=== PATIENT | male | born 1965 | race African-American/Black ===

== ENCOUNTER 2016-07-28 20:10 | Emergency (ER) | payer MEDICAID ==
[~2016-07-28] VITALS: Ht 175.3 cm; Wt 96.2 kg
[~2016-07-28 20:10] MED LIST: ALBUTEROL SULF8.5 GM INH; ASPIR 8181 MG ORAL; BENADRYL25 MG ORAL; CARISOPRODOL250 MG ORAL; DICLOFENAC SODI50 MG ORAL; GABAPENTIN300 MG ORAL; GLIPIZIDE5 MG ORAL; LISINOPRIL20 MG ORAL; METFORMIN HCL1000 M1 ORAL; METFORMIN HCL500 M1 ORAL; METOPROLOL TART25 MG ORAL; NORCO 10/3251 EA ORAL; NORCO 5-325 TA1 EACH ORAL; OXYCODONE HCL15 M1 ORAL; RANITIDINE HCL150 MG ORAL; SERTRALINE HCL25 MG ORAL; SIMVASTATIN40 MG ORAL
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
[2016-07-28] MEDS ORDERED: ROBAXIN-750750 MG PO (20:43)
[2016-07-28] MEDS ORDERED: Methocarbamol 750mg tab ORAL ONE (20:45)
[2016-07-28 21:18] VITALS: BP 125/60
[2016-07-28 21:53] VITALS: BP 125/60
--- NOTE | 2016-07-29 11:32 | Diagnostic Imaging Report ---
Indication: Back pain Comparison: None Findings: 3 views of the lumbar spine were obtained. Multilevel narrowing of intervertebral disks and associated endplate and Facet osteophytes are present. No malalignment identified. No acute fracture definitely seen. Aorta is mildly calcified. Impression: Mild spondylosis. No acute injury appreciated.
--- NOTE | 2016-07-29 11:49 | Diagnostic Imaging Report ---
Indication: Neck Pain Findings: 3 views of the cervical spine were obtained. Study is nondiagnostic due to overexposure. There is no obvious fracture but study is inadequate. There is a slight kyphosis at C2-3. Endplate spurs and narrowing of some of the intervertebral discs are noted. The open-mouth view is grossly negative but the dens is not visualized well. Impression: There is limited study. No obvious acute injury. Consider CT for further evaluation repeating the study.
== END 2016-07-28 21:54 | disposition home or self-care (01) ==
LOC: EMR 20:37
DX: S33.5XXA Sprain of ligaments of lumbar spine, initial encounter (principal); I10 Essential (primary) hypertension; E11.9 Type 2 diabetes mellitus without complications; Z88.6 Allergy status to analgesic agent; V43.52XA Car driver injured in collision with other type car in traffic accident, initial encounter; Y92.410 Unspecified street and highway as the place of occurrence of the external cause; Y99.8 Other external cause status
CPT/HCPCS: 72020; 72040; 99284

== ENCOUNTER 2018-02-01 06:48 | Emergency (ER) | payer MEDICAID ==
[~2018-02-01] VITALS: Ht 175.3 cm; Wt 104.3 kg
[~2018-02-01 06:48] MED LIST changes: +ROBAXIN-750750 MG PO
[2018-02-01] MEDS ORDERED: Lidocaine 2% Visc 15ml soln ORAL ONE (07:15)
[2018-02-01] MEDS ORDERED: Mylanta II UD 30ml ORAL ONE (07:15)
[2018-02-01] MEDS ORDERED: Aspirin Baby 81mg ORAL ONE (07:15)
--- NOTE | 2018-02-01 07:46 | Emergency Room Report ---
History of Present Illness General Chief Complaint: Chest Pain Source: Patient Present Illness HPI This patient states that he has had chest pain and epigastric pain for the past 2 days. The patient states he does have a history of pancreatitis. He does drink alcohol occasionally but does not drink alcohol daily. He does have a history of gastritis and GERD also. He denies recent illness. He denies fever or chills. He denies nausea or vomiting. He denies dysuria or hematuria. He has no other complaints. Allergies: Coded Allergies: HYDROMORPHONE (Verified Allergy, Mild, ITCHING, 07/21/11) CODEINE (Verified Allergy, Unknown, 03/27/11) METOCLOPRAMIDE (Verified Allergy, Unknown, 02/01/18) MORPHINE (Verified Allergy, Unknown, ITCH, 03/27/11) Patient History Past Medical History: see triage record, DM, HTN, GERD Social History: Reports: alcohol use - occ ETOH; Denies: smoking, drug use Reviewed Nursing Documentation: PMH: Agreed; PSxH: Agreed Nursing Documentation-PMH Hx Hypertension: Yes Hx Diabetes: Yes Review of Systems All Other Systems: negative except mentioned in HPI Physical Exam Vital Signs Date Time Temp Pulse Resp B/P (MAP) Pulse Ox O2 Delivery O2 Flow Rate FiO2 02/01/18 06:51 98.0 93 18 162/91 98 Room Air 98.1 Sp02 EP Interpretation: reviewed, normal General Appearance: no apparent distress, alert, GCS 15, non-toxic Head: normocephalic, atraumatic Eyes: bilateral eye normal inspection, bilateral eye PERRL ENT: hearing grossly normal, normal pharynx, no angioedema, normal voice Neck: full range of motion, supple/symm/no masses Respiratory: chest non-tender, lungs clear, normal breath sounds, no respiratory distress, no retraction, no accessory muscle use, speaking full sentences Cardiovascular #1: regular rate, rhythm, no edema Gastrointestinal: normal bowel sounds, soft, non-distended, no guarding, no rebound, tenderness - TTP in the epigastrium Rectal: deferred Musculoskeletal: back normal, gait/station normal, normal range of motion, non- tender Neurologic: alert, oriented x3, responsive, motor strength/tone normal, sensory intact, speech normal Psychiatric: judgement/insight normal, memory normal, mood/affect normal, no suicidal/homicidal ideation Skin: normal color, no rash, warm/dry, well hydrated Medical Decision Making Diagnostic Impression: Primary Impression: Chest pain Additional Impression: Gastritis ER Course This patient has nonspecific chest pain. Given the length of symptoms, this workup is very reassuring with negative cardiac enzymes, normal EKG, and normal chest x-ray. The patient is low risk and his symptoms are atypical for acute coronary syndrome. I have very low suspicion for PE, aortic dissection or pneumothorax based on history/physical, laboratory and radiologic workup. I suspect gastritis. The location of the pain and history and physical examination is consistent with this. I considered other concerning differentials, to include appendicitis, cholelithiasis, cholecystitis, pancreatitis, perforated viscus, aortic aneurysm, and pyelonephritis to name a few. However, laboratory workup in combination with medical and surgical history and physical exam makes these unlikely at this time. Right upper quadrant ultrasound showed no evidence of cholelithiasis or cholecystitis. I did educate the patient on close return precautions and followup instructions.The patient was given close return precautions and followup instructions. Laboratory Tests Test 02/01/18 07:36 02/01/18 07:51 Sodium Level 138 MMOL/L (136-145) Potassium Level 4.2 MMOL/L (3.5-5.1) Chloride Level 101 MMOL/L (98-107) Carbon Dioxide Level 29 MMOL/L (21-32) Anion Gap 8 mmol/L (5-15) Blood Urea Nitrogen 13 mg/dL (7-18) Creatinine 1.3 MG/DL (0.55-1.30) Estimate Glomerular Filtration Rate > 60 mL/min (>60) Glucose Level 241 MG/DL (74-106) H Calcium Level 9.4 MG/DL (8.5-10.1) Total Bilirubin 0.2 MG/DL (0.2-1.0) Aspartate Amino Transferase (AST) 16 U/L (15-37) Alanine Aminotransferase (ALT) 23 U/L (12-78) Alkaline Phosphatase 95 U/L (46-116) Total Creatine Kinase 230 U/L (26-308) Creatine Kinase MB 2.3 NG/ML (0.0-3.6) Creatine Kinase MB Relative Index 1.0 Troponin I 0.000 ng/mL (0.000-0.056) Total Protein 7.8 G/DL (6.4-8.2) Albumin 3.6 G/DL (3.4-5.0) Globulin 4.2 g/dL Albumin/Globulin Ratio 0.9 (1.0-2.7) L Lipase 85 U/L (73-393) White Blood Count 6.0 K/UL (4.8-10.8) Red Blood Count 5.37 M/UL (4.70-6.10) Hemoglobin 13.3 G/DL (14.2-18.0) L Hematocrit 41.3 % (42.0-52.0) L Mean Corpuscular Volume 77 FL (80-99) L Mean Corpuscular Hemoglobin 24.7 PG (27.0-31.0) L Mean Corpuscular Hemoglobin Concent 32.1 G/DL (32.0-36.0) Red Cell Distribution Width 12.7 % (11.6-14.8) Platelet Count 195 K/UL (150-450) Mean Platelet Volume 8.7 FL (6.5-10.1) Neutrophils (%) (Auto) 54.9 % (45.0-75.0) Lymphocytes (%) (Auto) 27.3 % (20.0-45.0) Monocytes (%) (Auto) 8.1 % (1.0-10.0) Eosinophils (%) (Auto) 7.7 % (0.0-3.0) H Basophils (%) (Auto) 2.0 % (0.0-2.0) EKG Diagnostic Results Rate: normal Rhythm: NSR ST Segments: no acute changes Rhythm Strip Diag. Results EP Interpretation: yes Rate: 80's Rhythm: NSR, no PVC's, no ectopy Chest X-Ray Diagnostic Results Chest X-Ray Diagnostic Results : Chest X-Ray Ordered: Yes # of Views/Limited/Complete: 1 View Indication: Chest Pain EP Interpretation: Yes Interpretation: no consolidation, no effusion, no pneumothorax, no acute cardiopulmonary disease Impression: No acute disease Electronically Signed by: [place] CT/MRI/US Diagnostic Results CT/MRI/US Diagnostic Results : Imaging Test Ordered: RUQ US Impression Minimal amount of GB sludge. See official report. Last Vital Signs Date Time Temp Pulse Resp B/P (MAP) Pulse Ox O2 Delivery O2 Flow Rate FiO2 02/01/18 06:51 98.0 93 18 162/91 98 Room Air 98.1 Disposition: HOME, SELF-CARE Condition: Improved Referrals: NON PHYSICIAN (PCP) Patient Instructions: Heartburn Lisa Lewis DO Feb 01, 2018 07:46
[2018-02-01 07:57] LABS: EOSINOPHILS % (AUTO) 7.7 % (0.0-3.0); HEMATOCRIT 41.3 % (42.0-52.0); HEMOGLOBIN 13.3 G/DL (14.2-18.0); LYMPHOCYTES % (AUTO) 27.3 % (20.0-45.0); MEAN CORPUSCULAR VOLUME 77 FL (80-99); MONOCYTES % (AUTO) 8.1 % (1.0-10.0); NEUTROPHILS % (AUTO) 54.9 % (45.0-75.0); PLATELET COUNT 195 K/UL (150-450); RED BLOOD COUNT 5.37 M/UL (4.70-6.10); RED CELL DISTRIBUTION WIDTH 12.7 % (11.6-14.8)
[2018-02-01 08:03] LABS: ANION GAP 8 mmol/L (5-15); BLOOD UREA NITROGEN 13 mg/dL (7-18); CALCIUM 9.4 MG/DL (8.5-10.1); CARBON DIOXIDE 29 MMOL/L (21-32); CHLORIDE 101 MMOL/L (98-107); CREATININE 1.3 MG/DL (0.55-1.30); POTASSIUM 4.2 MMOL/L (3.5-5.1); SODIUM 138 MMOL/L (136-145)
[2018-02-01 08:08] VITALS: BP 183/90
[2018-02-01 08:16] LABS: ALANINE AMINOTRANSFERASE 23 U/L (12-78); ALBUMIN 3.6 G/DL (3.4-5.0); ALBUMIN/GLOBULIN RATIO 0.9 (1.0-2.7); ALKALINE PHOSPHATASE 95 U/L (46-116); ASPARTATE AMINO TRANSFERASE 16 U/L (15-37); BILIRUBIN,TOTAL 0.2 MG/DL (0.2-1.0); CKMB 2.3 NG/ML (0.0-3.6); CREATINE KINASE 230 U/L (26-308)
[2018-02-01] MEDS ORDERED: Metoprolol Succinate XL 25mg tab ORAL ONE (08:30)
[2018-02-01] MEDS ORDERED: Ketorolac 30mg Inj IV ONE (08:45)
[2018-02-01 09:11] VITALS: BP 177/91
[2018-02-01 09:16] LABS: BILIRUBIN, URINE NEGATIVE (NEGATIVE); COLOR,URINE PALE YELLOW; GLUCOSE, URINE (UA) 3+ (NEGATIVE); KETONES,URINE NEGATIVE (NEGATIVE); LEUKOCYTE ESTERASE ,URINE NEGATIVE (NEGATIVE); NITRITE,URINE NEGATIVE (NEGATIVE); PH,URINE 6 (4.5-8.0); PROTEIN,URINE 3+ (NEGATIVE); UROBILINOGEN,URINE NORMAL MG/DL (0.0-1.0)
[2018-02-01 09:19] LABS: APPEARANCE,URINE SLIGHTLY CLOUDY
[2018-02-01 09:41] VITALS: BP 152/86
[2018-02-01] MEDS ORDERED: PEPCID AC20 M2 PO (10:18)
[2018-02-01 10:32] VITALS: BP 152/86
--- NOTE | 2018-02-01 10:34 | Diagnostic Imaging Report ---
Indication: Epigastric pain, nausea x2 days, history of pancreatitis Technique: Laboy-scale and duplex images of the upper abdomen were obtained Comparison: Reference made to abdomen pelvis CT dated 10/22/2014 Findings: Gallbladder demonstrates a small amount of sludge. No gallstones. No wall thickening nor pericholecystic fluid Sonographic Manriquez's sign is negative. Common bile duct measures 6 mm in diameter. No intrahepatic biliary ductal dilatation. Liver demonstrates diffusely increased echogenicity, consistent with diffuse hepatocellular disease, most likely fatty change. It is somewhat enlarged. Portal vein and hepatic veins are patent.. No focal hepatic abnormality Pancreas is unremarkable. Spleen is unremarkable. Left kidney measures 12.1 cm in length. Right kidney measures 11.8 cm length. Both kidneys demonstrate normal echogenicity. There is no hydronephrosis. There is a 10 mm cyst in the the upper pole of the left kidney . Abdominal aorta is partially obscured by bowel gas, visualized portions are non-aneurysmal . Impression: , Or sludge. Negative for stones or dilated ducts Liver demonstrates slight enlargement and diffusely increased echogenicity, consistent with diffuse hepatocellular disease, most likely fatty change. Incidental finding small left renal cyst Note inability to visualize portions of the abdominal aorta
--- NOTE | 2018-02-01 12:16 | Diagnostic Imaging Report ---
Indication: Chest pain Technique: One view of the chest Comparison: 01/09/2015 Findings: The heart is borderline enlarged. Lungs and pleural spaces are clear. The thoracic spine demonstrate degenerative spondylosis changes. Impression: Borderline cardiomegaly No acute process
--- NOTE | 2018-02-03 14:25 | Cardiology Report ---
APPROVED REPORT EKG Measurement Heart [id number] Normal sinus rhythm Normal ECG
== END 2018-02-01 10:37 | disposition home or self-care (01) ==
LOC: EMR 07:27
DX: R07.9 Chest pain, unspecified (principal); K29.70 Gastritis, unspecified, without bleeding; E11.9 Type 2 diabetes mellitus without complications; I10 Essential (primary) hypertension
CPT/HCPCS: 36415; 71045; 76700; 80053; 80307; 81003; 82550; 82553; 83690; 84484; 85025; 93005; 96361; 96374; 96375; 99284; J1885; S0028

== ENCOUNTER 2019-01-08 04:55 | Inpatient (IN) | payer MEDICAID ==
[2019-01-08] VITALS (8 sets, daily range): BP systolic 104–215; BP diastolic 70–115
[~2019-01-08] VITALS: Ht 175.3 cm; Wt 101.2 kg
[~2019-01-08 04:55] MED LIST changes: +PEPCID AC20 M2 PO
[2019-01-08] MEDS ORDERED: HYDROmorphone 1 MG, DiphenhydrAMINE 25 MG in NS 55 ML IV ONE (05:15)
--- NOTE | 2019-01-08 05:25 | Emergency Room Report ---
History of Present Illness General Chief Complaint: Abdominal Pain Source: Patient Present Illness HPI Patient 53-year-old male who presented after increased abdominal pain. Reports of increased left-sided upper abdominal pain which did not radiate. He reports having similar symptoms in the past. He reports episodes of nausea without vomiting. He had prior history of diabetes as well as chronic pancreatitis. Prior history of scrotal abscess. He denies any exertional change in pain. He reports having prior history of hypertension as well as type 2 diabetes and reports he has had [id number] blood sugars. He denies any fever. He reports having onset of pain approximately 3 days ago. He denies any recent alcohol intake. He states last alcohol intake was on Father's Day. He denies any prior gallbladder surgery. Allergies: Coded Allergies: HYDROMORPHONE (Verified Allergy, Mild, ITCHING, 07/21/11) CODEINE (Verified Allergy, Unknown, 03/27/11) METOCLOPRAMIDE (Verified Allergy, Unknown, 02/01/18) MORPHINE (Verified Allergy, Unknown, ITCH, 03/27/11) Patient History Past Medical History: see triage record Reviewed Nursing Documentation: PMH: Agreed; PSxH: Agreed Nursing Documentation-PMH Hx Hypertension: Yes Hx Diabetes: Yes Hx Gastrointestinal Problems: Yes - Pancreatitis Review of Systems All Other Systems: negative except mentioned in HPI Physical Exam Vital Signs Date Time Temp Pulse Resp B/P (MAP) Pulse Ox O2 Delivery O2 Flow Rate FiO2 01/08/19 05:05 98.4 96 18 193/100 (131) 96 Room Air Sp02 EP Interpretation: reviewed, normal General Appearance: normal inspection, alert, GCS 15, Chronically Ill Head: atraumatic ENT: normal ENT inspection, hearing grossly normal, normal voice Neck: normal inspection, full range of motion, supple, no bony tend Respiratory: normal inspection, lungs clear, normal breath sounds, no respiratory distress, no retraction, no wheezing Cardiovascular #1: regular rate, rhythm, no edema Gastrointestinal: normal inspection, normal bowel sounds, non tender, soft, no guarding, no hernia Genitourinary: no CVA tenderness Musculoskeletal: normal inspection, back normal, normal range of motion Neurologic: normal inspection, alert, oriented x3, responsive, workforce development program director III-XII nml as tested, speech normal Psychiatric: normal inspection, judgement/insight normal, mood/affect normal Medical Decision Making Diagnostic Impression: Primary Impression: Pancreatitis Additional Impression: Chest pain with high risk of acute coronary syndrome ER Course Patient presented for abdominal pain. Differential diagnoses included ischemic bowel, appendicitis, perforated viscus, abdominal aortic aneurysm, inferior myocardial infarction, viral gastroenteritis among others. Because of complexity of patient's case laboratory testing and imaging studies were ordered. Patient noted to have prior history of chronic abdominal pain. CT imaging of the abdomen pelvis was ordered due to patient's significant symptoms. Patient noted to have markedly elevated blood pressure. He was given IV pain medications. He started on IV fluids.Patient will be hospitalized due to uncontrolled blood sugar as well as pancreatitis. Patient was given IV pain medications as well as acid blockers. Labs Test 01/08/19 05:40 White Blood Count 6.0 K/UL (4.8-10.8) Red Blood Count 5.25 M/UL (4.70-6.10) Hemoglobin 13.5 G/DL (14.2-18.0) Hematocrit 41.7 % (42.0-52.0) Mean Corpuscular Volume 79 FL (80-99) Mean Corpuscular Hemoglobin 25.7 PG (27.0-31.0) Mean Corpuscular Hemoglobin Concent 32.3 G/DL (32.0-36.0) Red Cell Distribution Width 13.2 % (11.6-14.8) Platelet Count 210 K/UL (150-450) Mean Platelet Volume 8.4 FL (6.5-10.1) Neutrophils (%) (Auto) 54.2 % (45.0-75.0) Lymphocytes (%) (Auto) 32.5 % (20.0-45.0) Monocytes (%) (Auto) 8.3 % (1.0-10.0) Eosinophils (%) (Auto) 3.5 % (0.0-3.0) Basophils (%) (Auto) 1.5 % (0.0-2.0) Urine Color Pale yellow Urine Appearance Clear Urine pH 6.5 (4.5-8.0) Urine Specific [place] 1.010 (1.005-1.035) Urine Protein 3+ (NEGATIVE) Urine Glucose (UA) 4+ (NEGATIVE) Urine Ketones Negative (NEGATIVE) Urine Blood 3+ (NEGATIVE) Urine Nitrite Negative (NEGATIVE) Urine Bilirubin Negative (NEGATIVE) Urine Urobilinogen Normal MG/DL (0.0-1.0) Urine Leukocyte Esterase Negative (NEGATIVE) Urine RBC 2-4 /HPF (0 - 0) Urine WBC 0 /HPF (0 - 0) Urine Squamous Epithelial Cells None /LPF (NONE/OCC) Urine Bacteria None /HPF (NONE) Sodium Level 137 MMOL/L (136-145) Potassium Level 4.7 MMOL/L (3.5-5.1) Chloride Level 102 MMOL/L (98-107) Carbon Dioxide Level 30 MMOL/L (21-32) Anion Gap 6 mmol/L (5-15) Blood Urea Nitrogen 20 mg/dL (7-18) Creatinine 1.5 MG/DL (0.55-1.30) Estimat Glomerular Filtration Rate 59.8 mL/min (>60) Glucose Level 396 MG/DL (74-106) Calcium Level 8.9 MG/DL (8.5-10.1) Total Bilirubin 0.2 MG/DL (0.2-1.0) Aspartate Amino Transf (AST/SGOT) 15 U/L (15-37) Alanine Aminotransferase (ALT/SGPT) 16 U/L (12-78) Alkaline Phosphatase 97 U/L (46-116) Troponin I 0.011 ng/mL (0.000-0.056) Pro-B-Type Natriuretic Peptide 71 pg/mL (0-125) Total Protein 7.1 G/DL (6.4-8.2) Albumin 3.5 G/DL (3.4-5.0) Globulin 3.6 g/dL Albumin/Globulin Ratio 1.0 (1.0-2.7) Lipase 469 U/L (73-393) Serum Alcohol < 3 mg/dL Last Vital Signs Date Time Temp Pulse Resp B/P (MAP) Pulse Ox O2 Delivery O2 Flow Rate FiO2 01/08/19 05:05 98.4 96 18 193/100 (131) 96 Room Air Status: improved Disposition: ADMITTED INPATIENT Condition: Stable Referrals: [facility] (PCP) Jesse Will MD Jan 08, 2019 05:25
[2019-01-08] MEDS ORDERED: BUMEX1 MG ORAL (05:34)
[2019-01-08] MEDS ORDERED: PRAVACHOL40 MG ORAL (05:34)
[2019-01-08] MEDS ORDERED: OMEPRAZOLE20 M3 ORAL (05:34)
[2019-01-08] MEDS ORDERED: DICYCLOMINE HCL10 MG ORAL (05:34)
[2019-01-08] MEDS ORDERED: ACTOS45 MG ORAL (05:34)
[2019-01-08] MEDS ORDERED: AMLODIPINE BESY10 MG ORAL (05:34)
[2019-01-08] MEDS ORDERED: LANTUS SOL100 UNIT/1 SUBQ (05:34)
[2019-01-08] MEDS ORDERED: BASAGLAR (05:34)
[2019-01-08] MEDS ORDERED: URSODIOL500 MG PO (05:34)
[2019-01-08] MEDS ORDERED: METOPROLOL TART25 MG ORAL (05:34)
[2019-01-08] MEDS ORDERED: APIDRA SOL100 UNIT/1 SQ (05:34)
[2019-01-08 05:49] LABS: APPEARANCE,URINE CLEAR; BASOPHILS % (AUTO) 1.5 % (0.0-2.0); BILIRUBIN, URINE NEGATIVE (NEGATIVE); COLOR,URINE PALE YELLOW; EOSINOPHILS % (AUTO) 3.5 % (0.0-3.0); GLUCOSE, URINE (UA) 4+ (NEGATIVE); HEMATOCRIT 41.7 % (42.0-52.0); HEMOGLOBIN 13.5 G/DL (14.2-18.0); KETONES,URINE NEGATIVE (NEGATIVE); LEUKOCYTE ESTERASE ,URINE NEGATIVE (NEGATIVE); LYMPHOCYTES % (AUTO) 32.5 % (20.0-45.0); MEAN CORPUSCULAR VOLUME 79 FL (80-99); MONOCYTES % (AUTO) 8.3 % (1.0-10.0); NEUTROPHILS % (AUTO) 54.2 % (45.0-75.0); NITRITE,URINE NEGATIVE (NEGATIVE); PH,URINE 6.5 (4.5-8.0); PLATELET COUNT 210 K/UL (150-450); PROTEIN,URINE 3+ (NEGATIVE); RED BLOOD COUNT 5.25 M/UL (4.70-6.10); RED CELL DISTRIBUTION WIDTH 13.2 % (11.6-14.8); UROBILINOGEN,URINE NORMAL MG/DL (0.0-1.0)
[2019-01-08 06:04] LABS: ANION GAP 6 mmol/L (5-15); BLOOD UREA NITROGEN 20 mg/dL (7-18); CALCIUM 8.9 MG/DL (8.5-10.1); CARBON DIOXIDE 30 MMOL/L (21-32); CHLORIDE 102 MMOL/L (98-107); CREATININE 1.5 MG/DL (0.55-1.30); POTASSIUM 4.7 MMOL/L (3.5-5.1); SODIUM 137 MMOL/L (136-145)
[2019-01-08 06:14] LABS: ALANINE AMINOTRANSFERASE 16 U/L (12-78); ALBUMIN 3.5 G/DL (3.4-5.0); ALKALINE PHOSPHATASE 97 U/L (46-116); ASPARTATE AMINO TRANSFERASE 15 U/L (15-37); BILIRUBIN,TOTAL 0.2 MG/DL (0.2-1.0)
[2019-01-08] MEDS ORDERED: Isovue-300 100ml vial INJ PRN (06:15)
--- NOTE | 2019-01-08 06:45 | NUR ---
ED Nurse Note: Patient walked in to ER c/o severe left upper abdominal pain 10/10. AAO x4, BP uppon arrival 197/100, other VSS at this time, skin is dry warm to touch. ER MD at bed side.
--- NOTE | 2019-01-08 07:41 | NUR ---
HAND-OFF: Report given to DONELL Garrett.
--- NOTE | 2019-01-08 07:41 | NUR ---
ED Nurse Note: Pt received from DONELL Donahue. Pt is in bed resting comfortably, lung sounds clear, respiration non-labored. Pain 3/10 zachary. No sign of acute distress. BP 149/81 zachary. Will cont to monitor.
--- NOTE | 2019-01-08 09:18 | NUR ---
ED Nurse Note: Report given to DONELL Tillman at ext [phone]. Pt to be transfered to room 212-2 on [facility] per protocol.
--- NOTE | 2019-01-08 09:20 | NUR ---
NURSE NOTES: Layne received report from DONELL Garrett@ ER. Received report from DONELL Tillman. The patient's next of kin, Evelina, is also at the beside supporting the patient. . The patient received pain medication @ ER but still has 10/10 pain on abdomen. Notified to Dr. Loomis, who is admitting doctor. The patient's belongings checked with the patient at the bedside and confirmed by the patient. Medical, surgical, allergy, and social history taken by the nurse. Admitting EKG strip obtained. Medication reconciliation completed. The patient has right AC 20G SL IV, which is intact and patent. Per patient, he does not have POLST or Advance directive. The patient's vital signs were 163/94 BP, 81 pulse, SpO2 96% in room air, and temperature of 97.7F. Received order from Dr. Loomis and will carry out the order. Addendum: 01/08/19 at 1535 by Chapo Nuñez RN Skin assessment completed and intact.
[2019-01-08 09:40] LABS: CHOLESTEROL 240 MG/DL (< 200); HDL CHOLESTEROL 36 MG/DL (40-60); TRIGLYCERIDES 222 MG/DL (30-150)
--- NOTE | 2019-01-08 09:44 | Diagnostic Imaging Report ---
Clinical Indication: Abdominal pain, increasing left-sided upper abdominal pain which does not radiate. Prior history of pancreatitis Technique: No oral contrast utilized, per emergency room physician request IV administration nonionic contrast. Venous phase spiral acquisition obtained through the abdomen and pelvis. Multiplanar reconstructions were generated. Total dose length product 998.01 mGycm. CTDIvol(s) 17.93 mGy. Dose reduction achieved using automated exposure control Comparison: 10/22/2014 Findings: There is very slight infiltration of the peripancreatic fat surrounding the head and the uncinate process. This is similar to the previous exam although less extensive. The pancreas is not swollen or enlarged. The pancreatic body and tail appear unremarkable. No unusual masses or cyst demonstrated. The pancreas enhances normally. The gallbladder is distended. No definite gallstones demonstrated. No biliary ductal dilatation. No focal liver abnormality. The spleen is unremarkable. There are multiple accessory splenules. The adrenals and kidneys are unremarkable. Left renal cyst described on 02/01/2018 abdominal sonogram is not evident on CT. No retroperitoneal or mesenteric mass or adenopathy. No pelvic mass or adenopathy. The bladder is distended The appendix is normal. Liquid contents are seen in the proximal colon. No evidence of diverticulosis or diverticulitis. No small bowel distention. No free or loculated intraperitoneal gas or fluid is evident. The distal esophagus, stomach, duodenum are unremarkable. Small fat-containing umbilical hernia again demonstrated. The bones demonstrate degenerative spondylosis changes. Mild degenerative proliferative changes of the hips are again noted. The included lung bases are clear Impression: Very slight stranding of the peripancreatic fat adjacent to the inferior pancreatic head and uncinate consistent with focal uncomplicated acute pancreatitis. Correlate with clinical and laboratory findings Negative for gallstones or dilated bile ducts Distended bladder Evidence of liquid colonic stool, may indicate diarrheal illness Incidental findings as noted, including degenerative spondylosis, mild right lateral hip degenerative changes, small fat-containing umbilical hernia, accessory splenules This essentially agrees with the preliminary interpretation provided overnight by [facility] teleradiology service. The CT scanner at [facility] is accredited by the [employer] and the scans are performed using protocols designed to limit radiation exposure to as low as reasonably achievable to attain images of sufficient resolution adequate for diagnostic evaluation.
--- NOTE | 2019-01-08 10:08 | History and Physical ---
History of Present Illness General Date patient seen: Jan 08, 2019 Reason for Hospitalization: Abdominal Pain Present Illness HPI 53 year old male with PMH of diet controlled DM, presented with complaints of abdominal pain. States pain started 2 days ago and worsened today therefore came in for evaluation. States pain is 8/10 in intensity, radiates to back, worse with food, + nausea, -vomiting. States he has had pancreatitis prior and this feels like previous episodes. Denies ETOH consumption. Pt denies substance abuse, vomiting, chest pain, headaches, blurry vision, urinary complaints, fevers, chills, or SOB Allergies: Coded Allergies: CODEINE (Verified Allergy, Unknown, 03/27/11) METOCLOPRAMIDE (Verified Allergy, Unknown, 02/01/18) MORPHINE (Verified Allergy, Unknown, ITCH, 03/27/11) Medication History Scheduled Albuterol Sulfate* (Albuterol Sulfate Mdi*), 2 PUFF INH Q4H Amlodipine Besylate* (Amlodipine Besylate*), 10 MG ORAL BID, (Reported) Aspirin* (Aspir 81*), 81 MG ORAL DAILY, (Reported) Bumetanide (Bumetanide), 1 MG ORAL DAILY, (Reported) Carisoprodol (Carisoprodol), 350 MG ORAL BID, (Reported) Diclofenac Sod* (Voltaren*), 50 MG ORAL BID, (Reported) Dicyclomine Hcl* (Dicyclomine Hcl*), 10 MG ORAL DAILY, (Reported) Famotidine (Pepcid Ac), 20 MG PO BID Gabapentin* (Gabapentin*), 300 MG ORAL BEDTIME, (Reported) Glipizide* (Glipizide*), 10 MG ORAL BIDAC, (Reported) Insulin Glargine (Lantus), 60 SUBQ BEDTIME, (Reported) Lisinopril (Lisinopril*), 20 MG ORAL DAILY, (Reported) Metformin Hcl* (Metformin Hcl*), 500 MG ORAL DAILY, (Reported) Metformin Hcl* (Metformin Hcl*), 1,000 MG ORAL BID, (Reported) Methocarbamol* (Robaxin-750*), 750 MG PO TID Metoprolol Tartrate* (Metoprolol Tartrate*), 25 MG ORAL BID, (Reported) Metoprolol Tartrate* (Metoprolol Tartrate*), 25 MG ORAL EVERY 12 HOURS, ( Reported) Omeprazole (Omeprazole), 20 MG ORAL DAILY, (Reported) Pioglitazone Hcl* (Actos*), 45 MG ORAL DAILY, (Reported) Pravastatin Sodium (Pravachol), 80 MG ORAL BEDTIME, (Reported) Ranitidine Hcl* (Zantac*), 150 MG ORAL TWICE A DAY Sertraline Hcl* (Sertraline Hcl*), 25 MG ORAL DAILY, (Reported) Simvastatin (Zocor), 40 MG ORAL DAILY, (Reported) Ursodiol (Ursodiol), 500 MG PO DAILY, (Reported) Scheduled PRN Diphenhydramine Hcl* (Benadryl*), 25 MG ORAL Q6H PRN for Itching Hydrocodone Bit/Acetaminophen 5-325* ([place] 5-325*), 1 TAB ORAL Q6H PRN for For Pain Hydrocodone Bit/Acetaminophen 5-325* ([place] 5-325*), 1 TAB ORAL Q6H PRN for For Pain Hydrocodone/Acetaminophen (Hydrocodon-Acetaminophn 10-325), 1 TAB ORAL Q6H PRN for For Pain Oxycodone Hcl* (Oxycodone Hcl*), 30 MG ORAL Q6H PRN for For Pain, (Reported) Miscellaneous Medications Insulin Glulisine (Apidra Solostar), 100 UNIT SQ, (Reported) Patient History Healthcare decision maker Resuscitation status Advanced Directive on File Review of Systems ROS Narrative General ROS:~no weight loss or fever Psychological ROS:~no depression or mood changes, no memory loss Ophthalmic ROS:~no visual changes or eye irritation ENT ROS:~no nasal congestion, hearing loss, dizziness Allergy and Immunology ROS:~no allergic symptoms or urticaria Hematological and Lymphatic ROS:~no swollen glands, unusual bleeding or bruising Endocrine ROS:~no polyuria, polydipsia, weight changes, temperature intolerance Respiratory ROS:~no cough, shortness of breath, or wheezing Cardiovascular ROS:~no chest pain or dyspnea on exertion Gastrointestinal ROS:~c/o abdominal pain, denies change in bowel habits, or black or bloody stools~c/o constipation~ Musculoskeletal ROS:~no myalgias or arthralgias Neurological ROS:~no TIA or stroke symptoms Dermatological ROS:~no new or changing skin lesions, rashes or pruritis Physical Exam Extremities: no calf tenderness Last 24 Hour Vital Signs Date Time Temp Pulse Resp B/P (MAP) Pulse Ox O2 Delivery O2 Flow Rate FiO2 01/08/19 09:18 98.5 79 17 150/86 99 Room Air 01/08/19 09:02 98.5 79 17 150/86 99 Room Air 01/08/19 07:44 98.5 97 20 149/81 99 Room Air 01/08/19 07:27 98.5 18 215/115 96 Room Air 01/08/19 07:27 98 18 Room Air 01/08/19 06:25 98 215/115 01/08/19 06:20 98.5 01/08/19 06:02 197/100 01/08/19 05:05 98.4 96 18 193/100 (131) 96 Room Air Laboratory Tests Test 01/08/19 05:40 White Blood Count 6.0 K/UL (4.8-10.8) Red Blood Count 5.25 M/UL (4.70-6.10) Hemoglobin 13.5 G/DL (14.2-18.0) L Hematocrit 41.7 % (42.0-52.0) L Mean Corpuscular Volume 79 FL (80-99) L Mean Corpuscular Hemoglobin 25.7 PG (27.0-31.0) L Mean Corpuscular Hemoglobin Concent 32.3 G/DL (32.0-36.0) Red Cell Distribution Width 13.2 % (11.6-14.8) Platelet Count 210 K/UL (150-450) Mean Platelet Volume 8.4 FL (6.5-10.1) Neutrophils (%) (Auto) 54.2 % (45.0-75.0) Lymphocytes (%) (Auto) 32.5 % (20.0-45.0) Monocytes (%) (Auto) 8.3 % (1.0-10.0) Eosinophils (%) (Auto) 3.5 % (0.0-3.0) H Basophils (%) (Auto) 1.5 % (0.0-2.0) Urine Color Pale yellow Urine Appearance Clear Urine pH 6.5 (4.5-8.0) Urine Specific [place] 1.010 (1.005-1.035) Urine Protein 3+ (NEGATIVE) H Urine Glucose (UA) 4+ (NEGATIVE) H Urine Ketones Negative (NEGATIVE) Urine Blood 3+ (NEGATIVE) H Urine Nitrite Negative (NEGATIVE) Urine Bilirubin Negative (NEGATIVE) Urine Urobilinogen Normal MG/DL (0.0-1.0) Urine Leukocyte Esterase Negative (NEGATIVE) Urine RBC 2-4 /HPF (0 - 0) H Urine WBC 0 /HPF (0 - 0) Urine Squamous Epithelial Cells None /LPF (NONE/OCC) Urine Bacteria None /HPF (NONE) Sodium Level 137 MMOL/L (136-145) Potassium Level 4.7 MMOL/L (3.5-5.1) Chloride Level 102 MMOL/L (98-107) Carbon Dioxide Level 30 MMOL/L (21-32) Anion Gap 6 mmol/L (5-15) Blood Urea Nitrogen 20 mg/dL (7-18) H Creatinine 1.5 MG/DL (0.55-1.30) H Estimat Glomerular Filtration Rate 59.8 mL/min (>60) Glucose Level 396 MG/DL (74-106) H Calcium Level 8.9 MG/DL (8.5-10.1) Total Bilirubin 0.2 MG/DL (0.2-1.0) Aspartate Amino Transf (AST/SGOT) 15 U/L (15-37) Alanine Aminotransferase (ALT/SGPT) 16 U/L (12-78) Alkaline Phosphatase 97 U/L (46-116) Troponin I 0.011 ng/mL (0.000-0.056) Pro-B-Type Natriuretic Peptide 71 pg/mL (0-125) Total Protein 7.1 G/DL (6.4-8.2) Albumin 3.5 G/DL (3.4-5.0) Globulin 3.6 g/dL Albumin/Globulin Ratio 1.0 (1.0-2.7) Triglycerides Level 222 MG/DL (30-150) H Cholesterol Level 240 MG/DL (< 200) H LDL Cholesterol 152 mg/dL (<100) H HDL Cholesterol 36 MG/DL (40-60) L Cholesterol/HDL Ratio 6.7 (3.3-4.4) H Lipase 469 U/L (73-393) H Serum Alcohol < 3 mg/dL Height (Feet): 5 Height (Inches): 9.00 Weight (Pounds): 220 Medications Current Medications Medications (Trade) Dose Ordered Sig/Naye Route PRN Reason Start Time Stop Time Status Last Admin Dose Admin Iopamidol (Isovue-300 100ml) 100 ml NOW PRN INJ Radiology Procedure 01/08/19 06:15 Objective Narrative General appearance:~~alert, cooperative, no distress, appears stated age Head:~~Normocephalic, without obvious abnormality, atraumatic Eyes:~~conjunctivae/corneas clear. PERRL, EOM's intact. Fundi benign Throat:~~Lips, mucosa, and tongue normal. Teeth and gums normal Neck:~~supple, symmetrical, trachea midline, no adenopathy, thyroid: not enlarged, symmetric, no tenderness/mass/nodules, no carotid bruit and no JVD Lungs:~~clear to auscultation bilaterally Heart:~~regular rate and rhythm, S1, S2 normal, no murmur, click, rub or gallop Abdomen:diffuse tenderness Extremities:~~extremities normal, atraumatic, no cyanosis or edema Pulses:~~2+ and symmetric Skin:~~Skin color, texture, turgor normal. No rashes or lesions Neurologic:~~Grossly normal Assessment/Plan Assessment/Plan: 53 year old male with PMH of diet controlled DM, presented with complaints of abdominal pain admitted for acute pancreatitis. #Acute Pancreatitis -GI consulted -Surgery consult in am -Trend lipase -Pain control -Clear liq - adv as tolerated -avoid fatty foods #DM --diet controlled -cont carb controlled diet once advanced Code: Manager Education of note may not reflect time of encounter Sera Loomis MD Jan 08, 2019 10:08
[2019-01-08] MEDS ORDERED: HYDROmorphone 1mg/ml Carpuject IVP PRN (10:15)
[2019-01-08] MEDS ORDERED: LORazepam Inj 2mg/ml 1ml IV PRN (10:15)
[2019-01-08] MEDS ORDERED: Milk of Magnesia 30ml Ud ORAL PRN (10:15)
--- NOTE | 2019-01-08 10:40 | GI Initial Consult Note ---
History of Present Illness General Date patient seen: Jan 08, 2019 Time patient seen: 10:33 Reason for Hospitalization: Abdominal Pain Referring physician: JOHN Reason for Consultation: PANCREATITIS Present Illness HPI Patient 53-year-old male who presented after increased abdominal pain. Reports of increased left-sided upper abdominal pain which did not radiate. He reports having similar symptoms in the past. He reports episodes of nausea without vomiting. He had prior history of diabetes as well as chronic pancreatitis. Prior history of scrotal abscess. He denies any exertional change in pain. He reports having prior history of hypertension as well as type 2 diabetes and reports he has had [id number] blood sugars. He denies any fever. He reports having onset of pain approximately 3 days ago. He denies any recent alcohol intake. He states last alcohol intake was on Father's Day. He denies any prior gallbladder surgery. GI consulted for pancreatitis. Patient seen, awake alert and oriented x4 has complaint of epigastric and left upper quadrant abdominal pain x3 days. The patient reports nausea without vomiting. Denies any use of alcohol, drug use. The patient is a tobacco user. Patient states he has a history of chronic pancreatitis and has been hospitalized multiple times for similar conditions. Abdominal pelvic CT was performed, findings consistent for focal uncomplicated acute pancreatitis. Patient presents today with a lipase level of 419, triglyceride level 222. Last endoscopy and colonoscopy was approximately 3 years ago which the patient reported colonic polyps. Home Meds Active Scripts Famotidine (PEPCID AC) 20 Mg Tablet, 20 MG PO BID, #60 TAB Prov:Lisa LewisJudith DO 02/01/18 Methocarbamol* (ROBAXIN-750*) 750 Mg Tablet, 750 MG PO TID, #21 TAB 0 Refills Prov:Ilya Bacon DO 07/28/16 Albuterol Sulfate* (ALBUTEROL SULFATE MDI*) 8.5 Gm Hfa.aer.ad, 2 PUFF INH Q4H, # 1 INH 0 Refills Prov:AustenartemioLisa BuckleyJudith DO 01/09/15 Hydrocodone Bit/Acetaminophen 5-325* (NORCO 5-325*) 1 Each Tablet, 1 TAB ORAL Q6H PRN for For Pain, #10 TAB 0 Refills Prov:DemetriobooLisaJudith DO 01/09/15 Hydrocodone/Acetaminophen (Hydrocodon-Acetaminophn 10-325) 1 Ea Tab, 1 TAB ORAL Q6H PRN for For Pain, #30 TAB Prov:PREET SOTO M.D. 03/29/14 Diphenhydramine Hcl* (BENADRYL*) 25 Mg Capsule, 25 MG ORAL Q6H PRN for Itching, #30 CAP 0 Refills Prov:Lavinia Gomez 02/17/14 Ranitidine Hcl* (ZANTAC*) 150 Mg Tablet, 150 MG ORAL TWICE A DAY, #30 TAB 0 Refills Prov:Lavinia Gomez 02/17/14 Hydrocodone Bit/Acetaminophen 5-325* (NORCO 5-325*) 1 Each Tablet, 1 TAB ORAL Q6H PRN for For Pain, #10 TAB 0 Refills Prov:Lavinia Gomez 02/17/14 Reported Medications Insulin Glulisine (APIDRA SOLOSTAR) 100 Unit/1 Ml Insuln.pen, 100 UNIT SQ, EA 01/08/19 Bumetanide (Bumetanide) 1 Mg Tablet, 1 MG ORAL DAILY, TAB 01/08/19 Insulin Glargine (LANTUS) 100 Unit/1 Ml Insuln.pen, 60 SUBQ BEDTIME, #1 EA 0 Refills 01/08/19 Ursodiol (URSODIOL) 500 Mg Tablet, 500 MG PO DAILY, TAB 01/08/19 Pravastatin Sodium (PRAVACHOL) 40 Mg Tablet, 80 MG ORAL BEDTIME, TAB 01/08/19 Metoprolol Tartrate* (METOPROLOL TARTRATE*) 25 Mg Tablet, 25 MG ORAL EVERY 12 HOURS, TAB 01/08/19 Pioglitazone Hcl* (ACTOS*) 45 Mg Tablet, 45 MG ORAL DAILY, TAB 01/08/19 Dicyclomine Hcl* (DICYCLOMINE HCL*) 10 Mg Capsule, 10 MG ORAL DAILY, #10 CAP 01/08/19 Amlodipine Besylate* (AMLODIPINE BESYLATE*) 10 Mg Tablet, 10 MG ORAL BID, TAB 01/08/19 Omeprazole (OMEPRAZOLE) 20 Mg Tablet.dr, 20 MG ORAL DAILY, TAB 01/08/19 Carisoprodol (CARISOPRODOL) 250 Mg Tablet, 350 MG ORAL BID, TAB 09/13/13 Sertraline Hcl* (SERTRALINE HCL*) 25 Mg Tablet, 25 MG ORAL DAILY, TAB 09/13/13 Gabapentin* (GABAPENTIN*) 300 Mg Capsule, 300 MG ORAL BEDTIME, CAP 09/13/13 Metoprolol Tartrate* (METOPROLOL TARTRATE*) 25 Mg Tablet, 25 MG ORAL BID, TAB 09/13/13 Metformin Hcl* (METFORMIN HCL*) 1,000 Mg Tablet, 1000 MG ORAL BID, TAB 09/13/13 Simvastatin (ZOCOR) 40 Mg Tablet, 40 MG ORAL DAILY, TAB 09/13/13 Lisinopril (LISINOPRIL*) 20 Mg Tablet, 20 MG ORAL DAILY, TAB 09/13/13 Diclofenac Sod* (VOLTAREN*) 50 Mg Tablet.dr, 50 MG ORAL BID, TAB 09/13/13 Glipizide* (GLIPIZIDE*) 5 Mg Tablet, 10 MG ORAL BIDAC, TAB 09/13/13 Metformin Hcl* (METFORMIN HCL*) 500 Mg Tablet, 500 MG ORAL DAILY, TAB 09/13/13 Oxycodone Hcl* (OXYCODONE HCL*) 15 Mg Tablet, 30 MG ORAL Q6H PRN for For Pain, TAB 09/13/13 Aspirin* (ASPIR 81*) 81 Mg Tablet.dr, 81 MG ORAL DAILY, TAB 09/13/13 Med list reviewed/reconciled: Yes Allergies: Coded Allergies: HYDROMORPHONE (Verified Allergy, Mild, ITCHING, 07/21/11) CODEINE (Verified Allergy, Unknown, 03/27/11) METOCLOPRAMIDE (Verified Allergy, Unknown, 02/01/18) MORPHINE (Verified Allergy, Unknown, ITCH, 03/27/11) Patient History History Provided By: Patient, Medical Record PMH Narrative Past Medical History: see triage record Reviewed Nursing Documentation: PMH: Agreed; PSxH: Agreed Nursing Documentation-PMH Hx Hypertension: Yes Hx Diabetes: Yes Hx Gastrointestinal Problems: Yes - Pancreatitis Social History: Reports: smoking Review of Systems All Other Systems: negative except mentioned in HPI Physical Exam Vital Signs Date Time Temp Pulse Resp B/P (MAP) Pulse Ox O2 Delivery O2 Flow Rate FiO2 01/08/19 05:05 98.4 96 18 193/100 (131) 96 Room Air Sp02 EP Interpretation: reviewed, normal Labs Laboratory Tests Test 01/08/19 05:40 White Blood Count 6.0 K/UL (4.8-10.8) Red Blood Count 5.25 M/UL (4.70-6.10) Hemoglobin 13.5 G/DL (14.2-18.0) L Hematocrit 41.7 % (42.0-52.0) L Mean Corpuscular Volume 79 FL (80-99) L Mean Corpuscular Hemoglobin 25.7 PG (27.0-31.0) L Mean Corpuscular Hemoglobin Concent 32.3 G/DL (32.0-36.0) Red Cell Distribution Width 13.2 % (11.6-14.8) Platelet Count 210 K/UL (150-450) Mean Platelet Volume 8.4 FL (6.5-10.1) Neutrophils (%) (Auto) 54.2 % (45.0-75.0) Lymphocytes (%) (Auto) 32.5 % (20.0-45.0) Monocytes (%) (Auto) 8.3 % (1.0-10.0) Eosinophils (%) (Auto) 3.5 % (0.0-3.0) H Basophils (%) (Auto) 1.5 % (0.0-2.0) Urine Color Pale yellow Urine Appearance Clear Urine pH 6.5 (4.5-8.0) Urine Specific [place] 1.010 (1.005-1.035) Urine Protein 3+ (NEGATIVE) H Urine Glucose (UA) 4+ (NEGATIVE) H Urine Ketones Negative (NEGATIVE) Urine Blood 3+ (NEGATIVE) H Urine Nitrite Negative (NEGATIVE) Urine Bilirubin Negative (NEGATIVE) Urine Urobilinogen Normal MG/DL (0.0-1.0) Urine Leukocyte Esterase Negative (NEGATIVE) Urine RBC 2-4 /HPF (0 - 0) H Urine WBC 0 /HPF (0 - 0) Urine Squamous Epithelial Cells None /LPF (NONE/OCC) Urine Bacteria None /HPF (NONE) Sodium Level 137 MMOL/L (136-145) Potassium Level 4.7 MMOL/L (3.5-5.1) Chloride Level 102 MMOL/L (98-107) Carbon Dioxide Level 30 MMOL/L (21-32) Anion Gap 6 mmol/L (5-15) Blood Urea Nitrogen 20 mg/dL (7-18) H Creatinine 1.5 MG/DL (0.55-1.30) H Estimat Glomerular Filtration Rate 59.8 mL/min (>60) Glucose Level 396 MG/DL (74-106) H Calcium Level 8.9 MG/DL (8.5-10.1) Total Bilirubin 0.2 MG/DL (0.2-1.0) Aspartate Amino Transf (AST/SGOT) 15 U/L (15-37) Alanine Aminotransferase (ALT/SGPT) 16 U/L (12-78) Alkaline Phosphatase 97 U/L (46-116) Troponin I 0.011 ng/mL (0.000-0.056) Pro-B-Type Natriuretic Peptide 71 pg/mL (0-125) Total Protein 7.1 G/DL (6.4-8.2) Albumin 3.5 G/DL (3.4-5.0) Globulin 3.6 g/dL Albumin/Globulin Ratio 1.0 (1.0-2.7) Triglycerides Level 222 MG/DL (30-150) H Cholesterol Level 240 MG/DL (< 200) H LDL Cholesterol 152 mg/dL (<100) H HDL Cholesterol 36 MG/DL (40-60) L Cholesterol/HDL Ratio 6.7 (3.3-4.4) H Lipase 469 U/L (73-393) H Serum Alcohol < 3 mg/dL General Appearance: well appearing, no apparent distress, alert Head: normocephalic EENT: PERRL/EOMI, normal ENT inspection Neck: supple Respiratory: normal breath sounds, no respiratory distress Cardiovascular: normal rate Gastrointestinal: normal inspection, non tender, soft, normal bowel sounds, non -distended Rectal: deferred Genitourinary: deferred Musculoskeletal: normal inspection, back normal Neurologic: normal inspection, alert, oriented x3, responsive Psychiatric: normal inspection, judgement/insight normal, memory normal Skin: normal inspection, normal color, no rash, warm/dry, palpation normal, well hydrated Lymphatic: normal inspection, no adenopathy Current Medications Current Medications Medications (Trade) Dose Ordered Sig/Naye Route PRN Reason Start Time Stop Time Status Last Admin Dose Admin Acetaminophen (Tylenol) 650 mg Q4H PRN ORAL Mild Pain (Pain Scale 1-3) 01/08/19 10:15 02/07/19 10:14 Bisacodyl (Dulcolax) 10 mg HSPRN PRN RECTAL Constipation 01/08/19 10:15 02/07/19 10:14 Dextrose (Dextrose 50%) 25 ml Q30M PRN IV Hypoglycemia 01/08/19 10:15 02/07/19 10:14 Dextrose (Dextrose 50%) 50 ml Q30M PRN IV Hypoglycemia 01/08/19 10:15 02/07/19 10:14 Diphenhydramine HCl (Benadryl) 25 mg Q6H PRN ORAL Itching/Pruritis 01/08/19 10:15 02/07/19 10:14 Docusate Sodium (Colace) 100 mg EVERY 12 HOURS ORAL 01/08/19 21:00 02/07/19 20:59 Hydromorphone HCl (Dilaudid) 1 mg Q4H PRN IVP Moderate Pain (Pain Scale 4-6) 01/08/19 10:15 01/15/19 10:14 Hydromorphone HCl (Dilaudid) 2 mg Q6H PRN IVP Severe Pain (Pain Scale 7-10) 01/08/19 10:15 01/15/19 10:14 Iopamidol (Isovue-300 100ml) 100 ml NOW PRN INJ Radiology Procedure 01/08/19 06:15 Lorazepam (Ativan 2mg/ml 1ml) 0.5 mg Q4H PRN IV For Anxiety 01/08/19 10:15 01/15/19 10:14 Magnesium Hydroxide (Mom) 30 ml HSPRN PRN ORAL Constipation 01/08/19 10:15 02/07/19 10:14 GI: Plan Problems: (1) Abdominal pain (2) Diarrhea (3) Pancreatitis (4) Hypertriglyceridemia Plan Pancreatitis secondary to hypertriglyceridemia Abdominal pelvis CT reviewed, findings consistent with acute focal pancreatitis Medical management for pancreatitis Clear liquid diet, advance as tolerated Pain management IV and p.o. hydration Avoid fatty foods PPI Outpatient GI procedures Discussed with Dr. Calloway. Thank you for this patient referral, we will follow. The patient was seen and examined at bedside and all new and available data was reviewed in the patients chart. I agree with the above findings, impression and plan. (Patient seen earlier today. Signature stamp does not reflect patient encounter time.). - MD Taylor CastellanosHonor[facility] [employer] Jan 08, 2019 10:40
[2019-01-08] MEDS ORDERED: HydrALAZINE 25mg tab ORAL PRN (10:45)
--- NOTE | 2019-01-08 11:00 | NUR ---
NURSE NOTES: Notified Dr. Loomis regarding history of left femoral blood clot s/p surgery for removal. Per Dr. Loomis, Heparin 5000unit SC for DVT prophylaxis. Carried out the order. Will continue to monitor the patient.
--- NOTE | 2019-01-08 11:00 | NUR ---
NURSE NOTES: Based on history of diabetes, Dr. Loomis order average scale protocol for insulin. Carried out the order.
[2019-01-08] MEDS ORDERED: oxyCODONE 5mg IR tab ORAL PRN ×4 (11:15→11:30)
--- NOTE | 2019-01-08 11:28 | NUR ---
NURSE NOTES: Received report that he is allergic to Hydromorphone. Asked the patient and verbalized that he is not allergic to hydromorphone as long as the patient takes with benadryl. He would like to get dilaudid for pain control since it has been effective.
[2019-01-08] MEDS: NovoLOG Insulin Flexpen SUBQ SCH ×3 (12:40→20:46)
--- NOTE | 2019-01-08 14:00 | NUR ---
NURSE NOTES: urine collection for drug screen completed. took the sample down to the lab. will continue to monitor the patient.
--- NOTE | 2019-01-08 14:00 | NUR ---
NURSE NOTES: Андрей, the pharmacist, said that it is unable to provide Ursodiol since the availability is 300 and 600mg in capsule. The patient has been on Ursodiol 500mg 1tab PO QD. The patient family member will bring the medication so that we can provide the medication during hospitalization.
[2019-01-08] MEDS: HYDROmorphone 1mg/ml Carpuject IVP PRN (18:55)
--- NOTE | 2019-01-08 19:15 | NUR ---
NURSE NOTES: Received report from Kristi MARLEY, pt. in bed awake, A/O x's4- able to make needs known, shelter monitor on, no signs or symptoms of acute cardiac or respiratory distress noted, bed in lowest position and call light within easy reach, bed alarm on, side rails up x's 3 and safety brakes engaged, pt. appears to be sating well on room air at 99%- no distress noted, pt. appears to be clean and dry, comfort measures provided, RT. AC 20G IV intact and patent- running NS at 100cc/hr, safety measures continued, will continue with plan of care.
--- NOTE | 2019-01-08 19:30 | NUR ---
HAND-OFF: Report given to DONELL Encarnacion. The patient is resting on the bed without acute distress or shortness of breath. The patient's bed in the lowest position, call light in reach, and fall and aspiration precaution reinforced. Endorsed plan of care.
--- NOTE | 2019-01-08 19:30 | NUR ---
NURSE NOTES: Reported to DONELL Encarnacion that the patient family member will bring Ursodiol from home since it is not available at the pharmacy will same dosage.
[2019-01-08] MEDS: Docusate 100mg cap ORAL SCH (20:41)
[2019-01-08] MEDS: Heparin 5000 units/ml inj SUBQ SCH (20:46)
[2019-01-08] MEDS: Metoprolol 25mg tab ORAL SCH (20:50)
--- NOTE | 2019-01-08 21:16 | NUR ---
NURSE NOTES: notified admission office to change primary to Anastasiya per DR. Roberts.
--- NOTE | 2019-01-08 22:28 | Neurology Progress Note ---
Interim History Interim History Interim History 53-year-old male who presented after increased abdominal pain. He reports episodes of nausea without vomiting. He had prior history of diabetes as well as chronic pancreatitis. Reports ongoing GARCIA and dizziness reported as lighheadedness qwhen ambulating Objective Physical Exam Last Vital Signs Date Time Temp Pulse Resp B/P (MAP) Pulse Ox O2 Delivery O2 Flow Rate FiO2 01/08/19 21:00 Room Air 01/08/19 20:50 80 115/71 01/08/19 20:00 97.7 18 97 Laboratory Tests Test 01/08/19 05:40 01/08/19 14:00 White Blood Count 6.0 K/UL (4.8-10.8) Red Blood Count 5.25 M/UL (4.70-6.10) Hemoglobin 13.5 G/DL (14.2-18.0) L Hematocrit 41.7 % (42.0-52.0) L Mean Corpuscular Volume 79 FL (80-99) L Mean Corpuscular Hemoglobin 25.7 PG (27.0-31.0) L Mean Corpuscular Hemoglobin Concent 32.3 G/DL (32.0-36.0) Red Cell Distribution Width 13.2 % (11.6-14.8) Platelet Count 210 K/UL (150-450) Mean Platelet Volume 8.4 FL (6.5-10.1) Neutrophils (%) (Auto) 54.2 % (45.0-75.0) Lymphocytes (%) (Auto) 32.5 % (20.0-45.0) Monocytes (%) (Auto) 8.3 % (1.0-10.0) Eosinophils (%) (Auto) 3.5 % (0.0-3.0) H Basophils (%) (Auto) 1.5 % (0.0-2.0) Urine Color Pale yellow Urine Appearance Clear Urine pH 6.5 (4.5-8.0) Urine Specific [place] 1.010 (1.005-1.035) Urine Protein 3+ (NEGATIVE) H Urine Glucose (UA) 4+ (NEGATIVE) H Urine Ketones Negative (NEGATIVE) Urine Blood 3+ (NEGATIVE) H Urine Nitrite Negative (NEGATIVE) Urine Bilirubin Negative (NEGATIVE) Urine Urobilinogen Normal MG/DL (0.0-1.0) Urine Leukocyte Esterase Negative (NEGATIVE) Urine RBC 2-4 /HPF (0 - 0) H Urine WBC 0 /HPF (0 - 0) Urine Squamous Epithelial Cells None /LPF (NONE/OCC) Urine Bacteria None /HPF (NONE) Sodium Level 137 MMOL/L (136-145) Potassium Level 4.7 MMOL/L (3.5-5.1) Chloride Level 102 MMOL/L (98-107) Carbon Dioxide Level 30 MMOL/L (21-32) Anion Gap 6 mmol/L (5-15) Blood Urea Nitrogen 20 mg/dL (7-18) H Creatinine 1.5 MG/DL (0.55-1.30) H Estimat Glomerular Filtration Rate 59.8 mL/min (>60) Glucose Level 396 MG/DL (74-106) H Hemoglobin A1c 12.9 % (4.3-6.0) H Calcium Level 8.9 MG/DL (8.5-10.1) Total Bilirubin 0.2 MG/DL (0.2-1.0) Aspartate Amino Transf (AST/SGOT) 15 U/L (15-37) Alanine Aminotransferase (ALT/SGPT) 16 U/L (12-78) Alkaline Phosphatase 97 U/L (46-116) Troponin I 0.011 ng/mL (0.000-0.056) Pro-B-Type Natriuretic Peptide 71 pg/mL (0-125) Total Protein 7.1 G/DL (6.4-8.2) Albumin 3.5 G/DL (3.4-5.0) Globulin 3.6 g/dL Albumin/Globulin Ratio 1.0 (1.0-2.7) Triglycerides Level 222 MG/DL (30-150) H Cholesterol Level 240 MG/DL (< 200) H LDL Cholesterol 152 mg/dL (<100) H HDL Cholesterol 36 MG/DL (40-60) L Cholesterol/HDL Ratio 6.7 (3.3-4.4) H Lipase 469 U/L (73-393) H Serum Alcohol < 3 mg/dL Urine Opiates Screen Negative (NEGATIVE) Urine Barbiturates Screen Negative (NEGATIVE) Phencyclidine (PCP) Screen Negative (NEGATIVE) Urine Amphetamines Screen Negative (NEGATIVE) Urine Benzodiazepines Screen Negative (NEGATIVE) Urine Cocaine Screen Negative (NEGATIVE) Urine Marijuana (THC) Screen Negative (NEGATIVE) General: well developed Head: normocophalic Neck: no rigidity EENT: benign Neurologic Exam Mental Status: awake, alert, oriented x4, normal cognition, good mathematical skills, normal recent memory, normal remote memory, preserved visuospatial function Speech: normal speech, no dysarthia Language: normal language Cranial Nerve II: fundus normal, visual loja, no papilledema Cranial Nerves III, IV, : PERRLA, EOMI, pupils Cranial Nerve V: normal facial sensations, temporales function normal, masseters function normal, pterygoids function normal Motor System: normal muscle tone, strength 5/5, no involuntary movement, no muscle wasting Sensory: normal pinprick, normal light touch, normal position sense, normal graphesthesia Coordination: normal finger to nose bilaterally, normal heel to zeng bilaterally, negative Romberg test Impression/Recommendations Problems: (1) Myalgia (2) Uncontrolled type II diabetes mellitus (3) Head injury, acute (4) Head injury, acute (5) ACS (acute coronary syndrome) (6) Reactive cervical lymphadenopathy (7) Pharyngitis (8) Viral syndrome (9) Bronchitis (10) Fall (11) Toe contusion (12) Abrasion of leg (13) Trochanteric avulsion fracture of femur (14) Avulsion injury (15) Back sprain (16) Chest pain with high risk of acute coronary syndrome (17) Uncontrolled hypertension (18) Diarrhea (19) Pancreatitis (20) Abdominal pain (21) Hypertriglyceridemia Status: doing well Diagnostic Impression GI consult IVFs measure orthostatics Wyatt Jessica MD Jan 08, 2019 22:27
[2019-01-09 01:45] VITALS: BP 126/96
--- NOTE | 2019-01-09 03:08 | NUR ---
NURSE NOTES: left message exchange for DR. Langford- regarding pt. having nausea - awaiting for call back from doctor. Pt. remains stable and no distress noted.
--- NOTE | 2019-01-09 03:13 | NUR ---
NURSE NOTES: DR. Celina Strange called back - per doctor to order Zofran 4mg Q6hrs prn nausea and vomiting- orders carried out.
[2019-01-09 04:00] VITALS: BP 121/78
[2019-01-09] MEDS: NovoLOG Insulin Flexpen SUBQ SCH ×4 (06:02→21:24)
[2019-01-09 06:52] LABS: BASOPHILS % (AUTO) 1.7 % (0.0-2.0); EOSINOPHILS % (AUTO) 1.7 % (0.0-3.0); HEMATOCRIT 41.9 % (42.0-52.0); HEMOGLOBIN 13.6 G/DL (14.2-18.0); LYMPHOCYTES % (AUTO) 18.7 % (20.0-45.0); MEAN CORPUSCULAR VOLUME 80 FL (80-99); MONOCYTES % (AUTO) 6.3 % (1.0-10.0); NEUTROPHILS % (AUTO) 71.8 % (45.0-75.0); PLATELET COUNT 214 K/UL (150-450); RED BLOOD COUNT 5.24 M/UL (4.70-6.10); RED CELL DISTRIBUTION WIDTH 13.6 % (11.6-14.8); WHITE BLOOD COUNT 7.2 K/UL (4.8-10.8)
--- NOTE | 2019-01-09 07:02 | NUR ---
HAND-OFF: Report given to Kristi MARLEY, pt. remains stable and no signs of distress noted.
--- NOTE | 2019-01-09 07:03 | NUR ---
NURSE NOTES: Received report from DONELL Stafford. The patient is resting on the bed without acute distress or shortness of breath. The patient's bed in the lowest position, call light in reach, and fall precaution reinforced. Will continue plan of care.
[2019-01-09 07:40] LABS: ALANINE AMINOTRANSFERASE 19 U/L (12-78); ALBUMIN 3.7 G/DL (3.4-5.0); ALKALINE PHOSPHATASE 95 U/L (46-116); ANION GAP 9 mmol/L (5-15); ASPARTATE AMINO TRANSFERASE 14 U/L (15-37); BILIRUBIN,DIRECT < 0.1 MG/DL (0.0-0.3); BILIRUBIN,TOTAL 0.3 MG/DL (0.2-1.0); BLOOD UREA NITROGEN 14 mg/dL (7-18); CALCIUM 8.7 MG/DL (8.5-10.1); CARBON DIOXIDE 25 MMOL/L (21-32); CHLORIDE 102 MMOL/L (98-107); CREATININE 1.2 MG/DL (0.55-1.30); PHOSPHORUS 3.8 MG/DL (2.5-4.9); POTASSIUM 4.6 MMOL/L (3.5-5.1); SODIUM 136 MMOL/L (136-145)
[2019-01-09 08:00] VITALS: BP 161/93
[2019-01-09] MEDS: Aspirin EC 81mg tab ORAL SCH (08:40)
[2019-01-09] MEDS: Bumetanide 1mg tab ORAL SCH (08:40)
[2019-01-09] MEDS: Docusate 100mg cap ORAL SCH ×2 (08:40→21:21)
[2019-01-09] MEDS: Dicyclomine HCl 10mg/5ml oral soln ORAL SCH (08:40)
[2019-01-09] MEDS: Metoprolol 25mg tab ORAL SCH ×2 (08:41→21:00)
[2019-01-09] MEDS: Heparin 5000 units/ml inj SUBQ SCH ×2 (08:42→21:23)
[2019-01-09] MEDS ORDERED: Ursodiol 300mg cap ORAL SCH (09:00)
[2019-01-09] MEDS: HYDROmorphone 1mg/ml Carpuject IVP PRN ×3 (09:47→20:34)
--- NOTE | 2019-01-09 10:00 | NUR ---
NURSE NOTES: Informed the patient that the family member needs to bring Ursodiol so that the medication can be provided during hospitalization. The patient verbalized understanding. Will continue to monitor the patient.
--- NOTE | 2019-01-09 10:19 | NUR ---
NURSE NOTES: Notified the result of Abd/pelvis CT and down trending of lipase from 469 to 163 in a day. Will carry out the order as soon as receives it and will continue plan of care.
--- NOTE | 2019-01-09 10:29 | GI Progress Note ---
Assessment/Plan Problems: (1) Diarrhea ICD Codes: R19.7 - Diarrhea, unspecified SNOMED: 86023969 (2) Pancreatitis ICD Codes: K85.9 - Acute pancreatitis, unspecified SNOMED: 64891774 (3) Abdominal pain ICD Codes: R10.9 - Unspecified abdominal pain SNOMED: 98240458 (4) Hypertriglyceridemia ICD Codes: E78.1 - Pure hyperglyceridemia SNOMED: 594069562 Status: stable Status Narrative Discussed with Dr. Calloway. Assessment/Plan Pancreatitis secondary to hypertriglyceridemia Abdominal pelvis CT reviewed, findings consistent with acute focal pancreatitis Medical management for pancreatitis FLD Pain management IV and p.o. hydration Avoid fatty foods PPI Outpatient GI procedures The patient was seen and examined at bedside and all new and available data was reviewed in the patients chart. I agree with the above findings, impression and plan. (Patient seen earlier today. Signature stamp does not reflect patient encounter time.). - Manish Calloway MD Subjective Subjective abdominal pain still present, but has improved Objective Last 24 Hour Vital Signs Date Time Temp Pulse Resp B/P (MAP) Pulse Ox O2 Delivery O2 Flow Rate FiO2 01/09/19 09:00 Room Air 01/09/19 08:41 84 161/93 01/09/19 08:41 84 161/93 01/09/19 08:00 97.4 84 18 161/93 (115) 97 01/09/19 04:00 97.2 73 18 121/78 (92) 96 01/09/19 03:51 71 01/09/19 02:22 98.1 01/09/19 01:45 73 18 126/96 (106) 97 01/09/19 00:00 69 01/08/19 23:55 98.1 74 18 104/70 (81) 96 01/08/19 21:00 Room Air 01/08/19 20:50 80 115/71 01/08/19 20:00 97.7 80 18 115/71 (86) 97 01/08/19 20:00 77 01/08/19 19:25 97.5 01/08/19 16:00 76 01/08/19 16:00 97.5 82 18 118/75 (89) 97 01/08/19 12:00 78 01/08/19 12:00 98.0 81 18 155/80 (105) 98 01/08/19 11:10 Room Air Intake and Output 01/08/19 01/09/19 19:00 07:00 Intake Total 600 ml 1029 ml Balance 600 ml 1029 ml Intake Oral 500 ml IV Total 100 ml 1029 ml # Voids 6 # Bowel Movements 1 1 Laboratory Tests Test 01/08/19 14:00 01/09/19 06:15 Urine Opiates Screen Negative (NEGATIVE) Urine Barbiturates Screen Negative (NEGATIVE) Phencyclidine (PCP) Screen Negative (NEGATIVE) Urine Amphetamines Screen Negative (NEGATIVE) Urine Benzodiazepines Screen Negative (NEGATIVE) Urine Cocaine Screen Negative (NEGATIVE) Urine Marijuana (THC) Screen Negative (NEGATIVE) White Blood Count 7.2 K/UL (4.8-10.8) Red Blood Count 5.24 M/UL (4.70-6.10) Hemoglobin 13.6 G/DL (14.2-18.0) L Hematocrit 41.9 % (42.0-52.0) L Mean Corpuscular Volume 80 FL (80-99) Mean Corpuscular Hemoglobin 26.0 PG (27.0-31.0) L Mean Corpuscular Hemoglobin Concent 32.6 G/DL (32.0-36.0) Red Cell Distribution Width 13.6 % (11.6-14.8) Platelet Count 214 K/UL (150-450) Mean Platelet Volume 8.7 FL (6.5-10.1) Neutrophils (%) (Auto) 71.8 % (45.0-75.0) Lymphocytes (%) (Auto) 18.7 % (20.0-45.0) L Monocytes (%) (Auto) 6.3 % (1.0-10.0) Eosinophils (%) (Auto) 1.7 % (0.0-3.0) Basophils (%) (Auto) 1.7 % (0.0-2.0) Sodium Level 136 MMOL/L (136-145) Potassium Level 4.6 MMOL/L (3.5-5.1) Chloride Level 102 MMOL/L (98-107) Carbon Dioxide Level 25 MMOL/L (21-32) Anion Gap 9 mmol/L (5-15) Blood Urea Nitrogen 14 mg/dL (7-18) Creatinine 1.2 MG/DL (0.55-1.30) Estimat Glomerular Filtration Rate > 60 mL/min (>60) Glucose Level 193 MG/DL (74-106) #H Calcium Level 8.7 MG/DL (8.5-10.1) Phosphorus Level 3.8 MG/DL (2.5-4.9) Magnesium Level 2.5 MG/DL (1.8-2.4) H Total Bilirubin 0.3 MG/DL (0.2-1.0) Direct Bilirubin < 0.1 MG/DL (0.0-0.3) Aspartate Amino Transf (AST/SGOT) 14 U/L (15-37) L Alanine Aminotransferase (ALT/SGPT) 19 U/L (12-78) Alkaline Phosphatase 95 U/L (46-116) Total Protein 7.4 G/DL (6.4-8.2) Albumin 3.7 G/DL (3.4-5.0) Globulin 3.7 g/dL Albumin/Globulin Ratio 1.0 (1.0-2.7) Lipase 163 U/L (73-393) Height (Feet): 5 Height (Inches): 9.00 Weight (Pounds): 223 General Appearance: WD/WN, no apparent distress, alert Cardiovascular: normal rate Respiratory/Chest: normal breath sounds, no respiratory distress Abdominal Exam: normal bowel sounds, non tender, soft Extremities: normal range of motion, non-tender Gurjit Vazquez NP Jan 09, 2019 10:29
[2019-01-09 12:00] VITALS: BP 128/83
--- NOTE | 2019-01-09 12:00 | NUR ---
NURSE NOTES: Per Dr. Loomis, tomorrow lab for lipid, CBC, and CMP. Carried out the order.
--- NOTE | 2019-01-09 12:00 | NUR ---
NURSE NOTES: Per Dr. Loomis, no need to do bladder scan as the patient is voiding without difficulty. Will continue plan of care.
--- NOTE | 2019-01-09 12:54 | NUR ---
*-* INSURANCE *-* ALL CLINICALS HAVE VENA[employer] FAXED TO: [employer] P: [phone]
--- NOTE | 2019-01-09 12:55 | NUR ---
CASE MANAGEMENT: INITIAL REVIEW 53 YO M PRESENTED TO OUR ED FROM HOME CC: LEFT UPPER ABD PAIN FOR TWO DAYS PMHx: HTN. DM. PANCREATITIS. SI:PANCREATITIS. UNCONTROLLED HTN. T 98.4 HR 96 RR 18 B/P 193/100 SATS 96% ON RA BUN 20 CR 1.5 GLU 396 LIPASE 469 IS: PEPCID IV X1 DILAUDID IV X1 NS BOLUS X1 CLONIDINE PO X1 NORVASC PO X2 PATIENT ADMITTED TO TELE 01/08/2019 @ 0718 DCP: PATIENT TO BE DISCHARGED TO HOME ONCE MEDICALLY CLEARED. PLAN OF CARE: GI CONSULT TREND LIPASE CLD 01/09/2019 SI:PANCREATITIS. UNCONTROLLED HTN. T 97.4 HR 84 RR 18 B/P 161/93 SATS 97% ON RA GLU 193 MG 2.5 AST 14 LIPASE 163 IS: IVF @ 100 mL/HR PRAVACHOL PO QHS NORVASC PO QD ASA PO QD BENTYL PO QD URSODIOL PO QD BUMEX PO QD INSULIN ASPART SUBQ AC/HS LOPRESSOR PO Q12H TELE STATUS DCP: PATIENT TO BE DISCHARGED TO HOME ONCE MEDICALLY CLEARED. PLAN OF CARE: IVF PAIN MANAGEMENT TREND LIPASE CLD Addendum: 01/10/19 at 0820 by Brandie Tabares CM [employer]
--- NOTE | 2019-01-09 13:21 | Consultation ---
History of Present Illness General Date patient seen: Jan 09, 2019 Reason for Hospitalization: Abdominal Pain Present Illness HPI This is a 53-year-old male who presented to [facility] complaining of worsening abdominal pain. States pain mainly on the left side of the abdomen but some epigastric pain as well. Pain associated with nausea but no emesis. States he has had similar types of episodes in the past. Has history of diabetes and chronic pancreatitis as per patient. States since admission pain has improved. And emerged from identified to have an elevated lipase and acute pancreatitis. CT ordered. Surgery called to evaluate for abdominal pain and pancreatitis. Patient seen, patient evaluated, chart reviewed. Allergies: Coded Allergies: CODEINE (Verified Allergy, Unknown, 03/27/11) METOCLOPRAMIDE (Verified Allergy, Unknown, 02/01/18) MORPHINE (Verified Allergy, Unknown, ITCH, 03/27/11) Medication History Scheduled Albuterol Sulfate* (Albuterol Sulfate Mdi*), 2 PUFF INH Q4H Amlodipine Besylate* (Amlodipine Besylate*), 10 MG ORAL BID, (Reported) Aspirin* (Aspir 81*), 81 MG ORAL DAILY, (Reported) Bumetanide (Bumetanide), 1 MG ORAL DAILY, (Reported) Carisoprodol (Carisoprodol), 350 MG ORAL BID, (Reported) Diclofenac Sod* (Voltaren*), 50 MG ORAL BID, (Reported) Dicyclomine Hcl* (Dicyclomine Hcl*), 10 MG ORAL DAILY, (Reported) Famotidine (Pepcid Ac), 20 MG PO BID Gabapentin* (Gabapentin*), 300 MG ORAL BEDTIME, (Reported) Glipizide* (Glipizide*), 10 MG ORAL BIDAC, (Reported) Insulin Glargine (Lantus), 60 SUBQ BEDTIME, (Reported) Lisinopril (Lisinopril*), 20 MG ORAL DAILY, (Reported) Metformin Hcl* (Metformin Hcl*), 500 MG ORAL DAILY, (Reported) Metformin Hcl* (Metformin Hcl*), 1,000 MG ORAL BID, (Reported) Methocarbamol* (Robaxin-750*), 750 MG PO TID Metoprolol Tartrate* (Metoprolol Tartrate*), 25 MG ORAL BID, (Reported) Metoprolol Tartrate* (Metoprolol Tartrate*), 25 MG ORAL EVERY 12 HOURS, ( Reported) Omeprazole (Omeprazole), 20 MG ORAL DAILY, (Reported) Pioglitazone Hcl* (Actos*), 45 MG ORAL DAILY, (Reported) Pravastatin Sodium (Pravachol), 80 MG ORAL BEDTIME, (Reported) Ranitidine Hcl* (Zantac*), 150 MG ORAL TWICE A DAY Sertraline Hcl* (Sertraline Hcl*), 25 MG ORAL DAILY, (Reported) Simvastatin (Zocor), 40 MG ORAL DAILY, (Reported) Ursodiol (Ursodiol), 500 MG PO DAILY, (Reported) Scheduled PRN Diphenhydramine Hcl* (Benadryl*), 25 MG ORAL Q6H PRN for Itching Hydrocodone Bit/Acetaminophen 5-325* (Enigma 5-325*), 1 TAB ORAL Q6H PRN for For Pain Hydrocodone Bit/Acetaminophen 5-325* (Enigma 5-325*), 1 TAB ORAL Q6H PRN for For Pain Hydrocodone/Acetaminophen (Hydrocodon-Acetaminophn 10-325), 1 TAB ORAL Q6H PRN for For Pain Oxycodone Hcl* (Oxycodone Hcl*), 30 MG ORAL Q6H PRN for For Pain, (Reported) Miscellaneous Medications Insulin Glulisine (Apidra Solostar), 100 UNIT SQ, (Reported) Patient History History Provided By: Patient, Medical Record, PMD Healthcare decision maker Resuscitation status Advanced Directive on File Past Medical/Surgical History Past Medical/Surgical History: (1) Chest pain with high risk of acute coronary syndrome (2) Diarrhea (3) Pancreatitis (4) Abdominal pain (5) Hypertriglyceridemia (6) Myalgia (7) Viral syndrome (8) Bronchitis (9) Pharyngitis (10) Fall (11) ACS (acute coronary syndrome) (12) Back sprain (13) Uncontrolled type II diabetes mellitus (14) Avulsion injury (15) Toe contusion (16) Abrasion of leg (17) Reactive cervical lymphadenopathy (18) Uncontrolled hypertension (19) Head injury, acute (20) Head injury, acute (21) Trochanteric avulsion fracture of femur Review of Systems Review of Symptoms General ROS: no weight loss or fever Psychological ROS: no depression or mood changes, no memory loss Ophthalmic ROS: no visual changes or eye irritation ENT ROS: no nasal congestion, hearing loss, dizziness Allergy and Immunology ROS: no allergic symptoms or urticaria Hematological and Lymphatic ROS: no swollen glands, unusual bleeding or bruising Endocrine ROS: no polyuria, polydipsia, weight changes, temperature intolerance Respiratory ROS: no cough, shortness of breath, or wheezing Cardiovascular ROS: no chest pain or dyspnea on exertion Gastrointestinal ROS: abdominal pain, no bright red blood in stool. Musculoskeletal ROS: no myalgias or arthralgias Neurological ROS: no TIA or stroke symptoms Dermatological ROS: no new or changing skin lesions, rashes or pruritis Physical Exam Physical Exam General appearance: alert, cooperative, no distress, appears stated age Head: Normocephalic, without obvious abnormality, atraumatic Eyes: conjunctivae/corneas clear. PERRL, EOM's intact. Fundi benign Throat: Lips, mucosa, and tongue normal. Teeth and gums normal Neck: supple, symmetrical, trachea midline, no adenopathy, thyroid: not enlarged, symmetric, no tenderness/mass/nodules, no carotid bruit and no JVD Lungs: clear to auscultation bilaterally Heart: regular rate and rhythm, S1, S2 normal, no murmur, click, rub or gallop Abdomen: soft, non-tender. Bowel sounds normal. No masses, no organomegaly Extremities: extremities normal, atraumatic, no cyanosis or edema Pulses: 2+ and symmetric Skin: Skin color, texture, turgor normal. No rashes or lesions Neurologic: Grossly normal Last 24 Hour Vital Signs Date Time Temp Pulse Resp B/P (MAP) Pulse Ox O2 Delivery O2 Flow Rate FiO2 01/09/19 12:00 98.6 73 18 128/83 (98) 98 01/09/19 09:00 Room Air 01/09/19 08:41 84 161/93 01/09/19 08:41 84 161/93 01/09/19 08:00 97.4 84 18 161/93 (115) 97 01/09/19 08:00 80 01/09/19 04:00 97.2 73 18 121/78 (92) 96 01/09/19 03:51 71 01/09/19 02:22 98.1 01/09/19 01:45 73 18 126/96 (106) 97 01/09/19 00:00 69 01/08/19 23:55 98.1 74 18 104/70 (81) 96 01/08/19 21:00 Room Air 01/08/19 20:50 80 115/71 01/08/19 20:00 97.7 80 18 115/71 (86) 97 01/08/19 20:00 77 01/08/19 19:25 97.5 01/08/19 16:00 76 01/08/19 16:00 97.5 82 18 118/75 (89) 97 Intake and Output 01/08/19 01/09/19 19:00 07:00 Intake Total 600 ml 1029 ml Balance 600 ml 1029 ml Intake Oral 500 ml IV Total 100 ml 1029 ml # Voids 6 # Bowel Movements 1 1 Laboratory Tests Test 01/08/19 14:00 01/09/19 06:15 Urine Opiates Screen Negative (NEGATIVE) Urine Barbiturates Screen Negative (NEGATIVE) Phencyclidine (PCP) Screen Negative (NEGATIVE) Urine Amphetamines Screen Negative (NEGATIVE) Urine Benzodiazepines Screen Negative (NEGATIVE) Urine Cocaine Screen Negative (NEGATIVE) Urine Marijuana (THC) Screen Negative (NEGATIVE) White Blood Count 7.2 K/UL (4.8-10.8) Red Blood Count 5.24 M/UL (4.70-6.10) Hemoglobin 13.6 G/DL (14.2-18.0) L Hematocrit 41.9 % (42.0-52.0) L Mean Corpuscular Volume 80 FL (80-99) Mean Corpuscular Hemoglobin 26.0 PG (27.0-31.0) L Mean Corpuscular Hemoglobin Concent 32.6 G/DL (32.0-36.0) Red Cell Distribution Width 13.6 % (11.6-14.8) Platelet Count 214 K/UL (150-450) Mean Platelet Volume 8.7 FL (6.5-10.1) Neutrophils (%) (Auto) 71.8 % (45.0-75.0) Lymphocytes (%) (Auto) 18.7 % (20.0-45.0) L Monocytes (%) (Auto) 6.3 % (1.0-10.0) Eosinophils (%) (Auto) 1.7 % (0.0-3.0) Basophils (%) (Auto) 1.7 % (0.0-2.0) Sodium Level 136 MMOL/L (136-145) Potassium Level 4.6 MMOL/L (3.5-5.1) Chloride Level 102 MMOL/L (98-107) Carbon Dioxide Level 25 MMOL/L (21-32) Anion Gap 9 mmol/L (5-15) Blood Urea Nitrogen 14 mg/dL (7-18) Creatinine 1.2 MG/DL (0.55-1.30) Estimat Glomerular Filtration Rate > 60 mL/min (>60) Glucose Level 193 MG/DL (74-106) #H Calcium Level 8.7 MG/DL (8.5-10.1) Phosphorus Level 3.8 MG/DL (2.5-4.9) Magnesium Level 2.5 MG/DL (1.8-2.4) H Total Bilirubin 0.3 MG/DL (0.2-1.0) Direct Bilirubin < 0.1 MG/DL (0.0-0.3) Aspartate Amino Transf (AST/SGOT) 14 U/L (15-37) L Alanine Aminotransferase (ALT/SGPT) 19 U/L (12-78) Alkaline Phosphatase 95 U/L (46-116) Total Protein 7.4 G/DL (6.4-8.2) Albumin 3.7 G/DL (3.4-5.0) Globulin 3.7 g/dL Albumin/Globulin Ratio 1.0 (1.0-2.7) Lipase 163 U/L (73-393) Height (Feet): 5 Height (Inches): 9.00 Weight (Pounds): 223 Medications Current Medications Medications (Trade) Dose Ordered Sig/Naye Route PRN Reason Start Time Stop Time Status Last Admin Dose Admin Acetaminophen (Tylenol) 650 mg Q4H PRN ORAL Mild Pain (Pain Scale 1-3) 01/08/19 10:15 02/07/19 10:14 Amlodipine Besylate (Norvasc) 10 mg DAILY ORAL 01/09/19 09:00 02/08/19 08:59 01/09/19 08:41 Aspirin (Ecotrin) 81 mg DAILY ORAL 01/09/19 09:00 02/08/19 08:59 01/09/19 08:40 Bisacodyl (Dulcolax) 10 mg HSPRN PRN RECTAL Constipation 01/08/19 10:15 02/07/19 10:14 Bumetanide (Bumex) 1 mg DAILY ORAL 01/09/19 09:00 02/08/19 08:59 01/09/19 08:40 Dextrose (Dextrose 50%) 25 ml Q30M PRN IV Hypoglycemia 01/08/19 10:15 02/07/19 10:14 Dextrose (Dextrose 50%) 50 ml Q30M PRN IV Hypoglycemia 01/08/19 10:15 02/07/19 10:14 Dicyclomine HCl (Bentyl) 10 mg DAILY ORAL 01/09/19 09:00 02/08/19 08:59 01/09/19 08:40 Diphenhydramine HCl (Benadryl) 25 mg Q4H PRN ORAL Itching 01/08/19 11:30 02/07/19 11:29 01/09/19 09:48 Diphenhydramine HCl (Benadryl) 25 mg Q6H PRN ORAL Itching/Pruritis 01/08/19 10:15 02/07/19 10:14 Docusate Sodium (Colace) 100 mg EVERY 12 HOURS ORAL 01/08/19 21:00 02/07/19 20:59 01/09/19 08:40 Heparin Sodium (Porcine) (Heparin 5000 units/ml) 5,000 units EVERY 12 HOURS SUBQ 01/08/19 21:00 02/07/19 20:59 01/09/19 08:42 Hydralazine HCl (Apresoline) 25 mg Q6H PRN ORAL For High Blood Pressure 01/08/19 10:45 02/07/19 10:44 Hydromorphone HCl (Dilaudid) 1 mg Q4H PRN IVP Moderate Pain (Pain Scale 4-6) 01/08/19 11:30 01/15/19 11:29 01/09/19 09:47 Hydromorphone HCl (Dilaudid) 2 mg Q6H PRN IVP Severe Pain (Pain Scale 7-10) 01/08/19 11:30 01/15/19 11:29 01/09/19 01:52 Insulin Aspart (NovoLOG) BEFORE MEALS AND HS SUBQ 01/08/19 12:30 02/07/19 12:29 01/09/19 12:24 Iopamidol (Isovue-300 100ml) 100 ml NOW PRN INJ Radiology Procedure 01/08/19 06:15 Lorazepam (Ativan 2mg/ml 1ml) 0.5 mg Q4H PRN IV For Anxiety 01/08/19 10:15 01/15/19 10:14 Magnesium Hydroxide (Mom) 30 ml HSPRN PRN ORAL Constipation 01/08/19 10:15 02/07/19 10:14 Metoprolol Tartrate (Lopressor) 25 mg Q12HR ORAL 01/08/19 21:00 02/07/19 20:59 01/09/19 08:41 Ondansetron HCl (Zofran) 4 mg Q6H PRN IVP Nausea & Vomiting 01/09/19 03:15 02/08/19 03:14 01/09/19 03:17 Pravastatin Sodium (Pravachol) 80 mg BEDTIME ORAL 01/08/19 21:00 02/07/19 20:59 01/08/19 20:41 Sodium Chloride 1,000 ml @ 100 mls/hr Q10H IV 01/08/19 10:45 02/07/19 10:44 01/09/19 05:04 Ursodiol (Actigall) 500 mg DAILY ORAL 01/09/19 09:00 02/08/19 08:59 UNV Assessment/Plan Problem List: (1) Chest pain with high risk of acute coronary syndrome (2) Diarrhea ICD Codes: R19.7 - Diarrhea, unspecified SNOMED: 33471547 (3) Pancreatitis ICD Codes: K85.9 - Acute pancreatitis, unspecified SNOMED: 30050833 (4) Abdominal pain Assessment & Plan: This is a 53-year-old male who presented with abdominal pain and nausea. On evaluation patient identified to have pancreatitis with elevated lipase. CT scan noted Findings: There is very slight infiltration of the peripancreatic fat surrounding the head and the uncinate process. This is similar to the previous exam although less extensive. The pancreas is not swollen or enlarged. The pancreatic body and tail appear unremarkable. No unusual masses or cyst demonstrated. The pancreas enhances normally. The gallbladder is distended. No definite gallstones demonstrated. No biliary ductal dilatation. No focal liver abnormality. The spleen is unremarkable. There are multiple accessory splenules. The adrenals and kidneys are unremarkable. Left renal cyst described on 02/01/2018 abdominal sonogram is not evident on CT. No retroperitoneal or mesenteric mass or adenopathy. No pelvic mass or adenopathy. The bladder is distended The appendix is normal. Liquid contents are seen in the proximal colon. No evidence of diverticulosis or diverticulitis. No small bowel distention. No free or loculated intraperitoneal gas or fluid is evident. The distal esophagus, stomach, duodenum are unremarkable. Small fat-containing umbilical hernia again demonstrated. The bones demonstrate degenerative spondylosis changes. Mild degenerative proliferative changes of the hips are again noted. The included lung bases are clear Patient admitted for medical care and management since abdominal pain has improved. Lipase has normalized. Exam stable. Laboratory data identify dyslipidemia. Likely etiology of pancreatitis. Patient does not have significant EtOH history. No gallstones. No acute surgical intervention necessary at this time. Can evaluate as outpatient for small fat-containing umbilical hernia Diet as tolerated Thank you will follow with recommendations ICD Codes: R10.9 - Unspecified abdominal pain SNOMED: 20260880 (5) Hypertriglyceridemia ICD Codes: E78.1 - Pure hyperglyceridemia SNOMED: 651020772 (6) Myalgia (7) Viral syndrome ICD Codes: B34.9 - Viral infection, unspecified SNOMED: 21575664 (8) Bronchitis ICD Codes: J40 - Bronchitis, not specified as acute or chronic SNOMED: 44688323 (9) Pharyngitis ICD Codes: J02.9 - Acute pharyngitis, unspecified SNOMED: 553682127 (10) Fall ICD Codes: W19.XXXA - Unspecified fall, initial encounter SNOMED: 1092541 (11) ACS (acute coronary syndrome) ICD Codes: I20.0 - Unstable angina SNOMED: 895081262 (12) Back sprain ICD Codes: S23.9XXA - Sprain of unspecified parts of thorax, initial encounter SNOMED: 657771310 (13) Uncontrolled type II diabetes mellitus (14) Avulsion injury ICD Codes: T14.8 - Other injury of unspecified body region SNOMED: 367777452 (15) Toe contusion ICD Codes: S90.129A - Contusion of unspecified lesser toe(s) without damage to nail, initial encounter SNOMED: 75027029 (16) Abrasion of leg ICD Codes: S80.819A - Abrasion, unspecified lower leg, initial encounter SNOMED: 760437766 (17) Reactive cervical lymphadenopathy ICD Codes: R59.9 - Enlarged lymph nodes, unspecified SNOMED: 935837972 (18) Uncontrolled hypertension ICD Codes: I10 - Essential (primary) hypertension SNOMED: 94574370, 83844356 (19) Head injury, acute ICD Codes: S09.90XA - Unspecified injury of head, initial encounter SNOMED: 19604396 (20) Head injury, acute ICD Codes: S09.90XA - Unspecified injury of head, initial encounter SNOMED: 89704996 (21) Trochanteric avulsion fracture of femur ICD Codes: S72.109A - Unspecified trochanteric fracture of unspecified femur, initial encounter for closed fracture SNOMED: 745116343 Julien Macias Jan 09, 2019 13:21
[2019-01-09 16:00] VITALS: BP 145/85
--- NOTE | 2019-01-09 19:56 | NUR ---
HAND-OFF: Report given to DONELL Don. The patient is resting on the chair without acute distress or shortness of breath. The patient's bed in the lowest position, call light in reach, and fall and aspiration precaution reinforced. Endorsed plan of care.
[2019-01-09 20:00] VITALS: BP 128/77
--- NOTE | 2019-01-09 20:10 | General Progress Note ---
Assessment/Plan Status: stable Assessment/Plan: 53 year old male with PMH of diet controlled DM, presented with complaints of abdominal pain admitted for acute pancreatitis. 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 encounter Subjective Date patient seen: Jan 09, 2019 Allergies: Coded Allergies: CODEINE (Verified Allergy, Unknown, 03/27/11) METOCLOPRAMIDE (Verified Allergy, Unknown, 02/01/18) MORPHINE (Verified Allergy, Unknown, ITCH, 03/27/11) Subjective No acute overnight events, still complaint of abdominal pain improved with pain meds, Tolerating clear liquid diet, has no other complaints Objective Last 24 Hour Vital Signs Date Time Temp Pulse Resp B/P (MAP) Pulse Ox O2 Delivery O2 Flow Rate FiO2 01/09/19 16:00 85 01/09/19 16:00 98.5 87 18 145/85 (105) 97 01/09/19 12:00 98.6 73 18 128/83 (98) 98 01/09/19 12:00 75 01/09/19 09:00 Room Air 01/09/19 08:41 84 161/93 01/09/19 08:41 84 161/93 01/09/19 08:00 97.4 84 18 161/93 (115) 97 01/09/19 08:00 80 01/09/19 04:00 97.2 73 18 121/78 (92) 96 01/09/19 03:51 71 01/09/19 02:22 98.1 01/09/19 01:45 73 18 126/96 (106) 97 01/09/19 00:00 69 01/08/19 23:55 98.1 74 18 104/70 (81) 96 01/08/19 21:00 Room Air 01/08/19 20:50 80 115/71 Intake and Output 01/08/19 01/09/19 19:00 07:00 Intake Total 600 ml 1029 ml Balance 600 ml 1029 ml Intake Oral 500 ml IV Total 100 ml 1029 ml # Voids 6 # Bowel Movements 1 1 Laboratory Tests 01/09/19 06:15: White Blood Count 7.2, Red Blood Count 5.24, Hemoglobin 13.6L, Hematocrit 41.9L , Mean Corpuscular Volume 80, Mean Corpuscular Hemoglobin 26.0L, Mean Corpuscular Hemoglobin Concent 32.6, Red Cell Distribution Width 13.6, Platelet Count 214, Mean Platelet Volume 8.7, Neutrophils (%) (Auto) 71.8, Lymphocytes (% ) (Auto) 18.7L, Monocytes (%) (Auto) 6.3, Eosinophils (%) (Auto) 1.7, Basophils (%) (Auto) 1.7, Sodium Level 136, Potassium Level 4.6, Chloride Level 102, Carbon Dioxide Level 25, Anion Gap 9, Blood Urea Nitrogen 14, Creatinine 1.2, Estimat Glomerular Filtration Rate > 60, Glucose Level 193#H, Calcium Level 8.7 , Phosphorus Level 3.8, Magnesium Level 2.5H, Total Bilirubin 0.3, Direct Bilirubin < 0.1, Aspartate Amino Transf (AST/SGOT) 14L, Alanine Aminotransferase (ALT/SGPT) 19, Alkaline Phosphatase 95, Total Protein 7.4, Albumin 3.7, Globulin 3.7, Albumin/Globulin Ratio 1.0, Lipase 163 Height (Feet): 5 Height (Inches): 9.00 Weight (Pounds): 223 Objective General appearance: alert, cooperative, no distress, appears stated age Head: Normocephalic, without obvious abnormality, atraumatic Eyes: conjunctivae/corneas clear. PERRL, EOM's intact. Fundi benign Throat: Lips, mucosa, and tongue normal. Teeth and gums normal Neck: supple, symmetrical, trachea midline, no adenopathy, thyroid: not enlarged, symmetric, no tenderness/mass/nodules, no carotid bruit and no JVD Lungs: clear to auscultation bilaterally Heart: regular rate and rhythm, S1, S2 normal, no murmur, click, rub or gallop Abdomen: soft, TTP Bowel sounds normal. No masses, no organomegaly Extremities: extremities normal, atraumatic, no cyanosis or edema Pulses: 2+ and symmetric Skin: Skin color, texture, turgor normal. No rashes or lesions Neurologic: Grossly normal Sera Loomis MD Jan 09, 2019 20:10
--- NOTE | 2019-01-09 20:10 | NUR ---
NURSE NOTES: Received pt and report from DONELL Berry. Observed pt resting in bed with both eyes open and watching television. surveillance system monitor is in placed. IV site intact, asymptomatic, and patent; currently running NS @ 100cc/hr. Bed is in the lowest position and locked, call light within reach. No signs and symptoms of acute distress noted at this time. Will continue plan of care.
--- NOTE | 2019-01-09 20:16 | Neurology Progress Note ---
Interim History Interim History ROS Limited/Unobtainable: No Interim History still in pain Objective Physical Exam Last Vital Signs Date Time Temp Pulse Resp B/P (MAP) Pulse Ox O2 Delivery O2 Flow Rate FiO2 01/09/19 16:00 85 01/09/19 16:00 98.5 18 145/85 (105) 97 01/09/19 09:00 Room Air Laboratory Tests Test 01/09/19 06:15 White Blood Count 7.2 K/UL (4.8-10.8) Red Blood Count 5.24 M/UL (4.70-6.10) Hemoglobin 13.6 G/DL (14.2-18.0) L Hematocrit 41.9 % (42.0-52.0) L Mean Corpuscular Volume 80 FL (80-99) Mean Corpuscular Hemoglobin 26.0 PG (27.0-31.0) L Mean Corpuscular Hemoglobin Concent 32.6 G/DL (32.0-36.0) Red Cell Distribution Width 13.6 % (11.6-14.8) Platelet Count 214 K/UL (150-450) Mean Platelet Volume 8.7 FL (6.5-10.1) Neutrophils (%) (Auto) 71.8 % (45.0-75.0) Lymphocytes (%) (Auto) 18.7 % (20.0-45.0) L Monocytes (%) (Auto) 6.3 % (1.0-10.0) Eosinophils (%) (Auto) 1.7 % (0.0-3.0) Basophils (%) (Auto) 1.7 % (0.0-2.0) Sodium Level 136 MMOL/L (136-145) Potassium Level 4.6 MMOL/L (3.5-5.1) Chloride Level 102 MMOL/L (98-107) Carbon Dioxide Level 25 MMOL/L (21-32) Anion Gap 9 mmol/L (5-15) Blood Urea Nitrogen 14 mg/dL (7-18) Creatinine 1.2 MG/DL (0.55-1.30) Estimat Glomerular Filtration Rate > 60 mL/min (>60) Glucose Level 193 MG/DL (74-106) #H Calcium Level 8.7 MG/DL (8.5-10.1) Phosphorus Level 3.8 MG/DL (2.5-4.9) Magnesium Level 2.5 MG/DL (1.8-2.4) H Total Bilirubin 0.3 MG/DL (0.2-1.0) Direct Bilirubin < 0.1 MG/DL (0.0-0.3) Aspartate Amino Transf (AST/SGOT) 14 U/L (15-37) L Alanine Aminotransferase (ALT/SGPT) 19 U/L (12-78) Alkaline Phosphatase 95 U/L (46-116) Total Protein 7.4 G/DL (6.4-8.2) Albumin 3.7 G/DL (3.4-5.0) Globulin 3.7 g/dL Albumin/Globulin Ratio 1.0 (1.0-2.7) Lipase 163 U/L (73-393) General: well developed Head: normocophalic Neck: no rigidity EENT: benign Neurologic Exam Mental Status: awake, alert, oriented x4, normal cognition, good mathematical skills, normal recent memory, normal remote memory, preserved visuospatial function Speech: normal speech, no dysarthia Language: normal language Cranial Nerve II: fundus normal, visual loja, no papilledema Cranial Nerves III, IV, : PERRLA, EOMI, pupils Cranial Nerve V: normal facial sensations, temporales function normal, masseters function normal, pterygoids function normal Motor System: normal muscle tone, strength 5/5, no involuntary movement, no muscle wasting Sensory: normal pinprick, normal light touch, normal position sense, normal graphesthesia Coordination: normal finger to nose bilaterally, normal heel to zeng bilaterally, negative Romberg test Impression/Recommendations Problems: (1) Myalgia (2) Uncontrolled type II diabetes mellitus (3) Head injury, acute (4) Head injury, acute (5) ACS (acute coronary syndrome) (6) Reactive cervical lymphadenopathy (7) Pharyngitis (8) Viral syndrome (9) Bronchitis (10) Fall (11) Toe contusion (12) Abrasion of leg (13) Trochanteric avulsion fracture of femur (14) Avulsion injury (15) Back sprain (16) Chest pain with high risk of acute coronary syndrome (17) Uncontrolled hypertension (18) Diarrhea (19) Pancreatitis (20) Abdominal pain (21) Hypertriglyceridemia Status: stable Diagnostic Impression GI consult IVFs measure orthostatics Neuro to sign off Wyatt Jessica MD Jan 09, 2019 20:16
[2019-01-10] VITALS: BP 116/81
[2019-01-10] MEDS: HYDROmorphone 1mg/ml Carpuject IVP PRN ×6 (00:34→21:39)
[2019-01-10 04:00] VITALS: BP 122/70
[2019-01-10] MEDS: NovoLOG Insulin Flexpen SUBQ SCH ×4 (06:34→21:00)
[2019-01-10 06:46] LABS: BASOPHILS % (AUTO) 1.3 % (0.0-2.0); EOSINOPHILS % (AUTO) 3.8 % (0.0-3.0); HEMATOCRIT 35.9 % (42.0-52.0); HEMOGLOBIN 11.7 G/DL (14.2-18.0); LYMPHOCYTES % (AUTO) 40.8 % (20.0-45.0); MEAN CORPUSCULAR VOLUME 80 FL (80-99); MONOCYTES % (AUTO) 7.3 % (1.0-10.0); NEUTROPHILS % (AUTO) 46.8 % (45.0-75.0); PLATELET COUNT 190 K/UL (150-450); RED CELL DISTRIBUTION WIDTH 13.4 % (11.6-14.8); WHITE BLOOD COUNT 5.1 K/UL (4.8-10.8)
[2019-01-10 07:11] LABS: ALANINE AMINOTRANSFERASE 15 U/L (12-78); ALBUMIN/GLOBULIN RATIO 0.8 (1.0-2.7); ALKALINE PHOSPHATASE 83 U/L (46-116); ANION GAP 6 mmol/L (5-15); ASPARTATE AMINO TRANSFERASE 13 U/L (15-37); BILIRUBIN,TOTAL 0.2 MG/DL (0.2-1.0); BLOOD UREA NITROGEN 13 mg/dL (7-18); CALCIUM 8.4 MG/DL (8.5-10.1); CARBON DIOXIDE 28 MMOL/L (21-32); CHLORIDE 106 MMOL/L (98-107); CHOLESTEROL 193 MG/DL (< 200); CREATININE 1.5 MG/DL (0.55-1.30); HDL CHOLESTEROL 34 MG/DL (40-60); POTASSIUM 4.5 MMOL/L (3.5-5.1); SODIUM 140 MMOL/L (136-145); TRIGLYCERIDES 212 MG/DL (30-150)
--- NOTE | 2019-01-10 07:42 | NUR ---
NURSE NOTES: Received report from DONELL Don. Patient is resting in bed, in stable condition. No román and symptoms of acute distress at this time. Breathing is unlabored in room air. IV is intact and running at RX dose. Bed is in lowest position with two side rails up, brakes engaged . Call light and bed side table are within reach. Will continue to follow plan of care.
[2019-01-10 08:00] VITALS: BP 138/79
--- NOTE | 2019-01-10 08:02 | NUR ---
HAND-OFF: Report given to DONELL Minor.
[2019-01-10] MEDS: Metoprolol 25mg tab ORAL SCH ×2 (08:49→20:56)
[2019-01-10] MEDS: Dicyclomine HCl 10mg/5ml oral soln ORAL SCH (08:49)
[2019-01-10] MEDS: Aspirin EC 81mg tab ORAL SCH (08:49)
[2019-01-10] MEDS: Bumetanide 1mg tab ORAL SCH (08:49)
[2019-01-10] MEDS: Docusate 100mg cap ORAL SCH ×2 (08:49→20:55)
[2019-01-10] MEDS: Heparin 5000 units/ml inj SUBQ SCH ×2 (08:56→21:01)
--- NOTE | 2019-01-10 09:22 | NUR ---
CASE MANAGEMENT: REVIEW 01/10/2019 SI:PANCREATITIS. UNCONTROLLED HTN. T 97.2 HR 80 RR 19 B/P 122/70 SATS 94% ON RA CR 1.5 GLU 157 CA 8.4 AST 13 ALBUMIN 3 LIPASE 194 IS: IVF @ 100 mL/HR PRAVACHOL PO QHS NORVASC PO QD ASA PO QD BENTYL PO QD URSODIOL PO QD BUMEX PO QD INSULIN ASPART SUBQ AC/HS LOPRESSOR PO Q12H TELE STATUS DCP: PATIENT TO BE DISCHARGED TO HOME ONCE MEDICALLY CLEARED. PLAN OF CARE: IVF PAIN MANAGEMENT OUTPT GI PROCEDURES
--- NOTE | 2019-01-10 09:38 | NUR ---
INSURANCE REVIEWS FAXED TO [facility] P: [phone]
--- NOTE | 2019-01-10 10:46 | GI Progress Note ---
Assessment/Plan Problems: (1) Diarrhea ICD Codes: R19.7 - Diarrhea, unspecified SNOMED: 03390469 (2) Pancreatitis ICD Codes: K85.9 - Acute pancreatitis, unspecified SNOMED: 73703412 (3) Abdominal pain ICD Codes: R10.9 - Unspecified abdominal pain SNOMED: 35823146 (4) Hypertriglyceridemia ICD Codes: E78.1 - Pure hyperglyceridemia SNOMED: 188416984 Status: stable Status Narrative Discussed with Dr. Calloway Assessment/Plan Abdominal pelvis CT reviewed, findings consistent with acute focal pancreatitis Medical management for pancreatitis Advance to low-fat diet Pain management IV and p.o. hydration Avoid fatty foods PPI Outpatient GI procedures The patient was seen and examined at bedside and all new and available data was reviewed in the patients chart. I agree with the above findings, impression and plan. (Patient seen earlier today. Signature stamp does not reflect patient encounter time.). - Manish Calloway MD Subjective Subjective abdominal pain still present, but has improved Objective Last 24 Hour Vital Signs Date Time Temp Pulse Resp B/P (MAP) Pulse Ox O2 Delivery O2 Flow Rate FiO2 01/10/19 09:00 Room Air 01/10/19 08:49 80 138/79 01/10/19 08:49 80 138/79 01/10/19 08:00 98.2 80 20 138/79 (98) 97 01/10/19 08:00 83 01/10/19 04:00 97.2 80 19 122/70 (87) 94 01/10/19 04:00 75 01/10/19 00:00 77 01/10/19 00:00 97.9 79 20 116/81 (93) 97 01/09/19 21:00 Room Air 01/09/19 21:00 84 128/77 01/09/19 20:00 81 01/09/19 20:00 98.2 84 19 128/77 (94) 94 01/09/19 16:00 85 01/09/19 16:00 98.5 87 18 145/85 (105) 97 01/09/19 12:00 98.6 73 18 128/83 (98) 98 01/09/19 12:00 75 Intake and Output 01/09/19 01/10/19 19:00 07:00 Intake Total 1200 ml Balance 1200 ml IV Total 1200 ml # Voids 5 Laboratory Tests Test 01/10/19 05:37 White Blood Count 5.1 K/UL (4.8-10.8) Red Blood Count 4.50 M/UL (4.70-6.10) L Hemoglobin 11.7 G/DL (14.2-18.0) L Hematocrit 35.9 % (42.0-52.0) L Mean Corpuscular Volume 80 FL (80-99) Mean Corpuscular Hemoglobin 26.1 PG (27.0-31.0) L Mean Corpuscular Hemoglobin Concent 32.7 G/DL (32.0-36.0) Red Cell Distribution Width 13.4 % (11.6-14.8) Platelet Count 190 K/UL (150-450) Mean Platelet Volume 9.0 FL (6.5-10.1) Neutrophils (%) (Auto) 46.8 % (45.0-75.0) Lymphocytes (%) (Auto) 40.8 % (20.0-45.0) Monocytes (%) (Auto) 7.3 % (1.0-10.0) Eosinophils (%) (Auto) 3.8 % (0.0-3.0) H Basophils (%) (Auto) 1.3 % (0.0-2.0) Sodium Level 140 MMOL/L (136-145) Potassium Level 4.5 MMOL/L (3.5-5.1) Chloride Level 106 MMOL/L (98-107) Carbon Dioxide Level 28 MMOL/L (21-32) Anion Gap 6 mmol/L (5-15) Blood Urea Nitrogen 13 mg/dL (7-18) Creatinine 1.5 MG/DL (0.55-1.30) H Estimat Glomerular Filtration Rate 59.8 mL/min (>60) Glucose Level 157 MG/DL (74-106) H Calcium Level 8.4 MG/DL (8.5-10.1) L Total Bilirubin 0.2 MG/DL (0.2-1.0) Aspartate Amino Transf (AST/SGOT) 13 U/L (15-37) L Alanine Aminotransferase (ALT/SGPT) 15 U/L (12-78) Alkaline Phosphatase 83 U/L (46-116) Total Protein 6.7 G/DL (6.4-8.2) Albumin 3.0 G/DL (3.4-5.0) L Globulin 3.7 g/dL Albumin/Globulin Ratio 0.8 (1.0-2.7) L Triglycerides Level 212 MG/DL (30-150) H Cholesterol Level 193 MG/DL (< 200) LDL Cholesterol 118 mg/dL (<100) H HDL Cholesterol 34 MG/DL (40-60) L Cholesterol/HDL Ratio 5.7 (3.3-4.4) H Lipase 194 U/L (73-393) Height (Feet): 5 Height (Inches): 9.00 Weight (Pounds): 223 General Appearance: WD/WN, no apparent distress, alert Cardiovascular: normal rate Respiratory/Chest: normal breath sounds, no respiratory distress Abdominal Exam: normal bowel sounds, non tender, soft Extremities: normal range of motion, non-tender Gurjit Vazquez NP Jan 10, 2019 10:46
--- NOTE | 2019-01-10 11:48 | NUR ---
RD ASSESSMENT & RECOMMENDATIONS SEE CARE ACTIVITY FOR COMPLETE ASSESSMENT DAILY ESTIMATED NEEDS: Needs based on DM, Obesity, Cardiac, Pancreatits/ 80kg abw 20-25 kcals/kg 8393-2728 total kcals 1-1.5 g protein/kg 80-104 g total protein 20-25 mL/kg 3893-7172 total fluid mLs NUTRITION DIAGNOSIS: Altered nutrition related lab values R/T diabetes, pancreatitis, altered lipid metabolism, HTN as evidenced by A1C of 12.9, elev POC glu (157-325), elev lipase of 469 upon adm -> now wnl, elev triglyceride (212), elev LDL (118), elev BPs upon adm (193/100, 215/115 -> now improved). CURRENT DIET:FULL LIQUID -> CARDIAC PO DIET RECOMMENDATIONS: CARDIAC + CCHO LOW ADDITIONAL RECOMMENDATIONS: * Consider adding long acting insulin -for improved BG control, pt on Lantus SYRUPER * Diet ed on carb control, cardiac (low fat/chol + low Na) diet provided * Monitor PO tolerance * Monitor lytes closely on Bumex, replete as needed * Standing wt for accurate CBW
[2019-01-10 12:00] VITALS: BP 130/72
--- NOTE | 2019-01-10 13:41 | Surgery Progress Note ---
Surgery Progress Note Subjective Symptoms: improved, passing flatus Additional Comments continues to have pain exam benign states not hungry no n/v/f/c. labs noted and improved Objective Last 24 Hour Vital Signs Date Time Temp Pulse Resp B/P (MAP) Pulse Ox O2 Delivery O2 Flow Rate FiO2 01/10/19 09:00 Room Air 01/10/19 08:49 80 138/79 01/10/19 08:49 80 138/79 01/10/19 08:00 98.2 80 20 138/79 (98) 97 01/10/19 08:00 83 01/10/19 04:00 97.2 80 19 122/70 (87) 94 01/10/19 04:00 75 01/10/19 00:00 77 01/10/19 00:00 97.9 79 20 116/81 (93) 97 01/09/19 21:00 Room Air 01/09/19 21:00 84 128/77 01/09/19 20:00 81 01/09/19 20:00 98.2 84 19 128/77 (94) 94 01/09/19 16:00 85 01/09/19 16:00 98.5 87 18 145/85 (105) 97 I&O Intake and Output 01/09/19 01/10/19 19:00 07:00 Intake Total 1200 ml Balance 1200 ml IV Total 1200 ml # Voids 5 Cardiovascular: RSR Respiratory: clear Abdomen: soft, flat, non-tender, present bowel sounds, non-distended Extremities: no edema, no tenderness, no cyanosis Laboratory Tests Test 01/10/19 05:37 White Blood Count 5.1 K/UL (4.8-10.8) Red Blood Count 4.50 M/UL (4.70-6.10) L Hemoglobin 11.7 G/DL (14.2-18.0) L Hematocrit 35.9 % (42.0-52.0) L Mean Corpuscular Volume 80 FL (80-99) Mean Corpuscular Hemoglobin 26.1 PG (27.0-31.0) L Mean Corpuscular Hemoglobin Concent 32.7 G/DL (32.0-36.0) Red Cell Distribution Width 13.4 % (11.6-14.8) Platelet Count 190 K/UL (150-450) Mean Platelet Volume 9.0 FL (6.5-10.1) Neutrophils (%) (Auto) 46.8 % (45.0-75.0) Lymphocytes (%) (Auto) 40.8 % (20.0-45.0) Monocytes (%) (Auto) 7.3 % (1.0-10.0) Eosinophils (%) (Auto) 3.8 % (0.0-3.0) H Basophils (%) (Auto) 1.3 % (0.0-2.0) Sodium Level 140 MMOL/L (136-145) Potassium Level 4.5 MMOL/L (3.5-5.1) Chloride Level 106 MMOL/L (98-107) Carbon Dioxide Level 28 MMOL/L (21-32) Anion Gap 6 mmol/L (5-15) Blood Urea Nitrogen 13 mg/dL (7-18) Creatinine 1.5 MG/DL (0.55-1.30) H Estimat Glomerular Filtration Rate 59.8 mL/min (>60) Glucose Level 157 MG/DL (74-106) H Calcium Level 8.4 MG/DL (8.5-10.1) L Total Bilirubin 0.2 MG/DL (0.2-1.0) Aspartate Amino Transf (AST/SGOT) 13 U/L (15-37) L Alanine Aminotransferase (ALT/SGPT) 15 U/L (12-78) Alkaline Phosphatase 83 U/L (46-116) Total Protein 6.7 G/DL (6.4-8.2) Albumin 3.0 G/DL (3.4-5.0) L Globulin 3.7 g/dL Albumin/Globulin Ratio 0.8 (1.0-2.7) L Triglycerides Level 212 MG/DL (30-150) H Cholesterol Level 193 MG/DL (< 200) LDL Cholesterol 118 mg/dL (<100) H HDL Cholesterol 34 MG/DL (40-60) L Cholesterol/HDL Ratio 5.7 (3.3-4.4) H Lipase 194 U/L (73-393) Plan Problems: (1) Chest pain with high risk of acute coronary syndrome (2) Diarrhea (3) Pancreatitis (4) Abdominal pain Assessment & Plan: This is a 53-year-old male who presented with abdominal pain and nausea. On evaluation patient identified to have pancreatitis with elevated lipase. CT scan noted Findings: There is very slight infiltration of the peripancreatic fat surrounding the head and the uncinate process. This is similar to the previous exam although less extensive. The pancreas is not swollen or enlarged. The pancreatic body and tail appear unremarkable. No unusual masses or cyst demonstrated. The pancreas enhances normally. The gallbladder is distended. No definite gallstones demonstrated. No biliary ductal dilatation. No focal liver abnormality. The spleen is unremarkable. There are multiple accessory splenules. The adrenals and kidneys are unremarkable. Left renal cyst described on 02/01/2018 abdominal sonogram is not evident on CT. No retroperitoneal or mesenteric mass or adenopathy. No pelvic mass or adenopathy. The bladder is distended The appendix is normal. Liquid contents are seen in the proximal colon. No evidence of diverticulosis or diverticulitis. No small bowel distention. No free or loculated intraperitoneal gas or fluid is evident. The distal esophagus, stomach, duodenum are unremarkable. Small fat-containing umbilical hernia again demonstrated. The bones demonstrate degenerative spondylosis changes. Mild degenerative proliferative changes of the hips are again noted. The included lung bases are clear Patient admitted for medical care and management since abdominal pain has improved. Lipase has normalized. Exam stable. Laboratory data identify dyslipidemia. Likely etiology of pancreatitis. Patient does not have significant EtOH history. No gallstones. No acute surgical intervention necessary at this time. Can evaluate as outpatient for small fat-containing umbilical hernia Diet as tolerated Thank you will follow with recommendations (5) Hypertriglyceridemia (6) Myalgia (7) Viral syndrome (8) Bronchitis (9) Pharyngitis (10) Fall (11) ACS (acute coronary syndrome) (12) Back sprain (13) Uncontrolled type II diabetes mellitus (14) Avulsion injury (15) Toe contusion (16) Abrasion of leg (17) Reactive cervical lymphadenopathy (18) Uncontrolled hypertension (19) Head injury, acute (20) Head injury, acute (21) Trochanteric avulsion fracture of femur Julien Macias Jan 10, 2019 13:40
--- NOTE | 2019-01-10 15:59 | Neurology Progress Note ---
Interim History Interim History ROS Limited/Unobtainable: No Interim History improved overall, lipase normalized less nausea no GARCIA Objective Physical Exam Last Vital Signs Date Time Temp Pulse Resp B/P (MAP) Pulse Ox O2 Delivery O2 Flow Rate FiO2 01/10/19 09:00 Room Air 01/10/19 08:49 80 138/79 01/10/19 08:00 98.2 20 97 Laboratory Tests Test 01/10/19 05:37 White Blood Count 5.1 K/UL (4.8-10.8) Red Blood Count 4.50 M/UL (4.70-6.10) L Hemoglobin 11.7 G/DL (14.2-18.0) L Hematocrit 35.9 % (42.0-52.0) L Mean Corpuscular Volume 80 FL (80-99) Mean Corpuscular Hemoglobin 26.1 PG (27.0-31.0) L Mean Corpuscular Hemoglobin Concent 32.7 G/DL (32.0-36.0) Red Cell Distribution Width 13.4 % (11.6-14.8) Platelet Count 190 K/UL (150-450) Mean Platelet Volume 9.0 FL (6.5-10.1) Neutrophils (%) (Auto) 46.8 % (45.0-75.0) Lymphocytes (%) (Auto) 40.8 % (20.0-45.0) Monocytes (%) (Auto) 7.3 % (1.0-10.0) Eosinophils (%) (Auto) 3.8 % (0.0-3.0) H Basophils (%) (Auto) 1.3 % (0.0-2.0) Sodium Level 140 MMOL/L (136-145) Potassium Level 4.5 MMOL/L (3.5-5.1) Chloride Level 106 MMOL/L (98-107) Carbon Dioxide Level 28 MMOL/L (21-32) Anion Gap 6 mmol/L (5-15) Blood Urea Nitrogen 13 mg/dL (7-18) Creatinine 1.5 MG/DL (0.55-1.30) H Estimat Glomerular Filtration Rate 59.8 mL/min (>60) Glucose Level 157 MG/DL (74-106) H Calcium Level 8.4 MG/DL (8.5-10.1) L Total Bilirubin 0.2 MG/DL (0.2-1.0) Aspartate Amino Transf (AST/SGOT) 13 U/L (15-37) L Alanine Aminotransferase (ALT/SGPT) 15 U/L (12-78) Alkaline Phosphatase 83 U/L (46-116) Total Protein 6.7 G/DL (6.4-8.2) Albumin 3.0 G/DL (3.4-5.0) L Globulin 3.7 g/dL Albumin/Globulin Ratio 0.8 (1.0-2.7) L Triglycerides Level 212 MG/DL (30-150) H Cholesterol Level 193 MG/DL (< 200) LDL Cholesterol 118 mg/dL (<100) H HDL Cholesterol 34 MG/DL (40-60) L Cholesterol/HDL Ratio 5.7 (3.3-4.4) H Lipase 194 U/L (73-393) General: well developed Head: normocophalic Neck: no rigidity EENT: benign Neurologic Exam Mental Status: awake, alert, oriented x4, normal cognition, good mathematical skills, normal recent memory, normal remote memory, preserved visuospatial function Speech: normal speech, no dysarthia Language: normal language Cranial Nerve II: fundus normal, visual loja, no papilledema Cranial Nerves III, IV, : PERRLA, EOMI, pupils Cranial Nerve V: normal facial sensations, temporales function normal, masseters function normal, pterygoids function normal Motor System: normal muscle tone, strength 5/5, no involuntary movement, no muscle wasting Sensory: normal pinprick, normal light touch, normal position sense, normal graphesthesia Coordination: normal finger to nose bilaterally, normal heel to zeng bilaterally, negative Romberg test Impression/Recommendations Problems: (1) Myalgia (2) Uncontrolled type II diabetes mellitus (3) Head injury, acute (4) Head injury, acute (5) ACS (acute coronary syndrome) (6) Reactive cervical lymphadenopathy (7) Pharyngitis (8) Viral syndrome (9) Bronchitis (10) Fall (11) Toe contusion (12) Abrasion of leg (13) Trochanteric avulsion fracture of femur (14) Avulsion injury (15) Back sprain (16) Chest pain with high risk of acute coronary syndrome (17) Uncontrolled hypertension (18) Diarrhea (19) Pancreatitis (20) Abdominal pain (21) Hypertriglyceridemia Status: stable Diagnostic Impression GI consult IVFs measure orthostatics Neuro to sign off Wyatt Jessica MD Jan 10, 2019 15:59
[2019-01-10 16:00] VITALS: BP 130/64
--- NOTE | 2019-01-10 18:17 | General Progress Note ---
Assessment/Plan Status: stable Assessment/Plan: 53 year old male with PMH of diet controlled DM, presented with complaints of abdominal pain admitted for acute pancreatitis. #Acute Pancreatitis -GI consulted -Surgery consult in am -Trend lipase -Pain control -Clear liq - adv as tolerated -avoid fatty foods #HERNESTO -likely prerenal -CTM -fluids increased #DM --diet controlled -cont carb controlled diet once advanced Code: Software Architect of note may not reflect time of encounter Subjective Date patient seen: Jan 10, 2019 Neurologic/Psychiatric: Reports: anxiety Allergies: Coded Allergies: CODEINE (Verified Allergy, Unknown, 03/27/11) METOCLOPRAMIDE (Verified Allergy, Unknown, 02/01/18) MORPHINE (Verified Allergy, Unknown, ITCH, 03/27/11) Subjective No acute overnight events, still complaint of abdominal pain improved with pain meds, diet advanced, has no other complaints, worsening creatinine function, fluids increased Objective Last 24 Hour Vital Signs Date Time Temp Pulse Resp B/P (MAP) Pulse Ox O2 Delivery O2 Flow Rate FiO2 01/10/19 16:00 84 01/10/19 16:00 97.6 77 20 130/64 (86) 95 01/10/19 12:00 98.2 76 20 130/72 (91) 94 01/10/19 12:00 74 01/10/19 09:00 Room Air 01/10/19 08:49 80 138/79 01/10/19 08:49 80 138/79 01/10/19 08:00 98.2 80 20 138/79 (98) 97 01/10/19 08:00 83 01/10/19 04:00 97.2 80 19 122/70 (87) 94 01/10/19 04:00 75 01/10/19 00:00 77 01/10/19 00:00 97.9 79 20 116/81 (93) 97 01/09/19 21:00 Room Air 01/09/19 21:00 84 128/77 01/09/19 20:00 81 01/09/19 20:00 98.2 84 19 128/77 (94) 94 Intake and Output 01/09/19 01/10/19 19:00 07:00 Intake Total 1200 ml Balance 1200 ml IV Total 1200 ml # Voids 5 Laboratory Tests 01/10/19 05:37: White Blood Count 5.1, Red Blood Count 4.50L, Hemoglobin 11.7L, Hematocrit 35.9L , Mean Corpuscular Volume 80, Mean Corpuscular Hemoglobin 26.1L, Mean Corpuscular Hemoglobin Concent 32.7, Red Cell Distribution Width 13.4, Platelet Count 190, Mean Platelet Volume 9.0, Neutrophils (%) (Auto) 46.8, Lymphocytes (% ) (Auto) 40.8, Monocytes (%) (Auto) 7.3, Eosinophils (%) (Auto) 3.8H, Basophils (%) (Auto) 1.3, Sodium Level 140, Potassium Level 4.5, Chloride Level 106, Carbon Dioxide Level 28, Anion Gap 6, Blood Urea Nitrogen 13, Creatinine 1.5H, Estimat Glomerular Filtration Rate 59.8, Glucose Level 157H, Calcium Level 8.4L , Total Bilirubin 0.2, Aspartate Amino Transf (AST/SGOT) 13L, Alanine Aminotransferase (ALT/SGPT) 15, Alkaline Phosphatase 83, Total Protein 6.7, Albumin 3.0L, Globulin 3.7, Albumin/Globulin Ratio 0.8L, Triglycerides Level 212H, Cholesterol Level 193, LDL Cholesterol 118H, HDL Cholesterol 34L, Cholesterol/HDL Ratio 5.7H, Lipase 194 Height (Feet): 5 Height (Inches): 9.00 Weight (Pounds): 223 Objective General appearance: alert, cooperative, no distress, appears stated age Head: Normocephalic, without obvious abnormality, atraumatic Eyes: conjunctivae/corneas clear. PERRL, EOM's intact. Fundi benign Throat: Lips, mucosa, and tongue normal. Teeth and gums normal Neck: supple, symmetrical, trachea midline, no adenopathy, thyroid: not enlarged, symmetric, no tenderness/mass/nodules, no carotid bruit and no JVD Lungs: clear to auscultation bilaterally Heart: regular rate and rhythm, S1, S2 normal, no murmur, click, rub or gallop Abdomen: soft, TTP Bowel sounds normal. No masses, no organomegaly Extremities: extremities normal, atraumatic, no cyanosis or edema Pulses: 2+ and symmetric Skin: Skin color, texture, turgor normal. No rashes or lesions Neurologic: Grossly normal Sera Loomis MD Jan 10, 2019 18:17
--- NOTE | 2019-01-10 19:25 | NUR ---
NURSE NOTES: Received pt and report from DONELL Minor. Observed pt resting in bed with both eyes open and watching television. library monitor is in placed. IV site intact, asymptomatic, and patent; currently running NS @ 125cc/hr. Bed is in the lowest position and locked, call light within reach. No signs and symptoms of acute distress noted at this time. Will continue plan of care.
--- NOTE | 2019-01-10 19:32 | NUR ---
HAND-OFF: Report given to DONELL oDn.
[2019-01-10 20:00] VITALS: BP 142/72
[2019-01-10] MEDS ORDERED: Levemir Flexpen SUBQ SCH (21:00)
[2019-01-11] VITALS: BP 145/77
[2019-01-11] MEDS: HYDROmorphone 1mg/ml Carpuject IVP PRN ×2 (02:25→06:40)
[2019-01-11 04:00] VITALS: BP 149/86
[2019-01-11] MEDS: NovoLOG Insulin Flexpen SUBQ SCH (06:35)
[2019-01-11 07:16] LABS: BASOPHILS % (AUTO) 1.4 % (0.0-2.0); EOSINOPHILS % (AUTO) 4.6 % (0.0-3.0); HEMATOCRIT 37.3 % (42.0-52.0); HEMOGLOBIN 12.2 G/DL (14.2-18.0); LYMPHOCYTES % (AUTO) 38.8 % (20.0-45.0); MEAN CORPUSCULAR VOLUME 80 FL (80-99); MONOCYTES % (AUTO) 8.2 % (1.0-10.0); NEUTROPHILS % (AUTO) 47.1 % (45.0-75.0); PLATELET COUNT 184 K/UL (150-450); RED BLOOD COUNT 4.66 M/UL (4.70-6.10); WHITE BLOOD COUNT 4.6 K/UL (4.8-10.8)
--- NOTE | 2019-01-11 07:30 | NUR ---
NURSE NOTES: Received pt and report from Florencia RN. Alert and oriented. Bed in it's lowest position and locked. No c/o pain. No acute distress noted. IV in RAC 20G running with NS 125cc/hr intact and asymptomatic, and patent. Call light within reach. No signs and symptoms of acute distress noted at this time. Will continue plan of care
[2019-01-11 07:55] LABS: ANION GAP 6 mmol/L (5-15); BLOOD UREA NITROGEN 14 mg/dL (7-18); CALCIUM 8.8 MG/DL (8.5-10.1); CARBON DIOXIDE 28 MMOL/L (21-32); CHLORIDE 105 MMOL/L (98-107); CREATININE 1.3 MG/DL (0.55-1.30); POTASSIUM 4.6 MMOL/L (3.5-5.1); SODIUM 139 MMOL/L (136-145)
--- NOTE | 2019-01-11 07:57 | NUR ---
HAND-OFF: Report given to DONELL Strickland.
[2019-01-11 08:00] VITALS: BP 154/84
--- NOTE | 2019-01-11 08:05 | General Progress Note ---
Assessment/Plan Status: stable Assessment/Plan: (1) Diarrhea ICD Codes: R19.7 - Diarrhea, unspecified SNOMED: 98078200 (2) Pancreatitis ICD Codes: K85.9 - Acute pancreatitis, unspecified SNOMED: 38708512 (3) Abdominal pain ICD Codes: R10.9 - Unspecified abdominal pain SNOMED: 94803612 (4) Hypertriglyceridemia ICD Codes: E78.1 - Pure hyperglyceridemia SNOMED: 490969014 Status: stable Status Narrative Discussed with Dr. Calloway Assessment/Plan Abdominal pelvis CT reviewed, findings consistent with acute focal pancreatitis Medical management for pancreatitis on diet Pain management IV and p.o. hydration Avoid fatty foods PPI Outpatient GI procedures Subjective ROS Limited/Unobtainable: Yes Allergies: Coded Allergies: CODEINE (Verified Allergy, Unknown, 03/27/11) METOCLOPRAMIDE (Verified Allergy, Unknown, 02/01/18) MORPHINE (Verified Allergy, Unknown, ITCH, 03/27/11) Objective Last 24 Hour Vital Signs Date Time Temp Pulse Resp B/P (MAP) Pulse Ox O2 Delivery O2 Flow Rate FiO2 01/11/19 04:00 98.8 84 18 149/86 (107) 97 01/11/19 04:00 78 01/11/19 00:00 97.7 76 19 145/77 (99) 96 01/11/19 00:00 77 01/10/19 21:00 Room Air 01/10/19 20:56 86 142/72 01/10/19 20:00 98.1 86 19 142/72 (95) 94 01/10/19 20:00 85 01/10/19 16:00 84 01/10/19 16:00 97.6 77 20 130/64 (86) 95 01/10/19 12:00 98.2 76 20 130/72 (91) 94 01/10/19 12:00 74 01/10/19 09:00 Room Air 01/10/19 08:49 80 138/79 01/10/19 08:49 80 138/79 Intake and Output 01/10/19 01/11/19 18:59 06:59 Intake Total 380 ml 1250 ml Balance 380 ml 1250 ml Intake Oral 380 ml IV Total 1250 ml # Voids 3 2 # Bowel Movements 1 Laboratory Tests 01/11/19 05:36: White Blood Count 4.6L, Red Blood Count 4.66L, Hemoglobin 12.2L, Hematocrit 37.3L, Mean Corpuscular Volume 80, Mean Corpuscular Hemoglobin 26.2L, Mean Corpuscular Hemoglobin Concent 32.7, Red Cell Distribution Width 13.0, Platelet Count 184, Mean Platelet Volume 8.8, Neutrophils (%) (Auto) 47.1, Lymphocytes (% ) (Auto) 38.8, Monocytes (%) (Auto) 8.2, Eosinophils (%) (Auto) 4.6H, Basophils (%) (Auto) 1.4, Sodium Level 139, Potassium Level 4.6, Chloride Level 105, Carbon Dioxide Level 28, Anion Gap 6, Blood Urea Nitrogen 14, Creatinine 1.3, Estimat Glomerular Filtration Rate > 60, Glucose Level 299#H, Calcium Level 8.8 Height (Feet): 5 Height (Inches): 9.00 Weight (Pounds): 223 General Appearance: alert EENT: normal ENT inspection Neck: supple Cardiovascular: normal peripheral pulses Respiratory/Chest: lungs clear, rhonchi - right Abdomen: soft, tender Extremities: non-tender Manish Calloway MD Jan 11, 2019 08:05
[2019-01-11] MEDS: Heparin 5000 units/ml inj SUBQ SCH (09:00)
[2019-01-11 09:04] VITALS: BP 154/84
[2019-01-11] MEDS: Bumetanide 1mg tab ORAL SCH (09:04)
[2019-01-11] MEDS: Aspirin EC 81mg tab ORAL SCH (09:04)
[2019-01-11] MEDS: Docusate 100mg cap ORAL SCH (09:04)
[2019-01-11] MEDS: Metoprolol 25mg tab ORAL SCH (09:04)
[2019-01-11] MEDS: Dicyclomine HCl 10mg/5ml oral soln ORAL SCH (09:05)
--- NOTE | 2019-01-11 09:42 | Discharge Instructions ---
Discharge Instructions Discharge Instructions Follow up with: pcp Call MD/Return to Hospital if: intractable vomiting and pain, fevers Diet: cardiac 2 GM Na, low fat Resume Normal Activity?: Yes Activity: resume normal activities For Congestive Heart Failure Reminder Report to your physician any weight gain of 5 pounds or more in one week. Sera Loomis MD Jan 11, 2019 09:42
--- NOTE | 2019-01-11 09:43 | Discharge Summary ---
Discharge Summary Hospital Course Date of Admission Jan 08, 2019 at 07:18 Date of Discharge Admitting Diagnosis pancreatitis, uncontrolled hypertension HPI Michael Mixon is a 53 year old male who was admitted on Jan 08, 2019 at 07 :18 for Pancreatitis, Uncontrolled Hypertension Hospital Course 53 year old male with PMH of diet controlled DM, presented with complaints of abdominal pain admitted for acute pancreatitis. #Acute Pancreatitis -GI consulted -Surgery consult in am -Trend lipase -Pain control -Clear liq - adv as tolerated -avoid fatty foods #HERNESTO -likely prerenal -CTM -fluids increased #DM --diet controlled -cont carb controlled diet once advanced Code: Transportation Dispatch Manager of note may not reflect time of encounter Discharge Discharge Disposition Patient was discharged to Discharge Instructions Discharge Instructions Follow up with: pcp Call MD/Return to Hospital if: intractable vomiting and pain, fevers Activity: resume normal activities Sera Loomis MD Jan 11, 2019 09:43
[2019-01-11] MEDS ORDERED: Levemir Flexpen SUBQ SCH ×2 (10:00)
--- NOTE | 2019-01-11 11:27 | Surgery Progress Note ---
Surgery Progress Note Subjective Symptoms: improved, pain absent, tolerating diet, voiding well, passing flatus Objective Last 24 Hour Vital Signs Date Time Temp Pulse Resp B/P (MAP) Pulse Ox O2 Delivery O2 Flow Rate FiO2 01/11/19 09:04 80 154/84 01/11/19 09:04 80 154/84 01/11/19 08:49 Room Air 01/11/19 08:00 97.7 80 20 154/84 (107) 94 01/11/19 08:00 81 01/11/19 04:00 98.8 84 18 149/86 (107) 97 01/11/19 04:00 78 01/11/19 00:00 97.7 76 19 145/77 (99) 96 01/11/19 00:00 77 01/10/19 21:00 Room Air 01/10/19 20:56 86 142/72 01/10/19 20:00 98.1 86 19 142/72 (95) 94 01/10/19 20:00 85 01/10/19 16:00 84 01/10/19 16:00 97.6 77 20 130/64 (86) 95 01/10/19 12:00 98.2 76 20 130/72 (91) 94 01/10/19 12:00 74 I&O Intake and Output 01/10/19 01/11/19 18:59 06:59 Intake Total 380 ml 1250 ml Balance 380 ml 1250 ml Intake Oral 380 ml IV Total 1250 ml # Voids 3 2 # Bowel Movements 1 Cardiovascular: RSR Respiratory: clear Abdomen: soft, flat, non-tender, present bowel sounds, non-distended Extremities: no edema, no tenderness, no cyanosis Laboratory Tests Test 01/11/19 05:36 White Blood Count 4.6 K/UL (4.8-10.8) L Red Blood Count 4.66 M/UL (4.70-6.10) L Hemoglobin 12.2 G/DL (14.2-18.0) L Hematocrit 37.3 % (42.0-52.0) L Mean Corpuscular Volume 80 FL (80-99) Mean Corpuscular Hemoglobin 26.2 PG (27.0-31.0) L Mean Corpuscular Hemoglobin Concent 32.7 G/DL (32.0-36.0) Red Cell Distribution Width 13.0 % (11.6-14.8) Platelet Count 184 K/UL (150-450) Mean Platelet Volume 8.8 FL (6.5-10.1) Neutrophils (%) (Auto) 47.1 % (45.0-75.0) Lymphocytes (%) (Auto) 38.8 % (20.0-45.0) Monocytes (%) (Auto) 8.2 % (1.0-10.0) Eosinophils (%) (Auto) 4.6 % (0.0-3.0) H Basophils (%) (Auto) 1.4 % (0.0-2.0) Sodium Level 139 MMOL/L (136-145) Potassium Level 4.6 MMOL/L (3.5-5.1) Chloride Level 105 MMOL/L (98-107) Carbon Dioxide Level 28 MMOL/L (21-32) Anion Gap 6 mmol/L (5-15) Blood Urea Nitrogen 14 mg/dL (7-18) Creatinine 1.3 MG/DL (0.55-1.30) Estimat Glomerular Filtration Rate > 60 mL/min (>60) Glucose Level 299 MG/DL (74-106) #H Calcium Level 8.8 MG/DL (8.5-10.1) Plan Problems: (1) Chest pain with high risk of acute coronary syndrome (2) Diarrhea (3) Pancreatitis (4) Abdominal pain Assessment & Plan: This is a 53-year-old male who presented with abdominal pain and nausea. On evaluation patient identified to have pancreatitis with elevated lipase. CT scan noted Findings: There is very slight infiltration of the peripancreatic fat surrounding the head and the uncinate process. This is similar to the previous exam although less extensive. The pancreas is not swollen or enlarged. The pancreatic body and tail appear unremarkable. No unusual masses or cyst demonstrated. The pancreas enhances normally. The gallbladder is distended. No definite gallstones demonstrated. No biliary ductal dilatation. No focal liver abnormality. The spleen is unremarkable. There are multiple accessory splenules. The adrenals and kidneys are unremarkable. Left renal cyst described on 02/01/2018 abdominal sonogram is not evident on CT. No retroperitoneal or mesenteric mass or adenopathy. No pelvic mass or adenopathy. The bladder is distended The appendix is normal. Liquid contents are seen in the proximal colon. No evidence of diverticulosis or diverticulitis. No small bowel distention. No free or loculated intraperitoneal gas or fluid is evident. The distal esophagus, stomach, duodenum are unremarkable. Small fat-containing umbilical hernia again demonstrated. The bones demonstrate degenerative spondylosis changes. Mild degenerative proliferative changes of the hips are again noted. The included lung bases are clear Patient admitted for medical care and management since abdominal pain has improved. Lipase has normalized. Exam stable. Laboratory data identify dyslipidemia. Likely etiology of pancreatitis. Patient does not have significant EtOH history. No gallstones. No acute surgical intervention necessary at this time. Can evaluate as outpatient for small fat-containing umbilical hernia Diet as tolerated d/c home follow up with PCP Thank you will follow with recommendations (5) Hypertriglyceridemia (6) Myalgia (7) Viral syndrome (8) Bronchitis (9) Pharyngitis (10) Fall (11) ACS (acute coronary syndrome) (12) Back sprain (13) Uncontrolled type II diabetes mellitus (14) Avulsion injury (15) Toe contusion (16) Abrasion of leg (17) Reactive cervical lymphadenopathy (18) Uncontrolled hypertension (19) Head injury, acute (20) Head injury, acute (21) Trochanteric avulsion fracture of femur Julien Macias Jan 11, 2019 11:27
[2019-01-11] MEDS ORDERED: Tubing IV Secondary IV ONE (11:29)
--- NOTE | 2019-01-11 11:31 | NUR ---
Discharge: Patient is being discharged from medical care. Awake, alert and oriented x4. After care instructions, including meds reconciliation and dischare instructions were given. Patient verbalized understanding of After care instructions; at this time patient does not request medications, equipment or placement. Patient signed patient consent in the medical record for patient destination upon discharge. All medical devices such as monitoring coordinator, IV and ID band were removed. Pt's came and picked up the patient by private car. Patient ambulated out with nurse's assist with all personal belongings with steady gait.
--- NOTE | 2019-01-11 20:16 | Neurology Progress Note ---
Interim History Interim History ROS Limited/Unobtainable: Yes Interim History at baseline Objective Physical Exam Last Vital Signs Date Time Temp Pulse Resp B/P (MAP) Pulse Ox O2 Delivery O2 Flow Rate FiO2 01/11/19 09:04 80 154/84 01/11/19 08:49 Room Air 01/11/19 08:00 97.7 20 94 Laboratory Tests Test 01/11/19 05:36 White Blood Count 4.6 K/UL (4.8-10.8) L Red Blood Count 4.66 M/UL (4.70-6.10) L Hemoglobin 12.2 G/DL (14.2-18.0) L Hematocrit 37.3 % (42.0-52.0) L Mean Corpuscular Volume 80 FL (80-99) Mean Corpuscular Hemoglobin 26.2 PG (27.0-31.0) L Mean Corpuscular Hemoglobin Concent 32.7 G/DL (32.0-36.0) Red Cell Distribution Width 13.0 % (11.6-14.8) Platelet Count 184 K/UL (150-450) Mean Platelet Volume 8.8 FL (6.5-10.1) Neutrophils (%) (Auto) 47.1 % (45.0-75.0) Lymphocytes (%) (Auto) 38.8 % (20.0-45.0) Monocytes (%) (Auto) 8.2 % (1.0-10.0) Eosinophils (%) (Auto) 4.6 % (0.0-3.0) H Basophils (%) (Auto) 1.4 % (0.0-2.0) Sodium Level 139 MMOL/L (136-145) Potassium Level 4.6 MMOL/L (3.5-5.1) Chloride Level 105 MMOL/L (98-107) Carbon Dioxide Level 28 MMOL/L (21-32) Anion Gap 6 mmol/L (5-15) Blood Urea Nitrogen 14 mg/dL (7-18) Creatinine 1.3 MG/DL (0.55-1.30) Estimat Glomerular Filtration Rate > 60 mL/min (>60) Glucose Level 299 MG/DL (74-106) #H Calcium Level 8.8 MG/DL (8.5-10.1) General: well developed Head: normocophalic Neck: no rigidity EENT: benign Neurologic Exam Mental Status: awake, alert, oriented x4, normal cognition, good mathematical skills, normal recent memory, normal remote memory, preserved visuospatial function Speech: normal speech, no dysarthia Language: normal language Cranial Nerve II: fundus normal, visual loja, no papilledema Cranial Nerves III, IV, : PERRLA, EOMI, pupils Cranial Nerve V: normal facial sensations, temporales function normal, masseters function normal, pterygoids function normal Motor System: normal muscle tone, strength 5/5, no involuntary movement, no muscle wasting Sensory: normal pinprick, normal light touch, normal position sense, normal graphesthesia Coordination: normal finger to nose bilaterally, normal heel to zeng bilaterally, negative Romberg test Impression/Recommendations Problems: (1) Myalgia (2) Uncontrolled type II diabetes mellitus (3) Head injury, acute (4) Head injury, acute (5) ACS (acute coronary syndrome) (6) Reactive cervical lymphadenopathy (7) Pharyngitis (8) Viral syndrome (9) Bronchitis (10) Fall (11) Toe contusion (12) Abrasion of leg (13) Trochanteric avulsion fracture of femur (14) Avulsion injury (15) Back sprain (16) Chest pain with high risk of acute coronary syndrome (17) Uncontrolled hypertension (18) Diarrhea (19) Pancreatitis (20) Abdominal pain (21) Hypertriglyceridemia Status: stable Diagnostic Impression GI consult IVFs measure orthostatics Neuro to sign off Wyatt Jessica MD Jan 11, 2019 20:16
--- NOTE | 2019-01-13 10:44 | NUR ---
INSURANCE discharge summary has been faxed to: [facility] P: [phone]
== END 2019-01-11 11:30 | disposition home or self-care (01) | DRG 282 ==
LOC: EMR 05:19 → 2E 07:18 → EDBEDREQ 08:35 → 2W 01-09 12:26 → 2E 01-09 12:40
DX: K85.90 Acute pancreatitis without necrosis or infection, unspecified (principal); N17.9 Acute kidney failure, unspecified; R07.9 Chest pain, unspecified; E78.1 Pure hyperglyceridemia; R19.7 Diarrhea, unspecified; Z88.6 Allergy status to analgesic agent; Z88.8 Allergy status to other drugs, medicaments and biological substances; Z79.82 Long term (current) use of aspirin; Z79.4 Long term (current) use of insulin; E11.65 Type 2 diabetes mellitus with hyperglycemia
CPT/HCPCS: 36415; 74177; 80048; 80053; 80061; 80307; 80329; 81003; 82248; 82962; 83036; 83690; 83735; 83880; 84100; 84484; 85025; 93005; 96374; 96375; 99285; J1815; J2405; S5561

== ENCOUNTER 2019-02-06 01:11 | Inpatient (IN) | payer MEDICAID ==
[~2019-02-06] VITALS: Ht 172.7 cm; Wt 99.8 kg
[2019-02-06] VITALS (7 sets, daily range): BP systolic 115–140; BP diastolic 63–100
[~2019-02-06 01:11] MED LIST changes: +ACTOS45 MG ORAL; +AMLODIPINE BESY10 MG ORAL; +APIDRA SOL100 UNIT/1 SQ; +BASAGLAR; +BUMEX1 MG ORAL; +DICYCLOMINE HCL10 MG ORAL; +LANTUS SOL100 UNIT/1 SUBQ; +OMEPRAZOLE20 M3 ORAL; +PRAVACHOL40 MG ORAL; +URSODIOL500 MG PO
--- NOTE | 2019-02-06 01:22 | NUR ---
ED Nurse Note: PT WALKED IN C/O EPIGASTRIC ABD PAIN X 3 DAYS, REPORTS NAUSEA DENIES VOMITING.
--- NOTE | 2019-02-06 01:30 | NUR ---
ED Nurse Note: iv access established. blood and urine collected; sent down to lab.
--- NOTE | 2019-02-06 01:35 | NUR ---
ED Nurse Note: mrsa swab collected; patient refused vre cre swab.
--- NOTE | 2019-02-06 01:50 | Emergency Room Report ---
History of Present Illness General Chief Complaint: Abdominal Pain Source: Medical Record Present Illness HPI Patient is a 53-year-old male presents after increased epigastric pain. Patient reports having patient reports having prior history of pancreatitis as well as biliary sludge. He is type II diabetic. Patient states that he has been increased pain for 1 day. Pain is constant in nature. Middle of his chest. He denies any fever. Reports having prior history of peripheral neuropathy. Reports having a recent HIDA scan which showed biliary sludge. He reports having one alcoholic drink yesterday. Allergies: Coded Allergies: CODEINE (Verified Allergy, Unknown, 03/27/11) METOCLOPRAMIDE (Verified Allergy, Unknown, 02/01/18) MORPHINE (Verified Allergy, Unknown, ITCH, 03/27/11) Patient History Past Medical History: see triage record Reviewed Nursing Documentation: PMH: Agreed; PSxH: Agreed Nursing Documentation-PMH Hx Cardiac Problems: Yes Hx Hypertension: Yes Hx Diabetes: Yes Hx Gastrointestinal Problems: Yes Hx Neurological Problems: No Review of Systems All Other Systems: negative except mentioned in HPI Physical Exam Vital Signs Date Time Temp Pulse Resp B/P (MAP) Pulse Ox O2 Delivery O2 Flow Rate FiO2 02/06/19 01:14 98.2 94 18 115/82 (93) 96 Room Air Sp02 EP Interpretation: reviewed, normal General Appearance: normal inspection, well appearing, no apparent distress, alert, GCS 15, obese, Chronically Ill Head: atraumatic ENT: normal ENT inspection, hearing grossly normal, normal voice Neck: normal inspection, full range of motion, supple, no bony tend Respiratory: normal inspection, lungs clear, normal breath sounds, no respiratory distress, no retraction, no wheezing Cardiovascular #1: regular rate, rhythm, no edema Gastrointestinal: normal inspection, normal bowel sounds, non tender, soft, no guarding, no hernia Genitourinary: no CVA tenderness Musculoskeletal: normal inspection, back normal, normal range of motion Neurologic: normal inspection, alert, oriented x3, responsive, grinder watch parts III-XII nml as tested, speech normal Psychiatric: normal inspection, judgement/insight normal, mood/affect normal Medical Decision Making Diagnostic Impression: Primary Impression: Chest pain with high risk of acute coronary syndrome Additional Impression: Uncontrolled type II diabetes mellitus ER Course Presented for chest pain. Differential diagnosis include is not limited to pancreatitis, acute coronary syndrome, hypertensive crisis, uncontrolled diabetes dehydration among others. Laboratory testing was ordered due to patient's prior medical history and elevated blood sugar. He was given IV fluids. Patient also given IV pain medications. Patient has unclear source of discomfort. Location is concerning for possible ACS given the patient's prior history of diabetes and hypertension. EKG interpreted by me showed normal sinus rhythm without acute ST or T wave changes. Patient's initial laboratory testing showed normal lipase as well as elevated blood sugar. Dr. Ashby was contacted for inpatient management prior admission by [facility]. Labs Test 02/06/19 01:30 02/06/19 02:00 Urine Color Pale yellow Urine Appearance Clear Urine pH 5 (4.5-8.0) Urine Specific [place] 1.015 (1.005-1.035) Urine Protein 2+ (NEGATIVE) Urine Glucose (UA) 4+ (NEGATIVE) Urine Ketones Negative (NEGATIVE) Urine Blood 2+ (NEGATIVE) Urine Nitrite Negative (NEGATIVE) Urine Bilirubin Negative (NEGATIVE) Urine Urobilinogen Normal MG/DL (0.0-1.0) Urine Leukocyte Esterase Negative (NEGATIVE) Urine RBC 2-4 /HPF (0 - 0) Urine WBC 0 /HPF (0 - 0) Urine Squamous Epithelial Cells None /LPF (NONE/OCC) Urine Bacteria Few /HPF (NONE) Sodium Level 137 MMOL/L (136-145) Potassium Level 4.2 MMOL/L (3.5-5.1) Chloride Level 101 MMOL/L (98-107) Carbon Dioxide Level 29 MMOL/L (21-32) Anion Gap 7 mmol/L (5-15) Blood Urea Nitrogen 22 mg/dL (7-18) Creatinine 1.7 MG/DL (0.55-1.30) Estimat Glomerular Filtration Rate 51.8 mL/min (>60) Glucose Level 276 MG/DL (74-106) Calcium Level 9.3 MG/DL (8.5-10.1) Total Bilirubin 0.3 MG/DL (0.2-1.0) Aspartate Amino Transf (AST/SGOT) 11 U/L (15-37) Alanine Aminotransferase (ALT/SGPT) 21 U/L (12-78) Alkaline Phosphatase 90 U/L (46-116) Troponin I 0.000 ng/mL (0.000-0.056) Total Protein 7.9 G/DL (6.4-8.2) Albumin 3.7 G/DL (3.4-5.0) Globulin 4.2 g/dL Albumin/Globulin Ratio 0.9 (1.0-2.7) Lipase 98 U/L (73-393) White Blood Count 5.9 K/UL (4.8-10.8) Red Blood Count 4.88 M/UL (4.70-6.10) Hemoglobin 12.6 G/DL (14.2-18.0) Hematocrit 38.6 % (42.0-52.0) Mean Corpuscular Volume 79 FL (80-99) Mean Corpuscular Hemoglobin 25.9 PG (27.0-31.0) Mean Corpuscular Hemoglobin Concent 32.7 G/DL (32.0-36.0) Red Cell Distribution Width 13.9 % (11.6-14.8) Platelet Count 144 K/UL (150-450) Mean Platelet Volume 8.1 FL (6.5-10.1) Neutrophils (%) (Auto) 54.0 % (45.0-75.0) Lymphocytes (%) (Auto) 33.4 % (20.0-45.0) Monocytes (%) (Auto) 6.9 % (1.0-10.0) Eosinophils (%) (Auto) 3.0 % (0.0-3.0) Basophils (%) (Auto) 2.7 % (0.0-2.0) EKG Diagnostic Results Rate: normal Rhythm: NSR ST Segments: no acute changes Last Vital Signs Date Time Temp Pulse Resp B/P (MAP) Pulse Ox O2 Delivery O2 Flow Rate FiO2 02/06/19 01:14 98.2 94 18 115/82 (93) 96 Room Air Status: unchanged Disposition: ADMITTED INPATIENT Condition: Stable Referrals: [facility],REFERRING (PCP) Jesse Will MD Feb 06, 2019 01:50
[2019-02-06 01:55] LABS: APPEARANCE,URINE CLEAR; BILIRUBIN, URINE NEGATIVE (NEGATIVE); COLOR,URINE PALE YELLOW; GLUCOSE, URINE (UA) 4+ (NEGATIVE); KETONES,URINE NEGATIVE (NEGATIVE); LEUKOCYTE ESTERASE ,URINE NEGATIVE (NEGATIVE); NITRITE,URINE NEGATIVE (NEGATIVE); PH,URINE 5 (4.5-8.0); PROTEIN,URINE 2+ (NEGATIVE); UROBILINOGEN,URINE NORMAL MG/DL (0.0-1.0)
[2019-02-06] MEDS ORDERED: HYDROmorphone 1mg/ml Carpuject IVP ONE (02:00)
[2019-02-06] MEDS ORDERED: DiphenhydrAMINE 50mg/ml Inj IVP ONE (02:00)
[2019-02-06 02:17] LABS: SODIUM 137 MMOL/L (136-145)
[2019-02-06 02:18] LABS: ANION GAP 7 mmol/L (5-15); BLOOD UREA NITROGEN 22 mg/dL (7-18); CALCIUM 9.3 MG/DL (8.5-10.1); CARBON DIOXIDE 29 MMOL/L (21-32); CHLORIDE 101 MMOL/L (98-107); CREATININE 1.7 MG/DL (0.55-1.30); POTASSIUM 4.2 MMOL/L (3.5-5.1)
[2019-02-06 02:20] LABS: ALANINE AMINOTRANSFERASE 21 U/L (12-78); ALBUMIN 3.7 G/DL (3.4-5.0); ALBUMIN/GLOBULIN RATIO 0.9 (1.0-2.7); ALKALINE PHOSPHATASE 90 U/L (46-116); ASPARTATE AMINO TRANSFERASE 11 U/L (15-37); BILIRUBIN,TOTAL 0.3 MG/DL (0.2-1.0)
--- NOTE | 2019-02-06 03:53 | NUR ---
TRANSFER TO FLOOR: Patient transferred to [facility] 201-2 as ordered, per MD SEDA. Report given to DONELL HUGGINS. PATIENT IN STABLE CONDITION. FAMILY MEMBER AT BEDSIDE. BELONGINGS LIST COMPLETED WITH RECEIVING RN.
[2019-02-06 03:58] LABS: BASOPHILS % (AUTO) 2.7 % (0.0-2.0); HEMATOCRIT 38.6 % (42.0-52.0); HEMOGLOBIN 12.6 G/DL (14.2-18.0); LYMPHOCYTES % (AUTO) 33.4 % (20.0-45.0); MEAN CORPUSCULAR VOLUME 79 FL (80-99); MONOCYTES % (AUTO) 6.9 % (1.0-10.0); PLATELET COUNT 144 K/UL (150-450); RED BLOOD COUNT 4.88 M/UL (4.70-6.10); RED CELL DISTRIBUTION WIDTH 13.9 % (11.6-14.8); WHITE BLOOD COUNT 5.9 K/UL (4.8-10.8)
--- NOTE | 2019-02-06 04:30 | NUR ---
NURSE NOTES: Received pt. and report from Lebron Galvin RN from ED via [facility] [employer]. Pt awake showing no signs of acute distress. Respiration even and non labored on room air. AOx4. No sob noted. VS: 97.3F, BP 122/75, HR 86, 98% SaO2 ra. Pt c/o of abdominal pain. Oriented to room and unit. engine monitor on showing SR. Bed in lowest position, wheels locked, and side rails up x2. Call light within reach. Called Dr. Langford office for admission order. Awaiting call back.
[2019-02-06] MEDS ORDERED: Acetaminophen 650 MG SUPP RECTAL PRN (06:30)
[2019-02-06] MEDS ORDERED: Hydromorphone 0.5mg/0.5ml inj IVP PRN (06:30)
[2019-02-06] MEDS ORDERED: Nitroglycerin Subl 0.4mg tab SL PRN (06:30)
[2019-02-06] MEDS ORDERED: Miralax 17gm pkt ORAL PRN (06:30)
[2019-02-06] MEDS ORDERED: LORazepam 1mg tab ORAL PRN (06:30)
[2019-02-06] MEDS ORDERED: Zolpidem 5mg tab ORAL PRN (06:30)
[2019-02-06] MEDS ORDERED: Milk of Magnesia 30ml Ud ORAL PRN (06:30)
[2019-02-06] MEDS ORDERED: Mylanta II UD 30ml ORAL PRN (06:30)
[2019-02-06] MEDS ORDERED: Morphine Sulfate 4mg/ml Inj (IV USE ONLY) IVP PRN (06:30)
[2019-02-06] MEDS ORDERED: Metoclopramide 10mg/2ml Inj IVP PRN (06:30)
[2019-02-06] MEDS ORDERED: Albuterol 90mcg Inhaler 8gm INH SCH (06:45)
[2019-02-06] MEDS ORDERED: Methocarbamol 750mg tab ORAL PRN (06:45)
--- NOTE | 2019-02-06 06:49 | History and Physical ---
History of Present Illness General Date patient seen: Feb 06, 2019 Time patient seen: 12:00 Reason for Hospitalization: Abdominal Pain Present Illness HPI "Patient is a 53-year-old male presents after increased epigastric pain. Patient reports having patient reports having prior history of pancreatitis as well as biliary sludge. He is type II diabetic. Patient states that he has been increased pain for 1 day. Pain is constant in nature. Middle of his chest. He denies any fever. Reports having prior history of peripheral neuropathy. Reports having a recent HIDA scan which showed biliary sludge. He reports having one alcoholic drink yesterday. GI consulted for reported abdominal pain. Patient seen, awake alert and oriented x4 no apparent distress has complaint of severe epigastric pain for the past 2 to 3 days. Patient reported nausea without vomiting. Patient had prior admission here at [facility] approximately 1 month ago in which she had a mild case of pancreatitis. Patient denies any use of alcohol or drug use. Patient states he has a history of chronic pancreatitis and has been hospitalized multiple times for similar conditions. Pertinent labs; hemoglobin of 12.4, glucose 216, TSH of 4.4. Patient reports history of endoscopy and colonoscopy approximately 1 to 2 years ago which she reported colonic polyps." Patient states he has had epigastric pain radiating to his back from three days ago. He describes it as a "squeezing pain" that comes and goes. Denies diarrhea, admits to nausea with no vomiting, admits to constipation. Allergies: Coded Allergies: CODEINE (Verified Allergy, Unknown, 03/27/11) METOCLOPRAMIDE (Verified Allergy, Unknown, 02/01/18) MORPHINE (Verified Allergy, Unknown, ITCH, 03/27/11) Medication History Scheduled Albuterol Sulfate* (Albuterol Sulfate Mdi*), 2 PUFF INH Q4H Amlodipine Besylate* (Amlodipine Besylate*), 10 MG ORAL BID, (Reported) Aspirin* (Aspir 81*), 81 MG ORAL DAILY, (Reported) Bumetanide (Bumetanide), 1 MG ORAL DAILY, (Reported) Carisoprodol (Carisoprodol), 350 MG ORAL BID, (Reported) Diclofenac Sod* (Voltaren*), 50 MG ORAL BID, (Reported) Dicyclomine Hcl* (Dicyclomine Hcl*), 10 MG ORAL DAILY, (Reported) Famotidine (Pepcid Ac), 20 MG PO BID Gabapentin* (Gabapentin*), 300 MG ORAL BEDTIME, (Reported) Glipizide* (Glipizide*), 10 MG ORAL BIDAC, (Reported) Insulin Glargine (Lantus), 60 SUBQ BEDTIME, (Reported) Lisinopril (Lisinopril*), 20 MG ORAL DAILY, (Reported) Metformin Hcl* (Metformin Hcl*), 500 MG ORAL DAILY, (Reported) Metformin Hcl* (Metformin Hcl*), 1,000 MG ORAL BID, (Reported) Methocarbamol* (Robaxin-750*), 750 MG PO TID Metoprolol Tartrate* (Metoprolol Tartrate*), 25 MG ORAL EVERY 12 HOURS, ( Reported) Omeprazole (Omeprazole), 20 MG ORAL DAILY, (Reported) Pioglitazone Hcl* (Actos*), 45 MG ORAL DAILY, (Reported) Pravastatin Sodium (Pravachol), 80 MG ORAL BEDTIME, (Reported) Ranitidine Hcl* (Zantac*), 150 MG ORAL TWICE A DAY Sertraline Hcl* (Sertraline Hcl*), 25 MG ORAL DAILY, (Reported) Simvastatin (Zocor), 40 MG ORAL DAILY, (Reported) Scheduled PRN Diphenhydramine Hcl* (Benadryl*), 25 MG ORAL Q6H PRN for Itching Miscellaneous Medications Insulin Glulisine (Apidra Solostar), 100 UNIT SQ, (Reported) Patient History Healthcare decision maker Resuscitation status Full Code Advanced Directive on File Review of Systems All Other Systems: negative except mentioned in HPI Physical Exam Last 24 Hour Vital Signs Date Time Temp Pulse Resp B/P (MAP) Pulse Ox O2 Delivery O2 Flow Rate FiO2 02/06/19 04:40 Room Air 02/06/19 04:39 86 02/06/19 04:38 97.5 86 18 122/75 (91) 98 02/06/19 03:53 98.2 82 18 127/100 96 Room Air 02/06/19 03:30 98.2 82 18 127/100 96 Room Air 02/06/19 02:22 98.2 02/06/19 01:57 98.2 91 18 115/82 96 Room Air 02/06/19 01:57 94 18 Room Air 02/06/19 01:14 98.2 94 18 115/82 (93) 96 Room Air Laboratory Tests Test 02/06/19 01:30 02/06/19 02:00 Urine Color Pale yellow Urine Appearance Clear Urine pH 5 (4.5-8.0) Urine Specific [place] 1.015 (1.005-1.035) Urine Protein 2+ (NEGATIVE) H Urine Glucose (UA) 4+ (NEGATIVE) H Urine Ketones Negative (NEGATIVE) Urine Blood 2+ (NEGATIVE) H Urine Nitrite Negative (NEGATIVE) Urine Bilirubin Negative (NEGATIVE) Urine Urobilinogen Normal MG/DL (0.0-1.0) Urine Leukocyte Esterase Negative (NEGATIVE) Urine RBC 2-4 /HPF (0 - 0) H Urine WBC 0 /HPF (0 - 0) Urine Squamous Epithelial Cells None /LPF (NONE/OCC) Urine Bacteria Few /HPF (NONE) Sodium Level 137 MMOL/L (136-145) Potassium Level 4.2 MMOL/L (3.5-5.1) Chloride Level 101 MMOL/L (98-107) Carbon Dioxide Level 29 MMOL/L (21-32) Anion Gap 7 mmol/L (5-15) Blood Urea Nitrogen 22 mg/dL (7-18) H Creatinine 1.7 MG/DL (0.55-1.30) H Estimat Glomerular Filtration Rate 51.8 mL/min (>60) Glucose Level 276 MG/DL (74-106) H Calcium Level 9.3 MG/DL (8.5-10.1) Total Bilirubin 0.3 MG/DL (0.2-1.0) Aspartate Amino Transf (AST/SGOT) 11 U/L (15-37) L Alanine Aminotransferase (ALT/SGPT) 21 U/L (12-78) Alkaline Phosphatase 90 U/L (46-116) Troponin I 0.000 ng/mL (0.000-0.056) Total Protein 7.9 G/DL (6.4-8.2) Albumin 3.7 G/DL (3.4-5.0) Globulin 4.2 g/dL Albumin/Globulin Ratio 0.9 (1.0-2.7) L Lipase 98 U/L (73-393) White Blood Count 5.9 K/UL (4.8-10.8) Red Blood Count 4.88 M/UL (4.70-6.10) Hemoglobin 12.6 G/DL (14.2-18.0) L Hematocrit 38.6 % (42.0-52.0) L Mean Corpuscular Volume 79 FL (80-99) L Mean Corpuscular Hemoglobin 25.9 PG (27.0-31.0) L Mean Corpuscular Hemoglobin Concent 32.7 G/DL (32.0-36.0) Red Cell Distribution Width 13.9 % (11.6-14.8) Platelet Count 144 K/UL (150-450) L Mean Platelet Volume 8.1 FL (6.5-10.1) Neutrophils (%) (Auto) 54.0 % (45.0-75.0) Lymphocytes (%) (Auto) 33.4 % (20.0-45.0) Monocytes (%) (Auto) 6.9 % (1.0-10.0) Eosinophils (%) (Auto) 3.0 % (0.0-3.0) Basophils (%) (Auto) 2.7 % (0.0-2.0) H Height (Feet): 5 Height (Inches): 9.00 Weight (Pounds): 219 Medications Current Medications Medications (Trade) Dose Ordered Sig/Naye Route PRN Reason Start Time Stop Time Status Last Admin Dose Admin Acetaminophen (Tylenol) 650 mg Q4H PRN ORAL Mild Pain (Pain Scale 1-3) 02/06/19 06:30 03/08/19 06:29 UNV Acetaminophen (Tylenol) 650 mg Q4H PRN ORAL fever 02/06/19 06:30 03/08/19 06:29 UNV Acetaminophen (Tylenol) 650 mg Q4H PRN RECTAL Mild Pain (Pain Scale 1-3) 02/06/19 06:30 03/08/19 06:29 UNV Al Hydroxide/Mg Hydroxide (Mylanta II) 30 ml Q6H PRN ORAL dyspepsia 02/06/19 06:30 03/08/19 06:29 UNV Albuterol Sulfate (Proventil MDI) 2 puff Q4H INH 02/06/19 06:45 03/08/19 06:44 UNV Amlodipine Besylate (Norvasc) 10 mg BID ORAL 02/06/19 09:00 03/08/19 08:59 UNV Aspirin (Ecotrin) 81 mg DAILY ORAL 02/06/19 09:00 03/08/19 08:59 UNV Bisacodyl (Dulcolax) 10 mg HSPRN PRN RECTAL Constipation 02/06/19 06:30 03/08/19 06:29 UNV Dextrose (Dextrose 50%) 25 ml Q30M PRN IV Hypoglycemia 02/06/19 06:30 03/08/19 06:29 UNV Dextrose (Dextrose 50%) 50 ml Q30M PRN IV Hypoglycemia 02/06/19 06:30 03/08/19 06:29 UNV Diclofenac Sodium (Voltaren) 50 mg BID ORAL 02/06/19 09:00 03/08/19 08:59 UNV Dicyclomine HCl (Bentyl) 10 mg DAILY ORAL 02/06/19 09:00 03/08/19 08:59 UNV Diphenhydramine HCl (Benadryl) 25 mg Q6H PRN ORAL Itching/Pruritis 02/06/19 06:30 03/08/19 06:29 UNV Docusate Sodium (Colace) 100 mg EVERY 12 HOURS ORAL 02/06/19 09:00 03/08/19 08:59 UNV Gabapentin (Neurontin) 300 mg BEDTIME ORAL 02/06/19 21:00 03/08/19 20:59 UNV Heparin Sodium (Porcine) (Heparin 5000 units/ml) 5,000 units EVERY 12 HOURS SUBQ 02/06/19 09:00 03/08/19 08:59 UNV Hydromorphone HCl (Dilaudid) 0.5 mg Q6H PRN IVP For Pain 02/06/19 06:30 02/13/19 06:29 UNV Lorazepam (Ativan) 1 mg Q4H PRN ORAL For Anxiety 02/06/19 06:30 02/13/19 06:29 UNV Magnesium Hydroxide (Mom) 30 ml HSPRN PRN ORAL Constipation 02/06/19 06:30 03/08/19 06:29 UNV Methocarbamol (Robaxin) 750 mg TID PRN ORAL muscle spasms 02/06/19 06:45 03/08/19 06:44 UNV Metoclopramide HCl (Reglan) 10 mg Q6H PRN IVP Nausea & Vomiting 02/06/19 06:30 03/08/19 06:29 UNV Metoprolol Tartrate (Lopressor) 25 mg EVERY 12 HOURS ORAL 02/06/19 09:00 03/08/19 08:59 UNV Morphine Sulfate (Morphine Sulfate) 4 mg Q6H PRN IVP Severe Pain (Pain Scale 7-10) 02/06/19 06:30 02/13/19 06:29 UNV Nitroglycerin (Ntg) 0.4 mg Q5M X 3 DOSES PRN SL Prn Chest Pain 02/06/19 06:30 03/08/19 06:29 UNV Ondansetron HCl (Zofran) 4 mg Q6H PRN IVP Nausea & Vomiting 02/06/19 06:30 03/08/19 06:29 UNV Pantoprazole (Protonix) 40 mg DAILY ORAL 02/06/19 09:00 03/08/19 08:59 UNV Polyethylene Glycol (Miralax) 17 gm HSPRN PRN ORAL Constipation 02/06/19 06:30 03/08/19 06:29 UNV Pravastatin Sodium (Pravachol) 80 mg BEDTIME ORAL 02/06/19 21:00 03/08/19 20:59 UNV Prochlorperazine (Compazine) 10 mg Q6H PRN IVP Nausea & Vomiting 02/06/19 06:30 03/08/19 06:29 UNV Sertraline HCl (Zoloft) 25 mg DAILY ORAL 02/06/19 09:00 03/08/19 08:59 UNV Sodium Chloride 1,000 ml @ 100 mls/hr Q10H IVLG 02/06/19 07:30 03/08/19 07:29 UNV Temazepam (Restoril) 15 mg HSPRN PRN ORAL Insomnia 02/06/19 06:30 02/13/19 06:29 UNV Zolpidem Tartrate (Ambien) 5 mg HSPRN PRN ORAL Insomnia 02/06/19 06:30 02/13/19 06:29 UNV Objective Narrative GEN: WDWN, NAD, Alert ad Oriented HEENT: PERRLA, EOMI, no icterus NECK: soft non tender CV: RRR, no m/r/g, no jvd RESP: No w/r/c, CTAB ABD: soft, bowel sounds present, non tender to palpation EXT: non tender, normal muscle bulk NEURO: grosslty normal, no tremors Assessment/Plan Diagnosis Edgard I: # Epigastric pain ddx: IBD-C vs Gastritis vs Ulcer - CT from last admission reviewed - lipase normal - GI consult - Gsx consult - GI cocktail - pain control - supportive care # HERNESTO - IVF - CTM BMP - avoid nephrotoxic medication # Anemia - iron panel - CTM CBC # H/O pancreatitis - as above # Full code - >17 discussing code status # Dispo H w HH Yvette Hung DO Feb 06, 2019 06:49
--- NOTE | 2019-02-06 07:05 | NUR ---
NURSE NOTES: Received pt. and report from DONELL Villeda. Pt is AAO x 4. Patient states 8/10 left upper chest pain. Patient's respirations are even and non labored on room air. Oriented to room and unit. court monitor on showing SR. Bed in lowest position, wheels locked, and side rails up x2. Call light within reach.
--- NOTE | 2019-02-06 07:28 | NUR ---
HAND-OFF: Report given to DONELL Davis.
--- NOTE | 2019-02-06 08:00 | NUR ---
NURSE NOTES: EKG done. Explained of need of UA sample to patient and enforced of intake and output.
[2019-02-06 08:23] LABS: BASOPHILS % (AUTO) 0.7 % (0.0-2.0); EOSINOPHILS % (AUTO) 3.6 % (0.0-3.0); HEMATOCRIT 35.9 % (42.0-52.0); HEMOGLOBIN 12.4 G/DL (14.2-18.0); LYMPHOCYTES % (AUTO) 37.7 % (20.0-45.0); MEAN CORPUSCULAR VOLUME 77 FL (80-99); MONOCYTES % (AUTO) 7.3 % (1.0-10.0); NEUTROPHILS % (AUTO) 50.7 % (45.0-75.0); PLATELET COUNT 175 K/UL (150-450); RED CELL DISTRIBUTION WIDTH 12.6 % (11.6-14.8); WHITE BLOOD COUNT 5.6 K/UL (4.8-10.8)
[2019-02-06 08:48] LABS: ALANINE AMINOTRANSFERASE 20 U/L (12-78); ALBUMIN 3.3 G/DL (3.4-5.0); ALKALINE PHOSPHATASE 78 U/L (46-116); ANION GAP 5 mmol/L (5-15); ASPARTATE AMINO TRANSFERASE 10 U/L (15-37); BILIRUBIN,DIRECT < 0.1 MG/DL (0.0-0.3); BILIRUBIN,TOTAL 0.3 MG/DL (0.2-1.0); BLOOD UREA NITROGEN 20 mg/dL (7-18); CALCIUM 8.5 MG/DL (8.5-10.1); CARBON DIOXIDE 29 MMOL/L (21-32); CHLORIDE 105 MMOL/L (98-107); CREATININE 1.2 MG/DL (0.55-1.30); POTASSIUM 4.4 MMOL/L (3.5-5.1); SODIUM 139 MMOL/L (136-145)
[2019-02-06 08:49] LABS: CHOLESTEROL 173 MG/DL (< 200); CREATINE KINASE 197 U/L (26-308); HDL CHOLESTEROL 40 MG/DL (40-60); TRIGLYCERIDES 106 MG/DL (30-150)
--- NOTE | 2019-02-06 09:00 | NUR ---
RADIOLOGY DEPT., CHEST X-RAY DONE.-P.DYE
[2019-02-06] MEDS: Sertraline 50mg tab ORAL SCH (09:18)
[2019-02-06] MEDS: Metoprolol 25mg tab ORAL SCH ×2 (09:18→21:39)
[2019-02-06] MEDS: Aspirin EC 81mg tab ORAL SCH (09:19)
[2019-02-06] MEDS: Dicyclomine 10mg Cap ORAL SCH (09:19)
[2019-02-06] MEDS: Docusate 100mg cap ORAL SCH ×2 (09:19→21:37)
[2019-02-06] MEDS: Heparin 5000 units/ml inj SUBQ SCH ×2 (09:21→21:00)
--- NOTE | 2019-02-06 09:55 | GI Initial Consult Note ---
History of Present Illness General Date patient seen: Feb 06, 2019 Time patient seen: 09:55 Reason for Hospitalization: Abdominal Pain Referring physician: SHELBY Reason for Consultation: ABDOMINAL PAIN Present Illness HPI Patient is a 53-year-old male presents after increased epigastric pain. Patient reports having patient reports having prior history of pancreatitis as well as biliary sludge. He is type II diabetic. Patient states that he has been increased pain for 1 day. Pain is constant in nature. Middle of his chest. He denies any fever. Reports having prior history of peripheral neuropathy. Reports having a recent HIDA scan which showed biliary sludge. He reports having one alcoholic drink yesterday. GI consulted for reported abdominal pain. Patient seen, awake alert and oriented x4 no apparent distress has complaint of severe epigastric pain for the past 2 to 3 days. Patient reported nausea without vomiting. Patient had prior admission here at [facility] approximately 1 month ago in which she had a mild case of pancreatitis. Patient denies any use of alcohol or drug use. Patient states he has a history of chronic pancreatitis and has been hospitalized multiple times for similar conditions. Pertinent labs; hemoglobin of 12.4, glucose 216, TSH of 4.4. Patient reports history of endoscopy and colonoscopy approximately 1 to 2 years ago which she reported colonic polyps. Home Meds Active Scripts Famotidine (PEPCID AC) 20 Mg Tablet, 20 MG PO BID, #60 TAB Prov:Lisa Lewis DO 02/01/18 Methocarbamol* (ROBAXIN-750*) 750 Mg Tablet, 750 MG PO TID, #21 TAB 0 Refills Prov:Iyla Bacon DO 07/28/16 Albuterol Sulfate* (ALBUTEROL SULFATE MDI*) 8.5 Gm Hfa.aer.ad, 2 PUFF INH Q4H, # 1 INH 0 Refills Prov:Lisa Lewis DO 01/09/15 Diphenhydramine Hcl* (BENADRYL*) 25 Mg Capsule, 25 MG ORAL Q6H PRN for Itching, #30 CAP 0 Refills Prov:Lavinia Gomez 02/17/14 Ranitidine Hcl* (ZANTAC*) 150 Mg Tablet, 150 MG ORAL TWICE A DAY, #30 TAB 0 Refills Prov:Lavinia Gomez 02/17/14 Reported Medications Insulin Glulisine (APIDRA SOLOSTAR) 100 Unit/1 Ml Insuln.pen, 100 UNIT SQ, EA 01/08/19 Bumetanide (Bumetanide) 1 Mg Tablet, 1 MG ORAL DAILY, TAB 01/08/19 Insulin Glargine (LANTUS) 100 Unit/1 Ml Insuln.pen, 60 SUBQ BEDTIME, #1 EA 0 Refills 01/08/19 Pravastatin Sodium (PRAVACHOL) 40 Mg Tablet, 80 MG ORAL BEDTIME, TAB 01/08/19 Metoprolol Tartrate* (METOPROLOL TARTRATE*) 25 Mg Tablet, 25 MG ORAL EVERY 12 HOURS, TAB 01/08/19 Pioglitazone Hcl* (ACTOS*) 45 Mg Tablet, 45 MG ORAL DAILY, TAB 01/08/19 Dicyclomine Hcl* (DICYCLOMINE HCL*) 10 Mg Capsule, 10 MG ORAL DAILY, #10 CAP 01/08/19 Amlodipine Besylate* (AMLODIPINE BESYLATE*) 10 Mg Tablet, 10 MG ORAL BID, TAB 01/08/19 Omeprazole (OMEPRAZOLE) 20 Mg Tablet.dr, 20 MG ORAL DAILY, TAB 01/08/19 Carisoprodol (CARISOPRODOL) 250 Mg Tablet, 350 MG ORAL BID, TAB 09/13/13 Sertraline Hcl* (SERTRALINE HCL*) 25 Mg Tablet, 25 MG ORAL DAILY, TAB 09/13/13 Gabapentin* (GABAPENTIN*) 300 Mg Capsule, 300 MG ORAL BEDTIME, CAP 09/13/13 Metformin Hcl* (METFORMIN HCL*) 1,000 Mg Tablet, 1000 MG ORAL BID, TAB 09/13/13 Simvastatin (ZOCOR) 40 Mg Tablet, 40 MG ORAL DAILY, TAB 09/13/13 Lisinopril (LISINOPRIL*) 20 Mg Tablet, 20 MG ORAL DAILY, TAB 09/13/13 Diclofenac Sod* (VOLTAREN*) 50 Mg Tablet.dr, 50 MG ORAL BID, TAB 09/13/13 Glipizide* (GLIPIZIDE*) 5 Mg Tablet, 10 MG ORAL BIDAC, TAB 09/13/13 Metformin Hcl* (METFORMIN HCL*) 500 Mg Tablet, 500 MG ORAL DAILY, TAB 09/13/13 Aspirin* (ASPIR 81*) 81 Mg Tablet.dr, 81 MG ORAL DAILY, TAB 09/13/13 Med list reviewed/reconciled: Yes Allergies: Coded Allergies: CODEINE (Verified Allergy, Unknown, 03/27/11) METOCLOPRAMIDE (Verified Allergy, Unknown, 02/01/18) MORPHINE (Verified Allergy, Unknown, ITCH, 03/27/11) Patient History History Provided By: Patient PMH Narrative Past Medical History: see triage record Reviewed Nursing Documentation: PMH: Agreed; PSxH: Agreed Nursing Documentation-PMH Hx Cardiac Problems: Yes Hx Hypertension: Yes Hx Diabetes: Yes Hx Gastrointestinal Problems: Yes Hx Neurological Problems: No Social History: Reports: smoking; Denies: alcohol use, drug use, other Review of Systems All Other Systems: negative except mentioned in HPI Physical Exam Vital Signs Date Time Temp Pulse Resp B/P (MAP) Pulse Ox O2 Delivery O2 Flow Rate FiO2 02/06/19 01:14 98.2 94 18 115/82 (93) 96 Room Air Sp02 EP Interpretation: reviewed, normal Labs Laboratory Tests Test 02/06/19 01:30 02/06/19 02:00 02/06/19 07:40 Urine Color Pale yellow Urine Appearance Clear Urine pH 5 (4.5-8.0) Urine Specific [place] 1.015 (1.005-1.035) Urine Protein 2+ (NEGATIVE) H Urine Glucose (UA) 4+ (NEGATIVE) H Urine Ketones Negative (NEGATIVE) Urine Blood 2+ (NEGATIVE) H Urine Nitrite Negative (NEGATIVE) Urine Bilirubin Negative (NEGATIVE) Urine Urobilinogen Normal MG/DL (0.0-1.0) Urine Leukocyte Esterase Negative (NEGATIVE) Urine RBC 2-4 /HPF (0 - 0) H Urine WBC 0 /HPF (0 - 0) Urine Squamous Epithelial Cells None /LPF (NONE/OCC) Urine Bacteria Few /HPF (NONE) Sodium Level 137 MMOL/L (136-145) 139 MMOL/L (136-145) Potassium Level 4.2 MMOL/L (3.5-5.1) 4.4 MMOL/L (3.5-5.1) Chloride Level 101 MMOL/L (98-107) 105 MMOL/L (98-107) Carbon Dioxide Level 29 MMOL/L (21-32) 29 MMOL/L (21-32) Anion Gap 7 mmol/L (5-15) 5 mmol/L (5-15) Blood Urea Nitrogen 22 mg/dL (7-18) H 20 mg/dL (7-18) H Creatinine 1.7 MG/DL (0.55-1.30) H 1.2 MG/DL (0.55-1.30) Estimat Glomerular Filtration Rate 51.8 mL/min (>60) > 60 mL/min (>60) Glucose Level 276 MG/DL (74-106) H 216 MG/DL (74-106) H Calcium Level 9.3 MG/DL (8.5-10.1) 8.5 MG/DL (8.5-10.1) Total Bilirubin 0.3 MG/DL (0.2-1.0) 0.3 MG/DL (0.2-1.0) Aspartate Amino Transf (AST/SGOT) 11 U/L (15-37) L 10 U/L (15-37) L Alanine Aminotransferase (ALT/SGPT) 21 U/L (12-78) 20 U/L (12-78) Alkaline Phosphatase 90 U/L (46-116) 78 U/L (46-116) Troponin I 0.000 ng/mL (0.000-0.056) 0.007 ng/mL (0.000-0.056) Total Protein 7.9 G/DL (6.4-8.2) 6.5 G/DL (6.4-8.2) Albumin 3.7 G/DL (3.4-5.0) 3.3 G/DL (3.4-5.0) L Globulin 4.2 g/dL Albumin/Globulin Ratio 0.9 (1.0-2.7) L Lipase 98 U/L (73-393) White Blood Count 5.9 K/UL (4.8-10.8) 5.6 K/UL (4.8-10.8) Red Blood Count 4.88 M/UL (4.70-6.10) 4.70 M/UL (4.70-6.10) Hemoglobin 12.6 G/DL (14.2-18.0) L 12.4 G/DL (14.2-18.0) L Hematocrit 38.6 % (42.0-52.0) L 35.9 % (42.0-52.0) L Mean Corpuscular Volume 79 FL (80-99) L 77 FL (80-99) L Mean Corpuscular Hemoglobin 25.9 PG (27.0-31.0) L 26.4 PG (27.0-31.0) L Mean Corpuscular Hemoglobin Concent 32.7 G/DL (32.0-36.0) 34.5 G/DL (32.0-36.0) Red Cell Distribution Width 13.9 % (11.6-14.8) 12.6 % (11.6-14.8) Platelet Count 144 K/UL (150-450) L 175 K/UL (150-450) Mean Platelet Volume 8.1 FL (6.5-10.1) 8.1 FL (6.5-10.1) Neutrophils (%) (Auto) 54.0 % (45.0-75.0) 50.7 % (45.0-75.0) Lymphocytes (%) (Auto) 33.4 % (20.0-45.0) 37.7 % (20.0-45.0) Monocytes (%) (Auto) 6.9 % (1.0-10.0) 7.3 % (1.0-10.0) Eosinophils (%) (Auto) 3.0 % (0.0-3.0) 3.6 % (0.0-3.0) H Basophils (%) (Auto) 2.7 % (0.0-2.0) H 0.7 % (0.0-2.0) Hemoglobin A1c 13.2 % (4.3-6.0) H Magnesium Level 2.2 MG/DL (1.8-2.4) Direct Bilirubin < 0.1 MG/DL (0.0-0.3) Total Creatine Kinase 197 U/L (26-308) Triglycerides Level 106 MG/DL (30-150) Cholesterol Level 173 MG/DL (< 200) LDL Cholesterol 104 mg/dL (<100) H HDL Cholesterol 40 MG/DL (40-60) Cholesterol/HDL Ratio 4.3 (3.3-4.4) Thyroid Stimulating Hormone (TSH) 4.412 uiU/mL (0.358-3.740) General Appearance: well appearing, no apparent distress, alert Head: normocephalic EENT: PERRL/EOMI, normal ENT inspection Neck: supple Respiratory: normal breath sounds, no respiratory distress Cardiovascular: normal rate Gastrointestinal: normal inspection, non tender, soft, normal bowel sounds, non -distended Rectal: deferred Genitourinary: deferred Musculoskeletal: normal inspection, back normal Neurologic: normal inspection, alert, oriented x3, responsive Psychiatric: normal inspection, judgement/insight normal, memory normal Skin: normal inspection, normal color, no rash, warm/dry, palpation normal, well hydrated Lymphatic: normal inspection, no adenopathy Current Medications Current Medications Medications (Trade) Dose Ordered Sig/Naye Route PRN Reason Start Time Stop Time Status Last Admin Dose Admin Acetaminophen (Tylenol) 650 mg Q4H PRN ORAL Mild Pain (Pain Scale 1-3) 02/06/19 06:30 03/08/19 06:29 Acetaminophen (Tylenol) 650 mg Q4H PRN ORAL fever 02/06/19 06:30 03/08/19 06:29 Acetaminophen (Tylenol) 650 mg Q4H PRN RECTAL Mild Pain (Pain Scale 1-3) 02/06/19 06:30 03/08/19 06:29 Al Hydroxide/Mg Hydroxide (Mylanta II) 30 ml Q6H PRN ORAL dyspepsia 02/06/19 06:30 03/08/19 06:29 Albuterol Sulfate (Proventil MDI) 2 puff Q4H INH 02/06/19 06:45 03/08/19 06:44 UNV Amlodipine Besylate (Norvasc) 10 mg BID ORAL 02/06/19 09:00 03/08/19 08:59 02/06/19 09:19 Aspirin (Ecotrin) 81 mg DAILY ORAL 02/06/19 09:00 03/08/19 08:59 02/06/19 09:19 Bisacodyl (Dulcolax) 10 mg HSPRN PRN RECTAL Constipation 02/06/19 06:30 03/08/19 06:29 Dextrose (Dextrose 50%) 25 ml Q30M PRN IV Hypoglycemia 02/06/19 06:30 03/08/19 06:29 Dextrose (Dextrose 50%) 50 ml Q30M PRN IV Hypoglycemia 02/06/19 06:30 03/08/19 06:29 Diclofenac Sodium (Voltaren) 50 mg BID ORAL 02/06/19 09:00 03/08/19 08:59 02/06/19 09:20 Dicyclomine HCl (Bentyl) 10 mg DAILY ORAL 02/06/19 09:00 03/08/19 08:59 02/06/19 09:19 Diphenhydramine HCl (Benadryl) 25 mg Q6H PRN ORAL Itching/Pruritis 02/06/19 06:30 03/08/19 06:29 02/06/19 07:58 Docusate Sodium (Colace) 100 mg EVERY 12 HOURS ORAL 02/06/19 09:00 03/08/19 08:59 02/06/19 09:19 Gabapentin (Neurontin) 300 mg BEDTIME ORAL 02/06/19 21:00 03/08/19 20:59 Heparin Sodium (Porcine) (Heparin 5000 units/ml) 5,000 units EVERY 12 HOURS SUBQ 02/06/19 09:00 03/08/19 08:59 02/06/19 09:21 Hydromorphone HCl (Dilaudid) 0.5 mg Q6H PRN IVP For Pain 02/06/19 06:30 02/13/19 06:29 02/06/19 07:45 Lorazepam (Ativan) 1 mg Q4H PRN ORAL For Anxiety 02/06/19 06:30 02/13/19 06:29 Magnesium Hydroxide (Mom) 30 ml HSPRN PRN ORAL Constipation 02/06/19 06:30 03/08/19 06:29 Methocarbamol (Robaxin) 750 mg TIDPRN PRN ORAL muscle spasms 02/06/19 06:45 03/08/19 06:44 Metoclopramide HCl (Reglan) 10 mg Q6H PRN IVP Nausea & Vomiting 02/06/19 06:30 03/08/19 06:29 Metoprolol Tartrate (Lopressor) 25 mg EVERY 12 HOURS ORAL 02/06/19 09:00 03/08/19 08:59 02/06/19 09:18 Morphine Sulfate (Morphine Sulfate) 4 mg Q6H PRN IVP Severe Pain (Pain Scale 7-10) 02/06/19 06:30 02/13/19 06:29 Nitroglycerin (Ntg) 0.4 mg Q5M X 3 DOSES PRN SL Prn Chest Pain 02/06/19 06:30 03/08/19 06:29 Ondansetron HCl (Zofran) 4 mg Q6H PRN IVP Nausea & Vomiting 02/06/19 06:30 03/08/19 06:29 Pantoprazole (Protonix) 40 mg DAILY ORAL 02/06/19 09:00 03/08/19 08:59 02/06/19 09:19 Polyethylene Glycol (Miralax) 17 gm HSPRN PRN ORAL Constipation 02/06/19 06:30 03/08/19 06:29 Pravastatin Sodium (Pravachol) 80 mg BEDTIME ORAL 02/06/19 21:00 03/08/19 20:59 Prochlorperazine (Compazine) 10 mg Q6H PRN IVP Nausea & Vomiting 02/06/19 06:30 03/08/19 06:29 Sertraline HCl (Zoloft) 25 mg DAILY ORAL 02/06/19 09:00 03/08/19 08:59 02/06/19 09:18 Sodium Chloride 1,000 ml @ 100 mls/hr Q10H IVLG 02/06/19 07:30 03/08/19 07:29 02/06/19 08:07 Temazepam (Restoril) 15 mg HSPRN PRN ORAL Insomnia 02/06/19 06:30 02/13/19 06:29 Zolpidem Tartrate (Ambien) 5 mg HSPRN PRN ORAL Insomnia 02/06/19 06:30 02/13/19 06:29 GI: Plan Problems: (1) GERD (gastroesophageal reflux disease) (2) Gastric ulcer (3) Diarrhea (4) Abdominal pain (5) Uncontrolled type II diabetes mellitus Plan Given recurrent epigastric pain, plan for EGD tomorrow. Okay to advance diet, n.p.o. at midnight Monitor H&H, PRN transfusions PPI bowel regimen Zofran as needed Follow-up cardiac recommendations Follow labs, free T4 We will follow-up with additional recommendations postprocedure. Discussed with Dr. Calloway. Thank you for this patient referral, we will follow. The patient was seen and examined at bedside and all new and available data was reviewed in the patients chart. I agree with the above findings, impression and plan. (Patient seen earlier today. Signature stamp does not reflect patient encounter time.). - [facility] Feb 06, 2019 09:55
[2019-02-06] MEDS ORDERED: Albuterol 90mcg Inhaler 8gm INH PRN (10:00)
--- NOTE | 2019-02-06 10:22 | NUR ---
Social Work This SW received a consult to assist with a home safety evaluation. This Sw met with patient who remains alert/oriented x4, lives with spouse, who works during the day. Patient has applied for SSI, pending at this time. Patient explains he has one step to his home and remains independent with ADLs, ambulation (with walker). No other needs or concerns; patient denied any substance abuse or mental health concerns (denied any depression, anxiety, SI/HI). Spouse provides transportation for patient (patient does not drive) when ready for discharge.
[2019-02-06] MEDS ORDERED: Hydromorphone 0.5mg/0.5ml inj IVP SCH (12:39)
--- NOTE | 2019-02-06 12:48 | Diagnostic Imaging Report ---
Indication: Dyspnea Comparison: 02/01/2018 A single view chest radiograph was obtained. Findings: Cardiomediastinal appearance is within normal limits for age. The lungs are clear. Pulmonary vascularity is appropriate. The diaphragmatic contour is smooth and costophrenic angles are sharp. No pleural effusions are identified. The bones are unremarkable. Impression: No acute findings
--- NOTE | 2019-02-06 13:55 | NUR ---
PT NOTE Received MD order for PT evaluation, medical record reviewed. Attempted to see patient however patient declining to participate with PT at this time due to c/o pain. Ryan MARLEY notified, will follow up tomorrow.
--- NOTE | 2019-02-06 14:28 | NUR ---
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
--- NOTE | 2019-02-06 14:53 | NUR ---
*-* INSURANCE *-* ALL CLINICALS AND REVIEW HAVE BEEN FAXED TO: [employer] APPRENTICE: PATSY PH#[phone] FAX#[phone]
[2019-02-06] MEDS ORDERED: HYDROmorphone 1mg/ml Carpuject IVP PRN ×2 (16:35→18:30)
[2019-02-06] MEDS: HYDROmorphone 1mg/ml Carpuject IVP PRN ×2 (16:44→22:48)
--- NOTE | 2019-02-06 17:02 | Consultation ---
History of Present Illness General Date patient seen: Feb 06, 2019 Reason for Hospitalization: Abdominal Pain Present Illness HPI This is a very pleasant 53-year-old male who is known to me from prior admission that presents after increased epigastric pain. Patient reports having patient reports having prior history of pancreatitis as well as biliary sludge. He is type II diabetic. Patient states that he has been increased pain for 1 day. Pain is constant in nature. Middle of his chest. He denies any fever. Reports having prior history of peripheral neuropathy. Reports having a recent HIDA scan which showed biliary sludge in the past. Surgery consulted for reported abdominal pain. Patient seen, awake alert and oriented x4 no apparent distress has complaint of severe epigastric pain for the past 2 to 3 days. Patient reported nausea without vomiting. Patient had prior admission here at [facility] approximately 1 month ago in which she had a mild case of pancreatitis. Patient denies any use of alcohol or drug use. Patient states he has a history of chronic pancreatitis and has been hospitalized multiple times for similar conditions. Allergies: Coded Allergies: CODEINE (Verified Allergy, Unknown, 03/27/11) METOCLOPRAMIDE (Verified Allergy, Unknown, 02/01/18) MORPHINE (Verified Allergy, Unknown, ITCH, 03/27/11) Medication History Scheduled Albuterol Sulfate* (Albuterol Sulfate Mdi*), 2 PUFF INH Q4H Amlodipine Besylate* (Amlodipine Besylate*), 10 MG ORAL BID, (Reported) Aspirin* (Aspir 81*), 81 MG ORAL DAILY, (Reported) Bumetanide (Bumetanide), 1 MG ORAL DAILY, (Reported) Carisoprodol (Carisoprodol), 350 MG ORAL BID, (Reported) Diclofenac Sod* (Voltaren*), 50 MG ORAL BID, (Reported) Dicyclomine Hcl* (Dicyclomine Hcl*), 10 MG ORAL DAILY, (Reported) Famotidine (Pepcid Ac), 20 MG PO BID Gabapentin* (Gabapentin*), 300 MG ORAL BEDTIME, (Reported) Glipizide* (Glipizide*), 10 MG ORAL BIDAC, (Reported) Insulin Glargine (Lantus), 60 SUBQ BEDTIME, (Reported) Lisinopril (Lisinopril*), 20 MG ORAL DAILY, (Reported) Metformin Hcl* (Metformin Hcl*), 500 MG ORAL DAILY, (Reported) Metformin Hcl* (Metformin Hcl*), 1,000 MG ORAL BID, (Reported) Methocarbamol* (Robaxin-750*), 750 MG PO TID Metoprolol Tartrate* (Metoprolol Tartrate*), 25 MG ORAL EVERY 12 HOURS, ( Reported) Omeprazole (Omeprazole), 20 MG ORAL DAILY, (Reported) Pioglitazone Hcl* (Actos*), 45 MG ORAL DAILY, (Reported) Pravastatin Sodium (Pravachol), 80 MG ORAL BEDTIME, (Reported) Ranitidine Hcl* (Zantac*), 150 MG ORAL TWICE A DAY Sertraline Hcl* (Sertraline Hcl*), 25 MG ORAL DAILY, (Reported) Simvastatin (Zocor), 40 MG ORAL DAILY, (Reported) Scheduled PRN Diphenhydramine Hcl* (Benadryl*), 25 MG ORAL Q6H PRN for Itching Miscellaneous Medications Insulin Glulisine (Apidra Solostar), 100 UNIT SQ, (Reported) Patient History History Provided By: Patient, Family Member, Medical Record, PMD Healthcare decision maker SELF Resuscitation status Full Code Advanced Directive on File Past Medical/Surgical History Past Medical/Surgical History: (1) Hypertriglyceridemia (2) Myalgia (3) Viral syndrome (4) Bronchitis (5) Pharyngitis (6) Fall (7) ACS (acute coronary syndrome) (8) Back sprain (9) Avulsion injury (10) Toe contusion (11) Abrasion of leg (12) Reactive cervical lymphadenopathy (13) Uncontrolled hypertension (14) Head injury, acute (15) Head injury, acute (16) Trochanteric avulsion fracture of femur (17) Pancreatitis (18) Chest pain with high risk of acute coronary syndrome (19) Uncontrolled type II diabetes mellitus (20) Vomiting (21) Gastric ulcer (22) Diarrhea (23) GERD (gastroesophageal reflux disease) (24) Abdominal pain Review of Systems Review of Symptoms General ROS: no weight loss or fever Psychological ROS: no depression or mood changes, no memory loss Ophthalmic ROS: no visual changes or eye irritation ENT ROS: no nasal congestion, hearing loss, dizziness Allergy and Immunology ROS: no allergic symptoms or urticaria Hematological and Lymphatic ROS: no swollen glands, unusual bleeding or bruising Endocrine ROS: no polyuria, polydipsia, weight changes, temperature intolerance Respiratory ROS: no cough, shortness of breath, or wheezing Cardiovascular ROS: no chest pain or dyspnea on exertion Gastrointestinal ROS: eipgastric abdominal pain, no bright red blood in stool. Musculoskeletal ROS: no myalgias or arthralgias Neurological ROS: no TIA or stroke symptoms Dermatological ROS: no new or changing skin lesions, rashes or pruritis Physical Exam Physical Exam General appearance: alert, cooperative, no distress, appears stated age Head: Normocephalic, without obvious abnormality, atraumatic Eyes: conjunctivae/corneas clear. PERRL, EOM's intact. Fundi benign Throat: Lips, mucosa, and tongue normal. Teeth and gums normal Neck: supple, symmetrical, trachea midline, no adenopathy, thyroid: not enlarged, symmetric, no tenderness/mass/nodules, no carotid bruit and no JVD Lungs: clear to auscultation bilaterally Heart: regular rate and rhythm, S1, S2 normal, no murmur, click, rub or gallop Abdomen: soft, non-tender. Bowel sounds normal. No masses, no organomegaly Extremities: extremities normal, atraumatic, no cyanosis or edema Pulses: 2+ and symmetric Skin: Skin color, texture, turgor normal. No rashes or lesions Neurologic: Grossly normal Last 24 Hour Vital Signs Date Time Temp Pulse Resp B/P (MAP) Pulse Ox O2 Delivery O2 Flow Rate FiO2 02/06/19 16:39 75 116/74 02/06/19 16:00 98.8 75 21 116/74 (88) 96 02/06/19 13:20 97.0 02/06/19 12:00 97.7 74 20 122/76 (91) 97 02/06/19 11:48 70 02/06/19 11:07 Room Air 02/06/19 09:19 83 151/85 02/06/19 09:18 83 151/85 02/06/19 08:15 97.0 02/06/19 08:15 97.0 02/06/19 07:43 97.0 83 18 122/63 (82) 95 02/06/19 07:37 82 02/06/19 04:40 Room Air 02/06/19 04:39 86 02/06/19 04:38 97.5 86 18 122/75 (91) 98 02/06/19 03:53 98.2 82 18 127/100 96 Room Air 02/06/19 03:30 98.2 82 18 127/100 96 Room Air 02/06/19 02:22 98.2 02/06/19 01:57 98.2 91 18 115/82 96 Room Air 02/06/19 01:57 94 18 Room Air 02/06/19 01:14 98.2 94 18 115/82 (93) 96 Room Air Intake and Output 02/05/19 02/06/19 19:00 07:00 # Voids 1 Laboratory Tests Test 02/06/19 01:30 02/06/19 02:00 02/06/19 07:40 02/06/19 09:30 Urine Color Pale yellow Urine Appearance Clear Urine pH 5 (4.5-8.0) Urine Specific [place] 1.015 (1.005-1.035) Urine Protein 2+ (NEGATIVE) H Urine Glucose (UA) 4+ (NEGATIVE) H Urine Ketones Negative (NEGATIVE) Urine Blood 2+ (NEGATIVE) H Urine Nitrite Negative (NEGATIVE) Urine Bilirubin Negative (NEGATIVE) Urine Urobilinogen Normal MG/DL (0.0-1.0) Urine Leukocyte Esterase Negative (NEGATIVE) Urine RBC 2-4 /HPF (0 - 0) H Urine WBC 0 /HPF (0 - 0) Urine Squamous Epithelial Cells None /LPF (NONE/OCC) Urine Bacteria Few /HPF (NONE) Sodium Level 137 MMOL/L (136-145) 139 MMOL/L (136-145) Potassium Level 4.2 MMOL/L (3.5-5.1) 4.4 MMOL/L (3.5-5.1) Chloride Level 101 MMOL/L (98-107) 105 MMOL/L (98-107) Carbon Dioxide Level 29 MMOL/L (21-32) 29 MMOL/L (21-32) Anion Gap 7 mmol/L (5-15) 5 mmol/L (5-15) Blood Urea Nitrogen 22 mg/dL (7-18) H 20 mg/dL (7-18) H Creatinine 1.7 MG/DL (0.55-1.30) H 1.2 MG/DL (0.55-1.30) Estimat Glomerular Filtration Rate 51.8 mL/min (>60) > 60 mL/min (>60) Glucose Level 276 MG/DL (74-106) H 216 MG/DL (74-106) H Calcium Level 9.3 MG/DL (8.5-10.1) 8.5 MG/DL (8.5-10.1) Total Bilirubin 0.3 MG/DL (0.2-1.0) 0.3 MG/DL (0.2-1.0) Aspartate Amino Transf (AST/SGOT) 11 U/L (15-37) L 10 U/L (15-37) L Alanine Aminotransferase (ALT/SGPT) 21 U/L (12-78) 20 U/L (12-78) Alkaline Phosphatase 90 U/L (46-116) 78 U/L (46-116) Troponin I 0.000 ng/mL (0.000-0.056) 0.007 ng/mL (0.000-0.056) Total Protein 7.9 G/DL (6.4-8.2) 6.5 G/DL (6.4-8.2) Albumin 3.7 G/DL (3.4-5.0) 3.3 G/DL (3.4-5.0) L Globulin 4.2 g/dL Albumin/Globulin Ratio 0.9 (1.0-2.7) L Lipase 98 U/L (73-393) White Blood Count 5.9 K/UL (4.8-10.8) 5.6 K/UL (4.8-10.8) Red Blood Count 4.88 M/UL (4.70-6.10) 4.70 M/UL (4.70-6.10) Hemoglobin 12.6 G/DL (14.2-18.0) L 12.4 G/DL (14.2-18.0) L Hematocrit 38.6 % (42.0-52.0) L 35.9 % (42.0-52.0) L Mean Corpuscular Volume 79 FL (80-99) L 77 FL (80-99) L Mean Corpuscular Hemoglobin 25.9 PG (27.0-31.0) L 26.4 PG (27.0-31.0) L Mean Corpuscular Hemoglobin Concent 32.7 G/DL (32.0-36.0) 34.5 G/DL (32.0-36.0) Red Cell Distribution Width 13.9 % (11.6-14.8) 12.6 % (11.6-14.8) Platelet Count 144 K/UL (150-450) L 175 K/UL (150-450) Mean Platelet Volume 8.1 FL (6.5-10.1) 8.1 FL (6.5-10.1) Neutrophils (%) (Auto) 54.0 % (45.0-75.0) 50.7 % (45.0-75.0) Lymphocytes (%) (Auto) 33.4 % (20.0-45.0) 37.7 % (20.0-45.0) Monocytes (%) (Auto) 6.9 % (1.0-10.0) 7.3 % (1.0-10.0) Eosinophils (%) (Auto) 3.0 % (0.0-3.0) 3.6 % (0.0-3.0) H Basophils (%) (Auto) 2.7 % (0.0-2.0) H 0.7 % (0.0-2.0) Hemoglobin A1c 13.2 % (4.3-6.0) H Magnesium Level 2.2 MG/DL (1.8-2.4) Direct Bilirubin < 0.1 MG/DL (0.0-0.3) Total Creatine Kinase 197 U/L (26-308) Triglycerides Level 106 MG/DL (30-150) Cholesterol Level 173 MG/DL (< 200) LDL Cholesterol 104 mg/dL (<100) H HDL Cholesterol 40 MG/DL (40-60) Cholesterol/HDL Ratio 4.3 (3.3-4.4) Thyroid Stimulating Hormone (TSH) 4.412 uiU/mL (0.358-3.740) Urine Opiates Screen Negative (NEGATIVE) Urine Barbiturates Screen Negative (NEGATIVE) Phencyclidine (PCP) Screen Negative (NEGATIVE) Urine Amphetamines Screen Negative (NEGATIVE) Urine Benzodiazepines Screen Negative (NEGATIVE) Urine Cocaine Screen Negative (NEGATIVE) Urine Marijuana (THC) Screen Negative (NEGATIVE) Test 02/06/19 12:43 Troponin I 0.000 ng/mL (0.000-0.056) Height (Feet): 5 Height (Inches): 9.00 Weight (Pounds): 219 Medications Current Medications Medications (Trade) Dose Ordered Sig/Naye Route PRN Reason Start Time Stop Time Status Last Admin Dose Admin Acetaminophen (Tylenol) 650 mg Q4H PRN ORAL Mild Pain (Pain Scale 1-3) 02/06/19 06:30 03/08/19 06:29 Acetaminophen (Tylenol) 650 mg Q4H PRN ORAL fever 02/06/19 06:30 03/08/19 06:29 Acetaminophen (Tylenol) 650 mg Q4H PRN RECTAL Mild Pain (Pain Scale 1-3) 02/06/19 06:30 03/08/19 06:29 Al Hydroxide/Mg Hydroxide (Mylanta II) 30 ml Q6H PRN ORAL dyspepsia 02/06/19 06:30 03/08/19 06:29 Albuterol Sulfate (Proventil MDI) 2 puff Q4H PRN INH Shortness of Breath 02/06/19 10:00 03/08/19 06:44 Amlodipine Besylate (Norvasc) 10 mg BID ORAL 02/06/19 09:00 03/08/19 08:59 02/06/19 16:39 Aspirin (Ecotrin) 81 mg DAILY ORAL 02/06/19 09:00 03/08/19 08:59 02/06/19 09:19 Bisacodyl (Dulcolax) 10 mg HSPRN PRN RECTAL Constipation 02/06/19 06:30 03/08/19 06:29 Dextrose (Dextrose 50%) 25 ml Q30M PRN IV Hypoglycemia 02/06/19 06:30 03/08/19 06:29 Dextrose (Dextrose 50%) 50 ml Q30M PRN IV Hypoglycemia 02/06/19 06:30 03/08/19 06:29 Diclofenac Sodium (Voltaren) 50 mg BID ORAL 02/06/19 09:00 03/08/19 08:59 02/06/19 16:38 Dicyclomine HCl (Bentyl) 10 mg DAILY ORAL 02/06/19 09:00 03/08/19 08:59 02/06/19 09:19 Diphenhydramine HCl (Benadryl) 25 mg Q6H PRN ORAL Itching/Pruritis 02/06/19 06:30 03/08/19 06:29 02/06/19 16:39 Docusate Sodium (Colace) 100 mg EVERY 12 HOURS ORAL 02/06/19 09:00 03/08/19 08:59 02/06/19 09:19 Gabapentin (Neurontin) 300 mg BEDTIME ORAL 02/06/19 21:00 03/08/19 20:59 Heparin Sodium (Porcine) (Heparin 5000 units/ml) 5,000 units EVERY 12 HOURS SUBQ 02/06/19 09:00 03/08/19 08:59 02/06/19 09:21 Hydromorphone HCl (Dilaudid) 1 mg Q6H PRN IVP For Pain 02/06/19 16:34 02/13/19 16:33 02/06/19 16:44 Lorazepam (Ativan) 1 mg Q4H PRN ORAL For Anxiety 02/06/19 06:30 02/13/19 06:29 Magnesium Hydroxide (Mom) 30 ml HSPRN PRN ORAL Constipation 02/06/19 06:30 03/08/19 06:29 Methocarbamol (Robaxin) 750 mg TIDPRN PRN ORAL muscle spasms 02/06/19 06:45 03/08/19 06:44 Metoclopramide HCl (Reglan) 10 mg Q6H PRN IVP Nausea & Vomiting 02/06/19 06:30 03/08/19 06:29 Metoprolol Tartrate (Lopressor) 25 mg EVERY 12 HOURS ORAL 02/06/19 09:00 03/08/19 08:59 02/06/19 09:18 Nitroglycerin (Ntg) 0.4 mg Q5M X 3 DOSES PRN SL Prn Chest Pain 02/06/19 06:30 03/08/19 06:29 Ondansetron HCl (Zofran) 4 mg Q6H PRN IVP Nausea & Vomiting 02/06/19 06:30 03/08/19 06:29 Pantoprazole (Protonix) 40 mg DAILY ORAL 02/06/19 09:00 03/08/19 08:59 02/06/19 09:19 Polyethylene Glycol (Miralax) 17 gm HSPRN PRN ORAL Constipation 02/06/19 06:30 03/08/19 06:29 Pravastatin Sodium (Pravachol) 80 mg BEDTIME ORAL 02/06/19 21:00 03/08/19 20:59 Prochlorperazine (Compazine) 10 mg Q6H PRN IVP Nausea & Vomiting 02/06/19 06:30 03/08/19 06:29 Sertraline HCl (Zoloft) 25 mg DAILY ORAL 02/06/19 09:00 03/08/19 08:59 02/06/19 09:18 Sodium Chloride 1,000 ml @ 100 mls/hr Q10H IVLG 02/06/19 07:30 03/08/19 07:29 02/06/19 08:07 Temazepam (Restoril) 15 mg HSPRN PRN ORAL Insomnia 02/06/19 06:30 02/13/19 06:29 Zolpidem Tartrate (Ambien) 5 mg HSPRN PRN ORAL Insomnia 02/06/19 06:30 02/13/19 06:29 Assessment/Plan Problem List: (1) Abdominal pain Assessment & Plan: abdominal pain labs okay exam benign imaging noted no acute surgical intervention planned PPI endoscopy per GI will follow with exam and recs thank you ICD Codes: R10.9 - Unspecified abdominal pain SNOMED: [id number] Qualifiers: Qualified Codes: R10.13 - Epigastric pain Julien Macias Feb 06, 2019 17:02
[2019-02-06] MEDS: GI Cocktail 50ml ORAL PRN (17:41)
--- NOTE | 2019-02-06 19:08 | NUR ---
NURSE NOTES: Spoke with Dr. Hung. Patient stated the Dilaudid only works for an hour. Patient is stating it's his stomach having pain. Patient stated that the gi cocktail helps a little with the pain. For now, no new orders.
--- NOTE | 2019-02-06 19:35 | NUR ---
HAND-OFF: Report given to DONELL Don.
--- NOTE | 2019-02-06 20:12 | NUR ---
NURSE NOTES: Pt was admitted for pancreatitis and uncontrolled DM. Noticed there wasn't any orders for accu-cheks and Insulin sliding scale. Contacted the upper extremity surgeon doctor. Dr. Penn gave orders for medium insulin sliding scale.
--- NOTE | 2019-02-06 20:22 | NUR ---
NURSE NOTES: Received pt and report from DONELL Davis. Observed pt resting in bed with family member at bedside. 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 Bed is in the lowest position and locked. Call light within reach. No signs/symptoms of acute distress noted at this time. Will continue plan of care. Addendum: 02/06/19 at [id number] by Felecia Foote Mai, RN Received pt and report at 1924
[2019-02-06] MEDS: NovoLOG Insulin Flexpen SUBQ SCH (21:38)
--- NOTE | 2019-02-06 23:45 | NUR ---
HAND-OFF: Report given to DONELL Vogt.
[2019-02-07] VITALS (7 sets, daily range): BP systolic 101–126; BP diastolic 59–83
--- NOTE | 2019-02-07 00:09 | NUR ---
NURSE NOTES: patient received. patient in no acute distress at this time. patient complains of no pain at this time. patient awake alert and oriented x4. IV intact patent and asymptomatic. bed in lowest position and locked. call light within reach. bed alarm on. will continue to monitor.
[2019-02-07] MEDS: HYDROmorphone 1mg/ml Carpuject IVP PRN (06:25)
[2019-02-07] MEDS: NovoLOG Insulin Flexpen SUBQ SCH ×2 (06:38→12:06)
--- NOTE | 2019-02-07 07:13 | NUR ---
HAND-OFF: Report given to david alford. kole herman.
--- NOTE | 2019-02-07 07:15 | NUR ---
NURSE NOTES: Received pt. and report from DONELL Vogt. Pt is AAO x 4. Patient is resting in bed. Patient's respirations are even and non labored on room air. panel monitor on showing SR. Patient has patent IV on right thumb 20g. Bed in lowest position, wheels locked, and side rails up x2. Call light within reach. Will follow up with plan of care.
[2019-02-07 07:27] LABS: INR 0.9 (0.9-1.1)
[2019-02-07 07:45] LABS: HEMATOCRIT 41.7 % (42.0-52.0); HEMOGLOBIN 13.5 G/DL (14.2-18.0); MEAN CORPUSCULAR VOLUME 80 FL (80-99); PLATELET COUNT 187 K/UL (150-450); RED BLOOD COUNT 5.18 M/UL (4.70-6.10); RED CELL DISTRIBUTION WIDTH 13.7 % (11.6-14.8); WHITE BLOOD COUNT 9.4 K/UL (4.8-10.8)
[2019-02-07 07:46] LABS: ALANINE AMINOTRANSFERASE 21 U/L (12-78); ALBUMIN 3.4 G/DL (3.4-5.0); ALBUMIN/GLOBULIN RATIO 0.9 (1.0-2.7); ALKALINE PHOSPHATASE 84 U/L (46-116); ANION GAP 2 mmol/L (5-15); ASPARTATE AMINO TRANSFERASE 13 U/L (15-37); BILIRUBIN,TOTAL 0.3 MG/DL (0.2-1.0); BLOOD UREA NITROGEN 19 mg/dL (7-18); CALCIUM 8.3 MG/DL (8.5-10.1); CARBON DIOXIDE 27 MMOL/L (21-32); CHLORIDE 106 MMOL/L (98-107); CREATININE 1.2 MG/DL (0.55-1.30); POTASSIUM 4.3 MMOL/L (3.5-5.1); SODIUM 135 MMOL/L (136-145)
--- NOTE | 2019-02-07 08:36 | Anethesia Preoperative Eval ---
Anesthesia Pre-op PMH/ROS General Date of Evaluation: Feb 07, 2019 Time of Evaluation: 08:20 Anesthesiologist: Lani Barney CRNA ASA Score: ASA 3 Mallampati Score Class I : Soft palate, uvula, fauces, pillars visible Class II: Soft palate, uvula, fauces visible Class III: Soft palate, base of uvula visible Class IV: Only hard plate visible Mallampati Classification: Class II Surgeon: Broide Diagnosis: Acute pancreatitis, abdominal pain Surgical Procedure: EGD diagnostic Anesthesia History: none Social History: smoking Family History: no anesthesia problems Allergies: Coded Allergies: CODEINE (Verified Allergy, Unknown, 03/27/11) METOCLOPRAMIDE (Verified Allergy, Unknown, 02/01/18) MORPHINE (Verified Allergy, Unknown, ITCH, 03/27/11) Medications: see eMAR Patient NPO?: Yes NPO Date: Feb 07, 2019 NPO Time: 00:00 Past Medical History Cardiovascular: Reports: HTN, other - Hypertriglyceridemia; Denies: CAD, CA, valve dz, arrhythmia Pulmonary: Reports: other - pharyngitis, bronchitis; Denies: asthma, COPD, MICKY Gastrointestinal/Genitourinary: Reports: GERD, other - recurrent pancreatitis; Denies: CRI, ESRD Neurologic/Psychiatric: Denies: dementia, CVA, depression/anxiety, TIA, other Endocrine: Reports: DM - type 2; Denies: hypothyroidism, steroids, other HEENT: Denies: cataract (L), cataract (R), glaucoma, TRIBE (L), TRIBE (R), other Hematology/Immune: Denies: anemia, DVT, bleeding disorder, other Musculoskeletal/Integumentary: Reports: other - peripheral neuropathy, myalgia ; Denies: OA, RA, DJD, DDD, edema Other: obesity PMH Narrative: as noted above PSxH Narrative: see H &P Anesthesia Pre-op Phys. Exam Physician Exam Last Vital Signs Date Time Temp Pulse Resp B/P (MAP) Pulse Ox O2 Delivery O2 Flow Rate FiO2 02/07/19 08:12 86 16 97 Room Air 21 02/06/19 21:39 140/78 02/06/19 20:00 97.6 Constitutional: NAD Cardiovascular: RRR Gastrointestinal: S/NT/ND Airway Exam Mallampati Score: Class II MO: full Neck: short thick neck TMD: > 3fb ROM: full Teeth: missing, broken Dentures: no upper, no lower Anesthesia Pre-op A/P Labs Hematology Test 02/07/19 06:30 White Blood Count 9.4 K/UL (4.8-10.8) # Red Blood Count 5.18 M/UL (4.70-6.10) Hemoglobin 13.5 G/DL (14.2-18.0) L Hematocrit 41.7 % (42.0-52.0) L Mean Corpuscular Volume 80 FL (80-99) Mean Corpuscular Hemoglobin 26.0 PG (27.0-31.0) L Mean Corpuscular Hemoglobin Concent 32.3 G/DL (32.0-36.0) Red Cell Distribution Width 13.7 % (11.6-14.8) Platelet Count 187 K/UL (150-450) Mean Platelet Volume 8.6 FL (6.5-10.1) Neutrophils (%) (Auto) % (45.0-75.0) Lymphocytes (%) (Auto) % (20.0-45.0) Monocytes (%) (Auto) % (1.0-10.0) Eosinophils (%) (Auto) % (0.0-3.0) Basophils (%) (Auto) % (0.0-2.0) Neutrophils % (Manual) Pending Lymphocytes % (Manual) Pending Platelet Estimate Pending Platelet Morphology Pending Coagulation Test 02/07/19 06:30 Prothrombin Time 9.4 SEC (9.30-11.50) Prothromb Time International Ratio 0.9 (0.9-1.1) Activated Partial Thromboplast Time 27 SEC (23-33) Chemistry Test 02/06/19 12:43 02/07/19 06:30 Troponin I 0.000 ng/mL (0.000-0.056) Sodium Level 135 MMOL/L (136-145) L Potassium Level 4.3 MMOL/L (3.5-5.1) Chloride Level 106 MMOL/L (98-107) Carbon Dioxide Level 27 MMOL/L (21-32) Anion Gap 2 mmol/L (5-15) L Blood Urea Nitrogen 19 mg/dL (7-18) H Creatinine 1.2 MG/DL (0.55-1.30) Estimat Glomerular Filtration Rate > 60 mL/min (>60) Glucose Level 162 MG/DL (74-106) H Calcium Level 8.3 MG/DL (8.5-10.1) L Total Bilirubin 0.3 MG/DL (0.2-1.0) Aspartate Amino Transf (AST/SGOT) 13 U/L (15-37) L Alanine Aminotransferase (ALT/SGPT) 21 U/L (12-78) Alkaline Phosphatase 84 U/L (46-116) Total Protein 7.4 G/DL (6.4-8.2) Albumin 3.4 G/DL (3.4-5.0) Globulin 4.0 g/dL Albumin/Globulin Ratio 0.9 (1.0-2.7) L Free Thyroxine 1.10 NG/DL (0.76-1.46) Studies Pre-op Studies: EKG - NSR, echo - EF 55%, mild LVD dysfunction (grade I) Risk Assessment & Plan Assessment: ASA 3, ok to proceed Plan: MAC Status Change Before Surgery: No Pre-Antibiotics Given Within 1 Hr of Incision: Lani Mims CRNA Feb 07, 2019 08:36
--- NOTE | 2019-02-07 08:37 | NUR ---
NURSE NOTES: Patient went to GI LAB at 8:36am.
[2019-02-07] MEDS ORDERED: NS 500ML IVPB ONE (08:40)
--- NOTE | 2019-02-07 08:40 | Pre-Procedure Note/Attestation ---
Pre-Procedure Note/Attestation Complete Prior to Procedure Planned Procedure: not applicable Procedure Narrative: egd Indications for Procedure Pre-Operative Diagnosis: gerd, abd pain GIB Attestation I attest that I discussed the nature of the procedure; its benefits; risks and complications; and alternatives (and the risks and benefits of such alternatives ), prior to the procedure, with the patient (or the patient's legal customer account representative). I attest that, if there was a reasonable possibility of needing a blood transfusion, the patient (or the patient's legal customer account representative) was given the [facility] standardized written summary, pursuant to the Deon Lauryn Blood Safety Act ([place] Health and Safety Code # 1645, as amended). I attest that I re-evaluated the patient just prior to the surgery and that there has been no change in the patient's H&P, except as documented below: Manish Calloway MD Feb 07, 2019 08:40
--- NOTE | 2019-02-07 08:58 | Endoscopy Procedure Note ---
Endoscopy Procedure Note General Indication for Procedure: abd pain Procedures Performed: EGD Operative Findings/Diagnosis: gastritis Specimen: yes Pt Tolerated Procedure Well: Yes Estimated Blood Loss: none Anesthesia Anesthesiologist: saurabh Anesthesia: MAC Inserted Devices Implant(s) used?: No GI Core Measures 50 yrs or older w/o bx or poly: Not Applicable 10yrs. F/U recommended: Not Applicable Manish Calloway MD Feb 07, 2019 08:58
--- NOTE | 2019-02-07 09:35 | NUR ---
NURSE NOTES: Patient returned from GI LAB. Endorsed that patient has gastritis with biopsy taken. V/S- 129/83. HR-81, 96.6 F, 98% RA. Patient states he is ready to eat breakfast. court recording monitor attached. IVF reconnected. at bedside. Will follow up with plan of care.
--- NOTE | 2019-02-07 10:00 | Immediate Post-Op Evaluation ---
Immediate Post-Op Evalulation Immediate Post-Op Evalulation Procedure: EGD with biopsy Date of Evaluation: Feb 07, 2019 Time of Evaluation: 09:10 IV Fluids: 0.9 NS 200 ml Blood Pressure Systolic: 101 Blood Pressure Diastolic: 76 Pulse Rate: 74 Respiratory Rate: 16 O2 Sat by Pulse Oximetry: 100 Temperature (Fahrenheit): 97.0 Pain Score (1-10): 0 Nausea: No Vomiting: No Complications none Patient Status: awake, reacts, patent Hydration Status: adequate Given Within 1 Hr of Incision: Lani Mims CRNA Feb 07, 2019 10:00
[2019-02-07] MEDS: Aspirin EC 81mg tab ORAL SCH (10:40)
[2019-02-07] MEDS: Sertraline 50mg tab ORAL SCH (10:40)
[2019-02-07] MEDS: Metoprolol 25mg tab ORAL SCH (10:41)
[2019-02-07] MEDS: Docusate 100mg cap ORAL SCH (10:41)
[2019-02-07] MEDS: Dicyclomine 10mg Cap ORAL SCH (10:41)
[2019-02-07] MEDS: Heparin 5000 units/ml inj SUBQ SCH (10:47)
[2019-02-07] MEDS ORDERED: D5 1/2NS 1000ml IV ONE (10:48)
[2019-02-07] MEDS: GI Cocktail 50ml ORAL PRN (10:51)
--- NOTE | 2019-02-07 11:02 | NUR ---
*-* INSURANCE *-* ALL CLINICALS REFAXED TO: BERTA SHETTY:ROSIE P:[phone] F:[phone]
--- NOTE | 2019-02-07 11:14 | 48 Hour Post Anesthesia Eval ---
Post Anesthesia Evaluation Procedure: EGD with biopsy Date of Evaluation: Feb 07, 2019 Time of Evaluation: 11:13 Blood Pressure Systolic: 129 0: 89 Pulse Rate: 81 Respiratory Rate: 16 Temperature (Fahrenheit): 97.2 O2 Sat by Pulse Oximetry: 100 Airway: patent Nausea: No Vomiting: No Pain Intensity: 0 Hydration Status: adequate Cardiopulmonary Status: stable Mental Status/LOC: patient returned to baseline Follow-up Care/Observations: per hospitalists Post-Anesthesia Complications: none Follow-up care needed: N/A Lani Barney CRNA Feb 07, 2019 11:14
--- NOTE | 2019-02-07 12:02 | Discharge Summary ---
Discharge Summary Hospital Course Date of Admission Feb 06, 2019 at 02:16 Date of Discharge 02/07/19 Admitting Diagnosis pancreatitis, uncontrolled diabetes, dehydration Reason for Hospitalization: abd pain HPI Michael Mixon is a 53 year old male who was admitted on Feb 06, 2019 at 02: 16 for Pancreatitis/Uncontrolled Diabetes Mellitus "Patient is a 53-year-old male presents after increased epigastric pain. Patient reports having patient reports having prior history of pancreatitis as well as biliary sludge. He is type II diabetic. Patient states that he has been increased pain for 1 day. Pain is constant in nature. Middle of his chest. He denies any fever. Reports having prior history of peripheral neuropathy. Reports having a recent HIDA scan which showed biliary sludge. He reports having one alcoholic drink yesterday. GI consulted for reported abdominal pain. Patient seen, awake alert and oriented x4 no apparent distress has complaint of severe epigastric pain for the past 2 to 3 days. Patient reported nausea without vomiting. Patient had prior admission here at [facility] approximately 1 month ago in which she had a mild case of pancreatitis. Patient denies any use of alcohol or drug use. Patient states he has a history of chronic pancreatitis and has been hospitalized multiple times for similar conditions. Pertinent labs; hemoglobin of 12.4, glucose 216, TSH of 4.4. Patient reports history of endoscopy and colonoscopy approximately 1 to 2 years ago which she reported colonic polyps." Patient states he has had epigastric pain radiating to his back from three days ago. He describes it as a "squeezing pain" that comes and goes. Denies diarrhea, admits to nausea with no vomiting, admits to constipation. Consultations GI, Gsx Procedures EGD Hospital Course Patient was admitted for abdominal pain and HERNESTO. He was given IV fluids and held NPO for EGD. Patient found to have gastritis and was sent home with ompeprazole and instructed to follow up with primary physician. Discharge Medications New Medications: Omeprazole (Omeprazole) 20 Mg Capsule.dr 40 MG ORAL DAILY for 30 Days, #30 CAP 0 Refills Continued Medications: Albuterol Sulfate* (Albuterol Sulfate Mdi*) 8.5 Gm Hfa.aer.ad 2 PUFF INH Q4H, #1 INH 0 Refills Amlodipine Besylate* (Amlodipine Besylate*) 10 Mg Tablet 10 MG ORAL BID, TAB (This prescription has been renewed) Aspirin* (Aspir 81*) 81 Mg Tablet.dr 81 MG ORAL DAILY, TAB Bumetanide (Bumetanide) 1 Mg Tablet 1 MG ORAL DAILY, TAB (This prescription has been renewed) Carisoprodol (Carisoprodol) 250 Mg Tablet 350 MG ORAL BID, TAB Diclofenac Sod* (Voltaren*) 50 Mg Tablet.dr 50 MG ORAL BID, TAB Dicyclomine Hcl* (Dicyclomine Hcl*) 10 Mg Capsule 10 MG ORAL DAILY, #10 CAP (This prescription has been renewed) Gabapentin* (Gabapentin*) 300 Mg Capsule 300 MG ORAL BEDTIME, CAP Glipizide* (Glipizide*) 5 Mg Tablet 10 MG ORAL BIDAC, TAB Insulin Glargine (Lantus) 100 Unit/1 Ml Insuln.pen 60 SUBQ BEDTIME, #1 EA 0 Refills (This prescription has been renewed) Insulin Glulisine (Apidra Solostar) 100 Unit/1 Ml Insuln.pen 100 UNIT SQ, EA (This prescription has been renewed) Lisinopril (Lisinopril*) 20 Mg Tablet 20 MG ORAL DAILY, TAB Metformin Hcl* (Metformin Hcl*) 500 Mg Tablet 500 MG ORAL DAILY, TAB Metformin Hcl* (Metformin Hcl*) 1,000 Mg Tablet 1000 MG ORAL BID, TAB Methocarbamol* (Robaxin-750*) 750 Mg Tablet 750 MG PO TID, #21 TAB 0 Refills Metoprolol Tartrate* (Metoprolol Tartrate*) 25 Mg Tablet 25 MG ORAL EVERY 12 HOURS, TAB (This prescription has been renewed) Pioglitazone Hcl* (Actos*) 45 Mg Tablet 45 MG ORAL DAILY, TAB (This prescription has been renewed) Pravastatin Sodium (Pravachol) 40 Mg Tablet 80 MG ORAL BEDTIME, TAB (This prescription has been renewed) Ranitidine Hcl* (Zantac*) 150 Mg Tablet 150 MG ORAL TWICE A DAY, #30 TAB 0 Refills Sertraline Hcl* (Sertraline Hcl*) 25 Mg Tablet 25 MG ORAL DAILY, TAB Discontinued Medications: Diphenhydramine Hcl* (Benadryl*) 25 Mg Capsule 25 MG ORAL Q6H PRN for Itching, #30 CAP 0 Refills Famotidine (Pepcid Ac) 20 Mg Tablet 20 MG PO BID, #60 TAB Omeprazole (Omeprazole) 20 Mg Tablet. 20 MG ORAL DAILY, TAB Simvastatin (Zocor) 40 Mg Tablet 40 MG ORAL DAILY, TAB Discharge Condition Upon Discharge: stable Discharge Disposition Patient was discharged to home Discharge Diagnoses: (1) Gastritis (2) GERD (gastroesophageal reflux disease) (3) Abdominal pain Yvette Hung DO Feb 07, 2019 12:02
[2019-02-07] MEDS ORDERED: OMEPRAZOLE20 M2 ORAL (12:06)
--- NOTE | 2019-02-07 12:08 | Discharge Instructions ---
Discharge Instructions Discharge Instructions Follow up with: Dr. Rose in his clinic for followup of biopsy Diet: other - avoid caffeine, alcohol, tomato, lemon or other acidic foods that may cause stomach upset Resume Normal Activity?: Yes Activity: resume normal activities For Surgical Patients Contact your physician for: bleeding, pain, tenderness, redness, swelling For Congestive Heart Failure Reminder Report to your physician any weight gain of 5 pounds or more in one week. Yvette Hung DO Feb 07, 2019 12:08
--- NOTE | 2019-02-07 13:39 | NUR ---
Home Discharge: Patient is being discharged from medical care. Awake, alert and oriented x 4. All medical devices such as IV, heart monitor, and ID band were removed. Patient ambulated out with all personal belongings with steady gait. Patient was picked up by via private vehicle to home. Belongings checklist signed. Discharge paper signed.
--- NOTE | 2019-02-07 17:10 | Surgery Progress Note ---
Surgery Progress Note Subjective Symptoms: improved Additional Comments no acute events labs okay scope today with gastritis ready to go home Objective Last 24 Hour Vital Signs Date Time Temp Pulse Resp B/P (MAP) Pulse Ox O2 Delivery O2 Flow Rate FiO2 02/07/19 12:00 98.9 82 18 123/82 (96) 98 02/07/19 11:41 97.2 02/07/19 11:14 81 16 100 02/07/19 10:41 81 129/83 02/07/19 10:41 81 129/83 02/07/19 10:00 74 16 100 02/07/19 09:35 97.2 80 18 121/77 94 Room Air 02/07/19 09:25 78 15 126/83 96 Room Air 02/07/19 09:15 77 16 121/76 100 Nasal Cannula 3 02/07/19 09:10 74 14 120/77 100 Nasal Cannula 3 02/07/19 09:05 97.0 75 13 101/72 100 Nasal Cannula 3 02/07/19 09:00 Room Air 02/07/19 08:12 86 16 97 Room Air 21 02/07/19 08:00 98.9 88 18 125/59 (81) 98 02/07/19 07:32 75 02/07/19 04:00 65 02/06/19 23:47 71 02/06/19 21:39 79 140/78 02/06/19 21:00 Room Air 02/06/19 20:00 97.6 79 20 140/78 (98) 95 02/06/19 20:00 78 02/06/19 17:14 98.8 I&O Intake and Output 02/06/19 02/07/19 19:00 07:00 Intake Total 1350 ml Output Total 400 ml Balance 950 ml Intake Oral 450 ml IV Total 900 ml Output Urine Total 400 ml # Voids 4 1 # Bowel Movements 1 1 Cardiovascular: RSR Respiratory: clear Abdomen: soft, flat, non-tender, present bowel sounds Extremities: no edema, no tenderness, no cyanosis Laboratory Tests Test 02/07/19 06:30 White Blood Count 9.4 K/UL (4.8-10.8) # Red Blood Count 5.18 M/UL (4.70-6.10) Hemoglobin 13.5 G/DL (14.2-18.0) L Hematocrit 41.7 % (42.0-52.0) L Mean Corpuscular Volume 80 FL (80-99) Mean Corpuscular Hemoglobin 26.0 PG (27.0-31.0) L Mean Corpuscular Hemoglobin Concent 32.3 G/DL (32.0-36.0) Red Cell Distribution Width 13.7 % (11.6-14.8) Platelet Count 187 K/UL (150-450) Mean Platelet Volume 8.6 FL (6.5-10.1) Neutrophils (%) (Auto) % (45.0-75.0) Lymphocytes (%) (Auto) % (20.0-45.0) Monocytes (%) (Auto) % (1.0-10.0) Eosinophils (%) (Auto) % (0.0-3.0) Basophils (%) (Auto) % (0.0-2.0) Differential Total Cells Counted 100 Neutrophils % (Manual) 84 % (45-75) H Lymphocytes % (Manual) 11 % (20-45) L Monocytes % (Manual) 3 % (1-10) Eosinophils % (Manual) 1 % (0-3) Basophils % (Manual) 0 % (0-2) Band Neutrophils 1 % (0-8) Platelet Estimate Adequate Platelet Morphology Normal Red Blood Cell Morphology Normal Prothrombin Time 9.4 SEC (9.30-11.50) Prothromb Time International Ratio 0.9 (0.9-1.1) Activated Partial Thromboplast Time 27 SEC (23-33) Sodium Level 135 MMOL/L (136-145) L Potassium Level 4.3 MMOL/L (3.5-5.1) Chloride Level 106 MMOL/L (98-107) Carbon Dioxide Level 27 MMOL/L (21-32) Anion Gap 2 mmol/L (5-15) L Blood Urea Nitrogen 19 mg/dL (7-18) H Creatinine 1.2 MG/DL (0.55-1.30) Estimat Glomerular Filtration Rate > 60 mL/min (>60) Glucose Level 162 MG/DL (74-106) H Calcium Level 8.3 MG/DL (8.5-10.1) L Total Bilirubin 0.3 MG/DL (0.2-1.0) Aspartate Amino Transf (AST/SGOT) 13 U/L (15-37) L Alanine Aminotransferase (ALT/SGPT) 21 U/L (12-78) Alkaline Phosphatase 84 U/L (46-116) Total Protein 7.4 G/DL (6.4-8.2) Albumin 3.4 G/DL (3.4-5.0) Globulin 4.0 g/dL Albumin/Globulin Ratio 0.9 (1.0-2.7) L Free Thyroxine 1.10 NG/DL (0.76-1.46) Plan Problems: (1) Abdominal pain Assessment & Plan: abdominal pain labs okay exam benign imaging noted no acute surgical intervention planned PPI EGD with gastritis improving d/c home today time of note does not reflect when patient was seen thank you Julien Macias Feb 07, 2019 17:10
--- NOTE | 2019-02-07 17:15 | Procedure Note ---
DATE OF PROCEDURE: 02/07/2019 SURGEON: Manish Calloway M.D. REFERRING PHYSICIAN: Can Langford M.D. PROCEDURE: Upper endoscopy with biopsy. ANESTHESIA: Per Lani SMITH. INSTRUMENT: Olympus adult flexible upper endoscope. INDICATION: Abdominal pain and vomiting. REASON FOR PROCEDURE: The procedure, risks, benefits, and possible consequences, including hemorrhage, aspiration, perforation and infection, and alternative treatments, were explained to the patient/legal guardian by Dr. Manish Calloway and the patient/legal guardian understood and accepted these risks. PROCEDURE IN DETAIL: After informed consent was obtained and the patient was adequately sedated, Olympus upper endoscope was advanced from mouth into the second portion of the duodenum and retroflexion was performed in the stomach. The patient had evidence of diffuse gastritis. Random biopsy from antrum was obtained to rule out H. pylori infection. Otherwise, the rest of the upper endoscopic examination was within normal limits. No evidence of any ulceration. No esophagitis. No mass was seen. GE junction was found to be about 40 cm from the incisors. SUMMARY OF FINDINGS: Gastritis, otherwise normal upper endoscopic examination. RECOMMENDATIONS: 1. Follow up biopsy results and treat accordingly. 2. Resume diet. 3. Monitor for abdominal pain. I want to thank Dr. Langford for this kind referral. Manish Calloway M.D. DR: CHENG JOB#: [id number] CC:
--- NOTE | 2019-02-09 14:57 | Cardiology Report ---
APPROVED REPORT EKG Measurement Heart [id number] Normal sinus rhythm Normal ECG
== END 2019-02-07 13:39 | disposition home or self-care (01) | DRG 241 ==
LOC: EMR 01:33 → 2E 02:16 → EMR 03:53
PROC: 0DB78ZX Excision of Stomach, Pylorus, Via Natural or Artificial Opening Endoscopic, Diagnostic (ICD-10-PCS; principal; 2019-02-07 08:53)
DX: K25.9 Gastric ulcer, unspecified as acute or chronic, without hemorrhage or perforation (principal); N17.9 Acute kidney failure, unspecified; D64.9 Anemia, unspecified; K21.9 Gastro-esophageal reflux disease without esophagitis; Z88.6 Allergy status to analgesic agent; Z88.8 Allergy status to other drugs, medicaments and biological substances; E11.65 Type 2 diabetes mellitus with hyperglycemia; Z79.82 Long term (current) use of aspirin; Z79.4 Long term (current) use of insulin; E86.0 Dehydration
CPT/HCPCS: 36415; 71045; 80048; 80053; 80061; 80076; 80307; 81003; 82550; 82962; 83036; 83690; 83735; 84439; 84443; 84484; 85007; 85025; 85610; 85730; 87081; 93005; 93306; 94664; 96374; 96375; 99285; J1815

== ENCOUNTER 2019-03-06 21:07 | Inpatient (IN) | payer MEDICAID ==
[~2019-03-06] VITALS: Ht 175.3 cm; Wt 102.5 kg
[~2019-03-06 21:07] MED LIST changes: +OMEPRAZOLE20 M2 ORAL
--- NOTE | 2019-03-06 21:30 | NUR ---
ED Nurse Note: PT walked in c/o epigastric abd pain x 2days and nausea. hx chronic pancreatitis. pt also c/o pain on BLEx 1 wk. Pt is AAO x4, VSS, o acute distress. Family at bed side, .
--- NOTE | 2019-03-06 22:07 | NUR ---
ED Nurse Note: Labs sent , IV 20G inserted.
[2019-03-06 22:31] LABS: BASOPHILS % (AUTO) 2.4 % (0.0-2.0); EOSINOPHILS % (AUTO) 3.6 % (0.0-3.0); HEMATOCRIT 34.9 % (42.0-52.0); LYMPHOCYTES % (AUTO) 39.6 % (20.0-45.0); MEAN CORPUSCULAR VOLUME 77 FL (80-99); MONOCYTES % (AUTO) 8.9 % (1.0-10.0); NEUTROPHILS % (AUTO) 45.5 % (45.0-75.0); PLATELET COUNT 212 K/UL (150-450); RED BLOOD COUNT 4.56 M/UL (4.70-6.10); RED CELL DISTRIBUTION WIDTH 13.1 % (11.6-14.8); WHITE BLOOD COUNT 5.9 K/UL (4.8-10.8)
[2019-03-06 22:33] LABS: APPEARANCE,URINE CLEAR; BILIRUBIN, URINE NEGATIVE (NEGATIVE); COLOR,URINE PALE YELLOW; GLUCOSE, URINE (UA) 4+ (NEGATIVE); KETONES,URINE NEGATIVE (NEGATIVE); LEUKOCYTE ESTERASE ,URINE NEGATIVE (NEGATIVE); NITRITE,URINE NEGATIVE (NEGATIVE); PH,URINE 6.5 (4.5-8.0); PROTEIN,URINE 2+ (NEGATIVE); UROBILINOGEN,URINE NORMAL MG/DL (0.0-1.0)
[2019-03-06 22:47] LABS: ANION GAP 8 mmol/L (5-15); BLOOD UREA NITROGEN 20 mg/dL (7-18); CALCIUM 8.9 MG/DL (8.5-10.1); CARBON DIOXIDE 27 MMOL/L (21-32); CHLORIDE 106 MMOL/L (98-107); CREATININE 1.7 MG/DL (0.55-1.30); POTASSIUM 4.3 MMOL/L (3.5-5.1); SODIUM 141 MMOL/L (136-145)
[2019-03-06 22:51] LABS: ALANINE AMINOTRANSFERASE 21 U/L (12-78); ALBUMIN 3.3 G/DL (3.4-5.0); ALBUMIN/GLOBULIN RATIO 0.8 (1.0-2.7); ALKALINE PHOSPHATASE 68 U/L (46-116); ASPARTATE AMINO TRANSFERASE 14 U/L (15-37); BILIRUBIN,TOTAL 0.2 MG/DL (0.2-1.0)
[2019-03-06] MEDS ORDERED: HYDROmorphone 1mg/ml Carpuject IVP ONE (23:45)
[2019-03-07] MEDS ORDERED: HYDROmorphone 1mg/ml Carpuject IVP PRN ×2 (00:45→04:45)
[2019-03-07] MEDS: NovoLOG Insulin Flexpen SUBQ SCH ×6 (01:00→21:00)
--- NOTE | 2019-03-07 01:32 | NUR ---
TRANSFER TO FLOOR: Patient transferred to as ordered, per Anastasiya BRUCE. Report given to Jesse MARLEY. Belongings and medications given to . Family informed of transfer. Pt vss, aaox 4, and no acute distress.
[2019-03-07 01:35] VITALS: BP 130/81
--- NOTE | 2019-03-07 01:35 | NUR ---
NURSE NOTES: Received pt from DONELL Lujan. Pt is awake and resting in bed. Belongings sheet signed. child monitor on patient. IV site intact. Oriented pt to room and floor. Bed locked in lowest position. Will continue with plan of care.
[2019-03-07] MEDS: HYDROmorphone 1mg/ml Carpuject IVP PRN ×4 (03:23→20:57)
[2019-03-07 04:00] VITALS: BP 132/86
--- NOTE | 2019-03-07 06:29 | Emergency Room Report ---
History of Present Illness General Chief Complaint: Abdominal Pain Source: Patient Present Illness HPI Patient is a 53-year-old male presents after increased epigastric pain. Patient had additionally been having bilateral lower extremity cramping. He reports this being intermittent in nature. He reports having prior history of pancreatitis. He is previously been noted to have markedly elevated hemoglobin A1c. Patient is currently a smoker Allergies: Coded Allergies: CODEINE (Verified Allergy, Unknown, 03/27/11) METOCLOPRAMIDE (Verified Allergy, Unknown, 02/01/18) MORPHINE (Verified Allergy, Unknown, ITCH, 03/27/11) Patient History Past Medical History: see triage record Reviewed Nursing Documentation: PMH: Agreed; PSxH: Agreed Nursing Documentation-PMH Past Medical History: No History, Except For Hx Cardiac Problems: Yes - Acute coronary syndrome Hx Hypertension: Yes Hx Diabetes: Yes - type 2 Hx Gastrointestinal Problems: Yes - pancreatitis Hx Neurological Problems: No Review of Systems All Other Systems: negative except mentioned in HPI Physical Exam Vital Signs Date Time Temp Pulse Resp B/P (MAP) Pulse Ox O2 Delivery O2 Flow Rate FiO2 03/06/19 21:22 98.8 94 18 153/83 (106) 98 Room Air Sp02 EP Interpretation: reviewed, normal General Appearance: normal inspection, well appearing, no apparent distress, alert, GCS 15, non-toxic Head: atraumatic ENT: normal ENT inspection, hearing grossly normal, normal voice Neck: normal inspection, full range of motion, supple, no bony tend Respiratory: normal inspection, lungs clear, normal breath sounds, no respiratory distress, no retraction, no wheezing Cardiovascular #1: regular rate, rhythm, no edema Gastrointestinal: normal inspection, normal bowel sounds, non tender, soft, no guarding, no hernia Genitourinary: no CVA tenderness Musculoskeletal: normal inspection, back normal, normal range of motion Neurologic: normal inspection, alert, responsive, speech normal Psychiatric: normal inspection, judgement/insight normal, mood/affect normal Medical Decision Making Diagnostic Impression: Primary Impression: Abdominal pain Additional Impressions: Uncontrolled type II diabetes mellitus Bilateral leg cramps ER Course Patient presented for abdominal pain. Differential diagnoses included ischemic bowel, appendicitis, perforated viscus, abdominal aortic aneurysm, inferior myocardial infarction, viral gastroenteritis among others. Because of complexity of patient's case laboratory tests and imaging studies were ordered. Patient was noted to have prior history of chronic pancreatitis. He was noted to have some elevation of creatinine compared to baseline. He was started on IV fluids. Patient was given IV pain medications. Patient was noted to be having bilateral abdominal lower extremity cramping. Dr. Penn was contacted for [facility] and agreed to admit the patient. Labs Test 03/06/19 21:55 03/06/19 21:56 White Blood Count 5.9 K/UL (4.8-10.8) Red Blood Count 4.56 M/UL (4.70-6.10) Hemoglobin 12.0 G/DL (14.2-18.0) Hematocrit 34.9 % (42.0-52.0) Mean Corpuscular Volume 77 FL (80-99) Mean Corpuscular Hemoglobin 26.4 PG (27.0-31.0) Mean Corpuscular Hemoglobin Concent 34.5 G/DL (32.0-36.0) Red Cell Distribution Width 13.1 % (11.6-14.8) Platelet Count 212 K/UL (150-450) Mean Platelet Volume 6.8 FL (6.5-10.1) Neutrophils (%) (Auto) 45.5 % (45.0-75.0) Lymphocytes (%) (Auto) 39.6 % (20.0-45.0) Monocytes (%) (Auto) 8.9 % (1.0-10.0) Eosinophils (%) (Auto) 3.6 % (0.0-3.0) Basophils (%) (Auto) 2.4 % (0.0-2.0) Sodium Level 141 MMOL/L (136-145) Potassium Level 4.3 MMOL/L (3.5-5.1) Chloride Level 106 MMOL/L (98-107) Carbon Dioxide Level 27 MMOL/L (21-32) Anion Gap 8 mmol/L (5-15) Blood Urea Nitrogen 20 mg/dL (7-18) Creatinine 1.7 MG/DL (0.55-1.30) Estimat Glomerular Filtration Rate 51.8 mL/min (>60) Glucose Level 234 MG/DL (74-106) Calcium Level 8.9 MG/DL (8.5-10.1) Total Bilirubin 0.2 MG/DL (0.2-1.0) Aspartate Amino Transf (AST/SGOT) 14 U/L (15-37) Alanine Aminotransferase (ALT/SGPT) 21 U/L (12-78) Alkaline Phosphatase 68 U/L (46-116) Total Protein 7.2 G/DL (6.4-8.2) Albumin 3.3 G/DL (3.4-5.0) Globulin 3.9 g/dL Albumin/Globulin Ratio 0.8 (1.0-2.7) Lipase 79 U/L (73-393) Urine Color Pale yellow Urine Appearance Clear Urine pH 6.5 (4.5-8.0) Urine Specific [place] 1.005 (1.005-1.035) Urine Protein 2+ (NEGATIVE) Urine Glucose (UA) 4+ (NEGATIVE) Urine Ketones Negative (NEGATIVE) Urine Blood 2+ (NEGATIVE) Urine Nitrite Negative (NEGATIVE) Urine Bilirubin Negative (NEGATIVE) Urine Urobilinogen Normal MG/DL (0.0-1.0) Urine Leukocyte Esterase Negative (NEGATIVE) Urine RBC 0-2 /HPF (0 - 0) Urine WBC 0 /HPF (0 - 0) Urine Squamous Epithelial Cells None /LPF (NONE/OCC) Urine Bacteria None /HPF (NONE) Troponin I 0.000 ng/mL (0.000-0.056) Last Vital Signs Date Time Temp Pulse Resp B/P (MAP) Pulse Ox O2 Delivery O2 Flow Rate FiO2 03/07/19 04:00 85 03/07/19 04:00 98.3 20 132/86 (101) 96 03/07/19 03:03 Room Air Status: improved Disposition: ADMITTED INPATIENT Condition: Stable Referrals: [facility],REFERRING (PCP) Jesse Will MD Mar 07, 2019 06:29
--- NOTE | 2019-03-07 07:32 | NUR ---
HAND-OFF: Report given to david Dennison. Endorsed plan of care.
[2019-03-07 08:00] VITALS: BP 133/79
--- NOTE | 2019-03-07 08:04 | NUR ---
NURSE NOTES: Received report from DONELL Silvestre. The patient is resting on the bed without acute distress or shortness of breath. The patient's bed in the lowest position, call light in reach, and fall and aspiration precaution reinforced. IV site on L FA 20G is intact and patent and running NS 100mL/hr. Will continue plan of care.
[2019-03-07] MEDS: Heparin 5000 units/ml inj SUBQ SCH ×2 (09:10→21:02)
--- NOTE | 2019-03-07 09:36 | NUR ---
*-* NO INSURANCE INFORMATION IN THE BAR UNABLE TO SEND CLINICALS OR REVIEWS *-*
--- NOTE | 2019-03-07 10:34 | NUR ---
NURSE NOTES: Dr. Brady at the bedside for the assessment. The patient is stable without acute distress or shortness of breath. Will continue plan of care.
--- NOTE | 2019-03-07 10:46 | History and Physical ---
History of Present Illness General Date patient seen: Mar 07, 2019 Reason for Hospitalization: Abdominal Pain Present Illness HPI 53 year old male comes in to the ED with epigastric abdominal pain 7/10 radiating to his back with no alleviating or aggravating factors. He has a history of chronic pancreatitis, uncontrolled DM with neuropathy, HTN, HLD, GERD and was recently admitted to [facility] for pancreatitis,had an EGD that revealed gastritis. Denies fever, chills, dark stools, constipation, diarrhea, chest pain , sob or palps. He was started on Jardiance (empagliflozin) two days ago but says abdominal pain came before that. He has had a HIDA scan ini the past that showed sludge, was planned for a cholecystectomy but cancelled due to holidays. Sometimes he stops taking all his medications for a month and still has the abdominal pain. He has bilateral cramps in both legs and very limited exercise tolerance due bad hips that need surgery. He was scheduled to have vascular studies of the legs however ended up coming to the hospital. PMH & PSH: as above FH: Mom of DM complications at 69, Father of HTN at 49, seven children , one daughter has DM Social history: Occasional etoh (rare), Smokes 7 cigars per day, +cbd oil, denies illicit drug use Insurance: [facility] Allergies: Coded Allergies: CODEINE (Verified Allergy, Unknown, 03/27/11) METOCLOPRAMIDE (Verified Allergy, Unknown, 02/01/18) MORPHINE (Verified Allergy, Unknown, ITCH, 03/27/11) Medication History Scheduled Albuterol Sulfate* (Albuterol Sulfate Mdi*), 2 PUFF INH Q4H Amlodipine Besylate* (Amlodipine Besylate*), 10 MG ORAL BID, (Reported) Aspirin* (Aspir 81*), 81 MG ORAL DAILY, (Reported) Dicyclomine Hcl* (Dicyclomine Hcl*), 10 MG ORAL DAILY, (Reported) Insulin Glargine (Lantus), 60 SUBQ BEDTIME, (Reported) Lisinopril (Lisinopril*), 20 MG ORAL DAILY, (Reported) Metoprolol Tartrate* (Metoprolol Tartrate*), 25 MG ORAL EVERY 12 HOURS, ( Reported) Pioglitazone Hcl* (Actos*), 45 MG ORAL DAILY, (Reported) Pravastatin Sodium (Pravachol), 80 MG ORAL BEDTIME, (Reported) Ranitidine Hcl* (Zantac*), 150 MG ORAL TWICE A DAY Discontinued Medications Bumetanide (Bumetanide), 1 MG ORAL DAILY, (Reported) Discontinued Reason: Pt stopped taking med Carisoprodol (Carisoprodol), 350 MG ORAL BID, (Reported) Discontinued Reason: Pt stopped taking med Diclofenac Sod* (Voltaren*), 50 MG ORAL BID, (Reported) Discontinued Reason: Pt stopped taking med Gabapentin* (Gabapentin*), 300 MG ORAL BEDTIME, (Reported) Discontinued Reason: Pt stopped taking med Glipizide* (Glipizide*), 10 MG ORAL BIDAC, (Reported) Discontinued Reason: MD discontinued med Insulin Glulisine (Apidra Solostar), 100 UNIT SQ, (Reported) Discontinued Reason: Pt stopped taking med Metformin Hcl* (Metformin Hcl*), 500 MG ORAL DAILY, (Reported) Discontinued Reason: Pt stopped taking med Metformin Hcl* (Metformin Hcl*), 1,000 MG ORAL BID, (Reported) Discontinued Reason: Pt stopped taking med Methocarbamol* (Robaxin-750*), 750 MG PO TID Discontinued Reason: Pt stopped taking med Omeprazole (Omeprazole), 40 MG ORAL DAILY Discontinued Reason: Pt stopped taking med Sertraline Hcl* (Sertraline Hcl*), 25 MG ORAL DAILY, (Reported) Discontinued Reason: Pt stopped taking med Patient History Healthcare decision maker Resuscitation status Full Code Advanced Directive on File Review of Systems Constitutional: Denies: no symptoms, see HPI, chills, sweats, fever, malaise, weakness, other Eye: Denies: no symptoms, see HPI, eye pain, blurred vision, tearing, double vision, nose pain, nose congestion, acuity changes, discharge, other ENT: Denies: no symptoms, see HPI, ear pain, ear discharge, nose pain, nose congestion, throat pain, throat swelling, mouth pain, hearing loss, nasal discharge, other Respiratory: Denies: no symptoms, see HPI, cough, orthopnea, shortness of breath, stridor, wheezing, ESCOBAR, sputum, other Cardiovascular: Denies: no symptoms, see HPI, chest pain, edema, palpitations, syncope, PND, other Gastrointestinal: Reports: no symptoms, see HPI, abdominal pain, constipation, diarrhea, nausea, vomiting, melena, hematemesis, other Genitourinary: Denies: no symptoms, see HPI, discharge, dysuria, frequency, hematuria, pain, retention, incontinence, urgency, vag bleed/dc, other Musculoskeletal: Reports: no symptoms, see HPI, back pain, gout, joint pain, joint swelling, muscle pain, muscle stiffness, other - leg cramps Skin: Denies: no symptoms, see HPI, rash, change in color, change in hair/nails , dryness, lesions, other Psychiatric: Denies: no symptoms, see HPI, prior hx, anxiety, depressed feelings, emotional problems, SI, HI, hallucinations, other Neurological: Reports: no symptoms, see HPI, headache, numbness - feet, paresthesia, seizure, tingling, tremors, focal weakness, syncope, dizziness, other Endocrine: Denies: no symptoms, see HPI, excessive sweating, flushing, intolerance to temperature, increased thirst, increased urine, unexplained weight loss, other Hematologic/Lymphatic: Denies: no symptoms, see HPI, anemia, blood clots, easy bleeding, easy bruising, swollen glands, diathesis, other All Other Systems: negative except mentioned in HPI Physical Exam Physical Exam Narrative General Appearance: in mild distress due to pain HEENT: PERRL Neck: Supple, no jvd Respiratory: normal inspection, lungs clear, normal breath sounds, no respiratory distress, no retraction, no wheezing Cardiovascular: regular rate, rhythm, no m/r/g/, ext: No edema to bilateral lower extremities Gastrointestinal: obese, soft, +epigastric tenderness, no guarding, normal BS Genitourinary: no CVA tenderness Musculoskeletal: normal range of motion, feet warm to touch, diminished DP pulses bilaterally Neurologic: alert and oriented x3, CN2-12 grossly normal. Feet have diminished sensation and proprioception. gait not tested due to pain. Psychiatric: judgement/insight normal, mood/affect normal Skin: No ulcers, warm to touch Last 24 Hour Vital Signs Date Time Temp Pulse Resp B/P (MAP) Pulse Ox O2 Delivery O2 Flow Rate FiO2 03/07/19 09:00 Room Air 03/07/19 08:00 78 03/07/19 08:00 96.8 79 20 133/79 (97) 95 03/07/19 04:00 85 03/07/19 04:00 98.3 85 20 132/86 (101) 96 03/07/19 03:03 Room Air 03/07/19 01:35 97.7 84 20 130/81 (97) 96 03/07/19 01:35 84 03/07/19 01:32 98.9 95 19 152/86 03/06/19 21:30 90 18 97 Room Air 03/06/19 21:30 94 18 Room Air 2.0 03/06/19 21:22 98.8 94 18 153/83 (106) 98 Room Air Intake and Output 03/06/19 03/07/19 18:59 06:59 Intake Total 0 ml Balance 0 ml Intake Oral 0 ml # Voids 1 Laboratory Tests Test 03/06/19 21:55 03/06/19 21:56 White Blood Count 5.9 K/UL (4.8-10.8) Red Blood Count 4.56 M/UL (4.70-6.10) L Hemoglobin 12.0 G/DL (14.2-18.0) L Hematocrit 34.9 % (42.0-52.0) L Mean Corpuscular Volume 77 FL (80-99) L Mean Corpuscular Hemoglobin 26.4 PG (27.0-31.0) L Mean Corpuscular Hemoglobin Concent 34.5 G/DL (32.0-36.0) Red Cell Distribution Width 13.1 % (11.6-14.8) Platelet Count 212 K/UL (150-450) Mean Platelet Volume 6.8 FL (6.5-10.1) Neutrophils (%) (Auto) 45.5 % (45.0-75.0) Lymphocytes (%) (Auto) 39.6 % (20.0-45.0) Monocytes (%) (Auto) 8.9 % (1.0-10.0) Eosinophils (%) (Auto) 3.6 % (0.0-3.0) H Basophils (%) (Auto) 2.4 % (0.0-2.0) H Sodium Level 141 MMOL/L (136-145) Potassium Level 4.3 MMOL/L (3.5-5.1) Chloride Level 106 MMOL/L (98-107) Carbon Dioxide Level 27 MMOL/L (21-32) Anion Gap 8 mmol/L (5-15) Blood Urea Nitrogen 20 mg/dL (7-18) H Creatinine 1.7 MG/DL (0.55-1.30) H Estimat Glomerular Filtration Rate 51.8 mL/min (>60) Glucose Level 234 MG/DL (74-106) H Calcium Level 8.9 MG/DL (8.5-10.1) Total Bilirubin 0.2 MG/DL (0.2-1.0) Aspartate Amino Transf (AST/SGOT) 14 U/L (15-37) L Alanine Aminotransferase (ALT/SGPT) 21 U/L (12-78) Alkaline Phosphatase 68 U/L (46-116) Total Protein 7.2 G/DL (6.4-8.2) Albumin 3.3 G/DL (3.4-5.0) L Globulin 3.9 g/dL Albumin/Globulin Ratio 0.8 (1.0-2.7) L Lipase 79 U/L (73-393) Urine Color Pale yellow Urine Appearance Clear Urine pH 6.5 (4.5-8.0) Urine Specific [place] 1.005 (1.005-1.035) Urine Protein 2+ (NEGATIVE) H Urine Glucose (UA) 4+ (NEGATIVE) H Urine Ketones Negative (NEGATIVE) Urine Blood 2+ (NEGATIVE) H Urine Nitrite Negative (NEGATIVE) Urine Bilirubin Negative (NEGATIVE) Urine Urobilinogen Normal MG/DL (0.0-1.0) Urine Leukocyte Esterase Negative (NEGATIVE) Urine RBC 0-2 /HPF (0 - 0) H Urine WBC 0 /HPF (0 - 0) Urine Squamous Epithelial Cells None /LPF (NONE/OCC) Urine Bacteria None /HPF (NONE) Troponin I 0.000 ng/mL (0.000-0.056) Height (Feet): 5 Height (Inches): 9.00 Weight (Pounds): 226 Medications Current Medications Medications (Trade) Dose Ordered Sig/Naye Route PRN Reason Start Time Stop Time Status Last Admin Dose Admin Acetaminophen (Tylenol) 650 mg Q4H PRN ORAL Mild Pain (Pain Scale 1-3) 03/07/19 00:45 04/06/19 00:44 Albuterol Sulfate (Proventil MDI) 2 puff Q4HRT INH 03/07/19 11:00 04/06/19 10:59 Amlodipine Besylate (Norvasc) 10 mg BID ORAL 03/07/19 18:00 04/06/19 17:59 Aspirin (Ecotrin) 81 mg DAILY ORAL 03/08/19 09:00 04/07/19 08:59 Dextrose (Dextrose 50%) 25 ml Q30M PRN IV Hypoglycemia 03/07/19 00:45 04/06/19 00:44 Dextrose (Dextrose 50%) 50 ml Q30M PRN IV Hypoglycemia 03/07/19 00:45 04/06/19 00:44 Diphenhydramine HCl (Benadryl) 25 mg Q6H PRN ORAL Itching 03/07/19 09:45 04/06/19 09:44 Heparin Sodium (Porcine) (Heparin 5000 units/ml) 5,000 units EVERY 12 HOURS SUBQ 03/07/19 09:00 04/06/19 08:59 03/07/19 09:10 Hydromorphone HCl (Dilaudid) 0.5 mg Q4H PRN IVP Severe Pain (Pain Scale 7-10) 03/07/19 03:15 03/14/19 03:14 03/07/19 03:23 Insulin Aspart (NovoLOG) Q4HR SUBQ 03/07/19 01:00 04/06/19 00:59 Insulin Detemir (Levemir) 10 units PRE BFAST AND DINNER SUBQ 03/07/19 16:30 04/06/19 16:29 Metoprolol Tartrate (Lopressor) 25 mg EVERY 12 HOURS ORAL 03/07/19 21:00 04/06/19 20:59 Sodium Chloride 1,000 ml @ 100 mls/hr Q10H IVLG 03/07/19 01:38 04/06/19 01:37 03/07/19 01:56 Sodium Chloride 3,100 ml @ 200 mls/hr [id number] ONCE IVLG 03/07/19 10:45 03/08/19 02:14 UNV Assessment/Plan Problem List: (1) Diabetic neuropathy ICD Codes: E11.40 - Type 2 diabetes mellitus with diabetic neuropathy, unspecified SNOMED: 028279620, 455188533 (2) Pancreatitis ICD Codes: K85.9 - Acute pancreatitis, unspecified SNOMED: 73402307 (3) Chest pain with high risk of acute coronary syndrome (4) Uncontrolled type II diabetes mellitus ICD Codes: E11.65 - Uncontrolled type II diabetes mellitus SNOMED: 039271036 (5) Abdominal pain ICD Codes: R10.9 - Unspecified abdominal pain SNOMED: 50093282 (6) Bilateral leg cramps ICD Codes: R25.2 - Cramp and spasm SNOMED: 34001285822673367 (7) HERNESTO (acute kidney injury) ICD Codes: N17.9 - Acute kidney failure, unspecified SNOMED: 7183578, 13809453 (8) Uncontrolled hypertension ICD Codes: I10 - Essential (primary) hypertension SNOMED: 67704406, 84423131 Status: stable Assessment/Plan: 53 year old male with chronic pancreatitis, admitted with epigastric abdominal pain. 1.Chronic pancreatitis. Lipase is normal. Will obtain US to rule out gallstone pancreatitis through unlikely with normal LFTs GI consult, Dr. Morrell check lipid profile for triglycerides though only 106 in January NPO Aggressive IV hydration with NS @ 250ml/hr. I's and O's Pain control. IV Dilaudid 2.Rule out ACS (diabetic and can have silent [place]). First troponin negative, EKG non ischemic. Trend cardiac enzymes. Continue ASA, statin, beta blockers. 3.Uncontrolled type II DM with neuropathy, possibly nephropathy. HbA1c 13.5 in January. Needs better control Patient had nightmares on gabapentin. Should try alternative for neuropathy. Diabetic shoes, which he says he wears UA 2+blood, 4+ glucose, +2 protein, will order urine microalbumin while NPO he will receive 10 units of Levemir BID (home dose Lantus 60 units) , Novolog sliding scale 4.Bilateral leg cramps. electrolytes disturbance (low magnesium common in diabetics) vs. peripheral arterial disease. Legs warm to touch, perfusing well. Would need outpatient vascular studies done 5. HTN. Continue amlodipine and Metoprolol. 6. HERNESTO. Continue to monitor. Continue IV hydration. Avoid nephrotoxic medications. Hold Lisinopril. He is voiding well. Doubt obstruction. IF serum creatinine escobar snot improve will obtain a nephrology consult. code status: Full code Disposition; Home I spent 70 minutes during this encounter. 50% spent on counselling and care coordination Time of this note may not reflect time of encounter John Paul Brady M.D. Mar 07, 2019 10:46
[2019-03-07] MEDS ORDERED: Albuterol 90mcg Inhaler 8gm INH SCH (11:00)
--- NOTE | 2019-03-07 11:38 | NUR ---
RESPIRATORY NOTE: Respiratory med not available. Med was not given. Waiting for pharmacy to bring it up.
--- NOTE | 2019-03-07 11:42 | NUR ---
*-* INSURANCE *-* AVAILABLE CLINICALS HAVE BEEN FAXED TO: BERTA SHETTY:CHERY F: [phone] REF# [id number]
[2019-03-07 12:00] VITALS: BP 137/85
[2019-03-07 12:08] LABS: CHOLESTEROL 198 MG/DL (< 200); HDL CHOLESTEROL 51 MG/DL (40-60); TRIGLYCERIDES 101 MG/DL (30-150)
--- NOTE | 2019-03-07 12:42 | NUR ---
NURSE NOTES: Dr. Brady cancelled breathing treatment. Dr. Brady change Benadryl from PO to IVP. Carried out the order. Will continue plan of care.
--- NOTE | 2019-03-07 12:46 | GI Initial Consult Note ---
History of Present Illness General Date patient seen: Mar 07, 2019 Time patient seen: 12:45 Reason for Hospitalization: Abdominal Pain Referring physician: NANCI LOPEZ Reason for Consultation: ABDOMINAL PAIN Present Illness HPI Patient is a 53-year-old male presents after increased epigastric pain. Patient had additionally been having bilateral lower extremity cramping. He reports this being intermittent in nature. He reports having prior history of pancreatitis. He is previously been noted to have markedly elevated hemoglobin A1c. Patient is currently a smoker. GI consulted for reported epigastric pain. Patient was seen, awake alert oriented x4 no apparent distress. Patient reports having severe epigastric pain and bilateral lower extremity cramping. The patient had a previous admission here with similar conditions and had a upper endoscopy performed noted with gastritis. Patient also has a history of chronic pancreatitis, diabetes mellitus and reported history of peripheral neuropathy. The patient states he had a recent HIDA scan performed at [facility], which is showed some biliary sludge. Labs reviewed; hemoglobin 12.0 hematocrit 34.9, no transaminitis, lipase within normal limits. Patient reported having a colonoscopy approximately 1 to 2 years ago with colonic polyps. Home Meds Active Scripts Albuterol Sulfate* (ALBUTEROL SULFATE MDI*) 8.5 Gm Hfa.aer.ad, 2 PUFF INH Q4H, # 1 INH 0 Refills Prov:Lisa Lewis DO 01/09/15 Ranitidine Hcl* (ZANTAC*) 150 Mg Tablet, 150 MG ORAL TWICE A DAY, #30 TAB 0 Refills Prov:Lavinia Gomez 02/17/14 Reported Medications Insulin Glargine (LANTUS) 100 Unit/1 Ml Insuln.pen, 60 SUBQ BEDTIME, #1 EA 0 Refills 01/08/19 Pravastatin Sodium (PRAVACHOL) 40 Mg Tablet, 80 MG ORAL BEDTIME, TAB 01/08/19 Metoprolol Tartrate* (METOPROLOL TARTRATE*) 25 Mg Tablet, 25 MG ORAL EVERY 12 HOURS, TAB 01/08/19 Pioglitazone Hcl* (ACTOS*) 45 Mg Tablet, 45 MG ORAL DAILY, TAB 01/08/19 Dicyclomine Hcl* (DICYCLOMINE HCL*) 10 Mg Capsule, 10 MG ORAL DAILY, #10 CAP 01/08/19 Amlodipine Besylate* (AMLODIPINE BESYLATE*) 10 Mg Tablet, 10 MG ORAL BID, TAB 01/08/19 Lisinopril (LISINOPRIL*) 20 Mg Tablet, 20 MG ORAL DAILY, TAB 09/13/13 Aspirin* (ASPIR 81*) 81 Mg Tablet.dr, 81 MG ORAL DAILY, TAB 09/13/13 Discontinued Reported Medications Insulin Glulisine (APIDRA SOLOSTAR) 100 Unit/1 Ml Insuln.pen, 100 UNIT SQ, EA 01/08/19 Bumetanide (Bumetanide) 1 Mg Tablet, 1 MG ORAL DAILY, TAB 01/08/19 Carisoprodol (CARISOPRODOL) 250 Mg Tablet, 350 MG ORAL BID, TAB 09/13/13 Sertraline Hcl* (SERTRALINE HCL*) 25 Mg Tablet, 25 MG ORAL DAILY, TAB 09/13/13 Gabapentin* (GABAPENTIN*) 300 Mg Capsule, 300 MG ORAL BEDTIME, CAP 09/13/13 Metformin Hcl* (METFORMIN HCL*) 1,000 Mg Tablet, 1000 MG ORAL BID, TAB 09/13/13 Diclofenac Sod* (VOLTAREN*) 50 Mg Tablet.dr, 50 MG ORAL BID, TAB 09/13/13 Glipizide* (GLIPIZIDE*) 5 Mg Tablet, 10 MG ORAL BIDAC, TAB 09/13/13 Metformin Hcl* (METFORMIN HCL*) 500 Mg Tablet, 500 MG ORAL DAILY, TAB 09/13/13 Discontinued Scripts Omeprazole (OMEPRAZOLE) 20 Mg Capsule.dr, 40 MG ORAL DAILY for 30 Days, #30 CAP 0 Refills Prov:Yvette Hung DO 02/07/19 Methocarbamol* (ROBAXIN-750*) 750 Mg Tablet, 750 MG PO TID, #21 TAB 0 Refills Prov:Ilya Bacon DO 07/28/16 Med list reviewed/reconciled: Yes Allergies: Coded Allergies: CODEINE (Verified Allergy, Unknown, 03/27/11) METOCLOPRAMIDE (Verified Allergy, Unknown, 02/01/18) MORPHINE (Verified Allergy, Unknown, ITCH, 03/27/11) Patient History History Provided By: Patient, Medical Record PMH Narrative Past Medical History: see triage record Reviewed Nursing Documentation: PMH: Agreed; PSxH: Agreed Nursing Documentation-PMH Past Medical History: No History, Except For Hx Cardiac Problems: Yes - Acute coronary syndrome Hx Hypertension: Yes Hx Diabetes: Yes - type 2 Hx Gastrointestinal Problems: Yes - pancreatitis Hx Neurological Problems: No Social History: Reports: smoking Review of Systems Gastrointestinal: Reports: other - Denied any constipation, diarrhea All Other Systems: negative except mentioned in HPI Physical Exam Vital Signs Date Time Temp Pulse Resp B/P (MAP) Pulse Ox O2 Delivery O2 Flow Rate FiO2 03/06/19 21:22 98.8 94 18 153/83 (106) 98 Room Air 03/06/19 21:30 2.0 03/07/19 11:32 21 Sp02 EP Interpretation: reviewed, normal Labs Laboratory Tests Test 03/06/19 21:55 03/06/19 21:56 03/07/19 11:35 White Blood Count 5.9 K/UL (4.8-10.8) Red Blood Count 4.56 M/UL (4.70-6.10) L Hemoglobin 12.0 G/DL (14.2-18.0) L Hematocrit 34.9 % (42.0-52.0) L Mean Corpuscular Volume 77 FL (80-99) L Mean Corpuscular Hemoglobin 26.4 PG (27.0-31.0) L Mean Corpuscular Hemoglobin Concent 34.5 G/DL (32.0-36.0) Red Cell Distribution Width 13.1 % (11.6-14.8) Platelet Count 212 K/UL (150-450) Mean Platelet Volume 6.8 FL (6.5-10.1) Neutrophils (%) (Auto) 45.5 % (45.0-75.0) Lymphocytes (%) (Auto) 39.6 % (20.0-45.0) Monocytes (%) (Auto) 8.9 % (1.0-10.0) Eosinophils (%) (Auto) 3.6 % (0.0-3.0) H Basophils (%) (Auto) 2.4 % (0.0-2.0) H Sodium Level 141 MMOL/L (136-145) Potassium Level 4.3 MMOL/L (3.5-5.1) Chloride Level 106 MMOL/L (98-107) Carbon Dioxide Level 27 MMOL/L (21-32) Anion Gap 8 mmol/L (5-15) Blood Urea Nitrogen 20 mg/dL (7-18) H Creatinine 1.7 MG/DL (0.55-1.30) H Estimat Glomerular Filtration Rate 51.8 mL/min (>60) Glucose Level 234 MG/DL (74-106) H Calcium Level 8.9 MG/DL (8.5-10.1) Total Bilirubin 0.2 MG/DL (0.2-1.0) Aspartate Amino Transf (AST/SGOT) 14 U/L (15-37) L Alanine Aminotransferase (ALT/SGPT) 21 U/L (12-78) Alkaline Phosphatase 68 U/L (46-116) Total Protein 7.2 G/DL (6.4-8.2) Albumin 3.3 G/DL (3.4-5.0) L Globulin 3.9 g/dL Albumin/Globulin Ratio 0.8 (1.0-2.7) L Lipase 79 U/L (73-393) Urine Color Pale yellow Urine Appearance Clear Urine pH 6.5 (4.5-8.0) Urine Specific [place] 1.005 (1.005-1.035) Urine Protein 2+ (NEGATIVE) H Urine Glucose (UA) 4+ (NEGATIVE) H Urine Ketones Negative (NEGATIVE) Urine Blood 2+ (NEGATIVE) H Urine Nitrite Negative (NEGATIVE) Urine Bilirubin Negative (NEGATIVE) Urine Urobilinogen Normal MG/DL (0.0-1.0) Urine Leukocyte Esterase Negative (NEGATIVE) Urine RBC 0-2 /HPF (0 - 0) H Urine WBC 0 /HPF (0 - 0) Urine Squamous Epithelial Cells None /LPF (NONE/OCC) Urine Bacteria None /HPF (NONE) Troponin I 0.000 ng/mL (0.000-0.056) Triglycerides Level 101 MG/DL (30-150) Cholesterol Level 198 MG/DL (< 200) LDL Cholesterol 120 mg/dL (<100) H HDL Cholesterol 51 MG/DL (40-60) Cholesterol/HDL Ratio 3.9 (3.3-4.4) General Appearance: well appearing, no apparent distress, alert Head: normocephalic EENT: PERRL/EOMI, normal ENT inspection Neck: supple Respiratory: normal breath sounds, no respiratory distress Cardiovascular: normal rate Gastrointestinal: normal inspection, non tender, soft, normal bowel sounds, non -distended, distended Rectal: deferred Genitourinary: deferred Musculoskeletal: normal inspection, back normal Neurologic: normal inspection, alert, oriented x3, responsive Psychiatric: normal inspection, judgement/insight normal, memory normal Skin: normal inspection, normal color, no rash, warm/dry, palpation normal, well hydrated Lymphatic: normal inspection, no adenopathy Current Medications Current Medications Medications (Trade) Dose Ordered Sig/Naye Route PRN Reason Start Time Stop Time Status Last Admin Dose Admin Acetaminophen (Tylenol) 650 mg Q4H PRN ORAL Mild Pain (Pain Scale 1-3) 03/07/19 00:45 04/06/19 00:44 Amlodipine Besylate (Norvasc) 10 mg BID ORAL 03/07/19 18:00 04/06/19 17:59 Aspirin (Ecotrin) 81 mg DAILY ORAL 03/08/19 09:00 04/07/19 08:59 Dextrose (Dextrose 50%) 25 ml Q30M PRN IV Hypoglycemia 03/07/19 00:45 04/06/19 00:44 Dextrose (Dextrose 50%) 50 ml Q30M PRN IV Hypoglycemia 03/07/19 00:45 04/06/19 00:44 Diphenhydramine HCl (Benadryl) 25 mg Q6H PRN IVP Itching 03/07/19 12:45 04/06/19 12:44 Heparin Sodium (Porcine) (Heparin 5000 units/ml) 5,000 units EVERY 12 HOURS SUBQ 03/07/19 09:00 04/06/19 08:59 03/07/19 09:10 Hydromorphone HCl (Dilaudid) 0.5 mg Q4H PRN IVP Severe Pain (Pain Scale 7-10) 03/07/19 03:15 03/14/19 03:14 03/07/19 11:17 Insulin Aspart (NovoLOG) Q4HR SUBQ 03/07/19 01:00 04/06/19 00:59 Insulin Detemir (Levemir) 10 units PRE BFAST AND DINNER SUBQ 03/07/19 16:30 04/06/19 16:29 Metoprolol Tartrate (Lopressor) 25 mg EVERY 12 HOURS ORAL 03/07/19 21:00 04/06/19 20:59 Sodium Chloride 1,000 ml @ 200 mls/hr Q5H IVLG 03/07/19 11:00 03/08/19 02:29 03/07/19 11:15 GI: Plan Problems: (1) Uncontrolled type II diabetes mellitus (2) Gastritis (3) GERD (gastroesophageal reflux disease) Plan Status post EGD in January 2019 noted with mild chronic gastritis. No H. pylori identified on pathology. Per report from patient and positive HIDA scan No plans for GI procedures at this time given recent history follow up abdominal US Symptomatic treatment Patient should continue on a PPI after discharge and follow-up with PCP for management DM management Advance diet as tolerated Outpatient follow-up for possible cholecystectomy Discussed with Dr. Calloway. Thank you for this patient referral, we will follow. The patient was seen and examined at bedside and all new and available data was reviewed in the patients chart. I agree with the above findings, impression and plan. (Patient seen earlier today. Signature stamp does not reflect patient encounter time.). - MD Taylor Castell[facility]En[facility] Mar 07, 2019 12:46
--- NOTE | 2019-03-07 13:11 | NUR ---
NURSE NOTES: Microalbumin, urine sample collected and sent down to the lab. Will continue plan of care.
--- NOTE | 2019-03-07 14:02 | Diagnostic Imaging Report ---
Indication: Abdominal pain Technique: Grayscale and duplex Doppler imaging of the abdomen performed. Comparison: None Findings: The liver is unremarkable. Doppler interrogation of the main portal vein shows patency with hepatopedal, monophasic flow. There is no biliary ductal dilatation identified. Gallbladder is unremarkable. CBD is 5 mm. There demonstrated part of the pancreas, aorta and IVC show no definite abnormalities. Both kidneys appear unremarkable. There is no hydronephrosis. IMPRESSION: No acute findings identified.
--- NOTE | 2019-03-07 14:49 | Consultation ---
History of Present Illness General Date patient seen: Mar 07, 2019 Reason for Hospitalization: Abdominal Pain Present Illness HPI This is a very pleasant 53-year-old male who is known to me from prior admission that presents after increased epigastric pain, renal insufficiency, lower extremity edema and discomfort. Patient reports having patient reports having prior history of pancreatitis as well as biliary sludge. He is type II diabetic. Patient states that he has been increased pain for 1 day. Pain is constant in nature. Middle of his chest. He denies any fever. Reports having prior history of peripheral neuropathy. Reports having a recent HIDA scan which showed biliary sludge in the past. Surgery consulted for reported abdominal pain. Patient seen, awake alert and oriented x4 no apparent distress has complaint of severe epigastric pain for the past 2 to 3 days. Patient reported nausea without vomiting. Patient had prior admission here at [facility] approximately 1 month ago in which she had a mild case of pancreatitis. Patient denies any use of alcohol or drug use. Patient states he has a history of chronic pancreatitis and has been hospitalized multiple times for similar conditions. during this admission US normal and labs as below Allergies: Coded Allergies: CODEINE (Verified Allergy, Unknown, 03/27/11) METOCLOPRAMIDE (Verified Allergy, Unknown, 02/01/18) MORPHINE (Verified Allergy, Unknown, ITCH, 03/27/11) Medication History Scheduled Albuterol Sulfate* (Albuterol Sulfate Mdi*), 2 PUFF INH Q4H Amlodipine Besylate* (Amlodipine Besylate*), 10 MG ORAL BID, (Reported) Aspirin* (Aspir 81*), 81 MG ORAL DAILY, (Reported) Dicyclomine Hcl* (Dicyclomine Hcl*), 10 MG ORAL DAILY, (Reported) Insulin Glargine (Lantus), 60 SUBQ BEDTIME, (Reported) Lisinopril (Lisinopril*), 20 MG ORAL DAILY, (Reported) Metoprolol Tartrate* (Metoprolol Tartrate*), 25 MG ORAL EVERY 12 HOURS, ( Reported) Pioglitazone Hcl* (Actos*), 45 MG ORAL DAILY, (Reported) Pravastatin Sodium (Pravachol), 80 MG ORAL BEDTIME, (Reported) Ranitidine Hcl* (Zantac*), 150 MG ORAL TWICE A DAY Discontinued Medications Bumetanide (Bumetanide), 1 MG ORAL DAILY, (Reported) Discontinued Reason: Pt stopped taking med Carisoprodol (Carisoprodol), 350 MG ORAL BID, (Reported) Discontinued Reason: Pt stopped taking med Diclofenac Sod* (Voltaren*), 50 MG ORAL BID, (Reported) Discontinued Reason: Pt stopped taking med Gabapentin* (Gabapentin*), 300 MG ORAL BEDTIME, (Reported) Discontinued Reason: Pt stopped taking med Glipizide* (Glipizide*), 10 MG ORAL BIDAC, (Reported) Discontinued Reason: MD discontinued med Insulin Glulisine (Apidra Solostar), 100 UNIT SQ, (Reported) Discontinued Reason: Pt stopped taking med Metformin Hcl* (Metformin Hcl*), 500 MG ORAL DAILY, (Reported) Discontinued Reason: Pt stopped taking med Metformin Hcl* (Metformin Hcl*), 1,000 MG ORAL BID, (Reported) Discontinued Reason: Pt stopped taking med Methocarbamol* (Robaxin-750*), 750 MG PO TID Discontinued Reason: Pt stopped taking med Omeprazole (Omeprazole), 40 MG ORAL DAILY Discontinued Reason: Pt stopped taking med Sertraline Hcl* (Sertraline Hcl*), 25 MG ORAL DAILY, (Reported) Discontinued Reason: Pt stopped taking med Patient History Limited by: medical condition History Provided By: Patient, Medical Record Healthcare decision maker Resuscitation status Full Code Advanced Directive on File Past Medical/Surgical History Past Medical/Surgical History: (1) Gastric ulcer (2) Diarrhea (3) Myalgia (4) Viral syndrome (5) Bronchitis (6) Pharyngitis (7) Fall (8) Hypertriglyceridemia (9) ACS (acute coronary syndrome) (10) Back sprain (11) Avulsion injury (12) Toe contusion (13) Abrasion of leg (14) Reactive cervical lymphadenopathy (15) Head injury, acute (16) Vomiting (17) Head injury, acute (18) Trochanteric avulsion fracture of femur (19) Bilateral leg cramps (20) Abdominal pain (21) Uncontrolled type II diabetes mellitus (22) Diabetic neuropathy (23) Pancreatitis (24) HERNESTO (acute kidney injury) (25) Uncontrolled hypertension (26) Chest pain with high risk of acute coronary syndrome (27) Gastritis (28) GERD (gastroesophageal reflux disease) Review of Systems Review of Symptoms General ROS: no weight loss or fever Psychological ROS: no depression or mood changes, no memory loss Ophthalmic ROS: no visual changes or eye irritation ENT ROS: no nasal congestion, hearing loss, dizziness Allergy and Immunology ROS: no allergic symptoms or urticaria Hematological and Lymphatic ROS: no swollen glands, unusual bleeding or bruising Endocrine ROS: no polyuria, polydipsia, weight changes, temperature intolerance Respiratory ROS: no cough, shortness of breath, or wheezing Cardiovascular ROS: no chest pain or dyspnea on exertion Gastrointestinal ROS: denies abdominal pain, no bright red blood in stool. Musculoskeletal ROS: no myalgias or arthralgias Neurological ROS: no TIA or stroke symptoms Dermatological ROS: no new or changing skin lesions, rashes or pruritis Physical Exam Physical Exam General appearance: alert, cooperative, no distress, appears stated age Head: Normocephalic, without obvious abnormality, atraumatic Eyes: conjunctivae/corneas clear. PERRL, EOM's intact. Fundi benign Throat: Lips, mucosa, and tongue normal. Teeth and gums normal Neck: supple, symmetrical, trachea midline, no adenopathy, thyroid: not enlarged, symmetric, no tenderness/mass/nodules, no carotid bruit and no JVD Lungs: clear to auscultation bilaterally Heart: regular rate and rhythm, S1, S2 normal, no murmur, click, rub or gallop Abdomen: soft, non-tender. Bowel sounds normal. No masses, no organomegaly Extremities: extremities normal, atraumatic, no cyanosis or edema Pulses: 2+ and symmetric Skin: Skin color, texture, turgor normal. No rashes or lesions Neurologic: Grossly normal Last 24 Hour Vital Signs Date Time Temp Pulse Resp B/P (MAP) Pulse Ox O2 Delivery O2 Flow Rate FiO2 03/07/19 12:00 81 03/07/19 12:00 97.7 82 20 137/85 (102) 95 03/07/19 11:35 Room Air 21 03/07/19 11:32 Room Air 21 03/07/19 09:00 Room Air 03/07/19 08:00 78 03/07/19 08:00 96.8 79 20 133/79 (97) 95 03/07/19 04:00 85 03/07/19 04:00 98.3 85 20 132/86 (101) 96 03/07/19 03:03 Room Air 03/07/19 01:35 97.7 84 20 130/81 (97) 96 03/07/19 01:35 84 03/07/19 01:32 98.9 95 19 152/86 03/06/19 21:30 90 18 97 Room Air 03/06/19 21:30 94 18 Room Air 2.0 03/06/19 21:22 98.8 94 18 153/83 (106) 98 Room Air Intake and Output 03/06/19 03/07/19 18:59 06:59 Intake Total 0 ml Balance 0 ml Intake Oral 0 ml # Voids 1 Laboratory Tests Test 03/06/19 21:55 03/06/19 21:56 03/07/19 11:35 03/07/19 13:00 White Blood Count 5.9 K/UL (4.8-10.8) Red Blood Count 4.56 M/UL (4.70-6.10) L Hemoglobin 12.0 G/DL (14.2-18.0) L Hematocrit 34.9 % (42.0-52.0) L Mean Corpuscular Volume 77 FL (80-99) L Mean Corpuscular Hemoglobin 26.4 PG (27.0-31.0) L Mean Corpuscular Hemoglobin Concent 34.5 G/DL (32.0-36.0) Red Cell Distribution Width 13.1 % (11.6-14.8) Platelet Count 212 K/UL (150-450) Mean Platelet Volume 6.8 FL (6.5-10.1) Neutrophils (%) (Auto) 45.5 % (45.0-75.0) Lymphocytes (%) (Auto) 39.6 % (20.0-45.0) Monocytes (%) (Auto) 8.9 % (1.0-10.0) Eosinophils (%) (Auto) 3.6 % (0.0-3.0) H Basophils (%) (Auto) 2.4 % (0.0-2.0) H Sodium Level 141 MMOL/L (136-145) Potassium Level 4.3 MMOL/L (3.5-5.1) Chloride Level 106 MMOL/L (98-107) Carbon Dioxide Level 27 MMOL/L (21-32) Anion Gap 8 mmol/L (5-15) Blood Urea Nitrogen 20 mg/dL (7-18) H Creatinine 1.7 MG/DL (0.55-1.30) H Estimat Glomerular Filtration Rate 51.8 mL/min (>60) Glucose Level 234 MG/DL (74-106) H Calcium Level 8.9 MG/DL (8.5-10.1) Total Bilirubin 0.2 MG/DL (0.2-1.0) Aspartate Amino Transf (AST/SGOT) 14 U/L (15-37) L Alanine Aminotransferase (ALT/SGPT) 21 U/L (12-78) Alkaline Phosphatase 68 U/L (46-116) Total Protein 7.2 G/DL (6.4-8.2) Albumin 3.3 G/DL (3.4-5.0) L Globulin 3.9 g/dL Albumin/Globulin Ratio 0.8 (1.0-2.7) L Lipase 79 U/L (73-393) Urine Color Pale yellow Urine Appearance Clear Urine pH 6.5 (4.5-8.0) Urine Specific [place] 1.005 (1.005-1.035) Urine Protein 2+ (NEGATIVE) H Urine Glucose (UA) 4+ (NEGATIVE) H Urine Ketones Negative (NEGATIVE) Urine Blood 2+ (NEGATIVE) H Urine Nitrite Negative (NEGATIVE) Urine Bilirubin Negative (NEGATIVE) Urine Urobilinogen Normal MG/DL (0.0-1.0) Urine Leukocyte Esterase Negative (NEGATIVE) Urine RBC 0-2 /HPF (0 - 0) H Urine WBC 0 /HPF (0 - 0) Urine Squamous Epithelial Cells None /LPF (NONE/OCC) Urine Bacteria None /HPF (NONE) Troponin I 0.000 ng/mL (0.000-0.056) 0.008 ng/mL (0.000-0.056) Triglycerides Level 101 MG/DL (30-150) Cholesterol Level 198 MG/DL (< 200) LDL Cholesterol 120 mg/dL (<100) H HDL Cholesterol 51 MG/DL (40-60) Cholesterol/HDL Ratio 3.9 (3.3-4.4) Urine Random Creatinine Pending Urine Random Microalbumin Pending Urine Microalbumin/Creatinine Ratio Pending Height (Feet): 5 Height (Inches): 9.00 Weight (Pounds): 226 Medications Current Medications Medications (Trade) Dose Ordered Sig/Naye Route PRN Reason Start Time Stop Time Status Last Admin Dose Admin Acetaminophen (Tylenol) 650 mg Q4H PRN ORAL Mild Pain (Pain Scale 1-3) 03/07/19 00:45 04/06/19 00:44 Amlodipine Besylate (Norvasc) 10 mg BID ORAL 03/07/19 18:00 04/06/19 17:59 Aspirin (Ecotrin) 81 mg DAILY ORAL 03/08/19 09:00 04/07/19 08:59 Dextrose (Dextrose 50%) 25 ml Q30M PRN IV Hypoglycemia 03/07/19 00:45 04/06/19 00:44 Dextrose (Dextrose 50%) 50 ml Q30M PRN IV Hypoglycemia 03/07/19 00:45 04/06/19 00:44 Diphenhydramine HCl (Benadryl) 25 mg Q6H PRN IVP Itching 03/07/19 12:45 04/06/19 12:44 Heparin Sodium (Porcine) (Heparin 5000 units/ml) 5,000 units EVERY 12 HOURS SUBQ 03/07/19 09:00 04/06/19 08:59 03/07/19 09:10 Hydromorphone HCl (Dilaudid) 0.5 mg Q4H PRN IVP Severe Pain (Pain Scale 7-10) 03/07/19 03:15 03/14/19 03:14 03/07/19 11:17 Insulin Aspart (NovoLOG) Q4HR SUBQ 03/07/19 01:00 04/06/19 00:59 Insulin Detemir (Levemir) 10 units PRE BFAST AND DINNER SUBQ 03/07/19 16:30 04/06/19 16:29 Metoprolol Tartrate (Lopressor) 25 mg EVERY 12 HOURS ORAL 03/07/19 21:00 04/06/19 20:59 Sodium Chloride 1,000 ml @ 200 mls/hr Q5H IVLG 03/07/19 11:00 03/08/19 02:29 03/07/19 11:15 Assessment/Plan Problem List: (1) Abdominal pain Assessment & Plan: patient with history of multiple prior pancreatitis episodes now with abd pain epigastric lipase normal US noted exam benign states he is doing mildly better after admission no n/v/f/c okay for diet pain control rule out acs will follow with recs thank you ICD Codes: R10.9 - Unspecified abdominal pain SNOMED: 94700849 Julien Macias Mar 07, 2019 14:49
--- NOTE | 2019-03-07 15:56 | NUR ---
CASE MANAGEMENT:REVIEW 53 YR OLD MALE PRESENTED TO ER CC: ABDOMINAL PAIN SI:ABD PAIN. UNCONTROLLED DM 98.7 94 18 153/83 98% ON RA H/H-12.0/34.9 BUN+20 CR+1.7 GLUCOSE+234 IS: IV ZOFRAN IV PEPCID IV DILAUDID : TO TELEMETRY UNIT
[2019-03-07 16:00] VITALS: BP 136/79
[2019-03-07] MEDS: DiphenhydrAMINE 50mg/ml Inj IVP PRN (16:04)
[2019-03-07] MEDS: Levemir Flexpen SUBQ SCH (16:30)
--- NOTE | 2019-03-07 17:01 | NUR ---
NURSE NOTES: Notified Dr. Brady regarding down trending of blood sugar and the patient's wish to eat food. Dr. Brady ordered D51/2NS 200mL/hr and Clear liquid diet and advance as tolerated. Will carry out the order now.
[2019-03-07] MEDS: D5 1/2NS 1,000 ML IV SCH ×2 (17:25→23:30)
--- NOTE | 2019-03-07 18:21 | NUR ---
NURSE NOTES: The patient is stable without acute distress or shortness of breath. Will continue plan of care.
--- NOTE | 2019-03-07 19:13 | NUR ---
HAND-OFF: Report given to DONELL Wolfe. The patient is resting on the chair without acute distress or shortness of breath. The patient's bed in the lowest position, call light in reach, and fall and aspiration precaution reinforced. IV site on L FA 20G is intact and patent. Endorsed plan of care.
--- NOTE | 2019-03-07 19:15 | NUR ---
NURSE NOTES: Received report from William Nuñez RN. Patient in bed AAO X4 with no complaints of acute pain or distress at this time. Able to walk to the bathroom unassisted, IV line intact and patent. Placed on continuous cardiac monitoring per protocol. Safety precaution in place; siderails X3 up, call light within reach, bed in lowest position, brakes and alarm on at all times. Needs and wants anticipated and attended, will continue plan of care and monitor for any changes noted.
[2019-03-07 20:00] VITALS: BP 152/79
[2019-03-07] MEDS ORDERED: APIDRA SOL100 UNIT/1 SQ (20:25)
[2019-03-07] MEDS: Metoprolol 25mg tab ORAL SCH (20:56)
[2019-03-08] VITALS: BP 116/73
[2019-03-08] MEDS: DiphenhydrAMINE 50mg/ml Inj IVP PRN ×3 (00:53→18:19)
[2019-03-08] MEDS: HYDROmorphone 1mg/ml Carpuject IVP PRN ×5 (00:53→22:23)
[2019-03-08] MEDS: NovoLOG Insulin Flexpen SUBQ SCH ×7 (01:11→23:41)
--- NOTE | 2019-03-08 02:35 | NUR ---
NURSE NOTES: Patient in bed asleep with no S/S of distress. Will continue to monitor.
[2019-03-08 04:00] VITALS: BP 127/83
[2019-03-08] MEDS: D5 1/2NS 1,000 ML IV SCH ×5 (04:37→23:40)
[2019-03-08] MEDS: Levemir Flexpen SUBQ SCH ×2 (06:34→15:41)
--- NOTE | 2019-03-08 07:40 | NUR ---
HAND-OFF: Report given to Rebekah Sigala RN. Patient in bed in stable condition, endorsed plan of care.
--- NOTE | 2019-03-08 07:41 | NUR ---
NURSE NOTES: received patient report from chauncey hernandez.patient is on bed awake. not in acute distress. complaining of abdominal pain. will administer pain med per protocol. NSR on the monitor. will follow plan of care.
[2019-03-08 08:00] VITALS: BP 137/77
[2019-03-08 08:10] LABS: BASOPHILS % (AUTO) 1.7 % (0.0-2.0); EOSINOPHILS % (AUTO) 4.7 % (0.0-3.0); HEMATOCRIT 34.7 % (42.0-52.0); HEMOGLOBIN 11.3 G/DL (14.2-18.0); LYMPHOCYTES % (AUTO) 42.3 % (20.0-45.0); MEAN CORPUSCULAR VOLUME 80 FL (80-99); MONOCYTES % (AUTO) 8.7 % (1.0-10.0); NEUTROPHILS % (AUTO) 42.6 % (45.0-75.0); PLATELET COUNT 200 K/UL (150-450); RED BLOOD COUNT 4.36 M/UL (4.70-6.10); WHITE BLOOD COUNT 5.2 K/UL (4.8-10.8)
[2019-03-08 08:24] LABS: ALANINE AMINOTRANSFERASE 18 U/L (12-78); ALBUMIN 3.2 G/DL (3.4-5.0); ALBUMIN/GLOBULIN RATIO 0.9 (1.0-2.7); ALKALINE PHOSPHATASE 62 U/L (46-116); ANION GAP 8 mmol/L (5-15); ASPARTATE AMINO TRANSFERASE 14 U/L (15-37); BILIRUBIN,TOTAL 0.2 MG/DL (0.2-1.0); BLOOD UREA NITROGEN 19 mg/dL (7-18); CALCIUM 8.2 MG/DL (8.5-10.1); CARBON DIOXIDE 27 MMOL/L (21-32); CHLORIDE 108 MMOL/L (98-107); CREATININE 1.4 MG/DL (0.55-1.30); POTASSIUM 3.9 MMOL/L (3.5-5.1); SODIUM 143 MMOL/L (136-145)
[2019-03-08] MEDS: Metoprolol 25mg tab ORAL SCH ×2 (08:45→21:46)
[2019-03-08] MEDS: Aspirin EC 81mg tab ORAL SCH (08:46)
[2019-03-08] MEDS: Heparin 5000 units/ml inj SUBQ SCH ×2 (08:47→21:38)
--- NOTE | 2019-03-08 10:28 | Surgery Progress Note ---
Surgery Progress Note Subjective Additional Comments Patient seen and examined bedside. No acute events. Resting comfortably. Labs noted. Objective Last 24 Hour Vital Signs Date Time Temp Pulse Resp B/P (MAP) Pulse Ox O2 Delivery O2 Flow Rate FiO2 03/08/19 09:00 Room Air 03/08/19 08:46 78 127/83 03/08/19 08:45 87 130/77 03/08/19 08:00 97.7 81 19 137/77 (97) 97 03/08/19 04:00 78 03/08/19 04:00 96.6 79 19 127/83 (98) 96 03/08/19 00:00 74 03/08/19 00:00 97.7 87 20 116/73 (87) 96 03/07/19 21:00 Room Air 03/07/19 20:56 84 152/79 03/07/19 20:00 81 03/07/19 20:00 97.9 84 20 152/79 (103) 100 03/07/19 17:25 82 136/79 03/07/19 16:00 82 03/07/19 16:00 97.7 84 20 136/79 (98) 95 03/07/19 12:00 81 03/07/19 12:00 97.7 82 20 137/85 (102) 95 03/07/19 11:35 Room Air 21 03/07/19 11:32 Room Air 21 I&O Intake and Output 03/07/19 03/08/19 19:00 07:00 Intake Total 600 ml 240 ml Balance 600 ml 240 ml Intake Oral 600 ml 240 ml # Voids 1 2 Cardiovascular: RSR Respiratory: clear Abdomen: soft, flat, non-tender, present bowel sounds, non-distended Extremities: no cyanosis, other Laboratory Tests Test 03/07/19 11:35 03/07/19 13:00 03/08/19 06:48 Troponin I 0.008 ng/mL (0.000-0.056) Triglycerides Level 101 MG/DL (30-150) Cholesterol Level 198 MG/DL (< 200) LDL Cholesterol 120 mg/dL (<100) H HDL Cholesterol 51 MG/DL (40-60) Cholesterol/HDL Ratio 3.9 (3.3-4.4) Urine Random Creatinine Pending Urine Random Microalbumin Pending Urine Microalbumin/Creatinine Ratio Pending White Blood Count 5.2 K/UL (4.8-10.8) Red Blood Count 4.36 M/UL (4.70-6.10) L Hemoglobin 11.3 G/DL (14.2-18.0) L Hematocrit 34.7 % (42.0-52.0) L Mean Corpuscular Volume 80 FL (80-99) Mean Corpuscular Hemoglobin 26.0 PG (27.0-31.0) L Mean Corpuscular Hemoglobin Concent 32.6 G/DL (32.0-36.0) Red Cell Distribution Width 14.0 % (11.6-14.8) Platelet Count 200 K/UL (150-450) Mean Platelet Volume 7.4 FL (6.5-10.1) Neutrophils (%) (Auto) 42.6 % (45.0-75.0) L Lymphocytes (%) (Auto) 42.3 % (20.0-45.0) Monocytes (%) (Auto) 8.7 % (1.0-10.0) Eosinophils (%) (Auto) 4.7 % (0.0-3.0) H Basophils (%) (Auto) 1.7 % (0.0-2.0) Erythrocyte Sedimentation Rate 30 MM/HR (0-20) H Sodium Level 143 MMOL/L (136-145) Potassium Level 3.9 MMOL/L (3.5-5.1) Chloride Level 108 MMOL/L (98-107) H Carbon Dioxide Level 27 MMOL/L (21-32) Anion Gap 8 mmol/L (5-15) Blood Urea Nitrogen 19 mg/dL (7-18) H Creatinine 1.4 MG/DL (0.55-1.30) H Estimat Glomerular Filtration Rate > 60 mL/min (>60) Glucose Level 157 MG/DL (74-106) H Calcium Level 8.2 MG/DL (8.5-10.1) L Magnesium Level 2.1 MG/DL (1.8-2.4) Total Bilirubin 0.2 MG/DL (0.2-1.0) Aspartate Amino Transf (AST/SGOT) 14 U/L (15-37) L Alanine Aminotransferase (ALT/SGPT) 18 U/L (12-78) Alkaline Phosphatase 62 U/L (46-116) C-Reactive Protein, Quantitative < 0.4 mg/dL (0.00-0.90) Total Protein 6.7 G/DL (6.4-8.2) Albumin 3.2 G/DL (3.4-5.0) L Globulin 3.5 g/dL Albumin/Globulin Ratio 0.9 (1.0-2.7) L Plan Problems: (1) Abdominal pain Assessment & Plan: patient with history of multiple prior pancreatitis episodes now with abd pain epigastric lipase normal US noted exam benign states he is doing mildly better after admission no n/v/f/c okay for diet pain control d/c planning with outpatient follow up will follow with recs thank you Julien Macias Mar 08, 2019 10:28
--- NOTE | 2019-03-08 11:46 | General Progress Note ---
Assessment/Plan Problem List: (1) Diabetic neuropathy ICD Codes: E11.40 - Type 2 diabetes mellitus with diabetic neuropathy, unspecified SNOMED: 447389605, 151315523 (2) Pancreatitis ICD Codes: K85.9 - Acute pancreatitis, unspecified SNOMED: 49869519 (3) Chest pain with high risk of acute coronary syndrome (4) Uncontrolled type II diabetes mellitus ICD Codes: E11.65 - Uncontrolled type II diabetes mellitus SNOMED: 804875154 (5) Abdominal pain ICD Codes: R10.9 - Unspecified abdominal pain SNOMED: 61491043 (6) Bilateral leg cramps ICD Codes: R25.2 - Cramp and spasm SNOMED: 65458021824569876 (7) HERNESTO (acute kidney injury) ICD Codes: N17.9 - Acute kidney failure, unspecified SNOMED: 3971772, 40233173 (8) Uncontrolled hypertension ICD Codes: I10 - Essential (primary) hypertension SNOMED: 30915361, 40480260 Status: stable, progressing Assessment/Plan: 53 year old male with chronic pancreatitis, admitted with epigastric abdominal pain. 1.Chronic pancreatitis. Lipase is normal. US abdomen: Normal GI consult, Dr. Morrell - appreciated triglycerides though only 198 NPO--> Clears tolerating, can advance Aggressive IV hydration with NS @ 250ml/hr. I's and O's Pain control. IV Dilaudid, also requesting Benadryl for itching 2.ACS ruled out First troponin negative, EKG non ischemic. Serial trop I negative . Continue ASA, statin, beta blockers. 3.Uncontrolled type II DM with neuropathy, possibly nephropathy. HbA1c 13.5 in January. Needs better control Patient had nightmares on gabapentin. Should try alternative for neuropathy. Diabetic shoes, which he says he wears UA 2+blood, 4+ glucose, +2 protein, will order urine microalbumin Increase Levemir to 15 units (now 10 units) BID (home dose Lantus 60 units) , Novolog sliding scale Patient counselled on lifestyle modification and weight loss.Also medication compliance. 4.Bilateral leg cramps. electrolytes disturbance (low magnesium common in diabetics) vs. peripheral arterial disease. Legs warm to touch, perfusing well. Would need outpatient vascular studies done 5. HTN. Continue amlodipine and Metoprolol. 6. HERNESTO. Continue to monitor. Continue IV hydration. Avoid nephrotoxic medications. Hold Lisinopril. He is voiding well. Doubt obstruction. Creatinine improved from 1.7 to 1.4 code status: Full code Disposition; Home I spent 40 minutes during this encounter. 50% spent on counselling and care coordination Time of this note may not reflect time of encounter Subjective Date patient seen: Mar 08, 2019 ROS Limited/Unobtainable: No Constitutional: Denies: no symptoms, chills, diaphoresis, fever, malaise, weakness, other HEENT: Denies: no symptoms, eye pain, blurred vision, tearing, double vision, ear pain, ear discharge, nose pain, nose congestion, throat pain, throat swelling, mouth pain, mouth swelling, other Cardiovascular: Denies: no symptoms, chest pain, edema, irregular heart rate, lightheadedness, palpitations, syncope, other Respiratory: Denies: no symptoms, cough, orthopnea, shortness of breath, SOB with excertion, SOB at rest, sputum, stridor, wheezing, other Gastrointestinal/Abdominal: Reports: no symptoms, abdomen distended, abdominal pain, black stools, tarry stools, blood in stool, constipated, diarrhea, difficulty swallowing, nausea, poor appetite, poor fluid intake, rectal bleeding , vomiting, other Genitourinary: Denies: no symptoms, burning, discharge, frequency, flank pain, hematuria, incontinence, pain, urgency, other Neurologic/Psychiatric: Denies: no symptoms, anxiety, depressed, emotional problems, headache, numbness, paresthesia, pre-existing deficit, seizure, tingling, tremors, weakness, other Endocrine: Denies: no symptoms, excessive sweating, flushing, intolerance to cold, intolerance to heat, increased hunger, increased thirst, increased urine, unexplained weight gain, unexplained weight loss, other Hematologic/Lymphatic: Denies: no symptoms, anemia, easy bleeding, easy bruising, other Allergies: Coded Allergies: CODEINE (Verified Allergy, Unknown, 03/27/11) METOCLOPRAMIDE (Verified Allergy, Unknown, 02/01/18) MORPHINE (Verified Allergy, Unknown, ITCH, 03/27/11) All Systems: reviewed and negative except above Subjective Seen and examined. Tolerating liquid diet Still has abdominal pain but improved now 5/10 Hasn't had a bowel movement Ambulating to the bathroom Objective Last 24 Hour Vital Signs Date Time Temp Pulse Resp B/P (MAP) Pulse Ox O2 Delivery O2 Flow Rate FiO2 03/08/19 09:00 Room Air 03/08/19 08:46 78 127/83 03/08/19 08:45 87 130/77 03/08/19 08:00 97.7 81 19 137/77 (97) 97 03/08/19 07:43 81 03/08/19 04:00 78 03/08/19 04:00 96.6 79 19 127/83 (98) 96 03/08/19 00:00 74 03/08/19 00:00 97.7 87 20 116/73 (87) 96 03/07/19 21:00 Room Air 03/07/19 20:56 84 152/79 03/07/19 20:00 81 03/07/19 20:00 97.9 84 20 152/79 (103) 100 03/07/19 17:25 82 136/79 03/07/19 16:00 82 03/07/19 16:00 97.7 84 20 136/79 (98) 95 03/07/19 12:00 81 03/07/19 12:00 97.7 82 20 137/85 (102) 95 Intake and Output 03/07/19 03/08/19 19:00 07:00 Intake Total 600 ml 240 ml Balance 600 ml 240 ml Intake Oral 600 ml 240 ml # Voids 1 2 Laboratory Tests 03/07/19 13:00: Urine Random Creatinine [Pending], Urine Random Microalbumin [Pending], Urine Microalbumin/Creatinine Ratio [Pending] 03/08/19 06:48: White Blood Count 5.2, Red Blood Count 4.36L, Hemoglobin 11.3L, Hematocrit 34.7L , Mean Corpuscular Volume 80, Mean Corpuscular Hemoglobin 26.0L, Mean Corpuscular Hemoglobin Concent 32.6, Red Cell Distribution Width 14.0, Platelet Count 200, Mean Platelet Volume 7.4, Neutrophils (%) (Auto) 42.6L, Lymphocytes ( %) (Auto) 42.3, Monocytes (%) (Auto) 8.7, Eosinophils (%) (Auto) 4.7H, Basophils (%) (Auto) 1.7, Erythrocyte Sedimentation Rate 30H, Sodium Level 143, Potassium Level 3.9, Chloride Level 108H, Carbon Dioxide Level 27, Anion Gap 8, Blood Urea Nitrogen 19H, Creatinine 1.4H, Estimat Glomerular Filtration Rate > 60, Glucose Level 157H, Calcium Level 8.2L, Magnesium Level 2.1, Total Bilirubin 0.2, Aspartate Amino Transf (AST/SGOT) 14L, Alanine Aminotransferase ( ALT/SGPT) 18, Alkaline Phosphatase 62, C-Reactive Protein, Quantitative < 0.4, Total Protein 6.7, Albumin 3.2L, Globulin 3.5, Albumin/Globulin Ratio 0.9L Imaging: Abdominal US: Unremarkable gallbladder, CBD 5 mm Height (Feet): 5 Height (Inches): 9.00 Weight (Pounds): 226 Objective General Appearance: in mild distress due to pain HEENT: PERRL Neck: Supple, no jvd Respiratory: normal inspection, lungs clear, normal breath sounds, no respiratory distress, no retraction, no wheezing Cardiovascular: regular rate, rhythm, no m/r/g/, ext: No edema to bilateral lower extremities Gastrointestinal: obese, soft, +epigastric tenderness, no guarding, normal BS Genitourinary: no CVA tenderness Musculoskeletal: normal range of motion, feet warm to touch, diminished DP pulses bilaterally Neurologic: alert and oriented x3, CN2-12 grossly normal. Feet have diminished sensation and proprioception. gait not tested due to pain. Psychiatric: judgement/insight normal, mood/affect normal Skin: No ulcers, warm to touch John Paul Brady M.D. Mar 08, 2019 11:46
[2019-03-08 12:00] VITALS: BP 124/72
--- NOTE | 2019-03-08 14:53 | General Progress Note ---
Assessment/Plan Status: stable, progressing Assessment/Plan: GI: Plan Problems: (1) Uncontrolled type II diabetes mellitus (2) Gastritis (3) GERD (gastroesophageal reflux disease) Plan Status post EGD in January 2019 noted with mild chronic gastritis. No H. pylori identified on pathology. Per report from patient and positive HIDA scan No plans for GI procedures at this time given recent history follow up abdominal US Symptomatic treatment Patient should continue on a PPI after discharge and follow-up with PCP for management DM management Advance diet as tolerated Outpatient follow-up for possible cholecystectomy Subjective Allergies: Coded Allergies: CODEINE (Verified Allergy, Unknown, 03/27/11) METOCLOPRAMIDE (Verified Allergy, Unknown, 02/01/18) MORPHINE (Verified Allergy, Unknown, ITCH, 03/27/11) Subjective c/o constipation no BM x 3-4 days pain better Objective Last 24 Hour Vital Signs Date Time Temp Pulse Resp B/P (MAP) Pulse Ox O2 Delivery O2 Flow Rate FiO2 03/08/19 12:00 97.3 80 19 124/72 (89) 98 03/08/19 11:42 79 03/08/19 09:00 Room Air 03/08/19 08:46 78 127/83 03/08/19 08:45 87 130/77 03/08/19 08:00 97.7 81 19 137/77 (97) 97 03/08/19 07:43 81 03/08/19 04:00 78 03/08/19 04:00 96.6 79 19 127/83 (98) 96 03/08/19 00:00 74 03/08/19 00:00 97.7 87 20 116/73 (87) 96 03/07/19 21:00 Room Air 03/07/19 20:56 84 152/79 03/07/19 20:00 81 03/07/19 20:00 97.9 84 20 152/79 (103) 100 03/07/19 17:25 82 136/79 03/07/19 16:00 82 03/07/19 16:00 97.7 84 20 136/79 (98) 95 Intake and Output 03/07/19 03/08/19 18:59 06:59 Intake Total 600 ml 240 ml Balance 600 ml 240 ml Intake Oral 600 ml 240 ml # Voids 1 2 Laboratory Tests 03/08/19 06:48: White Blood Count 5.2, Red Blood Count 4.36L, Hemoglobin 11.3L, Hematocrit 34.7L , Mean Corpuscular Volume 80, Mean Corpuscular Hemoglobin 26.0L, Mean Corpuscular Hemoglobin Concent 32.6, Red Cell Distribution Width 14.0, Platelet Count 200, Mean Platelet Volume 7.4, Neutrophils (%) (Auto) 42.6L, Lymphocytes ( %) (Auto) 42.3, Monocytes (%) (Auto) 8.7, Eosinophils (%) (Auto) 4.7H, Basophils (%) (Auto) 1.7, Erythrocyte Sedimentation Rate 30H, Sodium Level 143, Potassium Level 3.9, Chloride Level 108H, Carbon Dioxide Level 27, Anion Gap 8, Blood Urea Nitrogen 19H, Creatinine 1.4H, Estimat Glomerular Filtration Rate > 60, Glucose Level 157H, Calcium Level 8.2L, Magnesium Level 2.1, Total Bilirubin 0.2, Aspartate Amino Transf (AST/SGOT) 14L, Alanine Aminotransferase ( ALT/SGPT) 18, Alkaline Phosphatase 62, C-Reactive Protein, Quantitative < 0.4, Total Protein 6.7, Albumin 3.2L, Globulin 3.5, Albumin/Globulin Ratio 0.9L Height (Feet): 5 Height (Inches): 9.00 Weight (Pounds): 226 Objective WDWN NCAT supple CTA RR Abd soft ND, (+) epigastric TTP no edema non focal Luis Miguel Miller MD Mar 08, 2019 14:53
[2019-03-08] MEDS ORDERED: Sorbitol Solution UD 30ml ORAL SCH (15:00)
[2019-03-08 16:00] VITALS: BP 121/76
--- NOTE | 2019-03-08 19:32 | NUR ---
HAND-OFF: Report given to eden hernandez.
[2019-03-08 20:00] VITALS: BP 118/73
[2019-03-09] VITALS: BP 115/79
[2019-03-09] MEDS: HYDROmorphone 1mg/ml Carpuject IVP PRN ×6 (02:19→22:35)
[2019-03-09] MEDS: DiphenhydrAMINE 50mg/ml Inj IVP PRN ×3 (02:19→22:34)
[2019-03-09 04:00] VITALS: BP 106/66
[2019-03-09] MEDS: D5 1/2NS 1,000 ML IV SCH ×3 (05:09→12:57)
[2019-03-09] MEDS: NovoLOG Insulin Flexpen SUBQ SCH ×5 (05:13→21:00)
[2019-03-09] MEDS: Levemir Flexpen SUBQ SCH ×2 (06:02→16:30)
[2019-03-09 07:04] LABS: BASOPHILS % (AUTO) 1.4 % (0.0-2.0); EOSINOPHILS % (AUTO) 4.3 % (0.0-3.0); HEMATOCRIT 33.3 % (42.0-52.0); HEMOGLOBIN 10.9 G/DL (14.2-18.0); LYMPHOCYTES % (AUTO) 41.8 % (20.0-45.0); MEAN CORPUSCULAR VOLUME 79 FL (80-99); MONOCYTES % (AUTO) 9.3 % (1.0-10.0); NEUTROPHILS % (AUTO) 43.3 % (45.0-75.0); PLATELET COUNT 185 K/UL (150-450); RED BLOOD COUNT 4.19 M/UL (4.70-6.10); RED CELL DISTRIBUTION WIDTH 14.1 % (11.6-14.8); WHITE BLOOD COUNT 5.7 K/UL (4.8-10.8)
--- NOTE | 2019-03-09 07:14 | NUR ---
HAND-OFF: Report given to Kassie Mejia RN.
[2019-03-09 07:15] LABS: ALANINE AMINOTRANSFERASE 20 U/L (12-78); ALBUMIN/GLOBULIN RATIO 0.9 (1.0-2.7); ALKALINE PHOSPHATASE 58 U/L (46-116); AMYLASE 50 U/L (25-115); ANION GAP 4 mmol/L (5-15); ASPARTATE AMINO TRANSFERASE 12 U/L (15-37); BILIRUBIN,TOTAL 0.2 MG/DL (0.2-1.0); BLOOD UREA NITROGEN 19 mg/dL (7-18); CALCIUM 8.1 MG/DL (8.5-10.1); CARBON DIOXIDE 28 MMOL/L (21-32); CHLORIDE 108 MMOL/L (98-107); CREATININE 1.4 MG/DL (0.55-1.30); POTASSIUM 4.5 MMOL/L (3.5-5.1); SODIUM 140 MMOL/L (136-145)
--- NOTE | 2019-03-09 07:15 | NUR ---
NURSE NOTES: Received report from DONELL Quan. Observed patient in bed, awake, alert, verbally responsive. On room air, no acute respiratory distress noted. Patient states he cannot eat breakfast at this time, states it upsets his stomach. Denies nausea/vomiting. IV fluids running at prescribed rate. Safety precautions in place, bed locked, alarmed and in lowest position, side rails up x2, and call light left within reach. Instructed to call for assistance, verbalized understanding. Will continue with plan of care and monitor patient.
[2019-03-09 08:00] VITALS: BP 118/74
[2019-03-09] MEDS: Aspirin EC 81mg tab ORAL SCH (08:52)
[2019-03-09] MEDS: Metoprolol 25mg tab ORAL SCH ×2 (08:52→21:25)
[2019-03-09] MEDS: Heparin 5000 units/ml inj SUBQ SCH ×2 (08:57→21:25)
[2019-03-09] MEDS ORDERED: Lactulose 20gm/30ml UDC ORAL SCH (09:15)
--- NOTE | 2019-03-09 09:37 | Surgery Progress Note ---
Surgery Progress Note Subjective Additional Comments states pain with diet and mainly epigastric. no nv//fc states pain meds make it better Objective Last 24 Hour Vital Signs Date Time Temp Pulse Resp B/P (MAP) Pulse Ox O2 Delivery O2 Flow Rate FiO2 03/09/19 08:52 71 118/74 03/09/19 08:52 71 118/74 03/09/19 08:00 97.5 71 23 118/74 (89) 94 03/09/19 04:00 71 03/09/19 04:00 97.6 76 21 106/66 (79) 100 03/09/19 00:00 97.9 89 20 115/79 (91) 99 03/09/19 00:00 78 03/08/19 21:46 83 118/73 03/08/19 21:00 Room Air 03/08/19 20:00 97.9 83 18 118/73 (88) 98 03/08/19 20:00 84 03/08/19 17:02 77 121/76 03/08/19 16:00 97.8 77 20 121/76 (91) 95 03/08/19 15:48 79 03/08/19 12:00 97.3 80 19 124/72 (89) 98 03/08/19 11:42 79 I&O Intake and Output 03/08/19 03/09/19 19:00 07:00 Intake Total 2300 ml 1800 ml Balance 2300 ml 1800 ml Intake Oral 500 ml IV Total 1800 ml 1800 ml # Voids 4 4 # Bowel Movements 1 Cardiovascular: RSR Respiratory: clear Abdomen: soft, flat, non-tender, present bowel sounds, non-distended Extremities: no tenderness, no cyanosis Laboratory Tests Test 03/09/19 06:05 White Blood Count 5.7 K/UL (4.8-10.8) Red Blood Count 4.19 M/UL (4.70-6.10) L Hemoglobin 10.9 G/DL (14.2-18.0) L Hematocrit 33.3 % (42.0-52.0) L Mean Corpuscular Volume 79 FL (80-99) L Mean Corpuscular Hemoglobin 25.9 PG (27.0-31.0) L Mean Corpuscular Hemoglobin Concent 32.6 G/DL (32.0-36.0) Red Cell Distribution Width 14.1 % (11.6-14.8) Platelet Count 185 K/UL (150-450) Mean Platelet Volume 7.4 FL (6.5-10.1) Neutrophils (%) (Auto) 43.3 % (45.0-75.0) L Lymphocytes (%) (Auto) 41.8 % (20.0-45.0) Monocytes (%) (Auto) 9.3 % (1.0-10.0) Eosinophils (%) (Auto) 4.3 % (0.0-3.0) H Basophils (%) (Auto) 1.4 % (0.0-2.0) Erythrocyte Sedimentation Rate 28 MM/HR (0-20) H Sodium Level 140 MMOL/L (136-145) Potassium Level 4.5 MMOL/L (3.5-5.1) Chloride Level 108 MMOL/L (98-107) H Carbon Dioxide Level 28 MMOL/L (21-32) Anion Gap 4 mmol/L (5-15) L Blood Urea Nitrogen 19 mg/dL (7-18) H Creatinine 1.4 MG/DL (0.55-1.30) H Estimat Glomerular Filtration Rate > 60 mL/min (>60) Glucose Level 203 MG/DL (74-106) H Calcium Level 8.1 MG/DL (8.5-10.1) L Total Bilirubin 0.2 MG/DL (0.2-1.0) Aspartate Amino Transf (AST/SGOT) 12 U/L (15-37) L Alanine Aminotransferase (ALT/SGPT) 20 U/L (12-78) Alkaline Phosphatase 58 U/L (46-116) C-Reactive Protein, Quantitative < 0.4 mg/dL (0.00-0.90) Total Protein 6.5 G/DL (6.4-8.2) Albumin 3.0 G/DL (3.4-5.0) L Globulin 3.5 g/dL Albumin/Globulin Ratio 0.9 (1.0-2.7) L Amylase Level 50 U/L (25-115) Lipase 66 U/L (73-393) L Plan Problems: (1) Abdominal pain Assessment & Plan: patient with history of multiple prior pancreatitis episodes now with abd pain epigastric lipase normal US noted exam benign states he is doing mildly better after admission no n/v/f/c labs remain normal continues to complain of pain no acute surgical intervention planned await US results may consider repeat HIDA lina for diet pain control d/c planning with outpatient follow up will follow with recs thank you Julien Macias Mar 09, 2019 09:37
--- NOTE | 2019-03-09 10:55 | General Progress Note ---
Assessment/Plan Problem List: (1) Diabetic neuropathy ICD Codes: E11.40 - Type 2 diabetes mellitus with diabetic neuropathy, unspecified SNOMED: 538462118, 567958447 (2) Pancreatitis ICD Codes: K85.9 - Acute pancreatitis, unspecified SNOMED: 28710218 (3) Chest pain with high risk of acute coronary syndrome (4) Uncontrolled type II diabetes mellitus ICD Codes: E11.65 - Uncontrolled type II diabetes mellitus SNOMED: 691732708 (5) Abdominal pain ICD Codes: R10.9 - Unspecified abdominal pain SNOMED: 05414393 (6) Bilateral leg cramps ICD Codes: R25.2 - Cramp and spasm SNOMED: 12079299074487937 (7) HERNESTO (acute kidney injury) ICD Codes: N17.9 - Acute kidney failure, unspecified SNOMED: 1524346, 27977344 (8) Uncontrolled hypertension ICD Codes: I10 - Essential (primary) hypertension SNOMED: 39887493, 73091078 (9) Microcytic anemia ICD Codes: D50.9 - Iron deficiency anemia, unspecified SNOMED: 325732949 Status: stable, progressing Assessment/Plan: 53 year old male with chronic pancreatitis, admitted with epigastric abdominal pain. 1.Chronic pancreatitis. Lipase is normal. US abdomen: Normal GI consult, Dr. Morrell - appreciated triglycerides though only 198 NPO--> Clears tolerating, can advance Aggressive IV hydration with NS @ 250ml/hr. I's and O's, will stop hydration Pain control. IV Dilaudid, also requesting Benadryl for itching 2.ACS ruled out First troponin negative, EKG non ischemic. Serial trop I negative . Continue ASA, statin, beta blockers. 3.Uncontrolled type II DM with neuropathy, possibly nephropathy. HbA1c 13.5 in January. Needs better control Patient had nightmares on gabapentin. Should try alternative for neuropathy. Diabetic shoes, which he says he wears UA 2+blood, 4+ glucose, +2 protein, will order urine microalbumin Increase Levemir to 15 units (now 10 units) BID (home dose Lantus 60 units) , Novolog sliding scale Patient counselled on lifestyle modification and weight loss.Also medication compliance. 4.Bilateral leg cramps. electrolytes disturbance (low magnesium common in diabetics) vs. peripheral arterial disease. Legs warm to touch, perfusing well. Would need outpatient vascular studies done 5. HTN. Continue amlodipine and Metoprolol. 6. HERNESTO vs HERNESTO on CKD Continue to monitor. Continue IV hydration. Avoid nephrotoxic medications. Hold Lisinopril. He is voiding well. Doubt obstruction. Creatinine improved from 1.7 to 1.4 7.Microcytic anemia. Check iron panel, B12 and folate 8. Constipation. Laxatives. code status: Full code Disposition; Home I spent 40 minutes during this encounter. 50% spent on counselling and care coordination Time of this note may not reflect time of encounter Subjective Date patient seen: Mar 09, 2019 ROS Limited/Unobtainable: No Constitutional: Denies: no symptoms, chills, diaphoresis, fever, malaise, weakness, other HEENT: Denies: no symptoms, eye pain, blurred vision, tearing, double vision, ear pain, ear discharge, nose pain, nose congestion, throat pain, throat swelling, mouth pain, mouth swelling, other Cardiovascular: Denies: no symptoms, chest pain, edema, irregular heart rate, lightheadedness, palpitations, syncope, other Respiratory: Denies: no symptoms, cough, orthopnea, shortness of breath, SOB with excertion, SOB at rest, sputum, stridor, wheezing, other Gastrointestinal/Abdominal: Reports: abdominal pain; Denies: no symptoms, abdomen distended, black stools, tarry stools, blood in stool, constipated, diarrhea, difficulty swallowing, nausea, poor appetite, poor fluid intake, rectal bleeding, vomiting, other Genitourinary: Denies: no symptoms, burning, discharge, frequency, flank pain, hematuria, incontinence, pain, urgency, other Neurologic/Psychiatric: Denies: no symptoms, anxiety, depressed, emotional problems, headache, numbness, paresthesia, pre-existing deficit, seizure, tingling, tremors, weakness, other Endocrine: Denies: no symptoms, excessive sweating, flushing, intolerance to cold, intolerance to heat, increased hunger, increased thirst, increased urine, unexplained weight gain, unexplained weight loss, other Hematologic/Lymphatic: Denies: no symptoms, anemia, easy bleeding, easy bruising, other Allergies: Coded Allergies: CODEINE (Verified Allergy, Unknown, 03/27/11) METOCLOPRAMIDE (Verified Allergy, Unknown, 02/01/18) MORPHINE (Verified Allergy, Unknown, ITCH, 03/27/11) Subjective Seen and examined. Had solid food, unable to tolerate, now npo Still has abdominal pain but improved Hasn't had a bowel movement Ambulating to the bathroom Objective Last 24 Hour Vital Signs Date Time Temp Pulse Resp B/P (MAP) Pulse Ox O2 Delivery O2 Flow Rate FiO2 03/09/19 09:00 Room Air 03/09/19 08:52 71 118/74 03/09/19 08:52 71 118/74 03/09/19 08:00 97.5 71 23 118/74 (89) 94 03/09/19 07:42 75 03/09/19 04:00 71 03/09/19 04:00 97.6 76 21 106/66 (79) 100 03/09/19 00:00 97.9 89 20 115/79 (91) 99 03/09/19 00:00 78 03/08/19 21:46 83 118/73 03/08/19 21:00 Room Air 03/08/19 20:00 97.9 83 18 118/73 (88) 98 03/08/19 20:00 84 03/08/19 17:02 77 121/76 03/08/19 16:00 97.8 77 20 121/76 (91) 95 03/08/19 15:48 79 03/08/19 12:00 97.3 80 19 124/72 (89) 98 03/08/19 11:42 79 Intake and Output 03/08/19 03/09/19 19:00 07:00 Intake Total 2300 ml 2200 ml Balance 2300 ml 2200 ml Intake Oral 500 ml IV Total 1800 ml 2200 ml # Voids 4 4 # Bowel Movements 1 Laboratory Tests 03/09/19 06:05: White Blood Count 5.7, Red Blood Count 4.19L, Hemoglobin 10.9L, Hematocrit 33.3L , Mean Corpuscular Volume 79L, Mean Corpuscular Hemoglobin 25.9L, Mean Corpuscular Hemoglobin Concent 32.6, Red Cell Distribution Width 14.1, Platelet Count 185, Mean Platelet Volume 7.4, Neutrophils (%) (Auto) 43.3L, Lymphocytes ( %) (Auto) 41.8, Monocytes (%) (Auto) 9.3, Eosinophils (%) (Auto) 4.3H, Basophils (%) (Auto) 1.4, Erythrocyte Sedimentation Rate 28H, Sodium Level 140, Potassium Level 4.5, Chloride Level 108H, Carbon Dioxide Level 28, Anion Gap 4L , Blood Urea Nitrogen 19H, Creatinine 1.4H, Estimat Glomerular Filtration Rate > 60, Glucose Level 203H, Calcium Level 8.1L, Total Bilirubin 0.2, Aspartate Amino Transf (AST/SGOT) 12L, Alanine Aminotransferase (ALT/SGPT) 20, Alkaline Phosphatase 58, C-Reactive Protein, Quantitative < 0.4, Total Protein 6.5, Albumin 3.0L, Globulin 3.5, Albumin/Globulin Ratio 0.9L, Amylase Level 50, Lipase 66L Height (Feet): 5 Height (Inches): 9.00 Weight (Pounds): 226 Objective General Appearance: in mild distress due to pain HEENT: PERRL Neck: Supple, no jvd Respiratory: normal inspection, lungs clear, normal breath sounds, no respiratory distress, no retraction, no wheezing Cardiovascular: regular rate, rhythm, no m/r/g/, ext: No edema to bilateral lower extremities Gastrointestinal: obese, soft, +epigastric tenderness, no guarding, normal BS Genitourinary: no CVA tenderness Musculoskeletal: normal range of motion, feet warm to touch, diminished DP pulses bilaterally Neurologic: alert and oriented x3, CN2-12 grossly normal. Feet have diminished sensation and proprioception. gait not tested due to pain. Psychiatric: judgement/insight normal, mood/affect normal Skin: No ulcers, warm to touch John Paul Brady M.D. Mar 09, 2019 10:55
[2019-03-09 12:00] VITALS: BP_SYST 125; BP_DIAS 46; BP_DIAS 76
--- NOTE | 2019-03-09 12:15 | General Progress Note ---
Assessment/Plan Status: stable, progressing Assessment/Plan: GI: Plan Problems: (1) Uncontrolled type II diabetes mellitus (2) Gastritis (3) GERD (gastroesophageal reflux disease) Plan Status post EGD in January 2019 noted with mild chronic gastritis. No H. pylori identified on pathology. Per report from patient and positive HIDA scan No plans for GI procedures at this time given recent history follow up abdominal US Symptomatic treatment Patient should continue on a PPI after discharge and follow-up with PCP for management DM management laxative Outpatient follow-up for possible cholecystectomy Subjective Allergies: Coded Allergies: CODEINE (Verified Allergy, Unknown, 03/27/11) METOCLOPRAMIDE (Verified Allergy, Unknown, 02/01/18) MORPHINE (Verified Allergy, Unknown, ITCH, 03/27/11) Subjective very small BM wants more laxative Objective Last 24 Hour Vital Signs Date Time Temp Pulse Resp B/P (MAP) Pulse Ox O2 Delivery O2 Flow Rate FiO2 03/09/19 09:00 Room Air 03/09/19 08:52 71 118/74 03/09/19 08:52 71 118/74 03/09/19 08:00 97.5 71 23 118/74 (89) 94 03/09/19 07:42 75 03/09/19 04:00 71 03/09/19 04:00 97.6 76 21 106/66 (79) 100 03/09/19 00:00 97.9 89 20 115/79 (91) 99 03/09/19 00:00 78 03/08/19 21:46 83 118/73 03/08/19 21:00 Room Air 03/08/19 20:00 97.9 83 18 118/73 (88) 98 03/08/19 20:00 84 03/08/19 17:02 77 121/76 03/08/19 16:00 97.8 77 20 121/76 (91) 95 03/08/19 15:48 79 03/08/19 12:00 97.3 80 19 124/72 (89) 98 Intake and Output 03/08/19 03/09/19 19:00 07:00 Intake Total 2300 ml 2200 ml Balance 2300 ml 2200 ml Intake Oral 500 ml IV Total 1800 ml 2200 ml # Voids 4 4 # Bowel Movements 1 Laboratory Tests 03/09/19 06:05: White Blood Count 5.7, Red Blood Count 4.19L, Hemoglobin 10.9L, Hematocrit 33.3L , Mean Corpuscular Volume 79L, Mean Corpuscular Hemoglobin 25.9L, Mean Corpuscular Hemoglobin Concent 32.6, Red Cell Distribution Width 14.1, Platelet Count 185, Mean Platelet Volume 7.4, Neutrophils (%) (Auto) 43.3L, Lymphocytes ( %) (Auto) 41.8, Monocytes (%) (Auto) 9.3, Eosinophils (%) (Auto) 4.3H, Basophils (%) (Auto) 1.4, Erythrocyte Sedimentation Rate 28H, Sodium Level 140, Potassium Level 4.5, Chloride Level 108H, Carbon Dioxide Level 28, Anion Gap 4L , Blood Urea Nitrogen 19H, Creatinine 1.4H, Estimat Glomerular Filtration Rate > 60, Glucose Level 203H, Calcium Level 8.1L, Total Bilirubin 0.2, Aspartate Amino Transf (AST/SGOT) 12L, Alanine Aminotransferase (ALT/SGPT) 20, Alkaline Phosphatase 58, C-Reactive Protein, Quantitative < 0.4, Total Protein 6.5, Albumin 3.0L, Globulin 3.5, Albumin/Globulin Ratio 0.9L, Amylase Level 50, Lipase 66L Height (Feet): 5 Height (Inches): 9.00 Weight (Pounds): 226 Objective WDWN NCAT supple CTA RR Abd soft ND, (+) epigastric TTP no edema non focal Luis Miguel Miller MD Mar 09, 2019 12:14
--- NOTE | 2019-03-09 15:23 | Cardiology Report ---
APPROVED REPORT EKG Measurement Heart [id number] Normal sinus rhythm Normal ECG
[2019-03-09 16:00] VITALS: BP 128/78
[2019-03-09] MEDS ORDERED: D5 1/2NS 1000ml IV ONE (16:50)
[2019-03-09] MEDS ORDERED: Lactulose 20gm/30ml UDC ORAL PRN (17:00)
--- NOTE | 2019-03-09 19:27 | NUR ---
HAND-OFF: Report given to DONELL Quan. Patient in stable condition. Plan of care endorsed.
--- NOTE | 2019-03-09 19:30 | NUR ---
NURSE NOTES: Received report from DONELL Plaza. Pt is sitting upright in a chair at the bedside, awake, alert, and oriented x4. On room air, no acute respiratory distress noted. Pt is NPO due to abdominal pain with previous diet advancement. Denies nausea/vomiting. IV fluids running at 75 ml/h. Safety precautions in place, call light left within reach. Instructed to call for assistance, verbalized understanding. Family member visiting at the bedside. Will continue with plan of care and monitoring of patient.
[2019-03-09 20:00] VITALS: BP 132/78
[2019-03-10] MEDS: NovoLOG Insulin Flexpen SUBQ SCH ×6 (01:00→22:39)
[2019-03-10] MEDS: D5 1/2NS 1,000 ML IV SCH ×2 (01:36→13:18)
[2019-03-10] MEDS: HYDROmorphone 1mg/ml Carpuject IVP PRN ×2 (02:45→06:37)
[2019-03-10 04:00] VITALS: BP 128/79
[2019-03-10] MEDS: DiphenhydrAMINE 50mg/ml Inj IVP PRN ×3 (06:37→20:05)
[2019-03-10] MEDS: Levemir Flexpen SUBQ SCH ×2 (06:38→17:50)
--- NOTE | 2019-03-10 07:33 | NUR ---
NURSE NOTES: Received report from DONELL Kiser. AOX4 and able to make needs known. Reinforced the patient for NPO. IV in Right forearm 20G running with D5 1/2 NS @75ML/HR patent and asymptomatic. Patient on room air, no respiratory distress noted. Denies pain/discomfort at this time. side rails x2 up for safety and lock engaged. Bed in its lowest position. Call light within reach. Instructed to call for assistance, verbalized understanding. Will continue with plan of care.
--- NOTE | 2019-03-10 07:33 | NUR ---
HAND-OFF: Report given to Angel Nuñez, RN
[2019-03-10 08:00] VITALS: BP 138/84
[2019-03-10 08:10] LABS: BASOPHILS % (AUTO) 1.4 % (0.0-2.0); EOSINOPHILS % (AUTO) 3.3 % (0.0-3.0); HEMATOCRIT 38.2 % (42.0-52.0); HEMOGLOBIN 12.3 G/DL (14.2-18.0); LYMPHOCYTES % (AUTO) 32.9 % (20.0-45.0); MEAN CORPUSCULAR VOLUME 80 FL (80-99); MONOCYTES % (AUTO) 6.6 % (1.0-10.0); NEUTROPHILS % (AUTO) 55.8 % (45.0-75.0); PLATELET COUNT 211 K/UL (150-450); RED BLOOD COUNT 4.76 M/UL (4.70-6.10); RED CELL DISTRIBUTION WIDTH 14.2 % (11.6-14.8); WHITE BLOOD COUNT 6.6 K/UL (4.8-10.8)
[2019-03-10 08:59] LABS: ALANINE AMINOTRANSFERASE 23 U/L (12-78); ALBUMIN 3.6 G/DL (3.4-5.0); ALBUMIN/GLOBULIN RATIO 0.9 (1.0-2.7); ALKALINE PHOSPHATASE 66 U/L (46-116); AMYLASE 54 U/L (25-115); ANION GAP 10 mmol/L (5-15); ASPARTATE AMINO TRANSFERASE 21 U/L (15-37); BILIRUBIN,TOTAL 0.2 MG/DL (0.2-1.0); BLOOD UREA NITROGEN 17 mg/dL (7-18); CALCIUM 8.6 MG/DL (8.5-10.1); CARBON DIOXIDE 25 MMOL/L (21-32); CHLORIDE 107 MMOL/L (98-107); CREATININE 1.3 MG/DL (0.55-1.30); POTASSIUM 4.7 MMOL/L (3.5-5.1); SODIUM 141 MMOL/L (136-145)
[2019-03-10] MEDS: Metoprolol 25mg tab ORAL SCH ×2 (09:03→20:06)
[2019-03-10] MEDS: Aspirin EC 81mg tab ORAL SCH (09:03)
[2019-03-10] MEDS: Heparin 5000 units/ml inj SUBQ SCH ×2 (09:05→20:16)
[2019-03-10 09:21] LABS: % IRON SATURATION 13 % (15-50); IRON 43 ug/dL (50-175); TOTAL IRON BINDING CAPACITY 323 ug/dL (250-450)
--- NOTE | 2019-03-10 09:21 | General Progress Note ---
Assessment/Plan Problem List: (1) Diabetic neuropathy ICD Codes: E11.40 - Type 2 diabetes mellitus with diabetic neuropathy, unspecified SNOMED: 805425884, 099834139 (2) Pancreatitis ICD Codes: K85.9 - Acute pancreatitis, unspecified SNOMED: 66709153 (3) Chest pain with high risk of acute coronary syndrome (4) Uncontrolled type II diabetes mellitus ICD Codes: E11.65 - Uncontrolled type II diabetes mellitus SNOMED: 229999515 (5) Abdominal pain ICD Codes: R10.9 - Unspecified abdominal pain SNOMED: 46137446 (6) Bilateral leg cramps ICD Codes: R25.2 - Cramp and spasm SNOMED: 56413001337027219 (7) HERNESTO (acute kidney injury) ICD Codes: N17.9 - Acute kidney failure, unspecified SNOMED: 5127093, 91128607 (8) Uncontrolled hypertension ICD Codes: I10 - Essential (primary) hypertension SNOMED: 51222796, 14499453 (9) Microcytic anemia ICD Codes: D50.9 - Iron deficiency anemia, unspecified SNOMED: 332175208 Status: stable, progressing Assessment/Plan: 53 year old male with chronic pancreatitis, admitted with epigastric abdominal pain. 1.Chronic pancreatitis. Lipase is normal. US abdomen: Normal. Waiting for HIDA scan to evaluate gallbladder GI consult, Dr. Mrorell - appreciated triglycerides though only 198 advance diet as tolerated Decrease rate of hydration Pain control. IV Dilaudid, also requesting Benadryl for itching 2.ACS ruled out First troponin negative, EKG non ischemic. Serial trop I negative . Continue ASA, statin, beta blockers. 3.Uncontrolled type II DM with neuropathy, possibly nephropathy. HbA1c 13.5 in January. Needs better control Patient had nightmares on gabapentin. Should try alternative for neuropathy. Diabetic shoes, which he says he wears UA 2+blood, 4+ glucose, +2 protein, will order urine microalbumin Increase Levemir to 15 units (now 10 units) BID (home dose Lantus 60 units) , Novolog sliding scale Patient counselled on lifestyle modification and weight loss.Also medication compliance. 4.Bilateral leg cramps. electrolytes disturbance (low magnesium common in diabetics) vs. peripheral arterial disease. Legs warm to touch, perfusing well. Would need outpatient vascular studies done 5. HTN. Continue amlodipine and Metoprolol. 6. HERNESTO vs HERNESTO on CKD Continue to monitor. Continue IV hydration. Avoid nephrotoxic medications. Hold Lisinopril. He is voiding well. Doubt obstruction. Creatinine improved from 1.7 to 1.3 7.Microcytic anemia. Iron low, b12 normal. start ferrous sulphate. 8. Constipation. Laxatives. code status: Full code Disposition; Home I spent 40 minutes during this encounter. 50% spent on counselling and care coordination Time of this note may not reflect time of encounter Subjective Date patient seen: Mar 10, 2019 ROS Limited/Unobtainable: No Constitutional: Denies: no symptoms, chills, diaphoresis, fever, malaise, weakness, other HEENT: Denies: no symptoms, eye pain, blurred vision, tearing, double vision, ear pain, ear discharge, nose pain, nose congestion, throat pain, throat swelling, mouth pain, mouth swelling, other Cardiovascular: Denies: no symptoms, chest pain, edema, irregular heart rate, lightheadedness, palpitations, syncope, other Respiratory: Denies: no symptoms, cough, orthopnea, shortness of breath, SOB with excertion, SOB at rest, sputum, stridor, wheezing, other Gastrointestinal/Abdominal: Reports: abdominal pain; Denies: no symptoms, abdomen distended, black stools, tarry stools, blood in stool, constipated, diarrhea, difficulty swallowing, nausea, poor appetite, poor fluid intake, rectal bleeding, vomiting, other Genitourinary: Denies: no symptoms, burning, discharge, frequency, flank pain, hematuria, incontinence, pain, urgency, other Neurologic/Psychiatric: Denies: no symptoms, anxiety, depressed, emotional problems, headache, numbness, paresthesia, pre-existing deficit, seizure, tingling, tremors, weakness, other Hematologic/Lymphatic: Denies: no symptoms, anemia, easy bleeding, easy bruising, other Allergies: Coded Allergies: CODEINE (Verified Allergy, Unknown, 03/27/11) METOCLOPRAMIDE (Verified Allergy, Unknown, 02/01/18) MORPHINE (Verified Allergy, Unknown, ITCH, 03/27/11) Subjective Seen and examined. Had solid food, unable to tolerate, switched to npo, now hungry and wants to eat but ordered for HIDA scan Still has abdominal pain but improved Had BM yesterday Ambulating Objective Last 24 Hour Vital Signs Date Time Temp Pulse Resp B/P (MAP) Pulse Ox O2 Delivery O2 Flow Rate FiO2 03/10/19 09:03 79 138/84 03/10/19 09:03 79 138/84 03/10/19 08:00 97.3 79 18 138/84 (102) 97 03/10/19 04:00 72 03/10/19 04:00 98.1 79 18 128/79 (95) 98 03/10/19 00:49 72 03/10/19 00:00 72 03/09/19 23:05 98.2 03/09/19 21:25 77 132/78 03/09/19 21:00 Room Air 03/09/19 20:00 73 03/09/19 20:00 98.2 77 20 132/78 (96) 98 03/09/19 17:43 74 117/71 03/09/19 16:00 97.5 70 20 128/78 (95) 99 03/09/19 15:20 85 03/09/19 12:00 97.5 70 20 125/76 (92) 94 03/09/19 11:55 69 Intake and Output 03/09/19 03/10/19 19:00 07:00 Intake Total 1450 ml Balance 1450 ml IV Total 1450 ml # Voids 6 6 # Bowel Movements 6 Laboratory Tests 03/10/19 06:02: White Blood Count 6.6, Red Blood Count 4.76, Hemoglobin 12.3L, Hematocrit 38.2L , Mean Corpuscular Volume 80, Mean Corpuscular Hemoglobin 25.9L, Mean Corpuscular Hemoglobin Concent 32.2, Red Cell Distribution Width 14.2, Platelet Count 211, Mean Platelet Volume 7.7, Neutrophils (%) (Auto) 55.8, Lymphocytes (% ) (Auto) 32.9, Monocytes (%) (Auto) 6.6, Eosinophils (%) (Auto) 3.3H, Basophils (%) (Auto) 1.4, Sodium Level 141, Potassium Level 4.7, Chloride Level 107, Carbon Dioxide Level 25, Anion Gap 10, Blood Urea Nitrogen 17, Creatinine 1.3, Estimat Glomerular Filtration Rate > 60, Glucose Level 187H, Calcium Level 8.6, Iron Level [Pending], Unsaturated Iron Binding [Pending], Total Bilirubin 0.2, Aspartate Amino Transf (AST/SGOT) 21, Alanine Aminotransferase (ALT/SGPT) 23, Alkaline Phosphatase 66, Total Protein 7.6, Albumin 3.6, Globulin 4.0, Albumin/ Globulin Ratio 0.9L, Amylase Level 54, Lipase 64L, Vitamin B12 Level [Pending], Folate [Pending] Height (Feet): 5 Height (Inches): 9.00 Weight (Pounds): 226 Objective General Appearance: in mild distress due to pain HEENT: PERRL Neck: Supple, no jvd Respiratory: normal inspection, lungs clear, normal breath sounds, no respiratory distress, no retraction, no wheezing Cardiovascular: regular rate, rhythm, no m/r/g/, ext: No edema to bilateral lower extremities Gastrointestinal: obese, soft, +epigastric tenderness, no guarding, normal BS Genitourinary: no CVA tenderness Musculoskeletal: normal range of motion, feet warm to touch, diminished DP pulses bilaterally Neurologic: alert and oriented x3, CN2-12 grossly normal. Feet have diminished sensation and proprioception. gait not tested due to pain. Psychiatric: judgement/insight normal, mood/affect normal Skin: No ulcers, warm to touch John Paul Brady M.D. Mar 10, 2019 09:21
--- NOTE | 2019-03-10 09:49 | NUR ---
CASE MANAGEMENT:REVIEW 03/10/19 SI: ACUTE PANCREATITIS CHEST PAIN. ABDOMINAL PAIN. 97.3 79 18 138/84 97% ON RA IS:IVF@75/HR LEVEMIR SQ BID ASA PO QD LOPRESSOR PO Q12 NORVASC PO BID HEPARIN SQ Q12 SS INSULIN : TELEMETRY DCP: FROM HOME
--- NOTE | 2019-03-10 11:10 | Surgery Progress Note ---
Surgery Progress Note Subjective Additional Comments Patient seen and examined bedside. No acute events. Patient still stating he is got epigastric abdominal pain. When given diet states pain is worse and made n.p.o. and then states pain is better and then given diet and continuous cycle. Patient is planned for HIDA scan today to evaluate etiology of potential pain given the remainder of work-up has been negative. His amylase and lipase have been negative throughout this admission. He remains afebrile and hemodynamically stable. Only complains of subjective epigastric abdominal pain that is worse with diet. Of note patient continuously asked for IV Dilaudid. He even as for breakthrough doses in between. Suspicion and concern for possible malingering to obtain medication. Objective Last 24 Hour Vital Signs Date Time Temp Pulse Resp B/P (MAP) Pulse Ox O2 Delivery O2 Flow Rate FiO2 03/10/19 09:03 79 138/84 03/10/19 09:03 79 138/84 03/10/19 09:00 Room Air 03/10/19 08:00 78 03/10/19 08:00 97.3 79 18 138/84 (102) 97 03/10/19 04:00 72 03/10/19 04:00 98.1 79 18 128/79 (95) 98 03/10/19 00:49 72 03/10/19 00:00 72 03/09/19 23:05 98.2 03/09/19 21:25 77 132/78 03/09/19 21:00 Room Air 03/09/19 20:00 73 03/09/19 20:00 98.2 77 20 132/78 (96) 98 03/09/19 17:43 74 117/71 03/09/19 16:00 97.5 70 20 128/78 (95) 99 03/09/19 15:20 85 03/09/19 12:00 97.5 70 20 125/76 (92) 94 03/09/19 11:55 69 I&O Intake and Output 03/09/19 03/10/19 19:00 07:00 Intake Total 1450 ml Balance 1450 ml IV Total 1450 ml # Voids 6 6 # Bowel Movements 6 Cardiovascular: RSR Respiratory: clear Abdomen: soft, flat, non-tender, present bowel sounds, non-distended Extremities: no tenderness, no cyanosis Laboratory Tests Test 03/10/19 06:02 White Blood Count 6.6 K/UL (4.8-10.8) Red Blood Count 4.76 M/UL (4.70-6.10) Hemoglobin 12.3 G/DL (14.2-18.0) L Hematocrit 38.2 % (42.0-52.0) L Mean Corpuscular Volume 80 FL (80-99) Mean Corpuscular Hemoglobin 25.9 PG (27.0-31.0) L Mean Corpuscular Hemoglobin Concent 32.2 G/DL (32.0-36.0) Red Cell Distribution Width 14.2 % (11.6-14.8) Platelet Count 211 K/UL (150-450) Mean Platelet Volume 7.7 FL (6.5-10.1) Neutrophils (%) (Auto) 55.8 % (45.0-75.0) Lymphocytes (%) (Auto) 32.9 % (20.0-45.0) Monocytes (%) (Auto) 6.6 % (1.0-10.0) Eosinophils (%) (Auto) 3.3 % (0.0-3.0) H Basophils (%) (Auto) 1.4 % (0.0-2.0) Sodium Level 141 MMOL/L (136-145) Potassium Level 4.7 MMOL/L (3.5-5.1) Chloride Level 107 MMOL/L (98-107) Carbon Dioxide Level 25 MMOL/L (21-32) Anion Gap 10 mmol/L (5-15) Blood Urea Nitrogen 17 mg/dL (7-18) Creatinine 1.3 MG/DL (0.55-1.30) Estimat Glomerular Filtration Rate > 60 mL/min (>60) Glucose Level 187 MG/DL (74-106) H Calcium Level 8.6 MG/DL (8.5-10.1) Iron Level 43 ug/dL (50-175) L Total Iron Binding Capacity 323 ug/dL (250-450) Percent Iron Saturation 13 % (15-50) L Unsaturated Iron Binding 280 ug/dL (112-346) Total Bilirubin 0.2 MG/DL (0.2-1.0) Aspartate Amino Transf (AST/SGOT) 21 U/L (15-37) Alanine Aminotransferase (ALT/SGPT) 23 U/L (12-78) Alkaline Phosphatase 66 U/L (46-116) Total Protein 7.6 G/DL (6.4-8.2) Albumin 3.6 G/DL (3.4-5.0) Globulin 4.0 g/dL Albumin/Globulin Ratio 0.9 (1.0-2.7) L Amylase Level 54 U/L (25-115) Lipase 64 U/L (73-393) L Vitamin B12 Level 634 PG/ML (193-986) Folate 8.1 NG/ML (8.6-58.9) L Plan Problems: (1) Abdominal pain Assessment & Plan: patient with history of multiple prior pancreatitis episodes now with abd pain epigastric lipase normal US noted exam benign states he is doing mildly better after admission no n/v/f/c labs remain normal continues to complain of pain Patient still stating he is got epigastric abdominal pain. When given diet states pain is worse and made n.p.o. and then states pain is better and then given diet and continuous cycle. Patient is planned for HIDA scan today to evaluate etiology of potential pain given the remainder of work-up has been negative. His amylase and lipase have been negative throughout this admission. He remains afebrile and hemodynamically stable. Only complains of subjective epigastric abdominal pain that is worse with diet. Of note patient continuously asked for IV Dilaudid. He even as for breakthrough doses in between. Suspicion and concern for possible malingering to obtain medication. no acute surgical intervention planned US negative SAMI mills for diet pain control d/c planning with outpatient follow up will follow with recs thank you Julien Macias Mar 10, 2019 11:10
--- NOTE | 2019-03-10 11:25 | NUR ---
*-* INSURANCE *-* UPDATED CLINICALS AND REVIEWS HAVE BEEN FAXED TO: BERTA SHETTY:CHERY F: [phone] REF# [id number]
[2019-03-10] MEDS ORDERED: NovoLOG Insulin Flexpen SUBQ SCH (11:30)
--- NOTE | 2019-03-10 12:39 | NUR ---
NURSE NOTES: Pt returned back from radiology dept.
--- NOTE | 2019-03-10 12:44 | NUR ---
NM HIDA scan with ejection fraction complete.
--- NOTE | 2019-03-10 13:00 | NUR ---
NURSE NOTES: Patient transferred to unit in stable condition. Alert and oriented x4. Complain of pain 10/10 on abdomen and will administer pain medication as ordered. Skin intact and dry. IV dressing intact and dry. Belonging checked. Bed lowest position. Call light within reach. Will continue to monitor.
--- NOTE | 2019-03-10 13:00 | NUR ---
HAND-OFF: Report given to DENIZ MARLEY.Pt remains stable.
[2019-03-10] MEDS: Hydromorphone 0.5mg/0.5ml inj IVP PRN ×2 (13:18→20:05)
--- NOTE | 2019-03-10 15:04 | Diagnostic Imaging Report ---
Indications: Reason For Exam: ABD PAIN Technique: IV administration 5.5 mCi 99 M technetium Choletec. Serial images obtained over the abdomen for 2 hrs . At one hour, patient was given a fatty meal. Time activity curves were generated over the gallbladder for calculation of ejection fraction Comparison: No comparison nuclear scan. Reference made to abdominal sonogram dated 03/07/2019 Findings: Prompt tracer uptake within the liver. Extrahepatic bile ducts are seen at 10 minutes. Excretion into the duodenum demonstrated at 10 minutes. Gallbladder visualized at 13 minutes. After fatty meal provided, there is little change in the degree of activity within the gallbladder. Time activity curves indicate that ejection fraction at 59 minutes is 16% Impression: Low gallbladder ejection fraction. Given prior sonographic findings of no gallstones, findings may indicate chronic acalculous cholecystitis Negative for evidence of acute cholecystitis or common bile duct obstruction
--- NOTE | 2019-03-10 15:26 | NUR ---
NURSE NOTES: Spoke to regarding NM Hepatobiliary scan result and new order received. Order read back and carried out.
[2019-03-10 16:00] VITALS: BP 111/75
--- NOTE | 2019-03-10 19:29 | NUR ---
HAND-OFF: Report given to Courtney MARLEY. Patient in stable condition.
[2019-03-10 20:00] VITALS: BP 161/93
[2019-03-11] VITALS: BP 101/54
[2019-03-11] MEDS: Hydromorphone 0.5mg/0.5ml inj IVP PRN ×2 (01:46→08:20)
[2019-03-11] MEDS: DiphenhydrAMINE 50mg/ml Inj IVP PRN ×2 (01:46→08:28)
[2019-03-11 04:00] VITALS: BP 155/79
[2019-03-11] MEDS: D5 1/2NS 1,000 ML IV SCH (06:04)
[2019-03-11] MEDS: NovoLOG Insulin Flexpen SUBQ SCH ×2 (06:07→13:29)
[2019-03-11] MEDS: Levemir Flexpen SUBQ SCH (06:08)
[2019-03-11 06:29] LABS: BASOPHILS % (AUTO) 1.9 % (0.0-2.0); EOSINOPHILS % (AUTO) 4.7 % (0.0-3.0); HEMATOCRIT 35.7 % (42.0-52.0); HEMOGLOBIN 11.7 G/DL (14.2-18.0); MEAN CORPUSCULAR VOLUME 79 FL (80-99); MONOCYTES % (AUTO) 9.8 % (1.0-10.0); NEUTROPHILS % (AUTO) 45.6 % (45.0-75.0); PLATELET COUNT 195 K/UL (150-450); RED BLOOD COUNT 4.51 M/UL (4.70-6.10); WHITE BLOOD COUNT 5.5 K/UL (4.8-10.8)
[2019-03-11 06:50] LABS: ANION GAP 8 mmol/L (5-15); BLOOD UREA NITROGEN 15 mg/dL (7-18); CARBON DIOXIDE 27 MMOL/L (21-32); CHLORIDE 108 MMOL/L (98-107); CREATININE 1.2 MG/DL (0.55-1.30); POTASSIUM 4.1 MMOL/L (3.5-5.1); SODIUM 143 MMOL/L (136-145)
--- NOTE | 2019-03-11 06:51 | NUR ---
nurse's notes: no incidents of falls, injuries or trauma reported as of this time. patient still c/o of pain despite administration of pain medication and benadryl on ordered doses. no s/s of hypoglycemia at this time. no significant changes noted this shift. will continue plan of care.
--- NOTE | 2019-03-11 07:45 | NUR ---
NURSE NOTES: Pt sitting up in bed, has clear liquid diet. Informed to tell conventional mortgage underwriter if he feels any discomfort after meal ie nausea vomiting. Call light is in reach
[2019-03-11 08:00] VITALS: BP 147/67
[2019-03-11] MEDS: Metoprolol 25mg tab ORAL SCH (08:14)
[2019-03-11] MEDS: Heparin 5000 units/ml inj SUBQ SCH (08:18)
--- NOTE | 2019-03-11 08:30 | NUR ---
NURSE NOTES: New line started pt line infiltrated. Medication for pain given within allowed time frame. Charge Nurse made awre that Dilaudid was removed and freelance copywriter discovered that line was infiltrated. Line put in by charge nurse Complaining of pain to abdomen radiating to back. Pt states pain is a 10/10. Per pt pain has been ongoing for over 20 years, . Denies nausea or vomiting after clear liquid diet
[2019-03-11] MEDS ORDERED: Aspirin EC 81mg tab ORAL SCH (09:00)
--- NOTE | 2019-03-11 11:41 | Surgery Progress Note ---
Surgery Progress Note Subjective Additional Comments Patient seen and examined bedside. No acute events. Tolerating diet. States he still has this pain ongoing. No nausea vomiting fever chills. Labs okay. HIDA noted. Objective Last 24 Hour Vital Signs Date Time Temp Pulse Resp B/P (MAP) Pulse Ox O2 Delivery O2 Flow Rate FiO2 03/11/19 08:14 77 147/67 03/11/19 08:14 77 147/67 03/11/19 08:00 98.3 77 16 147/67 (93) 03/11/19 04:00 97.5 74 16 155/79 (104) 96 03/11/19 00:00 98.5 75 17 101/54 (70) 98 03/10/19 21:00 Room Air 03/10/19 20:06 90 161/93 03/10/19 20:00 98.6 90 18 161/93 (115) 97 03/10/19 17:42 80 111/75 03/10/19 16:00 97.9 80 19 111/75 (87) 97 I&O Intake and Output 03/10/19 03/11/19 19:00 07:00 Intake Total 735 ml 1260 ml Balance 735 ml 1260 ml Intake Oral 360 ml IV Total 375 ml 900 ml Other 360 ml # Voids 3 3 Cardiovascular: RSR Respiratory: clear Abdomen: soft, flat, non-tender, present bowel sounds, non-distended Extremities: no edema, no tenderness, no cyanosis Laboratory Tests Test 03/11/19 06:00 White Blood Count 5.5 K/UL (4.8-10.8) Red Blood Count 4.51 M/UL (4.70-6.10) L Hemoglobin 11.7 G/DL (14.2-18.0) L Hematocrit 35.7 % (42.0-52.0) L Mean Corpuscular Volume 79 FL (80-99) L Mean Corpuscular Hemoglobin 25.9 PG (27.0-31.0) L Mean Corpuscular Hemoglobin Concent 32.8 G/DL (32.0-36.0) Red Cell Distribution Width 14.0 % (11.6-14.8) Platelet Count 195 K/UL (150-450) Mean Platelet Volume 7.3 FL (6.5-10.1) Neutrophils (%) (Auto) 45.6 % (45.0-75.0) Lymphocytes (%) (Auto) 38.0 % (20.0-45.0) Monocytes (%) (Auto) 9.8 % (1.0-10.0) Eosinophils (%) (Auto) 4.7 % (0.0-3.0) H Basophils (%) (Auto) 1.9 % (0.0-2.0) Sodium Level 143 MMOL/L (136-145) Potassium Level 4.1 MMOL/L (3.5-5.1) Chloride Level 108 MMOL/L (98-107) H Carbon Dioxide Level 27 MMOL/L (21-32) Anion Gap 8 mmol/L (5-15) Blood Urea Nitrogen 15 mg/dL (7-18) Creatinine 1.2 MG/DL (0.55-1.30) Estimat Glomerular Filtration Rate > 60 mL/min (>60) Glucose Level 108 MG/DL (74-106) H Calcium Level 9.0 MG/DL (8.5-10.1) Plan Problems: (1) Abdominal pain Assessment & Plan: patient with history of multiple prior pancreatitis episodes now with abd pain epigastric lipase normal US noted exam benign states he is doing mildly better after admission no n/v/f/c labs remain normal continues to complain of pain Patient still stating he is got epigastric abdominal pain. When given diet states pain is worse and made n.p.o. and then states pain is better and then given diet and continuous cycle. Patient is planned for HIDA scan today to evaluate etiology of potential pain given the remainder of work-up has been negative. His amylase and lipase have been negative throughout this admission. He remains afebrile and hemodynamically stable. Only complains of subjective epigastric abdominal pain that is worse with diet. Of note patient continuously asked for IV Dilaudid. He even as for breakthrough doses in between. Suspicion and concern for possible malingering to obtain medication. no acute surgical intervention planned US negative HIDA I had a long discussion with patient at bedside today in regards to HIDA findings history and plan. The patient that his symptoms do not correlate exactly with biliary dyskinesia but only finding that we have had after extensive work-up for his epigastric pain is an abnormal HIDA ejection fraction. Though it may be possible that this may be the etiology of pain especially given pain worsening with oral diet unsure at this time. Patient has not had any elevated pancreatic enzymes since admission and on scan does not seem to have any signs of acute pancreatitis despite believing all this is caused by pancreatitis. In coming up with a care plan I discussed with patient potential surgical intervention. Patient has been offered a lap jesus in the past and I agree that this may be a potential route for further evaluation to rule out his biliary dyskinesia as etiology. I offered patient labs of cholecystectomy but was very clear that this may not definitively treat his pain and that he may continue to have similar symptoms despite surgical intervention. Patient expressed understanding and stated needs to talk to his first before making decisions. okay for diet pain control d/c planning with outpatient follow up will follow with recs thank you Julien Macias Mar 11, 2019 11:41
[2019-03-11 12:00] VITALS: BP 146/91
--- NOTE | 2019-03-11 13:47 | Discharge Summary ---
Discharge Summary Hospital Course Date of Admission Mar 06, 2019 at 23:48 Date of Discharge 03/11/2019 Admitting Diagnosis chest pain, abdominal pain, chronic pancreatitis HPI Michael Mixon is a 53 year old male who was admitted on Mar 06, 2019 at 23: 48 for Chest Pain,Abdominal Pain,Chronic Pancreatitis Consultations Surgery: Dr. Macias GI: Dr. Calloway Procedures Abdominal US HIDA scan Hospital Course 53 year old male with chronic pancreatitis, admitted with epigastric abdominal pain. 1.Chronic pancreatitis. Lipase only 64, however on exam + epigastric tenderness radiating to the back .US abdomen: No evidence of cholelithiasis. HIDA suggestive of chronic acalculous cholecystitis. GI consult, Dr. Morrell - appreciated Surgical consult with Dr. Macias appreciated offered patient cholecystectomy but he refused. triglycerides 198 He was placed PLATE PAINTER APPRENTICE, received aggressive IV hydration, pain control. IV Dilaudid, also requesting Benadryl every time. 2.ACS ruled out First troponin negative, EKG non ischemic. Serial trop I negative . Continued ASA, statin, beta blockers. 3.Uncontrolled type II DM with neuropathy, possibly nephropathy. HbA1c 13.5 in January. Needs better control Patient had nightmares on gabapentin. Should try alternative for neuropathy. Diabetic shoes, which he says he wears UA 2+blood, 4+ glucose, +2 protein, will order urine microalbumin Increase Levemir to 15 units (now 10 units) BID (home dose Lantus 60 units) , Novolog sliding scale Patient counselled on lifestyle modification and weight loss.Also medication compliance. i will resume his PO medications on discharge. 4.Bilateral leg cramps. electrolytes disturbance (low magnesium common in diabetics) vs. peripheral arterial disease. Legs warm to touch, perfusing well. Would need outpatient vascular studies done 5. HTN. Continue amlodipine and Metoprolol. 6. HERNESTO vs HERNESTO on CKD Continue to monitor. Continue IV hydration. Avoid nephrotoxic medications. Hold Lisinopril. He is voiding well. Doubt obstruction. Creatinine improved from 1.7 to 1.2 7.Microcytic anemia. Iron low, b12 normal. start ferrous sulphate. 8. Constipation. Laxatives. Today on exam he is comfortable. Has mild epigastric abdominal tenderness, no guarding, normal BS. Lungs: CTA bl, heart: S1S2, no m/r/g, Extremities: no edema code status: Full code Disposition; Home I spent 40 minutes during this encounter Time of this note may not reflect time of encounter Discharge Medications New Medications: Lactulose (Lactulose*) 20 Gm/30 Ml Solution 30 ML ORAL DAILY PRN for 10 Days, #10 ML 0 Refills Continued Medications: Albuterol Sulfate* (Albuterol Sulfate Mdi*) 8.5 Gm Hfa.aer.ad 2 PUFF INH Q4H, #1 INH 0 Refills Amlodipine Besylate* (Amlodipine Besylate*) 10 Mg Tablet 10 MG ORAL DAILY, TAB Aspirin* (Aspir 81*) 81 Mg Tablet.dr 81 MG ORAL DAILY, TAB Insulin Glargine (Lantus) 100 Unit/1 Ml Insuln.pen 60 SUBQ BEDTIME, #1 EA 0 Refills Insulin Glulisine (Apidra Solostar) 100 Unit/1 Ml Insuln.pen 100 UNIT SQ da, EA Lisinopril (Lisinopril*) 20 Mg Tablet 20 MG ORAL DAILY, TAB Metoprolol Tartrate* (Metoprolol Tartrate*) 25 Mg Tablet 25 MG ORAL EVERY 12 HOURS, TAB Pioglitazone Hcl* (Actos*) 45 Mg Tablet 45 MG ORAL DAILY, TAB Pravastatin Sodium (Pravachol) 40 Mg Tablet 80 MG ORAL BEDTIME, TAB Discharge Condition Upon Discharge: stable Discharge Disposition Patient was discharged to home Discharge Diagnoses: (1) Pancreatitis (2) Acalculous cholecystitis (3) HERNESTO (acute kidney injury) (4) Diabetic neuropathy (5) Gastritis (6) Hypertriglyceridemia (7) Bilateral leg cramps (8) Microcytic anemia John Paul Brady M.D. Mar 11, 2019 13:47
[2019-03-11] MEDS ORDERED: LACTULOSE20 GM/301 ORAL (13:50)
--- NOTE | 2019-03-11 14:00 | NUR ---
NURSE NOTES: Pt requested to leave per pt " The doctor does not know what is wrong with me , he told me to go to a bigger hospital; I have been dealing with this for a long time and no one knows " Pt informed that he did not have orders. interjected conversation " Well they ain't doing nothing for him " Pt informed that if he decides to leave it will be against medical advice. Pt shrugged his shoulders" Stemming Machine Operator offered to call MD. Charge Nurse informed.
--- NOTE | 2019-03-11 14:15 | NUR ---
NURSE NOTES: Orders received for discharge
--- NOTE | 2019-03-11 14:30 | NUR ---
NURSE NOTES: Pt informed that orders received for discharge. is at bedside . IV removed , id band removed. Discharge papers given to include diet for pancreatitis, and diabetic food choices. Pt ambulatory. : Im not here for pain medication , this is just I have been dealing with' Pt encouraged to monitor meal intake and assess tolerance of heavy meals. Verbalized understanding
[2019-03-11] MEDS ORDERED: D5 1/2NS 1000ml IV ONE (14:48)
--- NOTE | 2019-03-12 16:15 | NUR ---
*-* INSURANCE *-* DISCHARGE SUMMARY HAS BEEN FAXED TO: BERTA SHETTY:CHERY F: [phone] REF# [id number]
== END 2019-03-11 14:49 | disposition home or self-care (01) | DRG 282 ==
LOC: EMR 21:37 → 2E 23:48 → EDBEDREQ 03-07 01:00 → 2E 03-07 19:45 → 3E 03-10 12:53
DX: K85.90 Acute pancreatitis without necrosis or infection, unspecified (principal); N17.9 Acute kidney failure, unspecified; Z88.6 Allergy status to analgesic agent; Z88.8 Allergy status to other drugs, medicaments and biological substances; E11.40 Type 2 diabetes mellitus with diabetic neuropathy, unspecified; E11.65 Type 2 diabetes mellitus with hyperglycemia; R07.9 Chest pain, unspecified; R25.2 Cramp and spasm; I10 Essential (primary) hypertension; K81.9 Cholecystitis, unspecified; K29.70 Gastritis, unspecified, without bleeding; E78.1 Pure hyperglyceridemia; D50.9 Iron deficiency anemia, unspecified; Z79.82 Long term (current) use of aspirin; Z79.4 Long term (current) use of insulin
CPT/HCPCS: 36415; 76700; 78266; 80048; 80053; 80061; 81003; 82043; 82150; 82607; 82746; 82962; 83540; 83550; 83690; 83735; 84484; 85025; 85651; 86140; 93005; 94640; 96374; 96375; 99285; J1815; J2405; S5561

== ENCOUNTER 2019-05-07 00:56 | Emergency (ER) | payer MEDICAID ==
[~2019-05-07] VITALS: Ht 175.3 cm; Wt 98.4 kg
[~2019-05-07 00:56] MED LIST changes: +LACTULOSE20 GM/301 ORAL
[2019-05-07 01:10] VITALS: BP 145/97
--- NOTE | 2019-05-07 01:10 | NUR ---
ED Nurse Note: Walk-in patient with complaints of abdominal pain in the bilateral epigastric area. patient reports history of pancreatitis and recent recommendation to come to ER to be evaluated for appendicitis. at bedside. Patient tolerated IV start well, blood drawn and sent to lab, urine collected and sent to lab. Accucheck recorded and documented at 217. ERMD to be informed. vital signs stable and documented. Will continue to monitor.
--- NOTE | 2019-05-07 01:28 | Emergency Room Report ---
History of Present Illness General Chief Complaint: Abdominal Pain Source: Patient Present Illness HPI This is a 53-year-old male with a history of diabetes and chronic pancreatitis. He presents with chief complaint of upper quadrant abdominal pain. Onset for last 3 to 4 days. Mostly left upper quadrant but now right upper quadrant also. Nausea but no vomiting. No diarrhea. Denies any fever chills. Pain medication not helping. Pain is 8 out of 10. Similar symptom in the past. Allergies: Coded Allergies: CODEINE (Verified Allergy, Unknown, 03/27/11) METOCLOPRAMIDE (Verified Allergy, Unknown, 02/01/18) MORPHINE (Verified Allergy, Unknown, ITCH, 03/27/11) Patient History Past Medical History: see triage record, old chart reviewed, DM Past Surgical History: other Pertinent Family History: none Social History: Denies: smoking Immunizations: other Reviewed Nursing Documentation: PMH: Agreed; PSxH: Agreed Nursing Documentation-PMH Hx Cardiac Problems: Yes - Acute coronary syndrome Hx Hypertension: Yes Hx Diabetes: Yes Hx Neurological Problems: No Review of Systems Eye: Denies: eye pain, blurred vision ENT: Denies: ear pain, nose congestion, throat swelling Respiratory: Denies: cough, shortness of breath Cardiovascular: Denies: chest pain, palpitations Gastrointestinal: Reports: abdominal pain, nausea; Denies: diarrhea, vomiting Musculoskeletal: Denies: back pain, joint pain Skin: Denies: rash Neurological: Denies: headache, numbness Endocrine: Denies: increased thirst, increased urine Hematologic/Lymphatic: Denies: easy bruising All Other Systems: negative except mentioned in HPI Physical Exam Vital Signs Date Time Temp Pulse Resp B/P (MAP) Pulse Ox O2 Delivery O2 Flow Rate FiO2 05/07/19 01:07 98.6 102 22 145/97 (113) 96 Room Air Vitals normal Sp02 EP Interpretation: reviewed, normal General Appearance: well appearing, no apparent distress, alert Head: normocephalic, atraumatic Eyes: bilateral eye PERRL, bilateral eye EOMI ENT: hearing grossly normal, normal pharynx Neck: full range of motion, supple, no meningismus Respiratory: chest non-tender, lungs clear, normal breath sounds Cardiovascular #1: regular rate, rhythm, no murmur Gastrointestinal: normal bowel sounds, no mass, no organomegaly, no bruit, non- distended, tenderness - Mild upper quadrant tenderness Musculoskeletal: back normal, gait/station normal, normal range of motion Psychiatric: mood/affect normal Medical Decision Making Diagnostic Impression: Primary Impression: Abdominal pain Qualified Codes: R10.10 - Upper abdominal pain, unspecified ER Course Patient presents with abdominal pain. Labs unremarkable except for elevated glucose. His hemoglobin A1c was 15 but down to 11 in the last month or so. He does have history of chronic pancreatitis seen on CT scan. Lipase is normal here. Pain is resolved. No acute abdomen. Will discharge home. Last Vital Signs Date Time Temp Pulse Resp B/P (MAP) Pulse Ox O2 Delivery O2 Flow Rate FiO2 05/07/19 01:07 98.6 102 22 145/97 (113) 96 Room Air Status: improved Disposition: HOME, SELF-CARE Condition: Stable Patient Instructions: Abdominal Pain, Adult Additional Instructions: Follow-up with your doctor in 7 days. You may need referral to see a GI doctor again. Return if worse. Pedro Vazquez MD May 07, 2019 01:28
[2019-05-07] MEDS ORDERED: HYDROmorphone 1mg/ml Carpuject IVP ONE (01:30)
[2019-05-07 01:47] LABS: APPEARANCE,URINE CLEAR; BILIRUBIN, URINE NEGATIVE (NEGATIVE); COLOR,URINE PALE YELLOW; GLUCOSE, URINE (UA) 4+ (NEGATIVE); KETONES,URINE NEGATIVE (NEGATIVE); LEUKOCYTE ESTERASE ,URINE NEGATIVE (NEGATIVE); NITRITE,URINE NEGATIVE (NEGATIVE); PH,URINE 6 (4.5-8.0); PROTEIN,URINE 3+ (NEGATIVE); UROBILINOGEN,URINE NORMAL MG/DL (0.0-1.0)
[2019-05-07 01:48] LABS: BASOPHILS % (AUTO) 1.6 % (0.0-2.0); EOSINOPHILS % (AUTO) 2.5 % (0.0-3.0); HEMATOCRIT 44.2 % (42.0-52.0); HEMOGLOBIN 14.5 G/DL (14.2-18.0); LYMPHOCYTES % (AUTO) 32.3 % (20.0-45.0); MEAN CORPUSCULAR VOLUME 78 FL (80-99); MONOCYTES % (AUTO) 15.6 % (1.0-10.0); PLATELET COUNT 179 K/UL (150-450); RED BLOOD COUNT 5.68 M/UL (4.70-6.10); RED CELL DISTRIBUTION WIDTH 13.2 % (11.6-14.8); WHITE BLOOD COUNT 5.2 K/UL (4.8-10.8)
[2019-05-07 01:51] VITALS: BP 138/82
[2019-05-07 01:58] LABS: ANION GAP 10 mmol/L (5-15); BLOOD UREA NITROGEN 14 mg/dL (7-18); CALCIUM 9.2 MG/DL (8.5-10.1); CARBON DIOXIDE 29 MMOL/L (21-32); CHLORIDE 101 MMOL/L (98-107); CREATININE 1.4 MG/DL (0.55-1.30); POTASSIUM 4.1 MMOL/L (3.5-5.1); SODIUM 140 MMOL/L (136-145)
[2019-05-07 02:03] LABS: ALANINE AMINOTRANSFERASE 48 U/L (12-78); ALBUMIN 3.7 G/DL (3.4-5.0); ALBUMIN/GLOBULIN RATIO 0.9 (1.0-2.7); ALKALINE PHOSPHATASE 87 U/L (46-116); ASPARTATE AMINO TRANSFERASE 29 U/L (15-37); BILIRUBIN,TOTAL 0.3 MG/DL (0.2-1.0)
[2019-05-07] MEDS ORDERED: DiphenhydrAMINE 50mg/ml Inj IVP ONE (02:15)
[2019-05-07 02:34] VITALS: BP 126/84
--- NOTE | 2019-05-07 02:34 | NUR ---
ED Nurse Note: Pt cleared by ERMD for discharge. DC instructions was given and explained to pt and verbalized understanding of teachings. All medical deviecs such as ID band removed. Pt is AAO x4, ambulatory and left with all personal belongings. Accompanied by .
== END 2019-05-07 02:34 | disposition home or self-care (01) ==
LOC: EMR 01:36
DX: R10.10 Upper abdominal pain, unspecified (principal); I10 Essential (primary) hypertension; E11.9 Type 2 diabetes mellitus without complications; I24.9 Acute ischemic heart disease, unspecified; Z88.5 Allergy status to narcotic agent
CPT/HCPCS: 36415; 80053; 81003; 82962; 83690; 85025; 96361; 96374; 96375; J1170; J1200; J2405; Z7502; 99284; J7030

== ENCOUNTER 2020-03-14 01:45 | Inpatient (IN) | payer MEDICAID ==
[2020-03-14] VITALS (34 sets, daily range): BP systolic 76–193; BP diastolic 52–157
[~2020-03-14] VITALS: Ht 177.8 cm; Wt 99.3 kg
[2020-03-14] MEDS ORDERED: Vancomycin 1 GM in NS 275 ML IV ONE (02:00)
--- NOTE | 2020-03-14 02:00 | Emergency Room Report ---
History of Present Illness General Chief Complaint: Skin Rash/Abscess Present Illness HPI 54-year-old male with history of diabetes, hypertension, chronic foot ulcers here for evaluation for possible infected foot ulcer. Patient says that wound care comes to check on his chronic foot ulcers every Sunday. He says that over the past 2 to 3 days he has been noticing that his right foot has become much more swollen and the skin has become more red surrounding the foot ulcer that he has the lateral distal plantar aspect. No active drainage. He checked his blood sugar before coming to the emergency department and it was 450 despite not eating any dinner tonight. He took 6 units of insulin before arrival. Had a subjective fever but did not check his temperature. No chills, chest pain, palpitation, shortness of breath, back pain, abdominal pain, nausea , vomiting, diarrhea, dysuria. Allergies: Coded Allergies: CEPHALEXIN (Verified Allergy, Unknown, 03/14/20) severe abdominal pain and vomiting per pt CODEINE (Verified Allergy, Unknown, 03/27/11) METOCLOPRAMIDE (Verified Allergy, Unknown, 02/01/18) MORPHINE (Verified Allergy, Unknown, ITCH, 03/27/11) Nursing Documentation-PMH Hx Cardiac Problems: Yes - Acute coronary syndrome Hx Hypertension: Yes Hx Diabetes: Yes Hx Neurological Problems: No Physical Exam Sp02 EP Interpretation: reviewed, normal General Appearance: no apparent distress, alert, GCS 15 Head: normocephalic, atraumatic Eyes: bilateral eye normal inspection, bilateral eye PERRL ENT: hearing grossly normal, normal pharynx, no angioedema, normal voice Neck: full range of motion, supple/symm/no masses Respiratory: chest non-tender, lungs clear, normal breath sounds, speaking full sentences Cardiovascular #1: regular rate, rhythm, no edema Cardiovascular #2: 2+ carotid (R), 2+ carotid (L), 2+ radial (R), 2+ radial (L) , 2+ dorsalis pedis (R), 2+ dorsalis pedis (L) Gastrointestinal: normal bowel sounds, non tender, soft, non-distended, no guarding, no rebound Rectal: deferred Genitourinary: normal inspection, no CVA tenderness Musculoskeletal: back normal, normal range of motion, calf tenderness, gait/ station normal, other - Diffuse swelling of the right foot. Chronic appearing foot ulcer on the plantar aspect at the base of the fifth metatarsal. Diffuse erythema streaking from the ulcer. No active drainage. Crepitus palpable on the right lateral midfoot Neurologic: alert, motor strength/tone normal, sensory intact, responsive, speech normal Psychiatric: judgement/insight normal, memory normal, mood/affect normal, no suicidal/homicidal ideation Lymphatic: no adenopathy Medical Decision Making Diagnostic Impression: Primary Impression: Uncontrolled type II diabetes mellitus Additional Impressions: Necrotizing fasciitis Cellulitis Sepsis Hyponatremia Anemia ER Course Ddx: lymphadenopathy/lymphangitis, sebaceous/ganglion cyst, abscess, cellulitis , tumor, insect bite, substance abuse, folliculitis, necrotizing fasciitis EKG: Sinus tachycardia 103 bpm. Normal axis. No ectopy. No clear ST or T wave abnormalities Total critical care time: Approximately 45 minutes Due to a high probability of clinically significant, life threatening deterioration, the patient required the highest level of preparedness to intervene emergently and I personally spent this critical care time directly and personally managing the patient. This critical care time included obtaining a history, examining the patient, pulse oximetry, ordering and reviewing studies , ordering treatments, evaluating response to treatment and updating management plan as needed, frequent reassessment and discussion with other providers as well as arranging for ultimate disposition. This critical to care time was performed to assess and manage the high probability of life-threatening deterioration that could result in multiorgan failure. This critical care time is separate from the separately billable procedures and treating other patients. X-ray right foot: Limited evaluation of the toes. Soft tissue swelling laterally at the right midfoot with subcutaneous air 230: I spoke with the on-call surgeon Dr. Chew regarding the high likelihood for necrotizing fasciitis. The surgeon evaluated the patient in the emergency department. Advised to keep the patient n.p.o. in preparation for surgical exploration in the morning. 54-year-old male here with infected diabetic foot ulcer. Patient's presentation and gas formation within the soft tissue of his right lateral foot highly concerning for necrotizing fasciitis. CBC showed a leukocytosis of 21, 000, hemoglobin 11. CRP highly elevated. Patient was hyponatremic at 128. Patient started on vancomycin, clindamycin, Zosyn for treatment of necrotizing fasciitis. Vital signs remained normal throughout his stay in the emergency department. He received multiple dose of pain medications. Glucose on arrival was 417. Patient had received 6 units of subcutaneous insulin just prior to arrival to the emergency department. He received another 6 units of insulin IV. Repeat glucose was 98. No evidence of diabetic ketoacidosis, patient had normal VBG and negative acetone. Admitted to telemetry. Currently awaiting results of CT of the lower extremity. Tano Mcgrath M.D. Mar 14, 2020 02:00
[2020-03-14] MEDS ORDERED: DiphenhydrAMINE 50mg/ml Inj IVP ONE (02:15)
[2020-03-14] MEDS ORDERED: Clindamycin 600mg 50 ML IVPB ONE (02:15)
[2020-03-14] MEDS ORDERED: Piperacillin/Tazobactam 3.375 GM in NS 110 ML IVPB ONE (02:15)
[2020-03-14] MEDS ORDERED: HYDROmorphone 1mg/ml Carpuject IVP ONE ×2 (02:15→03:00)
[2020-03-14] MEDS ORDERED: Insulin Human Regular 100units/ml 3ml IV ONE (02:15)
--- NOTE | 2020-03-14 02:22 | Diagnostic Imaging Report ---
EXAM: XR Right Foot Complete, 3 or More Views CLINICAL HISTORY: INFECT TECHNIQUE: Frontal, lateral and oblique views of the right foot. COMPARISON: No previous studies. FINDINGS: Limitations: Evaluation of the toes is markedly limited due to overpenetration in that area. Bones/joints: Mild to moderate osteoarthritic changes. Grossly, no acute fracture or dislocation is noted Soft tissues: Soft tissue swelling laterally at the right midfoot with there is suggestion of possible subcutaneous air. No radiopaque foreign body. Vasculature: Vascular calcifications are noted suggestive of diabetes. IMPRESSION: 1. Limited evaluation of the toes as discussed above. 2. Soft tissue swelling and subcutaneous air laterally at the right midfoot worrisome for diffuse cellulitis. 3. Magnetic resonance imaging of the right foot is advised to follow-up to assess for cellulitis and possible early osteomyelitis. 4. Vascular calcifications compatible with diabetes.
[2020-03-14 02:23] LABS: HEMATOCRIT 33.9 % (42.0-52.0); HEMOGLOBIN 11.6 G/DL (14.2-18.0); MEAN CORPUSCULAR VOLUME 77 FL (80-99); PLATELET COUNT 205 K/UL (150-450); RED BLOOD COUNT 4.42 M/UL (4.70-6.10); RED CELL DISTRIBUTION WIDTH 12.7 % (11.6-14.8)
[2020-03-14 02:36] LABS: ANION GAP 9 mmol/L (5-15); BLOOD UREA NITROGEN 21 mg/dL (7-18); CALCIUM 8.7 MG/DL (8.5-10.1); CARBON DIOXIDE 29 MMOL/L (21-32); CHLORIDE 90 MMOL/L (98-107); CREATININE 1.7 MG/DL (0.55-1.30); POTASSIUM 4.8 MMOL/L (3.5-5.1); SODIUM 128 MMOL/L (136-145)
[2020-03-14 02:50] LABS: ALANINE AMINOTRANSFERASE 77 U/L (12-78); ALBUMIN 2.6 G/DL (3.4-5.0); ALBUMIN/GLOBULIN RATIO 0.5 (1.0-2.7); ALKALINE PHOSPHATASE 164 U/L (46-116); ASPARTATE AMINO TRANSFERASE 24 U/L (15-37); BILIRUBIN,TOTAL 0.5 MG/DL (0.2-1.0); CKMB 0.7 NG/ML (0.0-3.6); CREATINE KINASE 67 U/L (26-308)
[2020-03-14 04:31] LABS: APPEARANCE,URINE CLEAR; BILIRUBIN, URINE NEGATIVE (NEGATIVE); COLOR,URINE PALE YELLOW; GLUCOSE, URINE (UA) 4+ (NEGATIVE); KETONES,URINE NEGATIVE (NEGATIVE); LEUKOCYTE ESTERASE ,URINE NEGATIVE (NEGATIVE); NITRITE,URINE NEGATIVE (NEGATIVE); PH,URINE 5 (4.5-8.0); PROTEIN,URINE 2+ (NEGATIVE); UROBILINOGEN,URINE NORMAL MG/DL (0.0-1.0)
[2020-03-14] MEDS ORDERED: Zosyn 2.25gm inj IV SCH (06:00)
[2020-03-14] MEDS: NovoLOG Insulin Flexpen SUBQ SCH ×4 (06:30→20:36)
--- NOTE | 2020-03-14 06:50 | Diagnostic Imaging Report ---
ADDENDUM - Added by Fatou Solo M.D. on 03/14/2020 8:16 AM (-07: 00) Abscess vs phlegmon along plantar aspect of right 5th metatarsal head, suboptimally evaluated on this non-contrast study. EXAM: CT Right Lower Extremity Without Intravenous Contrast, Foot CLINICAL HISTORY: INFECT TECHNIQUE: Axial computed tomography images of the right foot without intravenous contrast. CTDI is 3.30 mGy and DLP is 113.10 mGy-cm. One or more of the following dose reduction techniques were used: automated exposure control, adjustment of the mA and/or kV according to patient size, use of iterative reconstruction technique. COMPARISON: Correlated with earlier radiographs. FINDINGS: Large amount of gas noted in the soft tissues, predominantly along the lateral aspect of the right foot with associated cellulitis and edema. Focal ulceration along the plantar aspect of the mid and lateral aspect of the right foot with associated phlegmon and gas. Suboptimal evaluation for abscess on this noncontrast study. There is subtle irregularity noted in the right fifth metatarsal head. Age-indeterminate fracture of the medial aspect of the right first proximal phalanx. Atherosclerotic calcifications. IMPRESSION: Large amount of gas in soft tissues, predominantly along the lateral aspect of the right foot, likely related to gangrene. Correlate with clinical findings and lab values such as elevated lactic acid levels to exclude infection with gas-forming organism/fasciitis. There is associated cellulitis and diffuse soft tissue edema. Suspected early osteomyelitis of the right fifth metatarsal head. If there are no contraindications, consider MRI correlation. Age-indeterminate fracture of the right first proximal phalanx, correlate with point tenderness. <MYCVCSECTION> Communications: 03/14/20 06:52 Call Doctor Regarding Above results, called Dr. Pride on 03/14 06:51 (-07:00)
[2020-03-14] MEDS ORDERED: HYDROmorphone 1mg/ml Carpuject IVP PRN ×2 (08:15→17:15)
[2020-03-14] MEDS ORDERED: Heparin 5000 units/ml inj SUBQ SCH (09:00)
[2020-03-14] MEDS ORDERED: Zosyn 3.375gm q8h **Extended infusion IVPB SCH ×2 (10:00)
[2020-03-14] MEDS ORDERED: Lidocaine 1% MPF 10mg/ml 5ml ONE (11:30)
[2020-03-14] MEDS ORDERED: LR 1000ml ONE (11:30)
[2020-03-14] MEDS ORDERED: Glycopyrrolate 0.2mg/ml 1ml Vial ONE (11:30)
[2020-03-14] MEDS ORDERED: Sterile Water Irrig 1000ml IRRIG ONE (11:30)
--- NOTE | 2020-03-14 11:40 | Pre-Procedure Note/Attestation ---
Pre-Procedure Note/Attestation Complete Prior to Procedure Planned Procedure: right Procedure Narrative: incision drainage and debridement right foot Indications for Procedure Pre-Operative Diagnosis: infected and gangrenous right diabetic foot Attestation I attest that I discussed the nature of the procedure; its benefits; risks and complications; and alternatives (and the risks and benefits of such alternatives ), prior to the procedure, with the patient (or the patient's legal rental sales representative). I attest that, if there was a reasonable possibility of needing a blood transfusion, the patient (or the patient's legal rental sales representative) was given the [facility] standardized written summary, pursuant to the [place] [facility] Blood Safety Act ([place] Health and Safety Code # 1645, as amended). I attest that I re-evaluated the patient just prior to the surgery and that there has been no change in the patient's H&P, except as documented below: Glen Chew MD Mar 14, 2020 11:39
[2020-03-14] MEDS ORDERED: Bacitracin 50000 Units Vial ONE (11:42)
[2020-03-14] MEDS ORDERED: NeoSporin Gu Irrig 1ml Amp IRRIG ONE (11:42)
[2020-03-14] MEDS ORDERED: Bacitracin Oint 15gm Tube TOPIC ONE (11:42)
[2020-03-14] MEDS ORDERED: Meperidine 25mg/0.5ml Inj (FOR RIGORS ONLY) IV PRN ×2 (11:45→14:30)
[2020-03-14] MEDS ORDERED: LR 1000ml 1,000 ML IVLG SCH ×2 (11:45→14:30)
[2020-03-14] MEDS ORDERED: Atropine Sulfate 0.4mg/ml inj IVP PRN ×2 (11:45→14:30)
[2020-03-14] MEDS ORDERED: LORazepam Inj 2mg/ml 1ml IV PRN ×2 (11:45→14:30)
[2020-03-14] MEDS ORDERED: DiphenhydrAMINE 50mg/ml Inj IVP PRN ×2 (11:45→14:30)
[2020-03-14] MEDS ORDERED: Midazolam 2mg/2ml Inj IVP PRN ×2 (11:45→14:30)
[2020-03-14] MEDS ORDERED: Labetalol 5mg/ml 20ml vial IV PRN ×2 (11:45→14:30)
[2020-03-14] MEDS ORDERED: fentaNYL 100 mcg/2 mL IV PRN ×2 (11:45→14:30)
--- NOTE | 2020-03-14 11:50 | Anethesia Preoperative Eval ---
Anesthesia Pre-op PMH/ROS General Date of Evaluation: Mar 14, 2020 Time of Evaluation: 11:21 Anesthesiologist: Danny ASA Score: ASA 3 Mallampati Score Class I : Soft palate, uvula, fauces, pillars visible Class II: Soft palate, uvula, fauces visible Class III: Soft palate, base of uvula visible Class IV: Only hard plate visible Mallampati Classification: Class II Surgeon: Naina Diagnosis: R Foot Abcess Surgical Procedure: I & D R Foot Abcess Anesthesia History: none Family History: no anesthesia problems Allergies: Coded Allergies: CEPHALEXIN (Verified Allergy, Unknown, 03/14/20) severe abdominal pain and vomiting per pt CODEINE (Verified Allergy, Unknown, 03/27/11) METOCLOPRAMIDE (Verified Allergy, Unknown, 02/01/18) MORPHINE (Verified Allergy, Unknown, ITCH, 03/27/11) Medications: see eMAR Patient NPO?: Yes Past Medical History Cardiovascular: Reports: HTN, CAD - Acute Coronary Syndrome, other - HL Gastrointestinal/Genitourinary: Reports: other - Pancreatitis Endocrine: Reports: DM Hematology/Immune: Reports: anemia, DVT Other: obesity - BMI 31 PSxH Narrative: Scrotum Abscess Anesthesia Pre-op Phys. Exam Physician Exam Last Vital Signs Date Time Temp Pulse Resp B/P (MAP) Pulse Ox O2 Delivery O2 Flow Rate FiO2 03/14/20 05:31 105 03/14/20 05:30 98.6 19 131/71 (91) 94 03/14/20 05:27 Room Air Constitutional: NAD Neurologic: CN 2-12 intact Cardiovascular: RRR Respiratory: CTA Gastrointestinal: S/NT/ND Airway Exam Mallampati Score: Class II MO: limited ROM: limited Teeth: missing, intact Anesthesia Pre-op A/P Labs Hematology Test 03/14/20 02:00 White Blood Count 21.0 K/UL (4.8-10.8) H Red Blood Count 4.42 M/UL (4.70-6.10) L Hemoglobin 11.6 G/DL (14.2-18.0) L Hematocrit 33.9 % (42.0-52.0) L Mean Corpuscular Volume 77 FL (80-99) L Mean Corpuscular Hemoglobin 26.3 PG (27.0-31.0) L Mean Corpuscular Hemoglobin Concent 34.2 G/DL (32.0-36.0) Red Cell Distribution Width 12.7 % (11.6-14.8) Platelet Count 205 K/UL (150-450) Mean Platelet Volume 8.7 FL (6.5-10.1) Neutrophils (%) (Auto) % (45.0-75.0) Lymphocytes (%) (Auto) % (20.0-45.0) Monocytes (%) (Auto) % (1.0-10.0) Eosinophils (%) (Auto) % (0.0-3.0) Basophils (%) (Auto) % (0.0-2.0) Differential Total Cells Counted 100 Neutrophils % (Manual) 90 % (45-75) H Lymphocytes % (Manual) 3 % (20-45) L Monocytes % (Manual) 7 % (1-10) Eosinophils % (Manual) 0 % (0-3) Basophils % (Manual) 0 % (0-2) Band Neutrophils 0 % (0-8) Platelet Estimate Adequate Platelet Morphology Normal Microcytosis 1+ Erythrocyte Sedimentation Rate 85 MM/HR (0-20) H Chemistry Test 03/14/20 02:00 03/14/20 02:04 03/14/20 03:14 Sodium Level 128 MMOL/L (136-145) L Potassium Level 4.8 MMOL/L (3.5-5.1) Chloride Level 90 MMOL/L (98-107) L Carbon Dioxide Level 29 MMOL/L (21-32) Anion Gap 9 mmol/L (5-15) Blood Urea Nitrogen 21 mg/dL (7-18) H Creatinine 1.7 MG/DL (0.55-1.30) H Estimat Glomerular Filtration Rate 51.5 mL/min (>60) Glucose Level 394 MG/DL (74-106) H Lactic Acid Level 1.40 mmol/L (0.4-2.0) Calcium Level 8.7 MG/DL (8.5-10.1) Total Bilirubin 0.5 MG/DL (0.2-1.0) Aspartate Amino Transf (AST/SGOT) 24 U/L (15-37) Alanine Aminotransferase (ALT/SGPT) 77 U/L (12-78) Alkaline Phosphatase 164 U/L (46-116) H Total Creatine Kinase 67 U/L (26-308) Creatine Kinase MB 0.7 NG/ML (0.0-3.6) Creatine Kinase MB Relative Index 1.0 Troponin I 0.000 ng/mL (0.000-0.056) C-Reactive Protein, Quantitative 48.3 mg/dL (0.00-0.90) H Total Protein 7.8 G/DL (6.4-8.2) Albumin 2.6 G/DL (3.4-5.0) L Globulin 5.2 g/dL Albumin/Globulin Ratio 0.5 (1.0-2.7) L POC Whole Blood Glucose 417 MG/DL (74-106) H 98 MG/DL (74-106) Risk Assessment & Plan Assessment: ASA 3E Plan: GA, SED Status Change Before Surgery: No Pre-Antibiotics Dru Grams Ancef IV Given Within 1 Hr of Incision: Yes Time Given: 12:01 Pelon Delgado MD Mar 14, 2020 11:50
--- NOTE | 2020-03-14 11:51 | Immediate Post-Op Evaluation ---
Immediate Post-Op Evalulation Immediate Post-Op Evalulation Procedure: I & D R Foot Abcess Date of Evaluation: Mar 14, 2020 Time of Evaluation: 13:14 IV Fluids: 200 LR Blood Products: 0 Estimated Blood Loss: 10 Urinary Output: 0 Blood Pressure Systolic: 121 Blood Pressure Diastolic: 52 Pulse Rate: 112 Respiratory Rate: 8 - Intubated, Spont Resp O2 Sat by Pulse Oximetry: 100 Temperature (Fahrenheit): 98.4 Pain Score (1-10): 2 Nausea: No Vomiting: No Complications Pt had bradycardia, hypotension after induction. Atropine 0.4 X2, And !.5 Amps Epinephrine then Bp 236/160, Hr to 160, then hr settled down to 100, Bp to 121/ 52.Taken to ICU.Will follow. Patient Status: awake, reacts, patent, none Hydration Status: adequate Dru Grams Ancef IV Given Within 1 Hr of Incision: Yes Time Given: 12:01 Pelon Delgado MD Mar 14, 2020 11:51
[2020-03-14] MEDS ORDERED: NS Irrig 1000ml IRRIG ONE (12:15)
[2020-03-14] MEDS ORDERED: Betadine 4oz Bottle TOPIC ONE (12:15)
[2020-03-14] MEDS ORDERED: ePHEDrine 50mg/ml Inj ONE (12:17)
[2020-03-14] MEDS ORDERED: Atropine Sulfate 0.4mg/ml inj ONE (12:18)
[2020-03-14] MEDS ORDERED: Atropine Inj 1mg/10ml Syr ONE (12:33)
[2020-03-14] MEDS ORDERED: D5 1/2NS w/KCl 20mEq 1,000 ML IV SCH (13:03)
[2020-03-14] MEDS ORDERED: Levophed 4mg/4mL Inj IV ONE (13:12)
[2020-03-14] MEDS ORDERED: Acetaminophen 650 MG SUPP RECTAL PRN ×2 (13:15→14:22)
[2020-03-14] MEDS ORDERED: DOPamine 400mg/250ml 250 ML IV SCH (13:15)
--- NOTE | 2020-03-14 13:26 | History & Physical ---
History and Physical History & Physicial 54-year-old male with multifocal problems with diabetic foot ulcer right side. Patient seen earlier this morning and now underwent incision and drainage of the right foot. The patient apparently has wound care coming to his house but has noticed worsening overall symptoms with worsening edema and erythema and some drainage. The patient also noted to have elevated blood sugars at home. The patient admitted for the above-noted procedure as well as IV antibiotics ID evaluation and further recommendations Past medical history notable for diabetes hypertension chronic diabetic foot ulcer undergoing wound care, denies coronary disease Medications and allergies reviewed and reconciled Social history the patient is unemployed currently non-smoker nondrinker ROS: no syncope, no chest pain or heart disease, no shortness of breath Physical examination Well-developed well-nourished male Vital signs 131/71, 105, 96, 19 HEENT negative neck supple Lungs are fairly clear and symmetric Cardiac exam no S1-S2 mildly tachycardic Abdomen is soft Extremities right foot ulcer erythema edema Neurologically grossly nonfocal Laboratory data CT of the right foot showing large amount of gas and soft tissue likely related to gangrene with cellulitis and diffuse soft tissue edema with suspected early osteomyelitis of the right fifth metatarsal head ECG- no acute changes, sinus tachycardia Laboratory Tests Test 03/14/20 02:00 03/14/20 02:04 03/14/20 03:05 03/14/20 03:14 White Blood Count 21.0 K/UL (4.8-10.8) H Red Blood Count 4.42 M/UL (4.70-6.10) L Hemoglobin 11.6 G/DL (14.2-18.0) L Hematocrit 33.9 % (42.0-52.0) L Mean Corpuscular Volume 77 FL (80-99) L Mean Corpuscular Hemoglobin 26.3 PG (27.0-31.0) L Mean Corpuscular Hemoglobin Concent 34.2 G/DL (32.0-36.0) Red Cell Distribution Width 12.7 % (11.6-14.8) Platelet Count 205 K/UL (150-450) Mean Platelet Volume 8.7 FL (6.5-10.1) Neutrophils (%) (Auto) % (45.0-75.0) Lymphocytes (%) (Auto) % (20.0-45.0) Monocytes (%) (Auto) % (1.0-10.0) Eosinophils (%) (Auto) % (0.0-3.0) Basophils (%) (Auto) % (0.0-2.0) Differential Total Cells Counted 100 Neutrophils % (Manual) 90 % (45-75) H Lymphocytes % (Manual) 3 % (20-45) L Monocytes % (Manual) 7 % (1-10) Eosinophils % (Manual) 0 % (0-3) Basophils % (Manual) 0 % (0-2) Band Neutrophils 0 % (0-8) Platelet Estimate Adequate Platelet Morphology Normal Microcytosis 1+ Erythrocyte Sedimentation Rate 85 MM/HR (0-20) H Sodium Level 128 MMOL/L (136-145) L Potassium Level 4.8 MMOL/L (3.5-5.1) Chloride Level 90 MMOL/L (98-107) L Carbon Dioxide Level 29 MMOL/L (21-32) Anion Gap 9 mmol/L (5-15) Blood Urea Nitrogen 21 mg/dL (7-18) H Creatinine 1.7 MG/DL (0.55-1.30) H Estimat Glomerular Filtration Rate 51.5 mL/min (>60) Glucose Level 394 MG/DL (74-106) H Lactic Acid Level 1.40 mmol/L (0.4-2.0) Calcium Level 8.7 MG/DL (8.5-10.1) Total Bilirubin 0.5 MG/DL (0.2-1.0) Aspartate Amino Transf (AST/SGOT) 24 U/L (15-37) Alanine Aminotransferase (ALT/SGPT) 77 U/L (12-78) Alkaline Phosphatase 164 U/L (46-116) H Total Creatine Kinase 67 U/L (26-308) Creatine Kinase MB 0.7 NG/ML (0.0-3.6) Creatine Kinase MB Relative Index 1.0 Troponin I 0.000 ng/mL (0.000-0.056) C-Reactive Protein, Quantitative 48.3 mg/dL (0.00-0.90) H Total Protein 7.8 G/DL (6.4-8.2) Albumin 2.6 G/DL (3.4-5.0) L Globulin 5.2 g/dL Albumin/Globulin Ratio 0.5 (1.0-2.7) L Acetone Level Negative (NEGATIVE) POC Whole Blood Glucose 417 MG/DL (74-106) H 98 MG/DL (74-106) Venous Blood pH 7.325 Venous Blood Partial Pressure CO2 43.4 Venous Blood Partial Pressure O2 24.9 Venous Blood HCO3 22.1 Venous Blood Base Excess -3.7 Venous Blood Carboxyhemoglobin 5.8 % (0.5-1.5) H Methemoglobin 0.1 Test 03/14/20 04:00 Urine Color Pale yellow Urine Appearance Clear Urine pH 5 (4.5-8.0) Urine Specific [place] 1.005 (1.005-1.035) Urine Protein 2+ (NEGATIVE) H Urine Glucose (UA) 4+ (NEGATIVE) H Urine Ketones Negative (NEGATIVE) Urine Blood 2+ (NEGATIVE) H Urine Nitrite Negative (NEGATIVE) Urine Bilirubin Negative (NEGATIVE) Urine Urobilinogen Normal MG/DL (0.0-1.0) Urine Leukocyte Esterase Negative (NEGATIVE) Urine RBC 2-4 /HPF (0 - 0) H Urine WBC 0-2 /HPF (0 - 0) Urine Squamous Epithelial Cells Occasional /LPF Urine Bacteria Occasional /HPF (NONE) IMPRESSION Probable osteomyelitis Diabetic foot ulcer with sepsis Diabetes, poorly controlled Chronic renal failure, Proteinuria, hypertension, PLAN Incision and drainage per surgery Wound care IV antibiotics ID evaluation Likely needs PICC line for prolonged IV antibiotics Pain control DVT prophylaxis postoperatively Resume medications and watch blood sugars impression, plan, and exam edited and reviewed in detail care discussed with Christopher Harris MD Mar 14, 2020 13:26
--- NOTE | 2020-03-14 13:50 | Cardiology Progress Note ---
Assessment/Plan Assessment/Plan [id number] hyptesnion rachid ? initally vagal a possibility but remained hypotensive hs of fem arterial thrombosis , s/p tpa 2008 on Coumadin unitl 2010 ana dm gangrene? sepssi full carcdiology critical care dicated echo persoanlly reviewed ivcc dialted but rv is nto dilated or hypokinetic, lv ef 50% no sigf valvul problme venous duplex of the lwoer ext right no dvt, left begin doen arterial duplex fludi bolud pressor iv abx vent support d/w dr mazariegos Objective Last 24 Hour Vital Signs Date Time Temp Pulse Resp B/P (MAP) Pulse Ox O2 Delivery O2 Flow Rate FiO2 03/14/20 13:17 104 16 100 Mechanical Ventilator 45.0 50 03/14/20 13:12 104 16 50 03/14/20 13:09 112 8 100 03/14/20 05:31 105 03/14/20 05:30 98.6 105 19 131/71 (91) 94 03/14/20 05:27 Room Air 03/14/20 05:00 99.1 93 18 139/65 99 Room Air 03/14/20 03:00 99.1 93 18 139/65 99 Room Air 03/14/20 02:50 99.1 03/14/20 02:50 99.1 03/14/20 01:56 99.1 104 18 144/83 (103) 99 Room Air Intake and Output 03/13/20 03/14/20 19:00 07:00 Output Total 400 ml Balance -400 ml Output Urine Total 400 ml # Voids 1 Laboratory Tests Test 03/14/20 02:00 03/14/20 02:04 03/14/20 03:05 03/14/20 03:14 White Blood Count 21.0 K/UL (4.8-10.8) H Red Blood Count 4.42 M/UL (4.70-6.10) L Hemoglobin 11.6 G/DL (14.2-18.0) L Hematocrit 33.9 % (42.0-52.0) L Mean Corpuscular Volume 77 FL (80-99) L Mean Corpuscular Hemoglobin 26.3 PG (27.0-31.0) L Mean Corpuscular Hemoglobin Concent 34.2 G/DL (32.0-36.0) Red Cell Distribution Width 12.7 % (11.6-14.8) Platelet Count 205 K/UL (150-450) Mean Platelet Volume 8.7 FL (6.5-10.1) Neutrophils (%) (Auto) % (45.0-75.0) Lymphocytes (%) (Auto) % (20.0-45.0) Monocytes (%) (Auto) % (1.0-10.0) Eosinophils (%) (Auto) % (0.0-3.0) Basophils (%) (Auto) % (0.0-2.0) Differential Total Cells Counted 100 Neutrophils % (Manual) 90 % (45-75) H Lymphocytes % (Manual) 3 % (20-45) L Monocytes % (Manual) 7 % (1-10) Eosinophils % (Manual) 0 % (0-3) Basophils % (Manual) 0 % (0-2) Band Neutrophils 0 % (0-8) Platelet Estimate Adequate Platelet Morphology Normal Microcytosis 1+ Erythrocyte Sedimentation Rate 85 MM/HR (0-20) H Sodium Level 128 MMOL/L (136-145) L Potassium Level 4.8 MMOL/L (3.5-5.1) Chloride Level 90 MMOL/L (98-107) L Carbon Dioxide Level 29 MMOL/L (21-32) Anion Gap 9 mmol/L (5-15) Blood Urea Nitrogen 21 mg/dL (7-18) H Creatinine 1.7 MG/DL (0.55-1.30) H Estimat Glomerular Filtration Rate 51.5 mL/min (>60) Glucose Level 394 MG/DL (74-106) H Lactic Acid Level 1.40 mmol/L (0.4-2.0) Calcium Level 8.7 MG/DL (8.5-10.1) Total Bilirubin 0.5 MG/DL (0.2-1.0) Aspartate Amino Transf (AST/SGOT) 24 U/L (15-37) Alanine Aminotransferase (ALT/SGPT) 77 U/L (12-78) Alkaline Phosphatase 164 U/L (46-116) H Total Creatine Kinase 67 U/L (26-308) Creatine Kinase MB 0.7 NG/ML (0.0-3.6) Creatine Kinase MB Relative Index 1.0 Troponin I 0.000 ng/mL (0.000-0.056) C-Reactive Protein, Quantitative 48.3 mg/dL (0.00-0.90) H Total Protein 7.8 G/DL (6.4-8.2) Albumin 2.6 G/DL (3.4-5.0) L Globulin 5.2 g/dL Albumin/Globulin Ratio 0.5 (1.0-2.7) L Acetone Level Negative (NEGATIVE) POC Whole Blood Glucose 417 MG/DL (74-106) H 98 MG/DL (74-106) Venous Blood pH 7.325 Venous Blood Partial Pressure CO2 43.4 Venous Blood Partial Pressure O2 24.9 Venous Blood HCO3 22.1 Venous Blood Base Excess -3.7 Venous Blood Carboxyhemoglobin 5.8 % (0.5-1.5) H Methemoglobin 0.1 Test 03/14/20 04:00 Urine Color Pale yellow Urine Appearance Clear Urine pH 5 (4.5-8.0) Urine Specific [place] 1.005 (1.005-1.035) Urine Protein 2+ (NEGATIVE) H Urine Glucose (UA) 4+ (NEGATIVE) H Urine Ketones Negative (NEGATIVE) Urine Blood 2+ (NEGATIVE) H Urine Nitrite Negative (NEGATIVE) Urine Bilirubin Negative (NEGATIVE) Urine Urobilinogen Normal MG/DL (0.0-1.0) Urine Leukocyte Esterase Negative (NEGATIVE) Urine RBC 2-4 /HPF (0 - 0) H Urine WBC 0-2 /HPF (0 - 0) Urine Squamous Epithelial Cells Occasional /LPF Urine Bacteria Occasional /HPF (NONE) Microbiology Date/Time Source Procedure Growth Status 03/14/20 03:05 Nasopharynx SARS-CoV-2 RdRp Gene Assay - Final Complete Addi Gomez MD Mar 14, 2020 13:50
--- NOTE | 2020-03-14 15:45 | Diagnostic Imaging Report ---
EXAM: US Duplex Bilateral Lower Extremities Arteries CLINICAL HISTORY: DVT TECHNIQUE: Real-time duplex ultrasound scan of the bilateral lower extremity arteries integrating B-mode two-dimensional vascular structure, Doppler spectral analysis and color flow Doppler imaging. COMPARISON: No relevant prior studies available. FINDINGS: Triphasic right common femoral artery waveform indicating adequate inflow. Waveforms become biphasic in the right superficial femoral artery, presumably due to the mild-moderate atherosclerotic plaque demonstrated throughout. Biphasic popliteal waveform. Limited assessment of right calf arteries due to dressings. Right anterior tibial/dorsalis pedis arteries are obscured.. Patent right posterior tibial and peroneal arteries with monophasic waveforms. Left common femoral and proximal superficial femoral arteries are not assessed due to dressings. Biphasic-monophasic waveforms in the mid and distal left superficial femoral arteries and popliteal artery. This is presumably due to the same. Mild-moderate diffuse plaque as seen on the right side. Anterior and posterior tibial and peroneal arteries are patent to the left calf, all with dampened monophasic waveforms. IMPRESSION: Mild-moderate diffuse plaque to both legs, resulting in abnormal waveforms as detailed above. No occlusion or clear focal high-grade stenosis. The most severe disease is noted to the left calf, where not only are the waveforms monophasic, but they are also substantially dampened. Please note that left common and proximal superficial femoral arteries and right anterior tibial/dorsalis pedis arteries are not assessed due to overlying dressings.
--- NOTE | 2020-03-14 15:47 | Diagnostic Imaging Report ---
EXAM: US Duplex Bilateral Lower Extremities Veins CLINICAL HISTORY: SWELL TECHNIQUE: Real-time duplex ultrasound scan of the bilateral lower extremity veins integrating B-mode two-dimensional vascular structure, Doppler spectral analysis, color flow Doppler imaging and compression. COMPARISON: No relevant prior studies available. FINDINGS: Right deep veins: Unremarkable. No DVT in the right common femoral, femoral, proximal deep femoral or popliteal veins. The veins demonstrate normal color flow, are normally compressible, with normal phasic flow and/or augmentation response. Right superficial veins: Unremarkable. No thrombus in the visualized right great saphenous vein. Left deep veins: Limited assessment, as the left common, deep, and proximal superficial femoral veins were not assessed due to dressings. The veins demonstrate normal color flow, are normally compressible, with normal phasic flow and/or augmentation response. Left superficial veins: Unremarkable. No thrombus in the visualized left great saphenous vein. Soft tissues: No acute findings. No popliteal cyst. IMPRESSION: No visualized DVT. Please note that left common, deep, and proximal superficial femoral veins were not assessed due to overlying dressings.
--- NOTE | 2020-03-14 16:07 | Diagnostic Imaging Report ---
EXAM: XR Chest, 1 View CLINICAL HISTORY: LINE TECHNIQUE: Frontal view of the chest. COMPARISON: 02/06/19. FINDINGS: The tip of the endotracheal tube is appropriately positioned, projecting 5.5 cm above the cathie. The enteric tube courses well below the diaphragm with the tip and sidehole in the gastric body. The heart is borderline enlarged. There is no overt pulmonary edema. Suspect some mild left basilar atelectasis. Degeneration of the spine and shoulders. IMPRESSION: Appropriately positioned endotracheal and enteric tubes. Suspect some mild left basilar atelectasis.
--- NOTE | 2020-03-14 16:07 | Diagnostic Imaging Report ---
EXAM: XR Abdomen, 2 Views CLINICAL HISTORY: NGT TECHNIQUE: Frontal view of the abdomen/pelvis with upright view of the abdomen. COMPARISON: No relevant prior studies available. FINDINGS/IMPRESSION: Tip and sidehole of the enteric tube project within the stomach, well below the diaphragm.
--- NOTE | 2020-03-14 17:00 | Operative Note - PDOC ---
Operative Note Operative Note Date of Operation/Procedure: Mar 14, 2020 Pre-op Diagnosis: sepsis hypotension Procedure: left femoral central venous catheter insertion Post-op Diagnosis: same as pre-op Surgeon: jacinta macias md Anesthesia: local, other Specimen: none Complications: none Condition: unstable Estimated Blood Loss: minimal Implant(s) used?: No Indications for Procedure 54M s/p foot debridement for nec fasc had ACLS cardiopulmonary arrest in OR. intubated and in ICU on support. no good peripheral access and central venous catheter indicated and recommended emergently for fluids, abx, pressors, and care plan. line placed emergency in ICU Description of Procedure Patient was made comfortable the bedside. Placed in supine position. The left groin was prepped and draped in same surgical fashion. Finder needle was used and the left femoral vein was cannulated on for stick without complication. Good venous flow identified. Guidewire placed over needle needle removed. Small skin incision was made around the guidewire. Dilator was used. Triple- lumen catheter inserted over the guidewire and guidewire was removed and discarded. All 3 ports flushed and aspirated appropriately. Line sutured in place. Dressings applied. Patient taught procedure well. Line okay to use. Jacinta Macias Mar 14, 2020 17:00
[2020-03-14 17:08] LABS: HEMATOCRIT 31.9 % (42.0-52.0); HEMOGLOBIN 10.5 G/DL (14.2-18.0); MEAN CORPUSCULAR VOLUME 79 FL (80-99); PLATELET COUNT 199 K/UL (150-450); RED BLOOD COUNT 4.06 M/UL (4.70-6.10); RED CELL DISTRIBUTION WIDTH 13.6 % (11.6-14.8); WHITE BLOOD COUNT 21.7 K/UL (4.8-10.8)
[2020-03-14 17:10] LABS: BASOPHILS % (AUTO) 0.2 % (0.0-2.0); EOSINOPHILS % (AUTO) 0.1 % (0.0-3.0); LYMPHOCYTES % (AUTO) 3.6 % (20.0-45.0); MONOCYTES % (AUTO) 8.7 % (1.0-10.0); NEUTROPHILS % (AUTO) 87.4 % (45.0-75.0)
[2020-03-14] MEDS: Piperacillin/Tazobactam 3.375 GM in NS 110 ML IVPB SCH (17:16)
[2020-03-14 17:17] LABS: CALCIUM 8.3 MG/DL (8.5-10.1); CREATININE 1.7 MG/DL (0.55-1.30); POTASSIUM 5.2 MMOL/L (3.5-5.1)
--- NOTE | 2020-03-14 19:29 | Consultation ---
DATE OF CONSULTATION: 03/14/2020 CARDIOLOGY CONSULTATION This is a critical care cardiology note. CONSULTING PHYSICIAN: Addi Gomez MD. HISTORY OF PRESENT ILLNESS: This is a middle-aged gentleman who presented earlier to the emergency room here with leg pain, was noted to have significant issues with possibility of gangrene and possible fasciitis, taken to the operating room for surgical debridement. Under propofol sedation, had developed hypotension and bradycardia and the case was aborted. Patient was resuscitated with fluids, remained hypotensive. The anesthesiologist administered glycopyrrolate as well as atropine with no response. Patient was given some epinephrine. Did respond to the epinephrine. Initially, the patient's blood pressures have been dropped. He was brought to the intensive care unit. I was urgently consulted by Dr. Chew for evaluation and treatment. On my evaluation, the patient is on a ventilator and not able to communicate in any shape or form, not responsive, and the nursing staff are arranging for an electrocardiogram to be performed as ordered. Initial evaluation showed that the patient's blood pressure was unobtainable at first. Orders for Levophed drip were given on an urgent basis and the patient was evaluated in evaluation did not significantly have any jugular venous distention. PHYSICAL EXAMINATION: GENERAL: On my initial evaluation, the patient is unresponsive. Communicated with . NECK: Supple. LUNGS: Appeared to be clear to auscultation anteriorly. CARDIAC: Regular rhythm. Tachycardic. No heaves or thrills. ABDOMEN: Appears to be soft, nontender. EXTREMITIES: There is no edema. Very difficult to feel pulses in the lower extremities. Dr. Macias from surgery is attempting to put a central line in. Pressor orders were given. IV fluid boluses were instituted. Patient's blood pressure is improved to 117/63 from initial 98/53. On review of the patient's old chart data, he has a history of the following: Chronic pancreatitis, uncontrolled diabetes mellitus, bilateral leg cramps, history of hypertension, acute on chronic kidney disease, anemia microcytic, constipation. Chart indicates patient also has a history of diabetic peripheral neuropathy, hypertension, hyperlipidemia, gastroesophageal reflux disease. He does, according to the records, have a history of obstructive sleep apnea as well as tobacco use disorder, femoral artery thromboses in 2007, not felt to be in hypercoagulable state, status post thrombolytic therapy and he took Coumadin for until 2009. ALLERGIES: Actually to cephalexin, codeine, Reglan, and morphine. SOCIAL HISTORY: Not completely clear, although the prior history is indicated that patient had a history of tobacco use. Does not use any history of alcohol or drugs. REVIEW OF SYSTEMS: Unable to obtain. LABORATORY DATA: White count of 21,000 with hemoglobin 11.6, and platelet count of 205. Blood gases, pH of 7.35, pCO2 of 43, pO2 25, and bicarbonate of 22, likely a venous gas at 3 o'clock in the morning. His chemistries, his blood sugar of 417 at 2 a.m. CRP of 48.3. Troponin was 0 at the time of his evaluation in the emergency room. Subsequent blood sugar was 98. He did have foot x-rays in the emergency room that showed limited evaluation of the toes, soft tissue swelling, and subcutaneous air laterally at the right mid foot for worrisome for diffuse cellulitis and he did have a CT scan of his foot that showed large amount of gas noted in the soft tissues predominantly on the lateral aspect of the right foot associated with cellulitis and edema, possibly related to gangrene. ASSESSMENT AND PLAN: 1. Bradycardia and hypotension, questionable related to vagal stimulation. 2. Hypotension persistent, possibly septic in origin. 3. Diabetes mellitus with end-organ damage. 4. History of pancreatitis. 5. History of hypertension. 6. History of hyperlipidemia. 7. History of chronic kidney disease. 8. Abnormal EKG. This patient was seen and is being treated in the intensive care unit under critical condition. Patient's blood pressure is being supported by pressors. An echocardiogram has been ordered and is being actually performed as I am dictating this note. Venous duplex of the lower extremities have been ordered. An EKG has been performed showing some minor ST-segment depressions in II, III, aVF as well as V5 and V6. This is after resuscitation with heart rate in the 114 range. He will have further evaluation. IV fluid boluses were administered and pressors will be adjusted. Patient will require ventilator management. I believe Dr. Moody has been assigned as his document specialist/blacksmith assistant. He will be contacted. Blood gases will be performed for evaluation of acid-base disorder. His oxygen saturations at this time are 100% and cardiac enzymes will be checked. As a matter of routine serially, the patient having some ischemic changes on the EKG and compared with his resting EKG. This however may be post hypotensive episode. Aspirin will be administered as soon as an NG tube can be placed and Venous duplex is being performed to evaluate for possibility of a DVT as well. Addi Gomez M.D. DR: MARIA ISABEL JOB#: [id number] CC:
[2020-03-14] MEDS ORDERED: Dyna-Hex 2% Top Sol 2oz TOPIC SCH (20:00)
--- NOTE | 2020-03-14 20:00 | Operative Note - Dictated ---
DATE OF OPERATION: 03/14/2020 SURGEON: Glen Chew MD. PREOPERATIVE DIAGNOSIS: Infected and gangrenous diabetic foot. POSTOPERATIVE DIAGNOSIS: Infected and gangrenous diabetic foot. OPERATION: Debridement of the right foot. COMPLICATION: The patient coded, but was resuscitated. INDICATIONS: This 54-year-old male, who presented to emergency room complaining of swelling and pain of the right foot and it was only the foot not the leg. He stated that he has had diabetic ulcer at the right foot for 2 to 3 years, which has been off and on, but in the last 2 to 3 months he has had another one for which he had home health nurse take care of that, but about 2 days ago, he noticed a swelling of the right fourth and pain. He claimed that he had low-grade fever, but no drainage. The patient was seen in the emergency room at 2:30 in the morning and at that it was noticed that he had ulcer at the plantar surface of the foot at the level of the fifth metatarsal and on the lateral side of the foot, he had the area of discoloration and fluid collection. WBC was 20,000 with a left shift and the blood glucose was at that level of 400. The patient was admitted to the hospital on IV antibiotic for debridement of the foot. Again this morning when physical examination, it was noticed that the sides of the foot was gangrenous. DESCRIPTION OF PROCEDURE: The patient was placed supine on the operating table and after general anesthesia with laryngeal mask, the right foot was properly prepped and draped. An incision was given over the lateral side of the foot and it was noticed that the whole soft tissue was gangrenous and infected. This area was gradually resected and debrided. The debridement was mainly on the lateral side of the dorsum and the plantar surface. It was about 3 inches in diameter and the ulcer at the plantar surface was connected to this debridement. There was some pus in this area from which culture was obtained. There was more necrotic tissue, but at this point, the anesthesiologist notified me that the patient had bradycardia and I noticed that the heart rate was 24 and initially did not respond to the atropine. The procedure was terminated and immediately a Betadine-soaked sponge was applied with a dressing and the attention was given to the resuscitation of the patient with the help of the anesthesiologist and there was a short period of hypotension and even had ventricular rhythem for short time, but the patient finally developed sinus rhythm with tachycardia and the blood pressure increased. At this time, the patient was transferred to the ICU and the section leader and machine setter was called stat who took over the case of the patient. At the time of this dictation, the blood pressure is about 98/60 with a pulse rate of 110. The condition of the patient is critical. SPONGE AND NEEDLE COUNT: Correct. ESTIMATED BLOOD LOSS: There was absolutely no blood loss. Glen Chew M.D. DR: LAURO JOB#: [id number] CC: RENZO
[2020-03-14] MEDS ORDERED: NS 500ML ONE (22:54)
[2020-03-15] VITALS (50 sets, daily range): BP systolic 39–196; BP diastolic 10–136
--- NOTE | 2020-03-15 01:44 | Consultation ---
DATE OF CONSULTATION: 03/14/2020 REASON FOR CONSULTATION: Pain and swelling of the right foot. HISTORY OF PRESENT ILLNESS: This is a 54-year-old male who presented with pain and swelling of the right foot for about two days. The patient stated that he had been having diabetic ulcer on the right foot for about two to three years which has been off and on. In the last three months, he has had ulcer at the base of the right fifth metatarsal and apparently he has had home health nurse who takes care of the wound at home but he claims that two days ago the foot was swollen. He had low-grade fever and he has noticed that color change but there is no chills and there is no drainage. Of course, he has a long history of diabetes with neuropathy. PAST MEDICAL HISTORY: He claims to be allergic to Reglan, morphine, and codeine. He denies asthma, cardiac, and renal diseases. He has history of hypertension and neuropathy. PAST SURGICAL HISTORY: Apparently debridement of the scrotum. He claims that he had blood clot in the left leg which was removed percutaneously. MEDICATIONS: Please see the medicine reconciliation form. SOCIAL HISTORY: The patient is a 54-year-old male who is and father of five children. He is unemployed. He smokes two to three cigars a day and drinks socially. REVIEW OF SYSTEMS: He complains of neuropathy. PHYSICAL EXAMINATION: GENERAL: The patient appeared to be well-developed and well-nourished 54-year-old male, in no acute distress, lying on the bed, complaining of swelling and pain of the right foot. HEENT: Head is normocephalic and atraumatic. Eyes, pupils are equal, round, and reactive to light. Mouth is clear. NECK: There is no palpable thyromegaly or adenopathy. CHEST: Clear to auscultation and percussion. HEART: There is no gallop or murmur. S1 and S2 are within normal limits. ABDOMEN: Soft, flat, nontender. There is no palpable organomegaly. Bowel sounds are audible GENITAL: Deferred. EXTREMITIES: Right foot, he has an ulcer at the plantar surface of the foot at the level of the fourth and fifth metatarsals. He has discoloration on the lateral side of the foot at this area which extends from the plantar surface to the dorsum. He has fluctuation in the area. There is erythema on the dorsum of the foot. At the groin, he has multiple and small adenopathy. LABORATORY AND DIAGNOSTIC DATA: CBC has shown WBC of 21,000 with left shift. Chemistry has shown blood glucose of 417, sodium 128, alkaline phosphatase of 164, creatinine 1.7. CT scan of the foot has been performed which shown large amount of gas on the soft tissue lateral to the right foot with edema and cellulitis. There is irregularity of right fifth metatarsal head. ASSESSMENT: Infected right diabetic foot with gangrene, possible osteomyelitis. PLAN: The patient has been scheduled for incision, drainage and debridement of the right foot. He was notified that there is a chance for him to have osteo which requires to be evaluated after the surgery and if he has osteo he might require further surgery and most probably six weeks of IV antibiotics, he understood and agreed. Glen Chew M.D. DR: Edi JOB#: [id number] CC:
--- NOTE | 2020-03-15 01:45 | Consultation ---
DATE OF CONSULTATION: 03/14/2020 INFECTIOUS DISEASE CONSULTATION CONSULTING PHYSICIAN: Lyndon Cuba MD This consult is for coverage of Jolie Wiggins MD. PRIMARY ATTENDING PHYSICIAN: Christopher Moody MD REASON FOR CONSULTATION: Sepsis, necrotizing fasciitis, and cellulitis of right foot. HISTORY OF PRESENT ILLNESS: This is a 54-year-old male admitted early this morning because of diabetic foot ulcer in the right foot. The patient was noticing that there was worsening of edema, erythema, and some drainage from the wound. When he was checked by the visiting wound nurse, it was noticed that he had hyperglycemia and blood sugar was 415, and got insulin. The patient's radiology showed gangrene and gas in the tissue. He went to operating room for incision and debridement. In the middle of the surgery, the patient developed hypotension. Initially, the blood pressure was so low that it was unrecordable. They started on Levophed and the patient transferred to ICU. PAST MEDICAL HISTORY: Significant for diabetes mellitus, hypertension, and diabetic foot ulcer. ALLERGIES: Allergic to cephalexin, codeine, metoclopramide, and morphine. MEDICATIONS: Enoxaparin, dopamine, norepinephrine, midazolam, hydralazine, labetalol, diphenhydramine, lactated Ringer, meperidine, Zosyn, vancomycin, hydromorphone, insulin, Tylenol, sodium chloride, and Mylanta. SOCIAL HISTORY: . No history of alcohol or drug abuse. Nonsmoker. No other history obtainable. The patient is currently intubated. PHYSICAL EXAMINATION: VITAL SIGNS: Temperature 99.1, pulse 104, and blood pressure 83/59. GENERAL APPEARANCE: Seems to be well developed. HEAD AND NECK: Orally intubated. HEART: Tachycardic. He has left femoral line. LUNGS: Clear, on ventilator. ABDOMEN: Soft and nontender. EXTREMITIES: He has right foot dressing. LABORATORY AND DIAGNOSTIC DATA: COVID test is negative. WBC is 21, hemoglobin 11.6, hematocrit 33.9, and platelets is 205,000. Glucose, the last one is 98. Sodium 128, potassium 4.7, bicarb 21, BUN 21, creatinine 1.7, glucose 39. Foot x-ray showed soft tissue swelling and subcutaneous air actually at the right midfoot. CT scan of foot showed large amount of gas in the soft tissue along the lateral aspect of the right foot likely due to gas gangrene. IMPRESSION: Sepsis with leukocytosis and tachycardia. He seems to have necrotizing fasciitis in the right foot. He has diabetes mellitus with hyperglycemia, perioperative respiratory failure, hypotension, anemia, hyponatremia, renal failure, and allergy to cephalosporin. RECOMMENDATION: Continue vancomycin and Zosyn. We will follow up the cultures. At the end of my exam, I thank Dr. Moody for involving me in the care of this patient. Lyndon Cuba M.D. DR: Massimo JOB#: [id number] CC: RENZO
[2020-03-15] MEDS: Piperacillin/Tazobactam 3.375 GM in NS 110 ML IVPB SCH ×2 (01:48→09:53)
[2020-03-15] MEDS: NovoLOG Insulin Flexpen SUBQ SCH ×2 (06:08→11:59)
[2020-03-15] MEDS ORDERED: Aspirin Baby 81mg NG SCH (07:00)
[2020-03-15] MEDS ORDERED: Metoprolol Tartrate 12.5mg TAB ORAL SCH (07:00)
[2020-03-15 07:31] LABS: HEMATOCRIT 38.1 % (42.0-52.0); HEMOGLOBIN 12.2 G/DL (14.2-18.0); MEAN CORPUSCULAR VOLUME 78 FL (80-99); PLATELET COUNT 242 K/UL (150-450); RED BLOOD COUNT 4.85 M/UL (4.70-6.10); RED CELL DISTRIBUTION WIDTH 13.3 % (11.6-14.8); WHITE BLOOD COUNT 17.1 K/UL (4.8-10.8)
[2020-03-15 07:42] LABS: ALBUMIN 1.8 G/DL (3.4-5.0); ALBUMIN/GLOBULIN RATIO 0.4 (1.0-2.7); BILIRUBIN,TOTAL 0.3 MG/DL (0.2-1.0); CALCIUM 7.6 MG/DL (8.5-10.1); CREATININE 2.2 MG/DL (0.55-1.30); POTASSIUM 5.6 MMOL/L (3.5-5.1)
--- NOTE | 2020-03-15 08:42 | Critical Care Progress Note ---
Assessment/Plan Assessment/Plan IMPRESSION Probable osteomyelitis Diabetic foot ulcer s/p debridement with noted gangrene and pus Diabetes, poorly controlled Chronic renal failure, Proteinuria, hypertension, hypotension hyperkalemia ARF coffee ground with possible GIB sepsis due to gangrenous diabetic foot acute PR likely due to sepsis PLAN Incision and drainage,noted Wound care IV antibiotics ID evaluation renal and gi to see cardiology noted and appreciated; echo and venous US reviewed monitor heart rate and have cardiology follow up; monitor troponins sedation vent change await repeat ABG with vent change and setting change kayexalate very critical patient with overwhelming sepsis due to infected diabetic foot with acute PR and decompensation medications/laboratory data/nursing notes/ICU care reviewed in detail note reviewed and edited care discussed with RN and RT ICU time spent >60 minutes Critical Care - Subjective Interval Events: did poorly postop on vent cardiology care discussed on arrival to ICU noticed patient to be bradycardic and hypotensive and desaturating epi given with good results vent changed with good results patient bagged immediately to maintain sats over 90% now hemodynamics improved ROS Limited/Unobtainable: Yes Condition: critical EKG Rhythm: Sinus Tachycardia I&O: Intake and Output 03/14/20 03/15/20 19:00 07:00 Intake Total 819.375 ml 792.5 ml Output Total 1960 ml 680 ml Balance -1140.625 ml 112.5 ml Intake IV Total 819.375 ml 792.5 ml Output Urine Total 1960 ml 680 ml Critical Care - Objective ET-Tube: 8.0 ET Position: 23 Last 24 Hour Vital Signs Date Time Temp Pulse Resp B/P (MAP) Pulse Ox O2 Delivery O2 Flow Rate FiO2 03/15/20 08:06 137 28 100 03/15/20 07:00 123 21 129/79 (96) 90 03/15/20 06:50 108 23 100 03/15/20 06:30 102 14 101/68 (79) 83 03/15/20 06:30 102 14 03/15/20 06:00 120 16 111/69 (83) 98 03/15/20 05:30 104 13 99/56 (70) 100 03/15/20 05:00 105 11 110/66 (81) 99 03/15/20 04:30 104 12 100/62 (75) 95 03/15/20 04:00 Mechanical Ventilator Mechanical Ventilator 03/15/20 04:00 99.2 103 12 104/63 (77) 95 03/15/20 04:00 100 03/15/20 04:00 103 03/15/20 03:30 127 22 172/89 (116) 98 03/15/20 03:00 106 14 121/70 (87) 93 03/15/20 02:54 105 15 100 03/15/20 02:00 116 13 139/78 (98) 93 03/15/20 01:00 99 12 92/59 (70) 96 03/15/20 00:30 108 15 103/66 (78) 92 03/15/20 00:16 125 19 168/82 (110) 99 03/15/20 00:09 133 21 139/124 (129) 91 03/15/20 00:00 97.7 133 21 131/113 (119) 98 03/15/20 00:00 Mechanical Ventilator Mechanical Ventilator 03/15/20 00:00 133 03/15/20 00:00 100 03/14/20 23:30 108 16 116/69 (85) 100 03/14/20 23:04 108 16 100 03/14/20 23:00 110 15 121/68 (85) 100 03/14/20 22:30 111 15 118/70 (86) 100 03/14/20 22:15 110 16 113/68 (83) 96 03/14/20 22:00 111 16 109/74 (86) 94 03/14/20 21:45 120 16 120/76 (91) 97 03/14/20 21:44 123 17 121/76 (91) 97 03/14/20 21:36 141 29 184/99 (127) 97 03/14/20 21:30 145 31 193/157 (169) 94 03/14/20 21:00 114 20 92/68 (76) 91 03/14/20 20:43 132 22 162/84 (110) 99 03/14/20 20:30 138 27 188/97 (127) 98 03/14/20 20:15 137 24 157/118 (131) 98 03/14/20 20:00 98.6 110 15 105/65 (78) 99 03/14/20 20:00 Mechanical Ventilator Mechanical Ventilator 03/14/20 19:34 110 03/14/20 19:30 110 15 104/72 (83) 97 03/14/20 19:15 110 14 100 03/14/20 19:00 115 17 110/69 (83) 95 03/14/20 18:45 Mechanical Ventilator Mechanical Ventilator 03/14/20 18:45 100 03/14/20 18:00 106 15 120/74 (89) 100 03/14/20 17:07 50 03/14/20 17:00 108 15 112/69 (83) 100 03/14/20 16:00 98.2 109 17 137/73 (94) 100 03/14/20 16:00 Mechanical Ventilator Mechanical Ventilator 03/14/20 16:00 110 03/14/20 15:45 109 16 134/59 (84) 100 03/14/20 15:30 127/75 03/14/20 15:30 110 16 127/75 (92) 100 03/14/20 15:29 111 17 50 03/14/20 15:15 112 16 133/82 (99) 100 03/14/20 15:15 133/82 03/14/20 15:00 110 16 118/73 (88) 100 03/14/20 15:00 118/78 03/14/20 14:45 159/85 03/14/20 14:45 117 17 159/85 (109) 100 03/14/20 14:40 50 03/14/20 14:30 115 16 159/82 (107) 100 03/14/20 14:30 159/82 03/14/20 14:15 115 16 147/78 (101) 100 03/14/20 14:10 Mechanical Ventilator Mechanical Ventilator 03/14/20 14:00 114 16 137/76 (96) 100 03/14/20 14:00 137/76 03/14/20 13:45 119 15 166/89 (114) 100 03/14/20 13:45 166/89 03/14/20 13:35 50 03/14/20 13:30 118 15 76/52 (60) 100 03/14/20 13:17 104 16 100 Mechanical Ventilator 45.0 50 03/14/20 13:15 107 16 76/52 (60) 100 03/14/20 13:12 104 16 50 03/14/20 13:09 112 8 100 03/14/20 13:08 101 03/14/20 13:00 97.9 100 16 83/59 (67) 100 03/14/20 13:00 Mechanical Ventilator 03/14/20 13:00 83/59 03/14/20 11:44 92 03/14/20 09:00 Room Air Labs: Laboratory Tests Test 03/14/20 15:00 03/14/20 16:00 03/14/20 17:19 03/15/20 00:05 Arterial Blood pH 7.348 (7.350-7.450) Arterial Blood Partial Pressure CO2 40.7 mmHg (35.0-45.0) Arterial Blood Partial Pressure O2 65.4 mmHg (75.0-100.0) L Arterial Blood HCO3 21.9 mmol/L (22.0-26.0) L Arterial Blood Oxygen Saturation 92.5 % (95-100) L Arterial Blood Base Excess -3.5 (-2-2) L Gutierrez Test Positive White Blood Count 21.7 K/UL (4.8-10.8) H Red Blood Count 4.06 M/UL (4.70-6.10) L Hemoglobin 10.5 G/DL (14.2-18.0) L Hematocrit 31.9 % (42.0-52.0) L Mean Corpuscular Volume 79 FL (80-99) L Mean Corpuscular Hemoglobin 25.8 PG (27.0-31.0) L Mean Corpuscular Hemoglobin Concent 32.9 G/DL (32.0-36.0) Red Cell Distribution Width 13.6 % (11.6-14.8) Platelet Count 199 K/UL (150-450) Mean Platelet Volume 8.9 FL (6.5-10.1) Neutrophils (%) (Auto) 87.4 % (45.0-75.0) H Lymphocytes (%) (Auto) 3.6 % (20.0-45.0) L Monocytes (%) (Auto) 8.7 % (1.0-10.0) Eosinophils (%) (Auto) 0.1 % (0.0-3.0) Basophils (%) (Auto) 0.2 % (0.0-2.0) Sodium Level 132 MMOL/L (136-145) L Potassium Level 5.2 MMOL/L (3.5-5.1) H Chloride Level 96 MMOL/L (98-107) L Carbon Dioxide Level 23 MMOL/L (21-32) Anion Gap 13 mmol/L (5-15) Blood Urea Nitrogen 22 mg/dL (7-18) H Creatinine 1.7 MG/DL (0.55-1.30) H Estimat Glomerular Filtration Rate 51.5 mL/min (>60) Glucose Level 368 MG/DL (74-106) H Calcium Level 8.3 MG/DL (8.5-10.1) L Troponin I 0.133 ng/mL (0.000-0.056) 1.217 ng/mL (0.000-0.056) POC Whole Blood Glucose Pending Test 03/15/20 05:10 03/15/20 06:55 White Blood Count 17.1 K/UL (4.8-10.8) H Red Blood Count 4.85 M/UL (4.70-6.10) Hemoglobin 12.2 G/DL (14.2-18.0) L Hematocrit 38.1 % (42.0-52.0) L Mean Corpuscular Volume 78 FL (80-99) L Mean Corpuscular Hemoglobin 25.2 PG (27.0-31.0) L Mean Corpuscular Hemoglobin Concent 32.2 G/DL (32.0-36.0) Red Cell Distribution Width 13.3 % (11.6-14.8) Platelet Count 242 K/UL (150-450) Mean Platelet Volume 7.9 FL (6.5-10.1) Neutrophils (%) (Auto) % (45.0-75.0) Lymphocytes (%) (Auto) % (20.0-45.0) Monocytes (%) (Auto) % (1.0-10.0) Eosinophils (%) (Auto) % (0.0-3.0) Basophils (%) (Auto) % (0.0-2.0) Differential Total Cells Counted 100 Neutrophils % (Manual) 86 % (45-75) H Lymphocytes % (Manual) 7 % (20-45) L Monocytes % (Manual) 7 % (1-10) Eosinophils % (Manual) 0 % (0-3) Basophils % (Manual) 0 % (0-2) Band Neutrophils 0 % (0-8) Platelet Estimate Adequate Platelet Morphology Normal Anisocytosis 1+ Microcytosis 1+ Sodium Level 141 MMOL/L (136-145) Potassium Level 5.6 MMOL/L (3.5-5.1) H Chloride Level 104 MMOL/L (98-107) Carbon Dioxide Level 28 MMOL/L (21-32) Anion Gap 9 mmol/L (5-15) Blood Urea Nitrogen 27 mg/dL (7-18) H Creatinine 2.2 MG/DL (0.55-1.30) H Estimat Glomerular Filtration Rate 38.3 mL/min (>60) Glucose Level 310 MG/DL (74-106) H Calcium Level 7.6 MG/DL (8.5-10.1) L Magnesium Level 3.3 MG/DL (1.8-2.4) H Total Bilirubin 0.3 MG/DL (0.2-1.0) Aspartate Amino Transf (AST/SGOT) 23 U/L (15-37) Alanine Aminotransferase (ALT/SGPT) 46 U/L (12-78) Alkaline Phosphatase 168 U/L (46-116) H Troponin I 1.245 ng/mL (0.000-0.056) Pro-B-Type Natriuretic Peptide 86513 pg/mL (0-125) H Total Protein 6.7 G/DL (6.4-8.2) Albumin 1.8 G/DL (3.4-5.0) L Globulin 4.9 g/dL Albumin/Globulin Ratio 0.4 (1.0-2.7) L Thyroid Stimulating Hormone (TSH) 0.753 uiU/mL (0.358-3.740) Cortisol AM Sample Pending Random Vancomycin Level 4.0 ug/mL Arterial Blood pH 7.192 (7.350-7.450) Arterial Blood Partial Pressure CO2 66.7 mmHg (35.0-45.0) *H Arterial Blood Partial Pressure O2 53.6 mmHg (75.0-100.0) L Arterial Blood HCO3 25.0 mmol/L (22.0-26.0) Arterial Blood Oxygen Saturation 81.9 % (95-100) *L Arterial Blood Base Excess -4.4 (-2-2) L Gutierrez Test Positive Objective: comatose on vent ETT coarse breath sounds bilaterally [id number] tachy presently noted edema no bowel sounds comatose Micro: Microbiology Date/Time Source Procedure Growth Status 03/14/20 02:10 Blood Blood Culture - Preliminary NO GROWTH AFTER 24 HOURS Resulted 03/14/20 02:00 Blood Blood Culture - Preliminary NO GROWTH AFTER 24 HOURS Resulted 03/14/20 03:05 Nasopharynx SARS-CoV-2 RdRp Gene Assay - Final Complete 03/14/20 12:20 Foot Right Gram Stain - Final Resulted 03/14/20 12:20 Foot Right Aerobic Culture Pending Resulted Accucheck: 297 Christopher Moody MD Mar 15, 2020 08:42
[2020-03-15] MEDS ORDERED: Sodium Polystyrene Sulfonate 15gm Powder ORAL SCH (08:45)
[2020-03-15] MEDS: Vancomycin 1.5gm/NS Premix IVPB ONE ×2 (09:00→10:29)
[2020-03-15] MEDS ORDERED: Enoxaparin 40mg Inj SUBQ SCH ×2 (09:00)
[2020-03-15] MEDS: propofoL 1,000mg/100ml 100 ML IV SCH ×2 (11:57→12:12)
--- NOTE | 2020-03-15 11:59 | Infectious Diseases Prog Note ---
Assessment/Plan Assessment/Plan antibiotics : vancomycin iv, zosyn A 1. right foot necrotizing fasciitis s/p debridement 2. leucocytosis improving 3. renal failure 4. diabetes mellitus 5. hypertension 6. respiratory failure 7. shock P 1. continue zosyn 2. d/c iv vancomycin 3. start linezolid 4. will follow up cultures Subjective ROS Limited/Unobtainable: Yes Allergies: Coded Allergies: CEPHALEXIN (Verified Allergy, Unknown, 03/14/20) severe abdominal pain and vomiting per pt CODEINE (Verified Allergy, Unknown, 03/27/11) METOCLOPRAMIDE (Verified Allergy, Unknown, 02/01/18) MORPHINE (Verified Allergy, Unknown, ITCH, 03/27/11) Objective Last 24 Hour Vital Signs Date Time Temp Pulse Resp B/P (MAP) Pulse Ox O2 Delivery O2 Flow Rate FiO2 03/15/20 10:39 115 28 100 03/15/20 09:45 147 20 153/84 (107) 100 03/15/20 09:42 148 28 159/88 (111) 91 03/15/20 09:40 131 27 162/93 (116) 03/15/20 09:38 115 24 39/10 (20) 03/15/20 09:15 136 28 127/94 (105) 89 03/15/20 09:00 111 27 132/69 (90) 100 03/15/20 08:45 106 14 107/58 (74) 100 03/15/20 08:43 106 20 86/55 (65) 100 03/15/20 08:41 83/50 03/15/20 08:39 104 27 83/50 (61) 100 03/15/20 08:30 105 24 84/53 (63) 100 03/15/20 08:27 104 25 87/48 (61) 100 03/15/20 08:15 117 15 92/60 (71) 100 03/15/20 08:06 137 28 100 03/15/20 08:04 146 14 157/91 (113) 03/15/20 08:00 Mechanical Ventilator Mechanical Ventilator 03/15/20 08:00 100 03/15/20 08:00 99.6 174 21 196/106 (136) 83 03/15/20 07:59 156 31 134/101 (112) 86 03/15/20 07:56 45 11 90/52 (65) 92 9/14/20 07:53 40 17 51/33 (39) 91 03/15/20 07:30 Mechanical Ventilator Mechanical Ventilator 03/15/20 07:30 114 18 128/67 (87) 89 03/15/20 07:00 123 21 129/79 (96) 90 03/15/20 06:50 108 23 100 03/15/20 06:30 102 14 101/68 (79) 83 03/15/20 06:30 102 14 03/15/20 06:00 120 16 111/69 (83) 98 03/15/20 05:30 104 13 99/56 (70) 100 03/15/20 05:00 105 11 110/66 (81) 99 03/15/20 04:30 104 12 100/62 (75) 95 03/15/20 04:00 Mechanical Ventilator Mechanical Ventilator 03/15/20 04:00 99.2 103 12 104/63 (77) 95 03/15/20 04:00 100 03/15/20 04:00 103 03/15/20 03:30 127 22 172/89 (116) 98 03/15/20 03:00 106 14 121/70 (87) 93 03/15/20 02:54 105 15 100 03/15/20 02:00 116 13 139/78 (98) 93 03/15/20 01:00 99 12 92/59 (70) 96 03/15/20 00:30 108 15 103/66 (78) 92 03/15/20 00:16 125 19 168/82 (110) 99 03/15/20 00:09 133 21 139/124 (129) 91 03/15/20 00:00 97.7 133 21 131/113 (119) 98 03/15/20 00:00 Mechanical Ventilator Mechanical Ventilator 03/15/20 00:00 133 03/15/20 00:00 100 03/14/20 23:30 108 16 116/69 (85) 100 03/14/20 23:04 108 16 100 03/14/20 23:00 110 15 121/68 (85) 100 03/14/20 22:30 111 15 118/70 (86) 100 03/14/20 22:15 110 16 113/68 (83) 96 03/14/20 22:00 111 16 109/74 (86) 94 03/14/20 21:45 120 16 120/76 (91) 97 03/14/20 21:44 123 17 121/76 (91) 97 03/14/20 21:36 141 29 184/99 (127) 97 03/14/20 21:30 145 31 193/157 (169) 94 03/14/20 21:00 114 20 92/68 (76) 91 03/14/20 20:43 132 22 162/84 (110) 99 03/14/20 20:30 138 27 188/97 (127) 98 03/14/20 20:15 137 24 157/118 (131) 98 03/14/20 20:00 98.6 110 15 105/65 (78) 99 03/14/20 20:00 Mechanical Ventilator Mechanical Ventilator 03/14/20 19:34 110 03/14/20 19:30 110 15 104/72 (83) 97 03/14/20 19:15 110 14 100 03/14/20 19:00 115 17 110/69 (83) 95 03/14/20 18:45 Mechanical Ventilator Mechanical Ventilator 03/14/20 18:45 100 03/14/20 18:00 106 15 120/74 (89) 100 03/14/20 17:07 50 03/14/20 17:00 108 15 112/69 (83) 100 03/14/20 16:00 98.2 109 17 137/73 (94) 100 03/14/20 16:00 Mechanical Ventilator Mechanical Ventilator 03/14/20 16:00 110 03/14/20 15:45 109 16 134/59 (84) 100 03/14/20 15:30 127/75 03/14/20 15:30 110 16 127/75 (92) 100 03/14/20 15:29 111 17 50 03/14/20 15:15 112 16 133/82 (99) 100 03/14/20 15:15 133/82 03/14/20 15:00 110 16 118/73 (88) 100 03/14/20 15:00 118/78 03/14/20 14:45 159/85 03/14/20 14:45 117 17 159/85 (109) 100 03/14/20 14:40 50 03/14/20 14:30 115 16 159/82 (107) 100 03/14/20 14:30 159/82 03/14/20 14:15 115 16 147/78 (101) 100 03/14/20 14:10 Mechanical Ventilator Mechanical Ventilator 03/14/20 14:00 114 16 137/76 (96) 100 03/14/20 14:00 137/76 03/14/20 13:45 119 15 166/89 (114) 100 03/14/20 13:45 166/89 03/14/20 13:35 50 03/14/20 13:30 118 15 76/52 (60) 100 03/14/20 13:17 104 16 100 Mechanical Ventilator 45.0 50 03/14/20 13:15 107 16 76/52 (60) 100 03/14/20 13:12 104 16 50 03/14/20 13:09 112 8 100 03/14/20 13:08 101 03/14/20 13:00 97.9 100 16 83/59 (67) 100 03/14/20 13:00 Mechanical Ventilator 03/14/20 13:00 83/59 Height (Feet): 5 Height (Inches): 10.00 Weight (Pounds): 208 HEENT: other - intubated Respiratory/Chest: lungs clear Cardiovascular: normal rate, regular rhythm, no gallop/murmur Abdomen: soft, non tender Extremities: no edema, other - right foot in dressings Microbiology Date/Time Source Procedure Growth Status 03/14/20 02:10 Blood Blood Culture - Preliminary NO GROWTH AFTER 24 HOURS Resulted 03/14/20 02:00 Blood Blood Culture - Preliminary NO GROWTH AFTER 24 HOURS Resulted 03/14/20 03:05 Nasopharynx SARS-CoV-2 RdRp Gene Assay - Final Complete 03/14/20 12:20 Foot Right Gram Stain - Final Resulted 03/14/20 12:20 Foot Right Aerobic Culture Pending Resulted Laboratory Tests Test 03/14/20 15:00 03/14/20 16:00 03/14/20 17:19 03/15/20 00:05 Arterial Blood pH 7.348 (7.350-7.450) Arterial Blood Partial Pressure CO2 40.7 mmHg (35.0-45.0) Arterial Blood Partial Pressure O2 65.4 mmHg (75.0-100.0) L Arterial Blood HCO3 21.9 mmol/L (22.0-26.0) L Arterial Blood Oxygen Saturation 92.5 % (95-100) L Arterial Blood Base Excess -3.5 (-2-2) L Gutierrez Test Positive White Blood Count 21.7 K/UL (4.8-10.8) H Red Blood Count 4.06 M/UL (4.70-6.10) L Hemoglobin 10.5 G/DL (14.2-18.0) L Hematocrit 31.9 % (42.0-52.0) L Mean Corpuscular Volume 79 FL (80-99) L Mean Corpuscular Hemoglobin 25.8 PG (27.0-31.0) L Mean Corpuscular Hemoglobin Concent 32.9 G/DL (32.0-36.0) Red Cell Distribution Width 13.6 % (11.6-14.8) Platelet Count 199 K/UL (150-450) Mean Platelet Volume 8.9 FL (6.5-10.1) Neutrophils (%) (Auto) 87.4 % (45.0-75.0) H Lymphocytes (%) (Auto) 3.6 % (20.0-45.0) L Monocytes (%) (Auto) 8.7 % (1.0-10.0) Eosinophils (%) (Auto) 0.1 % (0.0-3.0) Basophils (%) (Auto) 0.2 % (0.0-2.0) Sodium Level 132 MMOL/L (136-145) L Potassium Level 5.2 MMOL/L (3.5-5.1) H Chloride Level 96 MMOL/L (98-107) L Carbon Dioxide Level 23 MMOL/L (21-32) Anion Gap 13 mmol/L (5-15) Blood Urea Nitrogen 22 mg/dL (7-18) H Creatinine 1.7 MG/DL (0.55-1.30) H Estimat Glomerular Filtration Rate 51.5 mL/min (>60) Glucose Level 368 MG/DL (74-106) H Calcium Level 8.3 MG/DL (8.5-10.1) L Troponin I 0.133 ng/mL (0.000-0.056) 1.217 ng/mL (0.000-0.056) POC Whole Blood Glucose Pending Test 03/15/20 05:10 03/15/20 06:55 03/15/20 09:00 White Blood Count 17.1 K/UL (4.8-10.8) H Red Blood Count 4.85 M/UL (4.70-6.10) Hemoglobin 12.2 G/DL (14.2-18.0) L Hematocrit 38.1 % (42.0-52.0) L Mean Corpuscular Volume 78 FL (80-99) L Mean Corpuscular Hemoglobin 25.2 PG (27.0-31.0) L Mean Corpuscular Hemoglobin Concent 32.2 G/DL (32.0-36.0) Red Cell Distribution Width 13.3 % (11.6-14.8) Platelet Count 242 K/UL (150-450) Mean Platelet Volume 7.9 FL (6.5-10.1) Neutrophils (%) (Auto) % (45.0-75.0) Lymphocytes (%) (Auto) % (20.0-45.0) Monocytes (%) (Auto) % (1.0-10.0) Eosinophils (%) (Auto) % (0.0-3.0) Basophils (%) (Auto) % (0.0-2.0) Differential Total Cells Counted 100 Neutrophils % (Manual) 86 % (45-75) H Lymphocytes % (Manual) 7 % (20-45) L Monocytes % (Manual) 7 % (1-10) Eosinophils % (Manual) 0 % (0-3) Basophils % (Manual) 0 % (0-2) Band Neutrophils 0 % (0-8) Platelet Estimate Adequate Platelet Morphology Normal Anisocytosis 1+ Microcytosis 1+ Sodium Level 141 MMOL/L (136-145) Potassium Level 5.6 MMOL/L (3.5-5.1) H Chloride Level 104 MMOL/L (98-107) Carbon Dioxide Level 28 MMOL/L (21-32) Anion Gap 9 mmol/L (5-15) Blood Urea Nitrogen 27 mg/dL (7-18) H Creatinine 2.2 MG/DL (0.55-1.30) H Estimat Glomerular Filtration Rate 38.3 mL/min (>60) Glucose Level 310 MG/DL (74-106) H Calcium Level 7.6 MG/DL (8.5-10.1) L Magnesium Level 3.3 MG/DL (1.8-2.4) H Total Bilirubin 0.3 MG/DL (0.2-1.0) Aspartate Amino Transf (AST/SGOT) 23 U/L (15-37) Alanine Aminotransferase (ALT/SGPT) 46 U/L (12-78) Alkaline Phosphatase 168 U/L (46-116) H Troponin I 1.245 ng/mL (0.000-0.056) Pro-B-Type Natriuretic Peptide 79511 pg/mL (0-125) H Total Protein 6.7 G/DL (6.4-8.2) Albumin 1.8 G/DL (3.4-5.0) L Globulin 4.9 g/dL Albumin/Globulin Ratio 0.4 (1.0-2.7) L Triglycerides Level Pending Thyroid Stimulating Hormone (TSH) 0.753 uiU/mL (0.358-3.740) Cortisol AM Sample Pending Random Vancomycin Level 4.0 ug/mL Arterial Blood pH 7.192 (7.350-7.450) 7.266 (7.350-7.450) Arterial Blood Partial Pressure CO2 66.7 mmHg (35.0-45.0) *H 45.2 mmHg (35.0-45.0) H Arterial Blood Partial Pressure O2 53.6 mmHg (75.0-100.0) L 61.0 mmHg (75.0-100.0) L Arterial Blood HCO3 25.0 mmol/L (22.0-26.0) 20.1 mmol/L (22.0-26.0) L Arterial Blood Oxygen Saturation 81.9 % (95-100) *L 89.3 % (95-100) *L Arterial Blood Base Excess -4.4 (-2-2) L -6.7 (-2-2) L Gutierrez Test Positive Positive Current Medications Medications (Trade) Dose Ordered Sig/Naye Route PRN Reason Start Time Stop Time Status Last Admin Dose Admin Acetaminophen (Tylenol) 650 mg Q4H PRN ORAL Mild Pain (Pain Scale 1-3) 03/14/20 14:22 04/13/20 14:21 Acetaminophen (Tylenol) 650 mg Q4H PRN RECTAL FEVER 03/14/20 14:22 04/13/20 14:21 Al Hydroxide/Mg Hydroxide (Mylanta) 30 ml Q4H PRN ORAL Abdominal cramps 03/14/20 14:33 04/13/20 14:32 Chlorhexidine Gluconate (Kristen-Hex 2%) 1 applic DAILY@2000 TOPIC 03/14/20 20:00 06/12/20 19:59 03/14/20 20:35 Dextrose (Dextrose 50%) 25 ml Q30M PRN IV Hypoglycemia 03/14/20 14:30 06/12/20 05:59 Dextrose (Dextrose 50%) 50 ml Q30M PRN IV Hypoglycemia 03/14/20 14:30 06/12/20 05:59 Dopamine HCl/ Dextrose 250 ml @ 0 mls/hr Q24H IV 03/15/20 13:15 06/12/20 13:14 Hydromorphone HCl (Dilaudid) 1 mg Q3H PRN IVP For Moderate Pain 03/14/20 17:15 03/21/20 08:14 03/14/20 18:45 Hydromorphone HCl (Dilaudid) 2 mg Q3H PRN IVP For severe pain 03/14/20 17:15 03/21/20 08:14 03/15/20 03:27 Insulin Aspart (NovoLOG) BEFORE MEALS AND HS SUBQ 03/14/20 16:30 06/12/20 06:29 03/15/20 06:08 Metoprolol Tartrate (Lopressor) 12.5 mg Q12HR NG 03/15/20 21:00 06/13/20 20:59 Norepinephrine Bitartrate 4 mg/ Dextrose 250 ml @ 0 mls/hr Q24H IV 03/15/20 13:15 04/13/20 13:14 03/15/20 08:41 Pantoprazole (Protonix) 40 mg DAILY ORAL 03/15/20 09:00 04/13/20 08:59 Piperacillin Sod/ Tazobactam Sod 3.375 gm/Sodium Chloride 110 ml @ 27.5 mls/hr Q8H IVPB 03/14/20 18:00 03/21/20 09:59 03/15/20 01:48 Propofol 100 ml @ 0 mls/hr Q12H IV 03/15/20 12:00 03/17/20 11:59 Sodium Chloride 1,000 ml @ 50 mls/hr Q20H IV 9/13/20 14:30 04/13/20 13:59 03/15/20 09:51 Vancomycin HCl ([facility] pharmacy to dose) 1 ea DAILY [facility] [place] 03/14/20 14:30 04/13/20 08:59 Jolie Wiggins MD Mar 15, 2020 11:59
--- NOTE | 2020-03-15 12:54 | General Surgery Progress Note ---
General Surgery-Progress Note Subjective Additional Comments patient on levophed gasping for breathing Objective Last 24 Hour Vital Signs Date Time Temp Pulse Resp B/P (MAP) Pulse Ox O2 Delivery O2 Flow Rate FiO2 03/15/20 12:12 32 162/92 Endotracheal Tube 100 03/15/20 11:57 33 164/73 Endotracheal Tube 100 03/15/20 10:39 115 28 100 03/15/20 09:45 147 20 153/84 (107) 100 03/15/20 09:42 148 28 159/88 (111) 91 03/15/20 09:40 131 27 162/93 (116) 03/15/20 09:38 115 24 39/10 (20) 03/15/20 09:15 136 28 127/94 (105) 89 03/15/20 09:00 111 27 132/69 (90) 100 03/15/20 08:45 106 14 107/58 (74) 100 03/15/20 08:43 106 20 86/55 (65) 100 03/15/20 08:41 83/50 03/15/20 08:39 104 27 83/50 (61) 100 03/15/20 08:30 105 24 84/53 (63) 100 03/15/20 08:27 104 25 87/48 (61) 100 03/15/20 08:15 117 15 92/60 (71) 100 03/15/20 08:06 137 28 100 03/15/20 08:04 146 14 157/91 (113) 03/15/20 08:00 Mechanical Ventilator Mechanical Ventilator 03/15/20 08:00 100 03/15/20 08:00 99.6 174 21 196/106 (136) 83 03/15/20 07:59 156 31 134/101 (112) 86 03/15/20 07:56 45 11 90/52 (65) 92 03/15/20 07:53 40 17 51/33 (39) 91 03/15/20 07:30 Mechanical Ventilator Mechanical Ventilator 03/15/20 07:30 114 18 128/67 (87) 89 03/15/20 07:00 123 21 129/79 (96) 90 03/15/20 06:50 108 23 100 03/15/20 06:30 102 14 101/68 (79) 83 03/15/20 06:30 102 14 03/15/20 06:00 120 16 111/69 (83) 98 03/15/20 05:30 104 13 99/56 (70) 100 03/15/20 05:00 105 11 110/66 (81) 99 03/15/20 04:30 104 12 100/62 (75) 95 03/15/20 04:00 Mechanical Ventilator Mechanical Ventilator 03/15/20 04:00 99.2 103 12 104/63 (77) 95 03/15/20 04:00 100 03/15/20 04:00 103 03/15/20 03:30 127 22 172/89 (116) 98 03/15/20 03:00 106 14 121/70 (87) 93 03/15/20 02:54 105 15 100 03/15/20 02:00 116 13 139/78 (98) 93 03/15/20 01:00 99 12 92/59 (70) 96 03/15/20 00:30 108 15 103/66 (78) 92 03/15/20 00:16 125 19 168/82 (110) 99 03/15/20 00:09 133 21 139/124 (129) 91 03/15/20 00:00 97.7 133 21 131/113 (119) 98 03/15/20 00:00 Mechanical Ventilator Mechanical Ventilator 03/15/20 00:00 133 03/15/20 00:00 100 03/14/20 23:30 108 16 116/69 (85) 100 03/14/20 23:04 108 16 100 03/14/20 23:00 110 15 121/68 (85) 100 03/14/20 22:30 111 15 118/70 (86) 100 03/14/20 22:15 110 16 113/68 (83) 96 03/14/20 22:00 111 16 109/74 (86) 94 03/14/20 21:45 120 16 120/76 (91) 97 03/14/20 21:44 123 17 121/76 (91) 97 03/14/20 21:36 141 29 184/99 (127) 97 03/14/20 21:30 145 31 193/157 (169) 94 03/14/20 21:00 114 20 92/68 (76) 91 03/14/20 20:43 132 22 162/84 (110) 99 9/13/20 20:30 138 27 188/97 (127) 98 03/14/20 20:15 137 24 157/118 (131) 98 03/14/20 20:00 98.6 110 15 105/65 (78) 99 03/14/20 20:00 Mechanical Ventilator Mechanical Ventilator 03/14/20 19:34 110 03/14/20 19:30 110 15 104/72 (83) 97 03/14/20 19:15 110 14 100 03/14/20 19:00 115 17 110/69 (83) 95 03/14/20 18:45 Mechanical Ventilator Mechanical Ventilator 03/14/20 18:45 100 03/14/20 18:00 106 15 120/74 (89) 100 03/14/20 17:07 50 03/14/20 17:00 108 15 112/69 (83) 100 03/14/20 16:00 98.2 109 17 137/73 (94) 100 03/14/20 16:00 Mechanical Ventilator Mechanical Ventilator 03/14/20 16:00 110 03/14/20 15:45 109 16 134/59 (84) 100 03/14/20 15:30 127/75 03/14/20 15:30 110 16 127/75 (92) 100 03/14/20 15:29 111 17 50 03/14/20 15:15 112 16 133/82 (99) 100 03/14/20 15:15 133/82 03/14/20 15:00 110 16 118/73 (88) 100 03/14/20 15:00 118/78 03/14/20 14:45 159/85 03/14/20 14:45 117 17 159/85 (109) 100 03/14/20 14:40 50 03/14/20 14:30 115 16 159/82 (107) 100 03/14/20 14:30 159/82 03/14/20 14:15 115 16 147/78 (101) 100 03/14/20 14:10 Mechanical Ventilator Mechanical Ventilator 03/14/20 14:00 114 16 137/76 (96) 100 03/14/20 14:00 137/76 03/14/20 13:45 119 15 166/89 (114) 100 03/14/20 13:45 166/89 03/14/20 13:35 50 03/14/20 13:30 118 15 76/52 (60) 100 03/14/20 13:17 104 16 100 Mechanical Ventilator 45.0 50 03/14/20 13:15 107 16 76/52 (60) 100 03/14/20 13:12 104 16 50 03/14/20 13:09 112 8 100 03/14/20 13:08 101 03/14/20 13:00 97.9 100 16 83/59 (67) 100 03/14/20 13:00 Mechanical Ventilator 03/14/20 13:00 83/59 I&O Intake and Output 03/14/20 03/15/20 19:00 07:00 Intake Total 819.375 ml 792.5 ml Output Total 1960 ml 680 ml Balance -1140.625 ml 112.5 ml Intake IV Total 819.375 ml 792.5 ml Output Urine Total 1960 ml 680 ml Dressing: dry Respiratory: clear Abdomen: soft, flat Extremities: other - wound open no drainage no erythema has small amount of gangrene Laboratory Tests Test 03/14/20 15:00 03/14/20 16:00 03/14/20 17:19 03/15/20 00:05 Arterial Blood pH 7.348 (7.350-7.450) Arterial Blood Partial Pressure CO2 40.7 mmHg (35.0-45.0) Arterial Blood Partial Pressure O2 65.4 mmHg (75.0-100.0) L Arterial Blood HCO3 21.9 mmol/L (22.0-26.0) L Arterial Blood Oxygen Saturation 92.5 % (95-100) L Arterial Blood Base Excess -3.5 (-2-2) L Gutierrez Test Positive White Blood Count 21.7 K/UL (4.8-10.8) H Red Blood Count 4.06 M/UL (4.70-6.10) L Hemoglobin 10.5 G/DL (14.2-18.0) L Hematocrit 31.9 % (42.0-52.0) L Mean Corpuscular Volume 79 FL (80-99) L Mean Corpuscular Hemoglobin 25.8 PG (27.0-31.0) L Mean Corpuscular Hemoglobin Concent 32.9 G/DL (32.0-36.0) Red Cell Distribution Width 13.6 % (11.6-14.8) Platelet Count 199 K/UL (150-450) Mean Platelet Volume 8.9 FL (6.5-10.1) Neutrophils (%) (Auto) 87.4 % (45.0-75.0) H Lymphocytes (%) (Auto) 3.6 % (20.0-45.0) L Monocytes (%) (Auto) 8.7 % (1.0-10.0) Eosinophils (%) (Auto) 0.1 % (0.0-3.0) Basophils (%) (Auto) 0.2 % (0.0-2.0) Sodium Level 132 MMOL/L (136-145) L Potassium Level 5.2 MMOL/L (3.5-5.1) H Chloride Level 96 MMOL/L (98-107) L Carbon Dioxide Level 23 MMOL/L (21-32) Anion Gap 13 mmol/L (5-15) Blood Urea Nitrogen 22 mg/dL (7-18) H Creatinine 1.7 MG/DL (0.55-1.30) H Estimat Glomerular Filtration Rate 51.5 mL/min (>60) Glucose Level 368 MG/DL (74-106) H Calcium Level 8.3 MG/DL (8.5-10.1) L Troponin I 0.133 ng/mL (0.000-0.056) 1.217 ng/mL (0.000-0.056) POC Whole Blood Glucose Pending Test 03/15/20 05:10 03/15/20 06:55 03/15/20 09:00 White Blood Count 17.1 K/UL (4.8-10.8) H Red Blood Count 4.85 M/UL (4.70-6.10) Hemoglobin 12.2 G/DL (14.2-18.0) L Hematocrit 38.1 % (42.0-52.0) L Mean Corpuscular Volume 78 FL (80-99) L Mean Corpuscular Hemoglobin 25.2 PG (27.0-31.0) L Mean Corpuscular Hemoglobin Concent 32.2 G/DL (32.0-36.0) Red Cell Distribution Width 13.3 % (11.6-14.8) Platelet Count 242 K/UL (150-450) Mean Platelet Volume 7.9 FL (6.5-10.1) Neutrophils (%) (Auto) % (45.0-75.0) Lymphocytes (%) (Auto) % (20.0-45.0) Monocytes (%) (Auto) % (1.0-10.0) Eosinophils (%) (Auto) % (0.0-3.0) Basophils (%) (Auto) % (0.0-2.0) Differential Total Cells Counted 100 Neutrophils % (Manual) 86 % (45-75) H Lymphocytes % (Manual) 7 % (20-45) L Monocytes % (Manual) 7 % (1-10) Eosinophils % (Manual) 0 % (0-3) Basophils % (Manual) 0 % (0-2) Band Neutrophils 0 % (0-8) Platelet Estimate Adequate Platelet Morphology Normal Anisocytosis 1+ Microcytosis 1+ Sodium Level 141 MMOL/L (136-145) Potassium Level 5.6 MMOL/L (3.5-5.1) H Chloride Level 104 MMOL/L (98-107) Carbon Dioxide Level 28 MMOL/L (21-32) Anion Gap 9 mmol/L (5-15) Blood Urea Nitrogen 27 mg/dL (7-18) H Creatinine 2.2 MG/DL (0.55-1.30) H Estimat Glomerular Filtration Rate 38.3 mL/min (>60) Glucose Level 310 MG/DL (74-106) H Calcium Level 7.6 MG/DL (8.5-10.1) L Magnesium Level 3.3 MG/DL (1.8-2.4) H Total Bilirubin 0.3 MG/DL (0.2-1.0) Aspartate Amino Transf (AST/SGOT) 23 U/L (15-37) Alanine Aminotransferase (ALT/SGPT) 46 U/L (12-78) Alkaline Phosphatase 168 U/L (46-116) H Troponin I 1.245 ng/mL (0.000-0.056) Pro-B-Type Natriuretic Peptide 48384 pg/mL (0-125) H Total Protein 6.7 G/DL (6.4-8.2) Albumin 1.8 G/DL (3.4-5.0) L Globulin 4.9 g/dL Albumin/Globulin Ratio 0.4 (1.0-2.7) L Triglycerides Level 135 MG/DL (30-150) Thyroid Stimulating Hormone (TSH) 0.753 uiU/mL (0.358-3.740) Cortisol AM Sample Pending Random Vancomycin Level 4.0 ug/mL Arterial Blood pH 7.192 (7.350-7.450) 7.266 (7.350-7.450) Arterial Blood Partial Pressure CO2 66.7 mmHg (35.0-45.0) *H 45.2 mmHg (35.0-45.0) H Arterial Blood Partial Pressure O2 53.6 mmHg (75.0-100.0) L 61.0 mmHg (75.0-100.0) L Arterial Blood HCO3 25.0 mmol/L (22.0-26.0) 20.1 mmol/L (22.0-26.0) L Arterial Blood Oxygen Saturation 81.9 % (95-100) *L 89.3 % (95-100) *L Arterial Blood Base Excess -4.4 (-2-2) L -6.7 (-2-2) L Gutierrez Test Positive Positive Assessment Additional Comments infected gangrenous diabetic right foot Plan Additional Comments his condition is critical cardiology is involved Glen Chew MD Mar 15, 2020 12:54
--- NOTE | 2020-03-15 13:03 | Diagnostic Imaging Report ---
EXAM: ULTRASOUND US Renal Comp CLINICAL HISTORY: Abdominal pain. COMPARISON: None TECHNIQUE: Ultrasound examination of the kidneys includes grayscale images, and color and spectral doppler analysis. FINDINGS: The right kidney measures 12 x 4.4 x 5.5 cm and the left kidney measures 11.1 x 5.6 x 5.1 cm. Cortical thickness and echogenicity are within normal limits. There is no hydronephrosis or stone seen bilaterally. There is a [place] catheter noted in the bladder. IMPRESSION: NO SIGN OF ACUTE DISEASE.
[2020-03-15] MEDS ORDERED: DOPamine 400mg/250ml 250 ML IV SCH (13:15)
--- NOTE | 2020-03-15 13:20 | Cardiac Electrophysiology PN ---
Subjective Subjective [id number] Objective Last 24 Hour Vital Signs Date Time Temp Pulse Resp B/P (MAP) Pulse Ox O2 Delivery O2 Flow Rate FiO2 03/15/20 12:12 32 162/92 Endotracheal Tube 100 03/15/20 11:57 33 164/73 Endotracheal Tube 100 03/15/20 10:39 115 28 100 03/15/20 09:45 147 20 153/84 (107) 100 03/15/20 09:42 148 28 159/88 (111) 91 03/15/20 09:40 131 27 162/93 (116) 03/15/20 09:38 115 24 39/10 (20) 03/15/20 09:15 136 28 127/94 (105) 89 03/15/20 09:00 111 27 132/69 (90) 100 03/15/20 08:45 106 14 107/58 (74) 100 03/15/20 08:43 106 20 86/55 (65) 100 03/15/20 08:41 83/50 03/15/20 08:39 104 27 83/50 (61) 100 03/15/20 08:30 105 24 84/53 (63) 100 03/15/20 08:27 104 25 87/48 (61) 100 03/15/20 08:15 117 15 92/60 (71) 100 03/15/20 08:06 137 28 100 03/15/20 08:04 146 14 157/91 (113) 03/15/20 08:00 Mechanical Ventilator Mechanical Ventilator 03/15/20 08:00 100 03/15/20 08:00 99.6 174 21 196/106 (136) 83 03/15/20 07:59 156 31 134/101 (112) 86 03/15/20 07:56 45 11 90/52 (65) 92 03/15/20 07:53 40 17 51/33 (39) 91 03/15/20 07:30 Mechanical Ventilator Mechanical Ventilator 03/15/20 07:30 114 18 128/67 (87) 89 03/15/20 07:00 123 21 129/79 (96) 90 03/15/20 06:50 108 23 100 03/15/20 06:30 102 14 101/68 (79) 83 03/15/20 06:30 102 14 03/15/20 06:00 120 16 111/69 (83) 98 03/15/20 05:30 104 13 99/56 (70) 100 03/15/20 05:00 105 11 110/66 (81) 99 03/15/20 04:30 104 12 100/62 (75) 95 03/15/20 04:00 Mechanical Ventilator Mechanical Ventilator 03/15/20 04:00 99.2 103 12 104/63 (77) 95 03/15/20 04:00 100 03/15/20 04:00 103 03/15/20 03:30 127 22 172/89 (116) 98 03/15/20 03:00 106 14 121/70 (87) 93 03/15/20 02:54 105 15 100 03/15/20 02:00 116 13 139/78 (98) 93 03/15/20 01:00 99 12 92/59 (70) 96 03/15/20 00:30 108 15 103/66 (78) 92 03/15/20 00:16 125 19 168/82 (110) 99 03/15/20 00:09 133 21 139/124 (129) 91 03/15/20 00:00 97.7 133 21 131/113 (119) 98 03/15/20 00:00 Mechanical Ventilator Mechanical Ventilator 03/15/20 00:00 133 03/15/20 00:00 100 03/14/20 23:30 108 16 116/69 (85) 100 03/14/20 23:04 108 16 100 03/14/20 23:00 110 15 121/68 (85) 100 03/14/20 22:30 111 15 118/70 (86) 100 03/14/20 22:15 110 16 113/68 (83) 96 03/14/20 22:00 111 16 109/74 (86) 94 03/14/20 21:45 120 16 120/76 (91) 97 03/14/20 21:44 123 17 121/76 (91) 97 03/14/20 21:36 141 29 184/99 (127) 97 03/14/20 21:30 145 31 193/157 (169) 94 03/14/20 21:00 114 20 92/68 (76) 91 03/14/20 20:43 132 22 162/84 (110) 99 03/14/20 20:30 138 27 188/97 (127) 98 03/14/20 20:15 137 24 157/118 (131) 98 03/14/20 20:00 98.6 110 15 105/65 (78) 99 03/14/20 20:00 Mechanical Ventilator Mechanical Ventilator 03/14/20 19:34 110 03/14/20 19:30 110 15 104/72 (83) 97 03/14/20 19:15 110 14 100 03/14/20 19:00 115 17 110/69 (83) 95 03/14/20 18:45 Mechanical Ventilator Mechanical Ventilator 03/14/20 18:45 100 03/14/20 18:00 106 15 120/74 (89) 100 03/14/20 17:07 50 03/14/20 17:00 108 15 112/69 (83) 100 03/14/20 16:00 98.2 109 17 137/73 (94) 100 03/14/20 16:00 Mechanical Ventilator Mechanical Ventilator 03/14/20 16:00 110 03/14/20 15:45 109 16 134/59 (84) 100 03/14/20 15:30 127/75 03/14/20 15:30 110 16 127/75 (92) 100 03/14/20 15:29 111 17 50 03/14/20 15:15 112 16 133/82 (99) 100 03/14/20 15:15 133/82 03/14/20 15:00 110 16 118/73 (88) 100 03/14/20 15:00 118/78 03/14/20 14:45 159/85 03/14/20 14:45 117 17 159/85 (109) 100 03/14/20 14:40 50 03/14/20 14:30 115 16 159/82 (107) 100 03/14/20 14:30 159/82 03/14/20 14:15 115 16 147/78 (101) 100 03/14/20 14:10 Mechanical Ventilator Mechanical Ventilator 03/14/20 14:00 114 16 137/76 (96) 100 03/14/20 14:00 137/76 03/14/20 13:45 119 15 166/89 (114) 100 03/14/20 13:45 166/89 03/14/20 13:35 50 03/14/20 13:30 118 15 76/52 (60) 100 Intake and Output 03/14/20 03/15/20 19:00 07:00 Intake Total 819.375 ml 792.5 ml Output Total 1960 ml 680 ml Balance -1140.625 ml 112.5 ml Intake IV Total 819.375 ml 792.5 ml Output Urine Total 1960 ml 680 ml Laboratory Tests Test 03/14/20 15:00 03/14/20 16:00 03/14/20 17:19 03/15/20 00:05 Arterial Blood pH 7.348 (7.350-7.450) Arterial Blood Partial Pressure CO2 40.7 mmHg (35.0-45.0) Arterial Blood Partial Pressure O2 65.4 mmHg (75.0-100.0) L Arterial Blood HCO3 21.9 mmol/L (22.0-26.0) L Arterial Blood Oxygen Saturation 92.5 % (95-100) L Arterial Blood Base Excess -3.5 (-2-2) L Gutierrez Test Positive White Blood Count 21.7 K/UL (4.8-10.8) H Red Blood Count 4.06 M/UL (4.70-6.10) L Hemoglobin 10.5 G/DL (14.2-18.0) L Hematocrit 31.9 % (42.0-52.0) L Mean Corpuscular Volume 79 FL (80-99) L Mean Corpuscular Hemoglobin 25.8 PG (27.0-31.0) L Mean Corpuscular Hemoglobin Concent 32.9 G/DL (32.0-36.0) Red Cell Distribution Width 13.6 % (11.6-14.8) Platelet Count 199 K/UL (150-450) Mean Platelet Volume 8.9 FL (6.5-10.1) Neutrophils (%) (Auto) 87.4 % (45.0-75.0) H Lymphocytes (%) (Auto) 3.6 % (20.0-45.0) L Monocytes (%) (Auto) 8.7 % (1.0-10.0) Eosinophils (%) (Auto) 0.1 % (0.0-3.0) Basophils (%) (Auto) 0.2 % (0.0-2.0) Sodium Level 132 MMOL/L (136-145) L Potassium Level 5.2 MMOL/L (3.5-5.1) H Chloride Level 96 MMOL/L (98-107) L Carbon Dioxide Level 23 MMOL/L (21-32) Anion Gap 13 mmol/L (5-15) Blood Urea Nitrogen 22 mg/dL (7-18) H Creatinine 1.7 MG/DL (0.55-1.30) H Estimat Glomerular Filtration Rate 51.5 mL/min (>60) Glucose Level 368 MG/DL (74-106) H Calcium Level 8.3 MG/DL (8.5-10.1) L Troponin I 0.133 ng/mL (0.000-0.056) 1.217 ng/mL (0.000-0.056) POC Whole Blood Glucose Pending Test 03/15/20 05:10 03/15/20 06:55 03/15/20 09:00 White Blood Count 17.1 K/UL (4.8-10.8) H Red Blood Count 4.85 M/UL (4.70-6.10) Hemoglobin 12.2 G/DL (14.2-18.0) L Hematocrit 38.1 % (42.0-52.0) L Mean Corpuscular Volume 78 FL (80-99) L Mean Corpuscular Hemoglobin 25.2 PG (27.0-31.0) L Mean Corpuscular Hemoglobin Concent 32.2 G/DL (32.0-36.0) Red Cell Distribution Width 13.3 % (11.6-14.8) Platelet Count 242 K/UL (150-450) Mean Platelet Volume 7.9 FL (6.5-10.1) Neutrophils (%) (Auto) % (45.0-75.0) Lymphocytes (%) (Auto) % (20.0-45.0) Monocytes (%) (Auto) % (1.0-10.0) Eosinophils (%) (Auto) % (0.0-3.0) Basophils (%) (Auto) % (0.0-2.0) Differential Total Cells Counted 100 Neutrophils % (Manual) 86 % (45-75) H Lymphocytes % (Manual) 7 % (20-45) L Monocytes % (Manual) 7 % (1-10) Eosinophils % (Manual) 0 % (0-3) Basophils % (Manual) 0 % (0-2) Band Neutrophils 0 % (0-8) Platelet Estimate Adequate Platelet Morphology Normal Anisocytosis 1+ Microcytosis 1+ Sodium Level 141 MMOL/L (136-145) Potassium Level 5.6 MMOL/L (3.5-5.1) H Chloride Level 104 MMOL/L (98-107) Carbon Dioxide Level 28 MMOL/L (21-32) Anion Gap 9 mmol/L (5-15) Blood Urea Nitrogen 27 mg/dL (7-18) H Creatinine 2.2 MG/DL (0.55-1.30) H Estimat Glomerular Filtration Rate 38.3 mL/min (>60) Glucose Level 310 MG/DL (74-106) H Calcium Level 7.6 MG/DL (8.5-10.1) L Magnesium Level 3.3 MG/DL (1.8-2.4) H Total Bilirubin 0.3 MG/DL (0.2-1.0) Aspartate Amino Transf (AST/SGOT) 23 U/L (15-37) Alanine Aminotransferase (ALT/SGPT) 46 U/L (12-78) Alkaline Phosphatase 168 U/L (46-116) H Troponin I 1.245 ng/mL (0.000-0.056) Pro-B-Type Natriuretic Peptide 84570 pg/mL (0-125) H Total Protein 6.7 G/DL (6.4-8.2) Albumin 1.8 G/DL (3.4-5.0) L Globulin 4.9 g/dL Albumin/Globulin Ratio 0.4 (1.0-2.7) L Triglycerides Level 135 MG/DL (30-150) Thyroid Stimulating Hormone (TSH) 0.753 uiU/mL (0.358-3.740) Cortisol AM Sample Pending Random Vancomycin Level 4.0 ug/mL Arterial Blood pH 7.192 (7.350-7.450) 7.266 (7.350-7.450) Arterial Blood Partial Pressure CO2 66.7 mmHg (35.0-45.0) *H 45.2 mmHg (35.0-45.0) H Arterial Blood Partial Pressure O2 53.6 mmHg (75.0-100.0) L 61.0 mmHg (75.0-100.0) L Arterial Blood HCO3 25.0 mmol/L (22.0-26.0) 20.1 mmol/L (22.0-26.0) L Arterial Blood Oxygen Saturation 81.9 % (95-100) *L 89.3 % (95-100) *L Arterial Blood Base Excess -4.4 (-2-2) L -6.7 (-2-2) L Gutierrez Test Positive Positive Microbiology Date/Time Source Procedure Growth Status 03/14/20 02:10 Blood Blood Culture - Preliminary NO GROWTH AFTER 24 HOURS Resulted 03/14/20 02:00 Blood Blood Culture - Preliminary NO GROWTH AFTER 24 HOURS Resulted 03/14/20 03:05 Nasopharynx SARS-CoV-2 RdRp Gene Assay - Final Complete 03/14/20 12:20 Foot Right Gram Stain - Final Resulted 03/14/20 12:20 Foot Right Aerobic Culture Pending Resulted Rodolfo Scherer MD Mar 15, 2020 13:20
[2020-03-15] MEDS ORDERED: Sterile Water Irrig 1000ml IRRIG ONE (14:00)
[2020-03-15] MEDS ORDERED: Ketorolac 30mg Inj ONE (14:00)
[2020-03-15] MEDS ORDERED: NS 275ml ONE (14:00)
[2020-03-15] MEDS ORDERED: Atropine Sulfate 0.4mg/ml inj ONE (14:00)
[2020-03-15] MEDS ORDERED: EPINEPHrine 1mg/1ml Amp ONE (14:00)
[2020-03-15] MEDS ORDERED: Rocuronium Bromide 50mg/5ml Inj IV ONE ×2 (14:01→14:52)
[2020-03-15] MEDS ORDERED: Isovue-M 300 15ml INJ ONE (14:13)
[2020-03-15] MEDS ORDERED: Lidocaine 1% Plain 30 ml INJ ONE (14:14)
[2020-03-15] MEDS ORDERED: fentaNYL 100 mcg/2 mL IV ONE (14:22)
[2020-03-15] MEDS ORDERED: Atropine Inj 1mg/10ml Syr ONE (15:44)
[2020-03-15] MEDS ORDERED: D5W 275ml ONE ×2 (15:44)
[2020-03-15] MEDS ORDERED: Calcium Chloride 10% 10ml carpuject IVP ONE (15:44)
[2020-03-15] MEDS ORDERED: Sodium Bicarbonate 8.4% 50ml Inj ONE (15:44)
[2020-03-15] MEDS ORDERED: D5W 550ml IV ONE (15:44)
--- NOTE | 2020-03-15 15:58 | Emergency Room Report ---
History of Present Illness General Chief Complaint: Skin Rash/Abscess Source: Patient Present Illness Allergies: Coded Allergies: CEPHALEXIN (Verified Allergy, Unknown, 03/14/20) severe abdominal pain and vomiting per pt CODEINE (Verified Allergy, Unknown, 03/27/11) METOCLOPRAMIDE (Verified Allergy, Unknown, 02/01/18) MORPHINE (Verified Allergy, Unknown, ITCH, 03/27/11) COVID-19 Screening Contact w/high risk pt: No Experienced COVID-19 symptoms?: No COVID-19 Testing performed NEUROLOGY EPILEPSY PHYSICIAN: No COVID-19 Screening: Negative COVID-19 Nursing Documentation-PMH Hx Cardiac Problems: Yes - Acute coronary syndrome Hx Hypertension: Yes Hx Diabetes: Yes Hx Cancer: No Hx Neurological Problems: No Physical Exam Vital Signs Date Time Temp Pulse Resp B/P (MAP) Pulse Ox O2 Delivery O2 Flow Rate FiO2 03/14/20 01:56 99.1 104 18 144/83 (103) 99 Room Air 03/14/20 13:12 50 03/14/20 13:17 45.0 Medical Decision Making Diagnostic Impression: Primary Impression: Uncontrolled type II diabetes mellitus Additional Impressions: Necrotizing fasciitis Anemia Cellulitis Hyponatremia Sepsis ER Course I was contacted after patient had cardiac arrest. Patient had CODE BLUE called after patient had bradycardia and arrest while having procedure for pacemaker placement. Patient history of complete heart block And was currently being paced without any successful capture. Patient had been noted previously to have some acidosis as well as some mild increase in potassium. CPR was ongoing on my arrival. Pacemaker appears to be in good position. Patient given epinephrine as well as atropine x2 prior to my arrival. Patient had no palpable pulses and CPR was continued. Patient was intubated and on ventilator. Patient was given multiple rounds of epi as well as calcium and bicarb. Patient had episodes of V. fib x2 and was subsequently defibrillated at 200J patient had no return of spontaneous circulation. Resuscitation effort were terminated. Patient was pronounced at 1545. Last Vital Signs Date Time Temp Pulse Resp B/P (MAP) Pulse Ox O2 Delivery O2 Flow Rate FiO2 03/15/20 12:12 32 162/92 Endotracheal Tube 100 03/15/20 12:00 132 03/15/20 09:45 100 03/15/20 08:00 99.6 03/14/20 13:17 45.0 Disposition: ADMITTED INPATIENT Condition: Serious Referrals: NON PHYSICIAN (PCP) Jesse Will MD Mar 15, 2020 15:58
--- NOTE | 2020-03-15 16:36 | Brief Operative Note ---
Immediate Post Operative Note Operative Note Pre-op Diagnosis: Intermittent complete heart block. Procedure: temporary transvenous pacer placement. Post-op Diagnosis: same as pre-op Specimen: none Complications: yes - temporary pacer was placed in successfuly , however patient develped hypotension and rachid even before the procedure and despite temporary pacer and extensive code, he could not be resucitated Condition: unstable - Fluids: none Implant(s) used?: No Rodolfo Scherer MD Mar 15, 2020 16:36
[2020-03-15] MEDS ORDERED: Metoprolol Tartrate 12.5mg TAB NG SCH (21:00)
--- NOTE | 2020-03-16 08:00 | Consultation ---
DATE OF CONSULTATION: 03/15/2020 CARDIAC ELECTROPHYSIOLOGY CONSULTATION CONSULTING PHYSICIAN: Rodolfo Scherer MD. REFERRING PHYSICIAN: Addi Gomez MD. ADDITIONAL REFERRING PHYSICIAN: Christopher Moody MD. REASON FOR CONSULTATION: Need for temporary pacemaker. HISTORY OF PRESENT ILLNESS: The patient is a 54-year-old gentleman who originally presented to the emergency room with leg pain, possible gangrene and possible fasciitis. The patient was taken to operating room for surgical debridement and developed hypotension and bradycardia, heart rate dropping to 20s. The patient received atropine and epinephrine. The patient was brought to intensive care unit and was intubated. Today, the patient had two more episodes of bradycardia with transient complete heart block with junctional escape and the patient received atropine. Following that, the patient developed supraventricular tachycardia. Giacomo episodes were initially at 07:50 a.m. and the patient received atropine and then the second episodes was at 09:27 when the patient was in complete heart block with junctional escape. The patient also had negative T-waves in inferolateral leads. The patient again received atropine and epinephrine. Cardiac electrophysiology consultation was requested for placement of a temporary pacemaker in this patient with recurrent transient complete heart blocks. REVIEW OF SYSTEMS: Cannot be obtained. PAST MEDICAL HISTORY: As mentioned above. FAMILY HISTORY: Noncontributory. SOCIAL HISTORY: He lives at home. Does not smoke or drink alcohol. PHYSICAL EXAMINATION: VITAL SIGNS: Show blood pressure of 162/92, pulse is ranging from 30s to 140s depending when he gets atropine , respirations 32. HEAD AND NECK: Shows no JVD. He is orally intubated with OG tube. LUNGS: Coarse rhonchi. CARDIOVASCULAR: Regular S1 and S2 with no gallop. ABDOMEN: Soft. EXTREMITIES: There is some right foot. LABORATORY DATA: Sodium 141, potassium 5.6, BUN 27, creatinine 2.2, glucose of 310. Troponin is 1.245, prior troponin was 1.21 and then 0.133 and prior to that was negative. White count is 21,000 decreased to 17, hemoglobin 12.2, hematocrit 38, and platelet count is 242. ASSESSMENT AND PLAN: 1. Recurrent transient complete heart block requiring atropine and epinephrine injection. The patient would need temporary transvenous pacemaker as this has been unpredictable and we do not know when his next episodes will be. Because of his tachycardia, the patient was put on metoprolol but obviously because of heart block the patient never received that and I will discontinue that. I discussed the risks and benefits of temporary transvenous pacemaker with the patient's , . Liliane Mixon with RN present at [phone] and she agrees and would like to proceed. 2. Episode of SVT at rate of 170s, these happen after atropine and epinephrine injection. After patient gets temporary pacemaker, he may benefit from a low dose beta-patrick although I recommend to hold off on that as these episodes mostly happen after epinephrine and atropine. 3. Status post septic shock, currently off pressors and IV antibiotic. 4. Chronic kidney disease, creatinine 2.2. 5. Non-ST elevation myocardial infarction with now EKG changes. The patient may need cardiac catheterization after stabilization. Further evaluation by Dr. Gomez. 6. Respiratory failure, on the ventilator. 7. Diabetic foot ulcer, status post debridement by Dr. Chew. The case was discussed with Dr. Chew as well as Dr. Gomez as well as ICU team. Thank you very much for allowing me to participate in the care of this patient. Please do not hesitate to contact me for any questions regarding my evaluation. Sincerely, Rodolfo Scherer M.D. DR: Uma JOB#: [id number] CC:
--- NOTE | 2020-03-16 08:01 | Consultation ---
DATE OF CONSULTATION: 03/14/2020 ADDENDUM After my initial evaluation of the patient, an echocardiogram was performed. Echocardiogram showed relatively well-preserved wall motion, ejection fraction approximately 50%. There was no significant valvular regurgitation. The RV was not dilated. The patient did have an IVC that was dilated. This was after the resuscitation with approximately 1 liter of IV fluid, maybe even more, at the time when the echocardiogram performed. The collision technician had just performed a venous duplex study of lower extremities. No deep venous thrombosis was noted. An arterial duplex of the lower extremity also performed. An abdominal aortic aneurysm evaluation was performed while he was there. No evidence of abnormal aortic aneurysm is noted at this time. In the meantime, the patient's blood pressure has improved to the 160s after fluid resuscitation. Heart rate tachycardic in the 115 to 110 range. Orders were given to taper down the pressors and serial enzymes, EKGs, and other laboratories were performed. I did discuss the case with Dr. Chew as well as notified Dr. Moody the findings of the echocardiogram and venous duplex study and the fact that the patient appeared to be hemodynamically much more stable than he had been on my initial arrival to the intensive care unit. Laboratories were ordered. Results of laboratories were pending including cardiac enzymes, repeat EKGs, and IV fluid was administered. An Infectious Disease consultation by Dr. Cuba had just finished seeing the patient at the time of my dictation of this addendum. Dr. Cuba was contemplating the choices of antibiotics. Dr. Moody had called in orders for ventilator setting and arterial blood gases were ordered by him and his staff in communication with Dr. Moody for management of the ventilator settings. Pressors will be titrated to maintain adequate blood pressure. Antibiotics were . There is no overt evidence of any myocardial infarction, and/or wall motion abnormalities on the echocardiogram, and being a large person, the possibility of other pulmonary issues were not excluded at least in my mind. We need further evaluation. Addi Gomez M.D. DR: MARIA ISABEL JOB#: [id number] CC:
--- NOTE | 2020-03-16 08:25 | Operative Note - Dictated ---
DATE OF OPERATION: 03/15/2020 INDICATION FOR THE PROCEDURE: Intermittent complete heart block resulting in profound bradycardia, multiple atropine and epinephrine injections. The patient had undergone right foot surgery in the operating room last night and had also developed hypotension and profound bradycardia was recorded and was transferred to ICU on the ventilator. These episodes of bradycardia recurred. The patient was evaluated in the electrophysiology consultation. After discussion with Dr. Gomez, the patient's primary carrier associate, decision was made to proceed with temporary transvenous pacemaker for heart rate stabilization. The patient was brought into the operating room in the fasting state and hypotension. These episodes started yesterday after debridement of the right diabetic foot ulcer in the OR. The patient was already intubated and was in intensive care unit. After the patient was evaluated in electrophysiology consultation, the case was discussed with Dr. Chew as well as the patient's carrier associate, Dr. Gomez, and the decision was made to proceed with temporary transvenous pacemaker implantation as the patient continued to have episodes of bradycardia and intermittent complete heart block requiring atropine and epinephrine injection while the patient was in intensive care unit. PROCEDURE PERFORMED: 1. Temporary transvenous pacemaker from right femoral vein. 2. Fluoroscopic supervision and interpretation. OPERATIVE REPORT: The patient was brought from intensive care unit on the ventilator with anesthesiologist at the bedside. Before starting the process of getting access for transvenous pacemaker while the patient was being prepped on the table, he had another episode of profound bradycardia with the heart rate dropping to 20 and hypotension. The patient received epinephrine again and atropine by the anesthesiologist. After he was prepped and draped under sterile condition, lidocaine was given to right femoral vein area. Direct access to right femoral vein was obtained with Seldinger technique and a 6-Spanish sheath was placed. A temporary transvenous pacemaker was placed under fluoroscopic guidance and was placed in right ventricular apex. This transvenous pacemaker was affixed on the . The patient had max output of 100 beats per minute. The patient, however, developed electromechanical dissociation and despite pacing did not have any pulse. A code was called immediately. Fluoroscopy confirmed the location of the temporary transvenous pacemaker in the right ventricular apex. The code was initiated by the emergency room physician and multiple doses of epinephrine and atropine were given including amps of bicarb. The patient also developed ventricular fibrillation four times and was cardioverted during the code every time to sinus rhythm/paced rhythm, but then would not generate any pulse. After extensive CPR and prolonged resuscitation, the patient remained asystolic with no blood pressure. This was despite the excellent location of temporary pacing wire and pacing the heart, but would not generate the QRS after pacing due to noncapture. The patient was pronounced by the emergency room physician who was running the code at 1545 hours. This was discussed with the patient's primary care physician, Dr. Moody, as well as the patient's carrier associate, Dr. Addi Gomez, as well as the patient's , Ms. Evelina Mixon, at [phone]. Rodolfo Scherer M.D. DR: mUa JOB#: [id number] CC:
[2020-03-16] MEDS ORDERED: Aspirin Baby 81mg NG SCH (09:00)
--- NOTE | 2020-03-16 10:05 | Anethesia Preoperative Eval ---
Anesthesia Pre-op PMH/ROS General Date of Evaluation: Mar 15, 2020 Time of Evaluation: 13:50 Anesthesiologist: Shereen ASA Score: ASA 5 Mallampati Score Class I : Soft palate, uvula, fauces, pillars visible Class II: Soft palate, uvula, fauces visible Class III: Soft palate, base of uvula visible Class IV: Only hard plate visible Mallampati Classification: Class II Surgeon: Bill Diagnosis: Septic shock recurrent bradycasrdia Surgical Procedure: Temporary pacemaker placement Anesthesia History: none Family History: no anesthesia problems Allergies: Coded Allergies: CEPHALEXIN (Verified Allergy, Unknown, 03/14/20) severe abdominal pain and vomiting per pt CODEINE (Verified Allergy, Unknown, 03/27/11) METOCLOPRAMIDE (Verified Allergy, Unknown, 02/01/18) MORPHINE (Verified Allergy, Unknown, ITCH, 03/27/11) Medications: see eMAR Patient NPO?: Yes Past Medical History Cardiovascular: Reports: HTN - h/o, CAD - ACS in the past, arrhythmia - at present admission recurrent episodes of bradycardia; Denies: NH, valve dz, other Pulmonary: Reports: MICKY - posssible , other - severe metabolic and respiratorty acidosis; Denies: asthma, COPD Gastrointestinal/Genitourinary: Reports: GERD, CRI; Denies: ESRD, other Neurologic/Psychiatric: Reports: depression/anxiety; Denies: dementia, CVA, TIA, other Endocrine: Reports: DM - poorly controlled, admitted with severe hyperglycemia ; Denies: hypothyroidism, steroids, other HEENT: Denies: cataract (L), cataract (R), glaucoma, [place] (L), [place] (R), other Hematology/Immune: Reports: anemia - mild, other - chronic wound R foot developed septic reaction ; Denies: DVT, bleeding disorder Musculoskeletal/Integumentary: Denies: OA, RA, DJD, DDD, edema, other Other: other - overwweight PMH Narrative: as above PSxH Narrative: L foot I&D Anesthesia Pre-op Phys. Exam Physician Exam Last Vital Signs Date Time Temp Pulse Resp B/P (MAP) Pulse Ox O2 Delivery O2 Flow Rate FiO2 03/15/20 14:05 117 32 118/66 (83) 96 03/15/20 14:00 Endotracheal Tube 100 03/15/20 12:00 99.1 03/14/20 13:17 45.0 Constitutional: NAD Neurologic: other - unable to ob taine Cardiovascular: RRR, no M/R/G, other - tachicardic off pressors at present time Respiratory: other - diminished breath sounds bilaterally, diffuse rhoncy and crackles Gastrointestinal: S/NT/ND, other - mildly distended Airway Exam Mallampati Score: Class II - oraly intubated MO: limited Neck: partialy paralized, muscle relaxant ROM: limited Teeth: missing Dentures: no upper, no lower Anesthesia Pre-op A/P Labs Chemistry Test 03/15/20 15:32 POC Whole Blood Glucose 436 MG/DL (74-106) H Risk Assessment & Plan Assessment: ASA 5E. Patient in ICU orally intubated sedated, partial paralysis, will be taken to OR with monitors, artificially ventilated. Condition remains critical, needs temporary cardiac pacing. Plan: GA Status Change Before Surgery: No Pre-Antibiotics Drug: as scheduled Brendan Regan MD Mar 16, 2020 10:05
--- NOTE | 2020-03-16 10:42 | Immediate Post-Op Evaluation ---
Immediate Post-Op Evalulation Immediate Post-Op Evalulation Procedure: Attempted temporary pacemaker placement Date of Evaluation: Mar 15, 2020 Time of Evaluation: 15:52 IV Fluids: 500 Blood Products: none Estimated Blood Loss: min Urinary Output: n/a Nausea: No Vomiting: No Complications During attempted pacemaker placement patient developed recurrent episodes of bradycardia treated with boluses of epinephrin and atropin. Code blue was called around 1500 and critical response team participated in resuscitation treatments. We were unable to reestablish normal rhythm despite of prolonged treatment. See anesthesia record and code blue records for details. Patient was pronounce at 15 45. Patient Status: no response Brendan Regan MD Mar 16, 2020 10:42
--- NOTE | 2020-03-16 13:45 | Discharge Summary ---
Discharge Summary Discharge Summary _ SUMMARY DATE OF ADMISSION: 03/14/2020 DATE OF EXPIRATION: 03/15/2020 REASON FOR ADMISSION: 54 years old male with past medical history of hypertension, diabetes mellitus, chronic foot ulcer, presented for evaluation for infected foot ulcer. Over the past 3 days he noticed that his right foot became more swollen with redness surrounding the foot ulcer, no active drainage. Per patient, blood sugar was 450 before arrival to emergency department . He did not eat dinner earlier. He took 6 units of insulin before arrival. Patient reported subjective fevers. No chills. He denied chest pain , shortness of breath, palpitations. No nausea , vomiting , abdominal pain, or diarrhea. No dysuria or flank pain. Upon evaluation laboratory work-up revealed leukocytosis WBC 21, hemoglobin 11.6 ,hematocrit 33.9 ,platelet counts 205. ESR 85. Glucose 394. BUN 21, creatinine 1.7. Sodium 128, potassium 4.8. Lactic acid 1.4. Troponin negative. Stable LFT. Albumin 2.6. Urinalysis revealed +2 protein ,+4 glucose, no evidence of UTI. X-ray of the right foot revealed soft tissue swelling and subcutaneous air laterally at the right midfoot , worrisome for diffuse cellulitis. CT scan of the right foot demonstrated large amount of gas and soft tissue pre dominantly along the lateral aspect of the right foot, likely related to gangrene. Associated cellulitis and diffuse soft tissue edema noted. Suspected early osteomyelitis of the right fifth metatarsal head. Surgeon was consulted from the emergency department regarding the high likelihood for necrotizing fasciitis. Surgeon seen and evaluated patient in emergency department and advised to keep patient n.p.o. in preparation for surgical exploration in the morning. Patient admitted with necrotizing fasciitis , cellulitis, sepsis , hyponatremia and diabetes mellitus [id number] . CONSULTANTS: summer clerk Dr. Gomez summer clerk/contracts analyst Dr. Bill OLVERA specialist Dr. Wiggins surgery Dr. Chew surgery Dr. Macias [facility]SE: Patient was kept n.p.o. , on empiric antibiotic . Patient was taken to operating room for debridement of the infected and gangrenous right foot ulcer. Patient undergone debridement mainly on the lateral side of the dorsum and the plantar surface ; there was more necrotic tissue, but anesthesiologist noted that patient was bradycardic and did not respond to atropine. Procedure was terminated . Patient was transferred to ICU for further management. Patient required initiation of pressors. Hemodynamic status was closely monitored with goal to keep mean arterial blood pressure above 65 . Echocardiogram revealed relatively well-preserved wall motion with ejection fraction of approximately 50%, no significant valvular abnormalities , no vegetation. Venous duplex bilateral lower extremity revealed no evidence of acute DVT. Arterial Doppler of lower extremity revealed mild to moderate diffuse plaque to both legs , resulting in abnormal waveforms. No occlusion or clear focal high-grade stenosis. The most severe disease noted in the left calf . At the time of this dictation blood culture preliminary negative. Right foot wound culture revealed gram-negative bacilli . Patient was continued on antibiotics. Renal parameters and electrolytes were closely monitored. Renal ultrasound revealed no signs of acute disease. Normal kidney echogenicity bilaterally, no hydronephrosis or stones were seen. Creatinine the next day increased to 2.2. Hyponatremia resolved with IV hydration, sodium up to normal . Hyperkalemia was treated. Second troponin elevated 0.133 , then started to trend up 1.217 and 1.245. Per summer clerk patient will need cardiac catheterization when stable. Patient started on antiplatelet therapy with aspirin and beta-blockade. Blood sugar was managed with sliding scale of insulin. Coffee colored discharge was seen in orogastric tube early in the morning of 03/15. Hemoglobin improved actually from 10.5 03/14 up to 12.2 on 03/15. Patient started on PPI. Cardiac contracts analyst seen and evaluated patient and attempted temporary pacemaker placement on March 15. During attempted pacemaker placement patient developed recurrent episodes of bradycardia treated with boluses of epinephrine and atropine. CODE BLUE was called around 1500 . ACLS protocol initiated. Unfortunately all resuscitative efforts appeared to be futile. Patient was pronounced at 15:45 on 03/15. Cause of :cardiopulmonary arrest FINAL DIAGNOSES: Sepsis Septic shock Necrotizing fasciitis right foot Probable osteomyelitis Infected and gangrenous diabetic foot ulcer Status post debridement of the right foot ulcer Diabetes mellitus , poorly controlled Perioperative respiratory failure, intubated on vent Hypertension Recurrent transient complete heart block, requiring atropine and epinephrine Status post attempt of temporary transvenous pacemaker Chronic renal failure/chronic kidney disease Hyperkalemia Coffee-ground emesis , possible GI bleeding NSTEMI Hypertension Proteinuria History of femoral arterial thrombosis , 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 I was not involved in the patient's management. Kimberly Berman NP Mar 16, 2020 13:45
--- NOTE | 2020-03-17 21:30 | Cardiology Report ---
APPROVED REPORT EXAM: Two-dimensional and M-mode echocardiogram with Doppler and color Doppler. INDICATION LV FUNCTION M-Mode DIMENSIONS IVSd1.5 (0.7-1.1cm)Left Atrium (MM)3.2 (1.6-4.0cm) LVDd4.7 (3.5-5.6cm)Aortic Root3.2 (2.0-3.7cm) PWd1.0 (0.7-1.1cm)Aortic Cusp Exc.1.8 (1.5-2.0cm) IVSs1.1 cm LVDs3.4 (2.5-4.0cm) PWs1.1 cm <Conclusion> Normal left ventricular chamber size, systolic function and wall motion. Left ventricular ejection fraction estimated to be 50%. No evidence of pericardial fat or effusion. All other cardiac chamber sizes are within normal limits. Calcification of aortic valve with adequate cusp excursion. Thickened mitral valve leaflets with normal excursion. Mitral annulus and aortic root calcification. Pulmonic valve not well visualized. Normal tricuspid valve structure. IVC dilated at 2.3 cm without physiologic collapse suggestive of increased RA pressure,RAP estimated 15mmHg. A color flow and spectral Doppler study was performed and revealed: Trace aortic regurgitation. Trace mitral regurgitation. Mitral inflow indicates normal left ventricular diastolic function. Mild tricuspid regurgitation. Tricuspid systolic velocities suggests peak right ventricular systolic pressure of 23 mmHg. Protecol obtained per Dr Gomez request.
--- NOTE | 2020-03-17 21:47 | Cardiology Report ---
APPROVED REPORT EKG Measurement Heart [id number] [place] [id number] <Conclusion> Sinus tachycardia Nonspecific T wave abnormality Abnormal ECG
--- NOTE | 2020-03-17 21:54 | Cardiology Report ---
APPROVED REPORT EKG Measurement Heart [id number] [place] [id number] <Conclusion> Sinus tachycardia ST & T wave abnormality, consider inferior ischemia Abnormal ECG
--- NOTE | 2020-03-17 21:55 | Cardiology Report ---
APPROVED REPORT EKG Measurement Heart [id number] [id number] <Conclusion> Sinus tachycardia Otherwise normal ECG
== END 2020-03-15 15:45 | disposition expired | DRG 710 ==
LOC: EMR 02:06 → 2E 02:25 → EDBEDREQSVC 02:41 → EDBEDREQ 03:32 → ICU 12:59
PROC: 0KBV0ZZ Excision of Right Foot Muscle, Open Approach (ICD-10-PCS; 2020-03-14)
PROC: 06HY33Z Insertion of Infusion Device into Lower Vein, Percutaneous Approach (ICD-10-PCS; 2020-03-14)
PROC: 5A1945Z Respiratory Ventilation, 24-96 Consecutive Hours (ICD-10-PCS; 2020-03-14)
PROC: 02HK3NZ Insertion of Intracardiac Pacemaker into Right Ventricle, Percutaneous Approach (ICD-10-PCS; principal; 2020-03-15 14:00)
DX: A41.9 Sepsis, unspecified organism (principal); E11.65 Type 2 diabetes mellitus with hyperglycemia; E87.1 Hypo-osmolality and hyponatremia; M72.6 Necrotizing fasciitis; E11.52 Type 2 diabetes mellitus with diabetic peripheral angiopathy with gangrene; I96 Gangrene, not elsewhere classified; M86.9 Osteomyelitis, unspecified; Z88.6 Allergy status to analgesic agent; Z88.3 Allergy status to other anti-infective agents; Z88.8 Allergy status to other drugs, medicaments and biological substances; E11.621 Type 2 diabetes mellitus with foot ulcer; I97.791 Other intraoperative cardiac functional disturbances during other surgery; I49.01 Ventricular fibrillation; I12.9 Hypertensive chronic kidney disease with stage 1 through stage 4 chronic kidney disease, or unspecified chronic kidney disease; E11.22 Type 2 diabetes mellitus with diabetic chronic kidney disease; N18.9 Chronic kidney disease, unspecified; J95.821 Acute postprocedural respiratory failure; K92.2 Gastrointestinal hemorrhage, unspecified; I21.4 Non-ST elevation (NSTEMI) myocardial infarction; R65.21 Severe sepsis with septic shock; G47.33 Obstructive sleep apnea (adult) (pediatric); R00.1 Bradycardia, unspecified; E78.5 Hyperlipidemia, unspecified; Z79.4 Long term (current) use of insulin; I44.2 Atrioventricular block, complete; I97.710 Intraoperative cardiac arrest during cardiac surgery; Y83.8 Other surgical procedures as the cause of abnormal reaction of the patient, or of later complication, without mention of misadventure at the time of the procedure; E11.42 Type 2 diabetes mellitus with diabetic polyneuropathy; K21.9 Gastro-esophageal reflux disease without esophagitis; I47.1 Supraventricular tachycardia
CPT/HCPCS: 36415; 71045; 74018; 76770; 80048; 80053; 80202; 81003; 82009; 82533; 82550; 82553; 82803; 82962; 83605; 83735; 83880; 84443; 84478; 84484; 85007; 85025; 85651; 86140; 87040; 87070; 87075; 87181; 87205; 92950; 93005; 93306; 93925; 93970; 94002; 94003; 94150; 94664; 99291; A4246; J0171; J1815; J2405; J7030; S0077; U0002